=== PATIENT | female | born 1960 | race Caucasian/White ===

== ENCOUNTER → 2017-03-09 | Outpatient (CLI) | payer OTHER ==
[~2017-03-09] MED LIST: ACET-1311 PO; GRISEOFULVIN PO; QUET5TAB PO; SINUS MEDICATION; ZNTT/150 PO
--- NOTE | 2017-03-09 10:33 | DIAGNOSTIC IMAGING REPORT ---
CHEST 2 VIEWS ROUTINE HISTORY: Breast cancer. COMPARISON: PET CT 02/20/2016. FINDINGS: Linear density at the left lower lobe favors scarring or atelectasis. The lungs are otherwise clear. Subcentimeter nodules seen on the prior studies are too small to identify by this technique. The heart is normal in size. No pleural effusions. No pneumothorax. Postoperative changes consistent with bilateral breast reconstruction. IMPRESSION: No acute process. Electronically signed by: Michele Lee M.D. 03/09/2017 10:32 AM Dictated Date/Time: 03/09/2017 10:30 AM
== END | disposition home or self-care (01) ==
LOC: C.RAD 10:12
PROVIDERS: ATTEND Nurse Practitioner Family
DX: C50.919 Malignant neoplasm of unspecified site of unspecified female breast (principal)

== ENCOUNTER → 2017-08-24 | Outpatient (CLI) | payer OTHER ==
[~2017-08-24] MED LIST changes: +OPTIRAY 320 IV PRN
--- NOTE | 2017-08-24 08:43 | DIAGNOSTIC IMAGING REPORT ---
CT SCAN OF THE CHEST WITH IV CONTRAST CLINICAL HISTORY: Breast cancer. COMPARISON STUDY: Chest CT scans dated 03/10 and 06/29/2015. PET/CT dated 02/20/2016. TECHNIQUE: Following the IV administration of 93 cc of Optiray 320, CT scan of the thorax was performed from the thoracic inlet to the upper abdomen. Images are reviewed in the axial, sagittal, and coronal planes. IV contrast was administered without complication. A dose lowering technique was utilized adhering to the principles of ALARA. CT DOSE: 316.19 mGycm FINDINGS: Thyroid: Imaged portions of the thyroid gland are normal in size and attenuation. Thoracic aorta: The thoracic aorta is normal in caliber and demonstrates standard 3-vessel arch anatomy. No dissection is seen. Pulmonary vasculature: The pulmonary trunk is normal in caliber. There are no filling defects identified in the central pulmonary vessels to indicate pulmonary embolus. Note that this examination was not protocoled for evaluation of the pulmonary arteries. Heart: The heart is normal in size and configuration, and without pericardial effusion. Lungs and pleural spaces: Foci of linear atelectasis are present in the lingula. No airspace consolidation or pleural effusion is identified. The trachea and central airways are clear. A 4 mm left lower lobe pulmonary nodule is again seen on image #178. No new pulmonary nodule is identified there Mediastinum: There is no mediastinal lymphadenopathy. Lesly: Clear. Axillae: There is no axillary lymphadenopathy. Surgical clips are seen in the right axilla. Upper abdomen: Partially visualized upper abdominal viscera is within normal limits. Skeletal structures: No lytic or blastic bony lesions are seen. Soft tissues: There is evidence of bilateral mastectomy and bilateral breast implants. IMPRESSION: 1. There is no evidence of intrathoracic metastatic disease. 2. No airspace consolidation or pleural effusion is identified. 3. There is a 4 mm left lower lobe pulmonary nodule. This is unchanged from 06/29/2015 and of doubtful significance given 2 years of stability. No new pulmonary nodule is identified. 4. Additional findings as above. Electronically signed by: Jimmie Barrientos M.D. 08/24/2017 8:42 AM Dictated Date/Time: 08/24/2017 8:38 AM
== END | disposition home or self-care (01) ==
LOC: C.CTS 08:11
PROVIDERS: ATTEND Nurse Practitioner Family
DX: C50.919 Malignant neoplasm of unspecified site of unspecified female breast (principal); R91.1 Solitary pulmonary nodule

== ENCOUNTER 2023-05-18 14:22 | Inpatient (IN) ==
--- NOTE | 2023-05-18 16:06 | XRay Report ---
XR chest 1V not portable HISTORY: Chest pain, nonspecific COMPARISON: Chest CT 09/25/2022. FINDINGS: There is a new left upper lobe airspace opacity. Mild emphysema. No pneumothorax. The heart is normal in size. Surgical clips and implants again noted within the bilateral breasts. No acute fr actures identified. No evidence for pulmonary edema. IMPRESSION: A new left upper lobe airspace opacity. This likely represents a pneumonia. Follow-up chest x-ray in one to 2 months is recommended to ensure resolution. ACT 112: Negative or not required by law. Electronically signed by: Michele Lee M.D. 05/18/2023 4:05 PM
[2023-05-18 16:54] LABS: Basophils # (auto) 0.04 K/uL (0-0.2); Basophils % (auto) 0.4 %; Eosinophils % (auto) 0.9 %; Hematocrit (blood only) 41.6 % (37.0-47.0); Hemoglobin 14.4 g/dl (12.0-16.0); Immature Granulocytes # (auto) 0.06 K/uL (0.01-0.20); Immature Granulocytes % (auto) 0.5 %; Lymphocytes # (auto) 2.26 K/uL (1.2-3.4); Lymphocytes % (auto) 19.8 %; Mean Corpuscular Hgb Conc 34.6 g/dL (32.0-36.0); Mean Corpuscular Volume 89.5 fL (80.0-100.0); Mean Platelet Volume 9.3 fL (9.4-12.4); Monocytes # (auto) 0.81 K/uL (0.11-0.59); Monocytes % (auto) 7.1 %; Neutrophils # (auto) 8.12 K/uL (1.40-6.50); Neutrophils % (auto) 71.3 %; Platelet Count 374 K/uL (130-400); RDW Coefficient of Variation 12.9 % (11.5-14.5); RDW Standard Deviation 42.5 fL (36.4-46.3); Red Blood Count 4.65 M/uL (4.20-5.40); White Blood Count 11.39 K/ul (4.8-10.8)
[2023-05-18 17:16] LABS: Albumin Globulin Ratio 1.3 (0.9-2); Albumin Level 3.9 gm/dl (3.4-5.0); BUN Creatinine Ratio 19.4 (10-20); Bilirubin,Total 0.6 mg/dl (0.2-1.0); Creatinine Clr Calc Pharmacy 89.8 ml/min; Est GFR (Non-African American) 96.6 ml/min; Globulin 3.1 gm/dl (2.5-4.0); Potassium 3.8 mmol/L (3.5-5.1)
[2023-05-18 17:19] LABS: Troponin I High Sensitivity 5.6 pg/ml (0-14)
[2023-05-18 17:20] LABS: Prothrombin Time 10.6 Seconds (9.0-12.0)
--- NOTE | 2023-05-18 17:26 | Emergency Department Note ---
Impression & Plan Atypical chest pain, Left upper lobe pneumonia, Mediastinal lymphadenopathy ED Provider Note Provider: Kel Gaspar MD DATE OF SERVICE: 05/18/2023 CHIEF COMPLAINT: Left chest to shoulder pain. HISTORY OF PRESENT ILLNESS: Patient is a 62-year-old female history of breast cancer and prior breast surgery as well as distantly in 2000 for DVT presenting here today referred from the primary care office. Over the past week has been having the pain initially left breast and down the left shoulder blade to mid back moving back and forth. Maybe some fever at the office today. Denies leg swelling or recent travel. Denies abdominal symptoms. Maybe a little short of breath. Sent here to rule out PE. PAST MEDICAL HISTORY: As noted above MEDICATIONS: Reviewed home medications SOCIAL HISTORY: Smoker PHYSICAL EXAM: GENERAL: alert and oriented in no acute distress on stretcher Head: normocephalic and atraumatic EYES: No injection, discharge or icterus. NECK: Trachea midline. ENT: Mucous membranes pink and moist. LUNGS: Airway patent. No retractions with or tachypnea. HEART: Regular rate and rhythm. ABDOMEN: Soft and non-tender, without guarding or rebound. SKIN: Acyanotic, warm, dry, without rashes EXTREMITIES: Without swelling, tenderness or deformity NEUROLOGICAL: No focal deficits. No aphasia. No facial droop or slurred speech. Ambulatory. EK bpm normal sinus rhythm. No PVC or PAC. No acute ST segment elevation or depression with a QTc of 407. Patient's laboratory studies and imaging reviewed. Differential includes Cardiac ischemia, aortic dissection, pulmonary embolism, pneumothorax, pneumonia, pericarditis, myocarditis, esophageal rupture, GERD, cholecystitis, pancreatitis, musculoskeletal, as well as other pathologies. IMPRESSION/MEDICAL DECISION MAKING: Patient smoker referred with question of PE given left chest pain to shoulder. Doubt dissection. Not hypoxic here. Chest xray questions GINA consildation. Basic labs obtained. History of DVT, but no leg swelling or travel -- doubt current DVT. Sent for CTA PE for eval for PE however and/or to classify possible pneumonia. Labs with normal troponin and EKG reassuring. Doubt ACS/IN. No anemia. WBC slightly elevated but has been on steroids recently. CTA without PE but per reports shows no PE. There is evidence of mediastinal hilar lymphadenopathy concerning for metastatic disease as well as some interstitial thickening left upper lobe question pneumonia versus postradiation change versus lymphangitic tumor spread. Small pleural effusion noted. Discussed with patient findings. Will cover with antibiotics but was on prednisone last week likely explain the small leukocytosis. In discussion of the findings and the need for follow-up regarding the possible oncological suggestion here, she discussed with family and she wishes to stay for evaluation rather than go home and follow-up as an outpatient. Hospitalist contacted. DIAGNOSIS: Mediastinal lymphadenopathy, left upper lobe pneumonia, chest pain DISPOSITION: Evaluated by the hospitalist Patient was agreeable with this plan. Past Med/Surg History Social History Smoking Status: Current every day smoker Tobacco Type: Cigarettes Cigarettes Per Day: 20; Second Hand Exposure: Yes; Feels Safe at Home: Yes Allergies Allergies Allergy/AdvReac Type Severity Reaction Status Date / Time terbinafine Allergy Intermediate RASH Verified 05/18/23 18:24 adhesive Allergy Unknown HIVES AND Verified 05/18/23 18:24 RASH; WELTS FROM BANDAIDS amitriptyline Allergy Unknown Rash Verified 05/18/23 18:23 Home Meds Home Medications Medication Instructions Recorded Confirmed gabapentin 100 mg capsule 300 mg PO HS 05/18/23 05/18/23 magnesium oxide 400 mg PO QAM 05/18/23 05/18/23 multivitamin 1 tab PO DAILY 05/18/23 05/18/23 quetiapine 100 mg tablet 100 mg PO HS 05/18/23 05/18/23 riboflavin (vitamin B2) 400 mg 400 mg PO QAM 05/18/23 05/18/23 tablet Results & Data (ED) Vital Signs Vital Signs - 24 hr 05/18/23 14:35 05/18/23 16:28 05/18/23 16:38 Temperature 37.5 C Temperature Source Temporal Artery Scan Pulse Rate 106 H Pulse Rate [Radial] 98 H Respiratory Rate 20 17 Respiratory Effort / Characteristics Non-Labored Spontaneous Non-Labored Spontaneous Respiratory Depth Normal Normal Respiratory Pattern Regular Regular Blood Pressure 137/75 Blood Pressure [Right Arm] 123/76 Blood Pressure Mean 95 Blood Pressure Mean [Right Arm] 91 Blood Pressure Position [Right Arm] Pulse Oximetry 96 96 97 Oxygen Delivery Method Room Air Room Air Room Air Sepsis Recent Fever Within 48 Hours Yes Sepsis New/Unexplained Change in Mental Status No Sepsis Action Taken by Nursing No Action Required 05/18/23 16:45 05/18/23 18:00 05/18/23 19:24 Temperature Temperature Source Pulse Rate 96 H Pulse Rate [Radial] 76 93 H Respiratory Rate 17 18 Respiratory Effort / Characteristics Non-Labored Spontaneous Respiratory Depth Normal Respiratory Pattern Blood Pressure Blood Pressure [Right Arm] 123/74 133/74 Blood Pressure Mean Blood Pressure Mean [Right Arm] 90 93 Blood Pressure Position [Right Arm] Sitting Pulse Oximetry 95 93 Oxygen Delivery Method Room Air Room Air Sepsis Recent Fever Within 48 Hours Sepsis New/Unexplained Change in Mental Status Sepsis Action Taken by Nursing Laboratory Data 05/18/23 16:12 05/18/23 16:12 Lab Results 05/18/23 05/18/23 05/18/23 Range/Units 16:12 16:12 16:12 WBC 11.39 H (4.8-10.8) K/ul RBC 4.65 (4.20-5.40) M/uL Hgb 14.4 (12.0-16.0) g/dl Hct 41.6 (37.0-47.0) % MCV 89.5 (80.0-100.0) fL MCH 31.0 (25.0-34.0) pg MCHC 34.6 (32.0-36.0) g/dL RDW Std Deviation 42.5 (36.4-46.3) fL RDW Coeff of John Paul 12.9 (11.5-14.5) % Plt Count 374 (130-400) K/uL MPV 9.3 L (9.4-12.4) fL Immature Gran % (Auto) 0.5 % Neut % (Auto) 71.3 % Lymph % (Auto) 19.8 % Clayton % (Auto) 7.1 % Eos % (Auto) 0.9 % Baso % (Auto) 0.4 % Neut # (Auto) 8.12 H (1.40-6.50) K/uL Lymph # (Auto) 2.26 (1.2-3.4) K/uL Clayton # (Auto) 0.81 H (0.11-0.59) K/uL Eos # (Auto) 0.10 (0-0.50) K/uL Baso # (Auto) 0.04 (0-0.2) K/uL Immature Gran # (Auto) 0.06 (0.01-0.20) K/uL PT 10.6 (9.0-12.0) Seconds INR 1.0 (0.9-1.1) APTT 28.0 (21.0-31.0) Seconds PTT Ratio 1.0 Sodium 138 (136-145) mmol/L Potassium 3.8 (3.5-5.1) mmol/L Chloride 101 (98-107) mmol/L Carbon Dioxide 28 (21-32) mmol/L Anion Gap 9 (3-11) BUN 12 (6-23) mg/dl Creatinine 0.62 (0.6-1.2) mg/dl Est Cr Clr Drug Dosing 89.8 ml/min Est GFR ( Amer) 112.0 ml/min Est GFR (Non-Af Amer) 96.6 ml/min BUN/Creatinine Ratio 19.4 (10-20) Glucose 88 (70-99(Fasting)) mg/dl Calcium 9.0 (8.6-10.3) mg/dl Total Bilirubin 0.6 (0.2-1.0) mg/dl AST 15 (13-39) U/L ALT 17 (7-52) U/L Alkaline Phosphatase 83 (34-104) U/L Troponin I High Sens 5.6 (0-14) pg/ml Total Protein 7.0 (6.0-8.3) gm/dl Albumin 3.9 (3.4-5.0) gm/dl Globulin 3.1 (2.5-4.0) gm/dl Albumin/Globulin Ratio 1.3 (0.9-2) SARS-CoV-2, RNA, NAAT (NEGATIVE) 05/18/23 Range/Units 19:08 WBC (4.8-10.8) K/ul RBC (4.20-5.40) M/uL Hgb (12.0-16.0) g/dl Hct (37.0-47.0) % MCV (80.0-100.0) fL MCH (25.0-34.0) pg MCHC (32.0-36.0) g/dL RDW Std Deviation (36.4-46.3) fL RDW Coeff of John Paul (11.5-14.5) % Plt Count (130-400) K/uL MPV (9.4-12.4) fL Immature Gran % (Auto) % Neut % (Auto) % Lymph % (Auto) % Clayton % (Auto) % Eos % (Auto) % Baso % (Auto) % Neut # (Auto) (1.40-6.50) K/uL Lymph # (Auto) (1.2-3.4) K/uL Clayton # (Auto) (0.11-0.59) K/uL Eos # (Auto) (0-0.50) K/uL Baso # (Auto) (0-0.2) K/uL Immature Gran # (Auto) (0.01-0.20) K/uL PT (9.0-12.0) Seconds INR (0.9-1.1) APTT (21.0-31.0) Seconds PTT Ratio Sodium (136-145) mmol/L Potassium (3.5-5.1) mmol/L Chloride (98-107) mmol/L Carbon Dioxide (21-32) mmol/L Anion Gap (3-11) BUN (6-23) mg/dl Creatinine (0.6-1.2) mg/dl Est Cr Clr Drug Dosing ml/min Est GFR ( Amer) ml/min Est GFR (Non-Af Amer) ml/min BUN/Creatinine Ratio (10-20) Glucose (70-99(Fasting)) mg/dl Calcium (8.6-10.3) mg/dl Total Bilirubin (0.2-1.0) mg/dl AST (13-39) U/L ALT (7-52) U/L Alkaline Phosphatase (34-104) U/L Troponin I High Sens (0-14) pg/ml Total Protein (6.0-8.3) gm/dl Albumin (3.4-5.0) gm/dl Globulin (2.5-4.0) gm/dl Albumin/Globulin Ratio (0.9-2) SARS-CoV-2, RNA, NAAT NEGATIVE (NEGATIVE) Administered Medications Discontinued Medications Ceftriaxone Sodium (Rocephin) 2,000 mg in 70 mls @ 140 mls/hr IV NOW STA Stop: 05/18/23 19:34 Last Infusion: 05/18/23 19:47 Dose: 0 mls/hr Documented By: Admin: 05/18/23 19:16 Dose: 140 mls/hr Documented By: CC Ioversol (Ioversol 350 Mg 125ml Prefilled Syringe) 118 ml IV ONCE ONE Stop: 05/18/23 17:36 Last Admin: 05/18/23 17:36 Dose: 118 ml Documented By: MAIRA Imaging Data Radiologist's Impression: Chest X-Ray 05/18/23 14:40 XR chest 1V not portable HISTORY: Chest pain, nonspecific COMPARISON: Chest CT 09/25/2022. FINDINGS: There is a new left upper lobe airspace opacity. Mild emphysema. No pneumothorax. The heart is normal in size. Surgical clips and implants again noted within the bilateral breasts. No acute fractures identified. No evidence for pulmonary edema. IMPRESSION: A new left upper lobe airspace opacity. This likely represents a pneumonia. Follow-up chest x-ray in one to 2 months is recommended to ensure resolution. ACT 112: Negative or not required by law. Electronically signed by: Michele Lee M.D. 05/18/2023 4:05 PM Chest CTA 05/18/23 17:20 CHEST CTA for PULMONARY ARTERIES CT DOSE: 567.98 mGy.cm HISTORY: Left-sided chest pain. Shortness of breath. TECHNIQUE: Multiaxial CT images of the chest were performed following the intravenous administration of contrast to evaluate the pulmonary arteries. 3D/Maximal intensity projection images were also obtained. Sagittal and coronal reformations were also reviewed. A dose lowering technique was utilized adhering to the principles of ALARA. COMPARISON STUDY: Chest CT 09/25/2022. FINDINGS: Normal caliber thoracic aorta with no evidence for a dissection. The heart is normal in size. Trace pericardial effusion. Small left pleural effusion. Mild mass effect along the left central pulmonary arteries. However, n o filling defects within the pulmonary arteries to suggest a pulmonary embolus. Normal thyroid gland. Bilateral breast implant reconstruction is noted. Right axillary lymph node dissection. No axillary adenopathy. Limited views of the upper abdomen demonstrate a normal liver, spleen, and adrenal glands. Normal caliber esophagus. No right hilar lymphadenopathy. Multiple enlarged prevascular and left hilar lymph nodes. Dominant prevascular lymph node on image 158 measures 3.5 x 2.5 cm. These enlarged lymph nodes result in mass effect along the left main pulmonary artery. No suspicious lytic or blastic osseous lesions. Mild emphysema. Patchy areas of consolidation with interstitial thickening w ithin the left upper lobe. Left basilar linear densities favor subsegmental atelectasis from the small pleural effusion. The left upper lobe airspace opacity could be due to a pneumonia, post radiation change, or lymphangitic spread of tumor given the interstitial thickening. IMPRESSION: 1. No evidence for pulmonary embolus. 2. Left mediastinal/hilar lymphadenopathy. This concerning for metastatic disease. Pulmonary consultation recommended. 3. Patchy areas of consolidation with interstitial thickening within the left upper lobe which could be due to a pneumonia, post radiation change, or lymphangitic spread of tumor given the interstitial thickening. 4. Small left pleural effusion. ACT 112: Positive. There are findings on this exam that require communication between the performing entity and the patient following Patient Test Result Information Act ([place] Act 112) guidelines. Electronically signed by: Michele Lee M.D. 05/18/2023 6:04 PM Discharge Plan Visit Data Chief Complaint: Referred by Doctor Stated Complaint: REF BY DOC; POSSIBLE BLOOD CLOT IN LUNG ED Provider: Kel Gaspar Discharge Problem: Atypical chest pain, Left upper lobe pneumonia, Mediastinal lymphadenopathy Patient Disposition: Being Evaluated by Hospitalist Forms Stand Alone Forms: [facility] [place] Prescriptions Prescriptions: No Action quetiapine 100 mg tablet 100 mg PO HS gabapentin 100 mg capsule 300 mg PO HS riboflavin (vitamin B2) 400 mg Tablet 400 mg PO QAM multivitamin Tablet 1 tab PO DAILY magnesium oxide 400 mg magnesium Capsule 400 mg PO QAM Referrals Referrals: Carl Vargas MD [Primary Care Provider] - Left upper lobe pneumonia Qualifiers: Pneumonia type: due to unspecified organism Qualified Code(s): J18.9 - Pneumonia, unspecified organism
[2023-05-18] MEDS ORDERED: IOVERSOL 350 MG 125mL Prefilled Syringe IV ONE (17:35)
--- NOTE | 2023-05-18 18:07 | CT Scan Report ---
CHEST CTA for PULMONARY ARTERIES CT DOSE: 567.98 mGy.cm HISTORY: Left-sided chest pain. Shortness of breath. TECHNIQUE: Multiaxial CT images of the chest were performed following the intravenous administration of contrast to evaluate the pulmonary arteries. 3D/Maximal intensity projection images were also obta ined. Sagittal and coronal reformations were also reviewed. A dose lowering technique was utilized a dhering to the principles of ALARA. COMPARISON STUDY: Chest CT 09/25/2022. FINDINGS: Normal caliber thoracic aorta with no evidence for a dissection. The heart is normal in siz e. Trace pericardial effusion. Small left pleural effusion. Mild mass effect along the left central p ulmonary arteries. However, no filling defects within the pulmonary arteries to suggest a pulmonary e mbolus. Normal thyroid gland. Bilateral breast implant reconstruction is noted. Right axillary lymph node dissection. No axillary adenopathy. Limited views of the upper abdomen demonstrate a normal live r, spleen, and adrenal glands. Normal caliber esophagus. No right hilar lymphadenopathy. Multiple enl arged prevascular and left hilar lymph nodes. Dominant prevascular lymph node on image 158 measures 3 .5 x 2.5 cm. These enlarged lymph nodes result in mass effect along the left main pulmonary artery. N o suspicious lytic or blastic osseous lesions. Mild emphysema. Patchy areas of consolidation with int erstitial thickening within the left upper lobe. Left basilar linear densities favor subsegmental ate lectasis from the small pleural effusion. The left upper lobe airspace opacity could be due to a pneu monia, post radiation change, or lymphangitic spread of tumor given the interstitial thickening. IMPRESSION: 1. No evidence for pulmonary embolus. 2. Left mediastinal/hilar lymphadenopathy. This concerning for metastatic disease. Pulmonary consulta tion recommended. 3. Patchy areas of consolidation with interstitial thickening within the left upper lobe which could be due to a pneumonia, post radiation change, or lymphangitic spread of tumor given the interstitial thickening. 4. Small left pleural effusion. ACT 112: Positive. There are findings on this exam that require communication between the performing entity and the patient following Patient Test Result Information Act ([place] Act 112) guidelines. Electronically signed by: Michele Lee M.D. 05/18/2023 6:04 PM
[2023-05-18] MEDS ORDERED: cefTRIAXone SODIUM 2,000 MG/70 ML BAG IV STA (19:05)
--- NOTE | 2023-05-18 20:31 | History & Physical Report ---
Date of Service May 18, 2023 Assessment & Plan (1) Atypical chest pain: Plan: 62-year-old female with past medical significant for breast cancer status post bilateral mastectomy and radiation treatment and not interested in chemo, generalized osteoarthritis, meningioma, migraines ongoing tobacco abuse presents with shortness of breath and cough. Chest pain More on taking deep breath Dyspnea exertion CT chest 1. No evidence for pulmonary embolus. 2. Left mediastinal/hilar lymphadenopathy. This concerning for metastatic disease. Pulmonary consultation recommended. 3. Patchy areas of consolidation with interstitial thickening within the left upper lobe which could be due to a pneumonia, post radiation change, or lymphangitic spread of tumor given the interstitial thickening. 4. Small left pleural effusion. Empiric antibiotics IV Rocephin and Doxy Pulmonary consult Oncology consult Nebs as needed We will also get serial cardiac enzymes and echo Possible pneumonia Antibiotics as above History of breast cancer Lung lesions as above on CAT scan Oncology consulted Tobacco abuse Needs counseling History of migraines Home meds History of meningioma Follows with neurosurgery DVT prophylaxis Lovenox Disposition med/telemetry Full code (2) Left upper lobe pneumonia: (3) Mediastinal lymphadenopathy: (4) Breast cancer: History of Present Illness Chief Complaint: Shortness of breath Primary Care Provider: Carl Vargas MD 62-year-old female with past medical significant for breast cancer status post bilateral mastectomy and radiation treatment and not interested in chemo, generalized osteoarthritis, meningioma, migraines ongoing tobacco abuse presents with shortness of breath and cough. Recently CTA neck which showed focal groundglass opacity and nodular septal thickening in the left anterior upper lobe suspicious for lymphatic spread of tumor with associated mediastinal and left hilar lymphadenopathy. There is plan to get CT chest. She went to see PCP for ongoing exertional shortness of breath for 1 week and left-sided chest pain with deep breaths and sometimes with movement and she was sent to ER to rule out PE. Currently resting comfortably and hemodynamically stable. Daughter was in the room. She has s history of migraines and as some headache now. No earache runny nose or sore throat. Has chronic cough. Denies any fevers. No nausea vomiting. Appetite is good. No abdominal pain. Normal bowel and bladder movements. Past medical history as mentioned above Past surgical history bilateral mastectomy and breast reconstruction surgeries , biopsy of the left thigh. Family history aunt breast cancer, mother has cancer, father has cancer, paternal grandmother cancer Allergies Allergy/AdvReac Type Severity Reaction Status Date / Time terbinafine Allergy Intermediate RASH Verified 05/18/23 18:24 adhesive Allergy Unknown HIVES AND Verified 05/18/23 18:24 RASH; WELTS FROM BANDAIDS amitriptyline Allergy Unknown Rash Verified 05/18/23 18:23 Home Medications Medication Instructions Recorded Confirmed Type gabapentin 100 mg capsule 300 mg PO HS 05/18/23 05/18/23 History magnesium oxide 400 mg PO QAM 05/18/23 05/18/23 History multivitamin 1 tab PO DAILY 05/18/23 05/18/23 History quetiapine 100 mg tablet 100 mg PO HS 05/18/23 05/18/23 History riboflavin (vitamin B2) 400 mg 400 mg PO QAM 05/18/23 05/18/23 History tablet Past Med/Surg History Social History Smoking Status: Current every day smoker Tobacco Type: Cigarettes Cigarettes Per Day: 20; Second Hand Exposure: Yes; Feels Safe at Home: Yes Review of Systems Review of Systems: All systems reviewed & are unremarkable except as noted in Subjective Physical Exam Physical Exam: General- Not in distress Head- atraumatic Eyes- PERRLA ENT- oropharynx clear Neck- supple, no JVD Lungs- clear to auscultation and percussion Heart- regular rhythm; no murmur, no gallop, no rub appreciated Abdomen- normal bowel sounds, soft, nontender, no distension Extremities- no pretibial edema, no erythema. Neuro- alert, oriented x 3; PERRL, EOMI; no facial palsy; no dysarthria; non focal. Skin- warm & dry Results & Data Results & Data Vital Signs (Past 12 Hours) Vital Signs Temp Pulse Pulse Resp BP BP Pulse Ox 05/18/23 19:24 93 H 18 133/74 93 05/18/23 18:00 76 17 123/74 95 05/18/23 16:45 96 H 05/18/23 16:38 98 H 17 123/76 97 05/18/23 16:28 96 05/18/23 14:35 37.5 C 106 H 20 137/75 96 O2 Del Method 05/18/23 19:24 Room Air 05/18/23 18:00 Room Air 05/18/23 16:45 05/18/23 16:38 Room Air 05/18/23 16:28 Room Air 05/18/23 14:35 Room Air Diagnostic Findings Laboratory Results WBC 11.39 K/ul (4.8-10.8) H 05/18/23 16:12 RBC 4.65 M/uL (4.20-5.40) 05/18/23 16:12 Hgb 14.4 g/dl (12.0-16.0) 05/18/23 16:12 Hct 41.6 % (37.0-47.0) 05/18/23 16:12 MCV 89.5 fL (80.0-100.0) 05/18/23 16:12 MCH 31.0 pg (25.0-34.0) 05/18/23 16:12 MCHC 34.6 g/dL (32.0-36.0) 05/18/23 16:12 RDW Std Deviation 42.5 fL (36.4-46.3) 05/18/23 16:12 RDW Coeff of John Paul 12.9 % (11.5-14.5) 05/18/23 16:12 Plt Count 374 K/uL (130-400) 05/18/23 16:12 MPV 9.3 fL (9.4-12.4) L 05/18/23 16:12 Immature Gran % (Auto) 0.5 % 05/18/23 16:12 Neut % (Auto) 71.3 % 05/18/23 16:12 Lymph % (Auto) 19.8 % 05/18/23 16:12 [place] % (Auto) 7.1 % 05/18/23 16:12 Eos % (Auto) 0.9 % 05/18/23 16:12 Baso % (Auto) 0.4 % 05/18/23 16:12 Neut # (Auto) 8.12 K/uL (1.40-6.50) H 05/18/23 16:12 Lymph # (Auto) 2.26 K/uL (1.2-3.4) 05/18/23 16:12 [place] # (Auto) 0.81 K/uL (0.11-0.59) H 05/18/23 16:12 Eos # (Auto) 0.10 K/uL (0-0.50) 05/18/23 16:12 Baso # (Auto) 0.04 K/uL (0-0.2) 05/18/23 16:12 Immature Gran # (Auto) 0.06 K/uL (0.01-0.20) 05/18/23 16:12 PT 10.6 Seconds (9.0-12.0) 05/18/23 16:12 INR 1.0 (0.9-1.1) 05/18/23 16:12 APTT 28.0 Seconds (21.0-31.0) 05/18/23 16:12 PTT Ratio 1.0 05/18/23 16:12 Sodium 138 mmol/L (136-145) 05/18/23 16:12 Potassium 3.8 mmol/L (3.5-5.1) 05/18/23 16:12 Chloride 101 mmol/L (98-107) 05/18/23 16:12 Carbon Dioxide 28 mmol/L (21-32) 05/18/23 16:12 Anion Gap 9 (3-11) 05/18/23 16:12 BUN 12 mg/dl (6-23) 05/18/23 16:12 Creatinine 0.62 mg/dl (0.6-1.2) 05/18/23 16:12 Est Cr Clr Drug Dosing 89.8 ml/min 05/18/23 16:12 Est GFR ( Amer) 112.0 ml/min 05/18/23 16:12 Est GFR (Non-Af Amer) 96.6 ml/min 05/18/23 16:12 BUN/Creatinine Ratio 19.4 (10-20) 05/18/23 16:12 Glucose 88 mg/dl (70-99(Fasting)) 05/18/23 16:12 Calcium 9.0 mg/dl (8.6-10.3) 05/18/23 16:12 Total Bilirubin 0.6 mg/dl (0.2-1.0) 05/18/23 16:12 AST 15 U/L (13-39) 05/18/23 16:12 ALT 17 U/L (7-52) 05/18/23 16:12 Alkaline Phosphatase 83 U/L (34-104) 05/18/23 16:12 Troponin I High Sens 5.6 pg/ml (0-14) 05/18/23 16:12 Total Protein 7.0 gm/dl (6.0-8.3) 05/18/23 16:12 Albumin 3.9 gm/dl (3.4-5.0) 05/18/23 16:12 Globulin 3.1 gm/dl (2.5-4.0) 05/18/23 16:12 Albumin/Globulin Ratio 1.3 (0.9-2) 05/18/23 16:12 SARS-CoV-2, RNA, NAAT NEGATIVE (NEGATIVE) 05/18/23 19:08 Impressions Chest X-Ray 05/18/23 14:40 XR chest 1V not portable HISTORY: Chest pain, nonspecific COMPARISON: Chest CT 09/25/2022. FINDINGS: There is a new left upper lobe airspace opacity. Mild emphysema. No pneumothorax. The heart is normal in size. Surgical clips and implants again noted within the bilateral breasts. No acute fractures identified. No evidence for pulmonary edema. IMPRESSION: A new left upper lobe airspace opacity. This likely represents a pneumonia. Follow-up chest x-ray in one to 2 months is recommended to ensure resolution. ACT 112: Negative or not required by law. Electronically signed by: Michele Lee M.D. 05/18/2023 4:05 PM Chest CTA 05/18/23 17:20 CHEST CTA for PULMONARY ARTERIES CT DOSE: 567.98 mGy.cm HISTORY: Left-sided chest pain. Shortness of breath. TECHNIQUE: Multiaxial CT images of the chest were performed following the intravenous administration of contrast to evaluate the pulmonary arteries. 3D/Maximal intensity projection images were also obtained. Sagittal and coronal reformations were also reviewed. A dose lowering technique was utilized adhering to the principles of ALARA. COMPARISON STUDY: Chest CT 09/25/2022. FINDINGS: Normal caliber thoracic aorta with no evidence for a dissection. The heart is normal in size. Trace pericardial effusion. Small left pleural effusion. Mild mass effect along the left central pulmonary arteries. However, no filling defects within the pulmonary arteries to suggest a pulmonary embolus. Normal thyroid gland. Bilateral breast implant reconstruction is noted. Right axillary lymph node dissection. No axillary adenopathy. Limited views of the upper abdomen demonstrate a normal liver, spleen, and adrenal glands. Normal caliber esophagus. No right hilar lymphadenopathy. Multiple enlarged prevascular and left hilar lymph nodes. Dominant prevascular lymph node on image 158 measures 3.5 x 2.5 cm. These enlarged lymph nodes result in mass effect along the left main pulmonary artery. No suspicious lytic or blastic osseous lesions. Mild emphysema. Patchy areas of consolidation with interstitial thickening within the left upper lobe. Left basilar linear densities favor subsegmental atelectasis from the small pleural effusion. The left upper lobe airspace opacity could be due to a pneumonia, post radiation change, or lymphangitic spread of tumor given the interstitial thickening. IMPRESSION: 1. No evidence for pulmonary embolus. 2. Left mediastinal/hilar lymphadenopathy. This concerning for metastatic disease. Pulmonary consultation recommended. 3. Patchy areas of consolidation with interstitial thickening within the left upper lobe which could be due to a pneumonia, post radiation change, or lymphangitic spread of tumor given the interstitial thickening. 4. Small left pleural effusion. ACT 112: Positive. There are findings on this exam that require communication between the performing entity and the patient following Patient Test Result Information Act ([place] Act 112) guidelines. Electronically signed by: Michele Lee M.D. 05/18/2023 6:04 PM ECG Additional Comments: ECG normal sinus rhythm rate of 100 no acute distress seen Code Status & VTE Plan VTE Prophylaxis Plan VTE Prophylaxis will be ordered: Yes (2) Left upper lobe pneumonia Pneumonia type: due to unspecified organism Qualified Code(s): J18.9 - Pneumonia, unspecified organism
[2023-05-18] MEDS ORDERED: NITROGLYCERIN SL 0.4 MG/TAB TAB SL PRN (20:51)
[2023-05-18] MEDS ORDERED: ENOXAPARIN INJ 40 MG/0.4 ML SYR SQ SCH (21:00)
[2023-05-18] MEDS: DOXYCYCLINE HYCLATE 100 MG in DEXTROSE 5% 100 ML IV SCH (21:29)
[2023-05-18] MEDS: GABAPENTIN 300 MG CAP PO SCH (21:29)
[2023-05-18] MEDS: QUEtiapine FUMARATE 100 MG TABLET PO SCH (21:29)
[2023-05-18] MEDS: ACETAMINOPHEN 325 MG TAB PO PRN (21:32)
[2023-05-19 06:39] LABS: Basophils # (auto) 0.04 K/uL (0-0.2); Basophils % (auto) 0.4 %; Eosinophils # (auto) 0.17 K/uL (0-0.50); Eosinophils % (auto) 1.8 %; Hematocrit (blood only) 40.7 % (37.0-47.0); Hemoglobin 14.1 g/dl (12.0-16.0); Immature Granulocytes # (auto) 0.04 K/uL (0.01-0.20); Immature Granulocytes % (auto) 0.4 %; Lymphocytes # (auto) 2.35 K/uL (1.2-3.4); Lymphocytes % (auto) 24.9 %; Mean Corpuscular Hemoglobin 31.1 pg (25.0-34.0); Mean Corpuscular Hgb Conc 34.6 g/dL (32.0-36.0); Mean Corpuscular Volume 89.6 fL (80.0-100.0); Mean Platelet Volume 9.4 fL (9.4-12.4); Monocytes # (auto) 0.89 K/uL (0.11-0.59); Monocytes % (auto) 9.4 %; Neutrophils # (auto) 5.95 K/uL (1.40-6.50); Neutrophils % (auto) 63.1 %; Platelet Count 322 K/uL (130-400); RDW Standard Deviation 42.9 fL (36.4-46.3); Red Blood Count 4.54 M/uL (4.20-5.40); White Blood Count 9.44 K/ul (4.8-10.8)
[2023-05-19 06:51] LABS: BUN Creatinine Ratio 20.7 (10-20); Calcium 8.8 mg/dl (8.6-10.3); Est GFR (African American) 114.5 ml/min; Est GFR (Non-African American) 98.8 ml/min; Magnesium 2.2 mg/dl (1.7-2.4); Potassium 4.1 mmol/L (3.5-5.1)
[2023-05-19] MEDS ORDERED: NON-FORMULARY MEDICATION (Riboflavin (Vitamin B2) 400 mg Tablet) PO SCH (09:00)
[2023-05-19] MEDS: MAGNESIUM OXIDE 400 MG TAB PO SCH (09:35)
[2023-05-19] MEDS: DOXYCYCLINE HYCLATE 100 MG in DEXTROSE 5% 100 ML IV SCH (09:35)
[2023-05-19] MEDS: cefTRIAXone SODIUM 1,000 MG in DEXTROSE 5% AD-VAN 50 ML IV SCH (09:35)
[2023-05-19] MEDS: MULTIVITAMIN TAB PO SCH (09:35)
--- NOTE | 2023-05-19 11:28 | Electrocardiogram Report ---
Test Reason : Blood Pressure : / mmHG Vent. Rate : 100 BPM Atrial Rate : 100 BPM P-R Int : 128 ms QRS Dur : 076 ms QT Int : 316 ms P-R-T Axes : 087 089 077 degrees QTc Int : 407 ms Normal sinus rhythm Left atrial enlargement Borderline ECG No previous ECGs available Confirmed by Tab Anne ([id number]) on 05/19/2023 11:27:50 AM Referred By: Confirmed By:Tab Anne
[2023-05-19] MEDS: DOXYCYCLINE HYCLATE 100 MG CAP PO SCH ×2 (14:29→23:58)
--- NOTE | 2023-05-19 15:16 | Pulmonary Consultation ---
Date of Consultation May 19, 2023 Assessment & Plan (1) Atypical chest pain: (2) Mediastinal lymphadenopathy: I spent a significant amount of time with the patient and her family and showed them the images of her CT scan. I was able to contrast that with a CAT scan just 8 months ago September 25, 2022. She was having serial CT scans for follow- up for some centimeter nodules on the right. This time there is a dramatic change with masses impinging on the left pulmonary artery and pretty vascular. There is also masslike lesions in the lung in the left upper lung with some areas that are suggestive of lymphangitic spread of tumor. They certainly could represent infection though with the compression of the pulmonary artery this seems less likely. Among other differentials include radiation. Her last radiation was 2013 so 9 years ago. It could be a delayed response. But it occurred so suddenly and the symptoms occurred so suddenly and the mass like lesions that are compressing the pulmonary artery do not seem consistent with a radiation pneumonitis. I offered the patient a bronchoscopy with a bronchoalveolar lavage in order to get the cytology. If that is negative then she has several options including attempt again with a trans thoracic needle aspiration with endoscopic ultrasound. Some of the airways look narrowed so perhaps ultrasound could guide biopsy. Thoracoscopy is also an option. Transthoracic needle aspiration at least anteriorly is also potential. But again that could have a false negative return if there is necrotic debris rather than malignant cells recovered. The patient will decide whether or not she wants this. Also in consideration is what she will do with the results. This is not likely a surgically resectable lesion if this is malignant especially with the invasion of the great vessels. The patient does not believe in chemotherapy so that would not be an option and radiation again may be limited with regards to her total dosing over time but should be explored. She also mentioned that she knew that smoking would kill her and she is not willing to quit. 1. Neurologic: The patient recently had a head CT scan and on the head CT scan T scan was noted to have a pulmonary lesion. Ironically she was supposed to have a CT scan tomorrow as an outpatient. But she presented to the hospital because of her respiratory symptoms as above. She remains on her home Neurontin and Seroquel. 2. Cardiac: Concern for pulmonary hypertension with the obstruction of her left pulmonary artery. Currently she is hemodynamically stable and free of arrhythmias. 3. Pulmonary: I am offering the patient a bronchoscopy with bronchoalveolar lavage. She will decide whether or not she wants that and can let me know tomorrow but she will need to remain n.p.o. after midnight and be off of subcutaneous anticoagulation. I am not expecting to do a biopsy unless there is some endobronchial lesion that is obvious. There may be some compression of her left bronchus as well. Fortunately she is on room air. She is now getting antibiotics in case there is a component of bacterial infection. We could check a procalcitonin level which is reasonable. Treatment for atypicals and postobstructive process is also reasonable. Fungal infection is as well on the differential. 4. GI. N.p.o. after midnight if she wants a bronchoscopy. 5. Renal: No active issues and her electrolytes are within normal limits. 6. ID: She is on ceftriaxone and doxycycline and those are reasonable to continue. 7. Heme: Hold any anticoagulation if she wants a procedure. Right now her hematocrit white count and platelets are normal. Her INR is 1.0. 8. Endocrine. No active issues. Thank you for providing me the opportunity to participate in the care of your patient. Please let me know the status by tomorrow afternoon if the patient wants to pursue a bronchoscopy. (3) Breast cancer: History of Present Illness Reason for Consultation: Assess left upper lung mass and left upper lung infiltrate. Attending Physician: Marty Arnold MD History of Present Illness The patient has a longstanding history of battling breast cancer. She had her first episode in 2007 where she underwent a right biopsy and lumpectomy followed by radiation. The similar process occurred in 2013 on the left. She had then a recurrence on the right in 2015 where she underwent a bilateral mastectomy with subsequent breast implantation for reconstruction. She has been following with medical care with periodic CT scans. A CT scan in September 2022 was relatively clear aside from some centimeter nodules and chronic bronchial wall thickening with COPD. Now she presents with 1 week of severe pain radiating to her left implant and shoulder and back and all around her hemothorax. A CT scan of her chest here shows no pulmonary embolism but multiple areas of consolidation with masslike appearance in her mediastinum and also in the parenchyma. But there is also concern of lymphangitic spread of tumor in her left upper lung. There may be a component of postobstructive process. At home this process has been going on for about a week. She presented to her doctor who gave her a course of steroids for 5 days which did not affect her symptoms. She developed some worsening shortness of breath and for the past week has been having some orthopnea. Her physician then recommended she go to the hospital. Allergies Allergy/AdvReac Type Severity Reaction Status Date / Time terbinafine Allergy Intermediate RASH Verified 05/18/23 18:24 adhesive Allergy Unknown HIVES AND Verified 05/18/23 18:24 RASH; WELTS FROM BANDAIDS amitriptyline Allergy Unknown Rash Verified 05/18/23 18:23 Home Medications Medication Instructions Recorded Confirmed Type gabapentin 100 mg capsule 300 mg PO HS 05/18/23 05/18/23 History magnesium oxide 400 mg PO QAM 05/18/23 05/18/23 History multivitamin 1 tab PO DAILY 05/18/23 05/18/23 History quetiapine 100 mg tablet 100 mg PO HS 05/18/23 05/18/23 History riboflavin (vitamin B2) 400 mg 400 mg PO QAM 05/18/23 05/18/23 History tablet Patient History Social History Smoking Status: Current every day smoker Tobacco Type: Cigarettes Cigarettes Per Day: 20; Second Hand Exposure: Yes; Do You Dip or Chew Tobacco: No; Tobacco Cessation Education Requested by Patient: No Hx Alcohol Use: Yes Hx Substance Use: No Preferred Language: Kinyarwanda Communication Ability: Effective Fitting Room Associate Required: No Beliefs That Will Affect Care: None Current Living Situation: Spouse Other Information That Helps Us Care for You: No Feels Safe at Home: Yes Safety Concerns: Feels Safe At This Time Assistive Devices: None Immunizations: The patient had a past surgical history of bilateral mastectomies in 2016 followed subsequently by reconstructive bilateral breast implants for reconstruction. She also had a 39 years ago. Past medical history: She denies any history of COPD or asthma or pneumonia. She never had an NH or colitis. She has never had autoimmune disease. Her breast cancer history as above. She had radiation to her right in 2007 and then to the left in 2013. She has multiple times declined chemotherapy as she does not believe in it. Habits: The patient continues to smoke 1 pack a day and has done so since the age of 11. She denies significant alcohol intake or any illicit drug intake of any kind. 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 Social history: She is and has 1 adult daughter. They were present at the time of the interview. Review of Systems Review of Systems: She denies any headache or cough or phlegm production or hemoptysis or hematemesis. She has a significant chest discomfort and taking a big breath cause her to cough. No abdominal pain nausea vomiting or diarrhea. No skin rashes or arthritis. No substernal chest pain arm or jaw pain. But there is pain radiating to her back and shoulder. Physical Exam Physical Exam: She is awake alert and interactive. She has a raspy cough but is not able to produce any phlegm. Neck is supple without adenopathy lungs are relatively clear bilaterally without evidence of consolidation particularly in her left upper lung heart is regular rate and rhythm without murmurs of the gallops abdomen is soft nontender without hepatosplenomegaly. She has bilateral breast implants which are intact. Extremities without clubbing cyanosis or edema. She is coherent and able to participate in the discussion and make her own decisions. Results & Data Results & Data Vital Signs (Past 12 Hours) Vital Signs Temp Pulse Pulse Resp BP Pulse Ox O2 Del Method 05/19/23 07:28 37.1 C 88 18 109/66 94 Room Air 05/19/23 07:11 93 H 05/19/23 03:55 36.6 C 88 18 103/67 96 Room Air Laboratory Results Laboratory Results WBC 9.44 K/ul (4.8-10.8) 05/19/23 05:25 RBC 4.54 M/uL (4.20-5.40) 05/19/23 05:25 Hgb 14.1 g/dl (12.0-16.0) 05/19/23 05:25 Hct 40.7 % (37.0-47.0) 05/19/23 05:25 MCV 89.6 fL (80.0-100.0) 05/19/23 05:25 MCH 31.1 pg (25.0-34.0) 05/19/23 05:25 MCHC 34.6 g/dL (32.0-36.0) 05/19/23 05:25 RDW Std Deviation 42.9 fL (36.4-46.3) 05/19/23 05:25 RDW Coeff of John Paul 13.0 % (11.5-14.5) 05/19/23 05:25 Plt Count 322 K/uL (130-400) 05/19/23 05:25 MPV 9.4 fL (9.4-12.4) 05/19/23 05:25 Immature Gran % (Auto) 0.4 % 05/19/23 05:25 Neut % (Auto) 63.1 % 05/19/23 05:25 Lymph % (Auto) 24.9 % 05/19/23 05:25 Fajardo % (Auto) 9.4 % 05/19/23 05:25 Eos % (Auto) 1.8 % 05/19/23 05:25 Baso % (Auto) 0.4 % 05/19/23 05:25 Neut # (Auto) 5.95 K/uL (1.40-6.50) 05/19/23 05:25 Lymph # (Auto) 2.35 K/uL (1.2-3.4) 05/19/23 05:25 Fajardo # (Auto) 0.89 K/uL (0.11-0.59) H 05/19/23 05:25 Eos # (Auto) 0.17 K/uL (0-0.50) 05/19/23 05:25 Baso # (Auto) 0.04 K/uL (0-0.2) 05/19/23 05:25 Immature Gran # (Auto) 0.04 K/uL (0.01-0.20) 05/19/23 05:25 PT 10.6 Seconds (9.0-12.0) 05/18/23 16:12 INR 1.0 (0.9-1.1) 05/18/23 16:12 APTT 28.0 Seconds (21.0-31.0) 05/18/23 16:12 PTT Ratio 1.0 05/18/23 16:12 Sodium 140 mmol/L (136-145) 05/19/23 05:25 Potassium 4.1 mmol/L (3.5-5.1) 05/19/23 05:25 Chloride 105 mmol/L (98-107) 05/19/23 05:25 Carbon Dioxide 28 mmol/L (21-32) 05/19/23 05:25 Anion Gap 7 (3-11) 05/19/23 05:25 BUN 12 mg/dl (6-23) 05/19/23 05:25 Creatinine 0.58 mg/dl (0.6-1.2) L 05/19/23 05:25 Est Cr Clr Drug Dosing 95.0 ml/min 05/19/23 05:25 Est GFR ( Amer) 114.5 ml/min 05/19/23 05:25 Est GFR (Non-Af Amer) 98.8 ml/min 05/19/23 05:25 BUN/Creatinine Ratio 20.7 (10-20) H 05/19/23 05:25 Glucose 97 mg/dl (70-99(Fasting)) 05/19/23 05:25 Calcium 8.8 mg/dl (8.6-10.3) 05/19/23 05:25 Magnesium 2.2 mg/dl (1.7-2.4) 05/19/23 05:25 Total Bilirubin 0.6 mg/dl (0.2-1.0) 05/18/23 16:12 AST 15 U/L (13-39) 05/18/23 16:12 ALT 17 U/L (7-52) 05/18/23 16:12 Alkaline Phosphatase 83 U/L (34-104) 05/18/23 16:12 Troponin I High Sens 4.0 pg/ml (0-14) 05/19/23 05:25 Total Protein 7.0 gm/dl (6.0-8.3) 05/18/23 16:12 Albumin 3.9 gm/dl (3.4-5.0) 05/18/23 16:12 Globulin 3.1 gm/dl (2.5-4.0) 05/18/23 16:12 Albumin/Globulin Ratio 1.3 (0.9-2) 05/18/23 16:12 SARS-CoV-2, RNA, NAAT NEGATIVE (NEGATIVE) 05/18/23 19:08 Impressions Chest X-Ray 05/18/23 14:40 XR chest 1V not portable HISTORY: Chest pain, nonspecific COMPARISON: Chest CT 09/25/2022. FINDINGS: There is a new left upper lobe airspace opacity. Mild emphysema. No pneumothorax. The heart is normal in size. Surgical clips and implants again noted within the bilateral breasts. No acute fractures identified. No evidence for pulmonary edema. IMPRESSION: A new left upper lobe airspace opacity. This likely represents a pneumonia. Follow-up chest x-ray in one to 2 months is recommended to ensure resolution. ACT 112: Negative or not required by law. Electronically signed by: Michele Lee M.D. 05/18/2023 4:05 PM Chest CTA 05/18/23 17:20 CHEST CTA for PULMONARY ARTERIES CT DOSE: 567.98 mGy.cm HISTORY: Left-sided chest pain. Shortness of breath. TECHNIQUE: Multiaxial CT images of the chest were performed following the intravenous administration of contrast to evaluate the pulmonary arteries. 3D/Maximal intensity projection images were also obtained. Sagittal and coronal reformations were also reviewed. A dose lowering technique was utilized adhering to the principles of ALARA. COMPARISON STUDY: Chest CT 09/25/2022. FINDINGS: Normal caliber thoracic aorta with no evidence for a dissection. The heart is normal in size. Trace pericardial effusion. Small left pleural effusion. Mild mass effect along the left central pulmonary arteries. However, no filling defects within the pulmonary arteries to suggest a pulmonary embolus. Normal thyroid gland. Bilateral breast implant reconstruction is noted. Right axillary lymph node dissection. No axillary adenopathy. Limited views of the upper abdomen demonstrate a normal liver, spleen, and adrenal glands. Normal caliber esophagus. No right hilar lymphadenopathy. Multiple enlarged prevascular and left hilar lymph nodes. Dominant prevascular lymph node on image 158 measures 3.5 x 2.5 cm. These enlarged lymph nodes result in mass effect along the left main pulmonary artery. No suspicious lytic or blastic osseous lesions. Mild emphysema. Patchy areas of consolidation with interstitial thickening within the left upper lobe. Left basilar linear densities favor subsegmental atelectasis from the small pleural effusion. The left upper lobe airspace opacity could be due to a pneumonia, post radiation change, or lymphangitic spread of tumor given the interstitial thickening. IMPRESSION: 1. No evidence for pulmonary embolus. 2. Left mediastinal/hilar lymphadenopathy. This concerning for metastatic disease. Pulmonary consultation recommended. 3. Patchy areas of consolidation with interstitial thickening within the left upper lobe which could be due to a pneumonia, post radiation change, or lymphangitic spread of tumor given the interstitial thickening. 4. Small left pleural effusion. ACT 112: Positive. There are findings on this exam that require communication between the performing entity and the patient following Patient Test Result Information Act ([place] Act 112) guidelines. Electronically signed by: Michele Lee M.D. 05/18/2023 6:04 PM Medications Administered Current Inpatient Medications Acetaminophen (Acetaminophen 325 Mg Tab) 650 mg PO Q4H PRN PRN Reason: Pain or Fever Stop: 06/17/23 20:50 Last Admin: 05/18/23 21:32 Dose: 650 mg Doxycycline Hyclate (Doxycycline Hyclate 100 Mg Cap) 100 mg PO BID PAT Stop: 05/26/23 12:59 Last Admin: 05/19/23 14:29 Dose: 100 mg Enoxaparin Sodium (Enoxaparin Inj 40 Mg/0.4 Ml Syr) 40 mg SQ Q24H PAT Stop: 06/17/23 20:59 Last Admin: 05/18/23 21:28 Dose: 40 mg Gabapentin (Gabapentin 300 Mg Cap) 300 mg PO HS PAT Stop: 06/17/23 20:59 Last Admin: 05/18/23 21:29 Dose: 300 mg Ceftriaxone Sodium 1,000 mg/ (Dextrose) 50 mls @ 100 mls/hr IV Q24H PAT; Protocol Stop: 05/26/23 08:59 Last Infusion: 05/19/23 10:29 Dose: Infused Magnesium Oxide (Magnesium Oxide 400 Mg Tab) 400 mg PO QAM PAT Stop: 06/18/23 08:59 Last Admin: 05/19/23 09:35 Dose: 400 mg Multivitamins (Multivitamin Tab) 1 tab PO DAILY PAT Stop: 06/18/23 08:59 Last Admin: 05/19/23 09:35 Dose: 1 tab Nitroglycerin (Nitroglycerin Sl 0.4 Mg/Tab Tab) 0.4 mg SL Q5M PRN PRN Reason: Chest Pain Stop: 06/17/23 20:50 Quetiapine Fumarate (Quetiapine Fumarate 100 Mg Tablet) 100 mg PO HS PAT Stop: 06/17/23 20:59 Last Admin: 05/18/23 21:29 Dose: 100 mg PG Care Time/CCT Total # of Minutes Spent Total Time Spent with Patient: Total time spent is greater than 50% in coordination of care (as documented) at patient's floor/unit and/or counseling patient: Coding Level of Care Code 93827 IN/OBS CONSULT LVL 3,45M History Problem Focused Exam Problem Focused Diagnoses Atypical chest pain R07.89 Mediastinal lymphadenopathy R59.0 Breast cancer C50.919 Time Spent (min) 45
--- NOTE | 2023-05-19 16:11 | Hospitalist Progress Note ---
Date of Service May 19, 2023 Assessment & Plan (1) Atypical chest pain: (2) Left upper lobe pneumonia: (3) Mediastinal lymphadenopathy: (4) Breast cancer: Plan 62-year-old female with past medical significant for breast cancer status post bilateral mastectomy and radiation treatment and not interested in chemo, generalized osteoarthritis, meningioma, migraines ongoing tobacco abuse presents with shortness of breath and cough. Mediastinal lymphadenopathy Atypical chest pain Possible pneumonia CT chest personally reviewed 1. No evidence for pulmonary embolus. 2. Left mediastinal/hilar lymphadenopathy. This concerning for metastatic disease. Pulmonary consultation recommended. 3. Patchy areas of consolidation with interstitial thickening within the left upper lobe which could be due to a pneumonia, post radiation change, or lymp hangitic spread of tumor given the interstitial thickening. 4. Small left pleural effusion. EKG personally reviewed- Normal sinus rhythm; no ST or T wave changes. Echocardiogram results reviewed; EF greater than 70%. Trace to small loculated pericardial effusion adjacent to right ventricle. Started on ceftriaxone and doxycycline for possible superimposed pneumonia Discussed with pulmonology; see pulmonology note for further details. We will keep her n.p.o. from midnight for possible bronchoscopy. Patient is undecided if she wants to undergo bronchoscopy. Lovenox on hold Discussed with oncology;. Patient is known to the oncology service here. Awaiting recommendation. History of breast cancer Lung lesions as above on CAT scan Oncology consulted Tobacco abuse Needs counseling History of migraines Denies any headache. Continue home meds. History of meningioma Follows with neurosurgery DVT prophylaxis Lovenox on hold Disposition med/telemetry Full code Time spent evaluating patient, direct bedside care, chart review, placing orders, interpretation of diagnostic studies, discussion with consultants, patient, and family members, as well as other required patient management activities is 60 minutes. Please note the above document was generated using voice recognition software. It may contain grammatical, syntax or spelling errors. Any formal questions or concerns about the content, text or information contained within the body of this dictation should be directly addressed to the provider for clarification Admission and Anticipated Discharge Date Admission Date: May 18, 2023 Subjective Patient seen and examined at bedside. She is comfortably lying on the bed; not in distress. She reports that her shortness of breath has improved compared to admission. Review of Systems Review of Systems: All systems reviewed & are unremarkable except as noted in Subjective Physical Exam Physical Exam: Constitutional: WD/WN, vitals as above, NAD, sitting up in bed, pleasant, conversing easily Respiratory: normal respiratory effort, lungs clear to auscultation, no wheeze, rales, rhonchi. Normal insp/exp effort, no accessory muscle use Cardiovascular: RRR, no murmur, no edema Vessels: no JVD or carotid bruit Chest: normal inspection of chest Abdomen: normal bowel sounds, soft, nontender, no hepatosplenomegaly Musculoskeletal: no cyanosis or clubbing, extremities motor strength 5/5 Skin: no rashes, warm and dry normal turgor Neurologic: PERRL, EOMI, accommodation nl, no face palsy, no dysarthria CN's II- XI intact bilaterally and moves all extremities Psychiatric: A+Ox3, euthymic affect Results & Data Results & Data Vital Signs (Past 12 Hours) Vital Signs Temp Pulse Pulse Resp BP Pulse Ox O2 Del Method 05/19/23 15:10 36.8 C 88 18 112/75 93 Room Air 05/19/23 07:28 37.1 C 88 18 109/66 94 Room Air 05/19/23 07:11 93 H Laboratory Results Laboratory Results WBC 9.44 K/ul (4.8-10.8) 05/19/23 05:25 RBC 4.54 M/uL (4.20-5.40) 05/19/23 05:25 Hgb 14.1 g/dl (12.0-16.0) 05/19/23 05:25 Hct 40.7 % (37.0-47.0) 05/19/23 05:25 MCV 89.6 fL (80.0-100.0) 05/19/23 05:25 MCH 31.1 pg (25.0-34.0) 05/19/23 05:25 MCHC 34.6 g/dL (32.0-36.0) 05/19/23 05:25 RDW Std Deviation 42.9 fL (36.4-46.3) 05/19/23 05:25 RDW Coeff of John Paul 13.0 % (11.5-14.5) 05/19/23 05:25 Plt Count 322 K/uL (130-400) 05/19/23 05:25 MPV 9.4 fL (9.4-12.4) 05/19/23 05:25 Immature Gran % (Auto) 0.4 % 05/19/23 05:25 Neut % (Auto) 63.1 % 05/19/23 05:25 Lymph % (Auto) 24.9 % 05/19/23 05:25 Henderson % (Auto) 9.4 % 05/19/23 05:25 Eos % (Auto) 1.8 % 05/19/23 05:25 Baso % (Auto) 0.4 % 05/19/23 05:25 Neut # (Auto) 5.95 K/uL (1.40-6.50) 05/19/23 05:25 Lymph # (Auto) 2.35 K/uL (1.2-3.4) 05/19/23 05:25 Henderson # (Auto) 0.89 K/uL (0.11-0.59) H 05/19/23 05:25 Eos # (Auto) 0.17 K/uL (0-0.50) 05/19/23 05:25 Baso # (Auto) 0.04 K/uL (0-0.2) 05/19/23 05:25 Immature Gran # (Auto) 0.04 K/uL (0.01-0.20) 05/19/23 05:25 PT 10.6 Seconds (9.0-12.0) 05/18/23 16:12 INR 1.0 (0.9-1.1) 05/18/23 16:12 APTT 28.0 Seconds (21.0-31.0) 05/18/23 16:12 PTT Ratio 1.0 05/18/23 16:12 Sodium 140 mmol/L (136-145) 05/19/23 05:25 Potassium 4.1 mmol/L (3.5-5.1) 05/19/23 05:25 Chloride 105 mmol/L (98-107) 05/19/23 05:25 Carbon Dioxide 28 mmol/L (21-32) 05/19/23 05:25 Anion Gap 7 (3-11) 05/19/23 05:25 BUN 12 mg/dl (6-23) 05/19/23 05:25 Creatinine 0.58 mg/dl (0.6-1.2) L 05/19/23 05:25 Est Cr Clr Drug Dosing 95.0 ml/min 05/19/23 05:25 Est GFR ( Amer) 114.5 ml/min 05/19/23 05:25 Est GFR (Non-Af Amer) 98.8 ml/min 05/19/23 05:25 BUN/Creatinine Ratio 20.7 (10-20) H 05/19/23 05:25 Glucose 97 mg/dl (70-99(Fasting)) 05/19/23 05:25 Calcium 8.8 mg/dl (8.6-10.3) 05/19/23 05:25 Magnesium 2.2 mg/dl (1.7-2.4) 05/19/23 05:25 Total Bilirubin 0.6 mg/dl (0.2-1.0) 05/18/23 16:12 AST 15 U/L (13-39) 05/18/23 16:12 ALT 17 U/L (7-52) 05/18/23 16:12 Alkaline Phosphatase 83 U/L (34-104) 05/18/23 16:12 Troponin I High Sens 4.0 pg/ml (0-14) 05/19/23 05:25 Total Protein 7.0 gm/dl (6.0-8.3) 05/18/23 16:12 Albumin 3.9 gm/dl (3.4-5.0) 05/18/23 16:12 Globulin 3.1 gm/dl (2.5-4.0) 05/18/23 16:12 Albumin/Globulin Ratio 1.3 (0.9-2) 05/18/23 16:12 SARS-CoV-2, RNA, NAAT NEGATIVE (NEGATIVE) 05/18/23 19:08 Impressions Chest X-Ray 05/18/23 14:40 XR chest 1V not portable HISTORY: Chest pain, nonspecific COMPARISON: Chest CT 09/25/2022. FINDINGS: There is a new left upper lobe airspace opacity. Mild emphysema. No pneumothorax. The heart is normal in size. Surgical clips and implants again noted within the bilateral breasts. No acute fractures identified. No evidence for pulmonary edema. IMPRESSION: A new left upper lobe airspace opacity. This likely represents a pneumonia. Follow-up chest x-ray in one to 2 months is recommended to ensure resolution. ACT 112: Negative or not required by law. Electronically signed by: Michele Lee M.D. 05/18/2023 4:05 PM Chest CTA 05/18/23 17:20 CHEST CTA for PULMONARY ARTERIES CT DOSE: 567.98 mGy.cm HISTORY: Left-sided chest pain. Shortness of breath. TECHNIQUE: Multiaxial CT images of the chest were performed following the intravenous administration of contrast to evaluate the pulmonary arteries. 3D /Maximal intensity projection images were also obtained. Sagittal and coronal reformations were also reviewed. A dose lowering technique was utilized adhering to the principles of ALARA. COMPARISON STUDY: Chest CT 09/25/2022. FINDINGS: Normal caliber thoracic aorta with no evidence for a dissection. The heart is normal in size. Trace pericardial effusion. Small left pleural effusion. Mild mass effect along the left central pulmonary arteries. However, no filling defects within the pulmonary arteries to suggest a pulmonary embolus. Normal thyroid gland. Bilateral breast implant reconstruction is noted. Right axillary lymph node dissection. No axillary adenopathy. Limited views of the upper abdomen demonstrate a normal liver, spleen, and adrenal glands. Normal caliber esophagus. No right hilar lymphadenopathy. Multiple enlarged prevascular and left hilar lymph nodes. Dominant prevascular lymph node on image 158 measures 3.5 x 2.5 cm. These enlarged lymph nodes result in mass effect along the left main pulmonary artery. No suspicious lytic or blastic osseous lesions. Mild emphysema. Patchy areas of consolidation with interstitial thickening within the left upper lobe. Left basilar linear densities favor subsegmental atelectasis from the small pleural effusion. The left upper lobe airspace opacity could be due to a pneumonia, post radiation change, or lymphangitic spread of tumor given the interstitial thickening. IMPRESSION: 1. No evidence for pulmonary embolus. 2. Left mediastinal/hilar lymphadenopathy. This concerning for metastatic disease. Pulmonary consultation recommended. 3. Patchy areas of consolidation with interstitial thickening within the left upper lobe which could be due to a pneumonia, post radiation change, or lymphangitic spread of tumor given the interstitial thickening. 4. Small left pleural effusion. ACT 112: Positive. There are findings on this exam that require communication between the performing entity and the patient following Patient Test Result Information Act ([place] Act 112) guidelines. Electronically signed by: Michele Lee M.D. 05/18/2023 6:04 PM (2) Left upper lobe pneumonia Pneumonia type: due to unspecified organism Qualified Code(s): J18.9 - Pneumonia, unspecified organism
--- NOTE | 2023-05-19 17:14 | Oncology Consultation ---
Date of Consultation May 19, 2023 Assessment & Plan (1) Mediastinal lymphadenopathy: (2) Breast cancer, stage 1: Plan Patient with remote history of Triple negative breast cancer now found to have mediastinal lymphadenopathy concerning for metastatic disease. Imaging findings highly suspicious for malignancy. Would be atypical for triple negative breast cancer to recur so long after initial diagnosis. Given smoking history, concerned that she may have lung cancer. She however has a BRCA1 mutation and could certainly have recurrent breast cancer in the setting. Following our discussion, she indicated that she would go ahead with bronchoscopy/EBUS as recommended by pulmonology. I will arrange for her to have outpatient PET/CT and she will follow-up with me in clinic in about 2 weeks Thank you for this consult. Oncology will continue following patient while in the hospital. Please feel free to call if you have any further questions History of Present Illness Reason for Consultation: hx of breast cancer. lung lesions Attending Physician: Marty Arnold MD History of Present Illness Ms. 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 Was subsequently diagnosed with right breast DCIS in 2007 for which she is s/p lumpectomy, adjuvant radiation treatment. She was subsequently found to have BRCA1 gene for which she underwent prophylactic bilateral mastectomy and bilateral salpingo-oophorectomy. She presented to the ER with shortness of breath CTA chest revealed Left mediastinal/hilar lymphadenopathy and patchy areas of consolidation with interstitial thickening within the left upper lobe which could be due to a pneumonia, post radiation change, or lymphangitic spread of tumor given the interstitial thickening as well as small left pleural effusion. Allergies Allergy/AdvReac Type Severity Reaction Status Date / Time terbinafine Allergy Intermediate RASH Verified 05/18/23 18:24 adhesive Allergy Unknown HIVES AND Verified 05/18/23 18:24 RASH; WELTS FROM BANDAIDS amitriptyline Allergy Unknown Rash Verified 05/18/23 18:23 Home Medications Medication Instructions Recorded Confirmed Type gabapentin 100 mg capsule 300 mg PO HS 05/18/23 05/18/23 History magnesium oxide 400 mg PO QAM 05/18/23 05/18/23 History multivitamin 1 tab PO DAILY 05/18/23 05/18/23 History quetiapine 100 mg tablet 100 mg PO HS 05/18/23 05/18/23 History riboflavin (vitamin B2) 400 mg 400 mg PO QAM 05/18/23 05/18/23 History tablet Patient History Social History Smoking Status: Current every day smoker Tobacco Type: Cigarettes Cigarettes Per Day: 20; Second Hand Exposure: Yes; Do You Dip or Chew Tobacco: No; Tobacco Cessation Education Requested by Patient: No Hx Alcohol Use: Yes Hx Substance Use: No Preferred Language: Vincentian Communication Ability: Effective Single End Sewer Required: No Beliefs That Will Affect Care: None Current Living Situation: Spouse Other Information That Helps Us Care for You: No Feels Safe at Home: Yes Safety Concerns: Feels Safe At This Time Assistive Devices: None Results & Data Vital Signs (Past 12 Hours) Vital Signs Temp Pulse Pulse Resp BP Pulse Ox O2 Del Method 05/19/23 16:09 96 H 05/19/23 15:10 36.8 C 88 18 112/75 93 Room Air 05/19/23 07:28 37.1 C 88 18 109/66 94 Room Air 05/19/23 07:11 93 H
[2023-05-19] MEDS ORDERED: CETIRIZINE HCL 10 MG TABLET PO ONE (23:53)
[2023-05-19] MEDS: QUEtiapine FUMARATE 100 MG TABLET PO SCH (23:58)
[2023-05-19] MEDS: GABAPENTIN 300 MG CAP PO SCH (23:58)
[2023-05-20] MEDS: ACETAMINOPHEN 325 MG TAB PO PRN (00:03)
[2023-05-20] MEDS: cefTRIAXone SODIUM 1,000 MG in DEXTROSE 5% AD-VAN 50 ML IV SCH (08:55)
[2023-05-20] MEDS: DOXYCYCLINE HYCLATE 100 MG CAP PO SCH (08:59)
[2023-05-20] MEDS: MAGNESIUM OXIDE 400 MG TAB PO SCH (08:59)
[2023-05-20] MEDS: MULTIVITAMIN TAB PO SCH (08:59)
[2023-05-20] MEDS ORDERED: HYDROCODONE/ACETAMOPHEN 5/325MG TAB PO STA (09:05)
[2023-05-20] MEDS ORDERED: MIDAZOLAM HCL 5 MG/ML 1 ML VIAL ONE ×2 (12:32→13:17)
[2023-05-20] MEDS ORDERED: fentaNYL citrate PF 100 MCG/2 ML VIAL ONE (12:32)
[2023-05-20] MEDS ORDERED: ALBUT/IPRATROP 3MG/0.5MG NEB 3 ML VIAL NEB STA (13:39)
--- NOTE | 2023-05-20 14:17 | Procedure Note ---
Procedure Note Date of Service May 20, 2023 Note This is a bronchoscopy report. Procedure: Bronchoscopy with bronchoalveolar lavage to the left upper lung with moderate sedation. Consent: The patient was able to provide consent. After the risks and benefits were discussed with the patient including the risks of respiratory distress, bleeding and infection and outlining alternatives including transbronchial needle aspiration, thoracoscopy and trans thoracic needle aspiration, the arturo lo agreed to proceed with the bronchoscopy. ASA:II Mallampati: 2. Timeout was performed. The patient's name, birthdate and target site were identified. Anesthesia: Topical anesthesia to the oral pharynx; a total of 5 mg of IV Versed and 100 mcg of IV fentanyl; 6 mL of 2% Xylocaine at the cords and 3 mL of 2% Xylocaine in the upper trachea. Description of procedure: After sedation was achieved the scope was passed through her mouth. There was significant amount of cobblestoning in her oropharynx and extending down to her larynx. There was a significant amount of swelling and narrowing in the hypopharynx. Her vocal cords were asymmetrical. The left was within without any ulcerations. However the right had a significant amount of volume and an abnormal fullness that was not ulcerated or necrotic. The trachea was normal but had significant eventration of the membranous portion of the trach via on vigorous coughing. The zuri was well demarcated. The right lung was explored and had significant amount of mucosal pitting and some friable areas consistent with smoking exposure. The left lung was extremely diseased with swelling and friable mucosa involving the left upper division primarily. There was bloody exudate coming from the left upper division that needed to be evacuated. The scope was wedged in the left upper lung and a total of 180 mL of saline were infused at 60 mL intervals with recovery of approximately 40 mL of bloody fluid. Careful exploration of all of the subsegments was limited due to her coughing and her being uncomfortable with the scope in place. A brush was about to be performed in the left upper lung but with the amount of friability and blood already exuding from the airway and her coughing I did not want to induce any significant hemoptysis so the brush was aborted. Exploration of the left lower lung subsegments did not reveal any obvious masses. Though the left upper division mucosa was extremely friable there were no distinct masses or areas of large ulceration or extrinsic narrowing. The scope was then removed. Other than coughing, the patient tolerated the procedure well and awoke up nearly immediately after completion of the procedure. Estimated blood loss: Minimal. Specimens: The bronchoalveolar lavage was divided into and sent for microbiology including bacterial smear and culture, AFB smear and culture, fungal smear and culture, and Legionella and the the other half sent for cytology. Plan: The patient could be discharged to home once successfully recovered and we will follow-up these results as an outpatient when they become available. Coding CPT Codes Pulmonary/Thoracic - Pulmonary and Thoracic: 91874 Dx bronchoscopy/BAL ([id number]) [facility] [place] Procedure Codes (Charges) Pulmonary/Thoracic Procedure 1: Pulmonary and Thoracic: 69034 Dx bronchoscopy/BAL Sedation/Anesthesia Procedure 1: Total Sedation Time (minutes): 20
--- NOTE | 2023-05-20 14:25 | Pulmonology Progress Note ---
Date of Service May 20, 2023 Assessment & Plan (1) Atypical chest pain: Plan: The patient consented to the bronchoscopy today. She remained in the hospital and was kept n.p.o. and did not receive any anticoagulation for DVT prophylaxis. The bronchoscopy was quite abnormal for multiple findings. There was a lot of cobblestoning and edema and narrowing of her pharynx and supraglottic region. There was a lot of airway narrowing right above her larynx. The vocal cord some cells were also abnormal. The left vocal cord was thin and almost appeared atrophic. The right has a fullness to it and a lesion that is abnormal but was not ulcerated or necrotic. Left lung was extremely friable with bloody discharge coming from her left upper division. There was no specific masses or ulcerations but the whole area was extremely inflamed and friable. A bronchoa lveolar lavage was performed in the left upper lung with very bloody return. Specimens were sent for microbiology but also cytology. Attempt at a brush was aborted because the patient was coughing quite a bit and the area was already friable and I did not want to induce any further bleeding that would have been challenging to control. The patient woke up nearly immediately after the procedure despite receiving 5 mg of IV Versed and 100 mcg of IV fentanyl. She tolerated the procedure well. The patient can be discharged to home after she is fully recovered, demonstrated that she can ambulate and eat without difficulty. She will follow-up with her outpatient PCP and oncologist for results. Referral to pulmonary may not be unreasonable. If the specimens are negative then other options for sampling include trans thoracic needle aspiration and especially anteriorly to get at that mass, thoracoscopy which is much more invasive. Repeat bronchoscopy with endoscopic ultrasound could also be a possibility but she would need to be much more sedated and possibly undergo intubation for that procedure to allow for maximal sedation. The differential can include a new primary of lung cancer with lymphangitic spread of tumor versus recurrence of her breast cancer with the same. Certainly bacterial infection can cause this degree of inflammation but I would have expected her to be sicker with signs of sepsis which she does not demonstrate. (2) Left upper lobe pneumonia: Pneumonia type: due to unspecified organism Qualified Code(s): J18.9 - Pneumonia, unspecified organism (3) Mediastinal lymphadenopathy: (4) Breast cancer: Admission and Anticipated Discharge Date Admission Date: May 18, 2023 Subjective The patient is doing well today. She is still having some cough. She denies any hemoptysis or hematemesis or coughing up any phlegm. There is still some chest discomfort. No nausea or vomiting or abdominal pain. No lower extremity edema. No headache or change in vision. Physical Exam Physical Exam: The patient is awake alert interactive. She is neurologically nonfocal. She has a raspy voice. Lungs are distant but clear bilaterally heart is regular rate and rhythm without murmurs of the gallops abdomen is soft nontender without hepatosplenomegaly extremities are without clubbing cyanosis or edema. Results & Data Results & Data Vital Signs (Past 12 Hours) Vital Signs Temp Pulse Pulse Resp BP BP Pulse Ox 05/20/23 14:09 36.7 C 85 18 102/68 94 05/20/23 13:20 100 H 18 134/116 H 97 05/20/23 13:45 102 H 18 100/62 97 05/20/23 13:35 102 H 18 114/67 97 05/20/23 13:30 102 H 18 97/75 L 97 05/20/23 13:25 101 H 18 159/103 H 95 05/20/23 13:15 100 H 18 105/56 L 97 05/20/23 13:12 86 18 103/67 97 05/20/23 13:10 86 18 101/69 97 05/20/23 12:27 81 18 105/71 96 05/20/23 11:04 36.7 C 85 20 102/68 94 05/20/23 06:00 82 05/20/23 07:38 36.8 C 83 20 114/72 91 05/20/23 03:06 36.6 C 83 16 105/63 91 O2 Del Method O2 Flow Rate 05/20/23 14:09 Room Air 05/20/23 13:20 Oxymask 6 05/20/23 13:45 Room Air 05/20/23 13:35 Room Air 05/20/23 13:30 Room Air 05/20/23 13:25 Room Air 05/20/23 13:15 Oxymask 6 05/20/23 13:12 Oxymask 6 05/20/23 13:10 Oxymask 6 05/20/23 12:27 Room Air 05/20/23 11:04 Room Air 05/20/23 06:00 05/20/23 07:38 Room Air 05/20/23 03:06 Room Air Laboratory Results Laboratory Results WBC 9.44 K/ul (4.8-10.8) 05/19/23 05:25 RBC 4.54 M/uL (4.20-5.40) 05/19/23 05:25 Hgb 14.1 g/dl (12.0-16.0) 05/19/23 05:25 Hct 40.7 % (37.0-47.0) 05/19/23 05:25 MCV 89.6 fL (80.0-100.0) 05/19/23 05:25 MCH 31.1 pg (25.0-34.0) 05/19/23 05:25 MCHC 34.6 g/dL (32.0-36.0) 05/19/23 05:25 RDW Std Deviation 42.9 fL (36.4-46.3) 05/19/23 05:25 RDW Coeff of John Paul 13.0 % (11.5-14.5) 05/19/23 05:25 Plt Count 322 K/uL (130-400) 05/19/23 05:25 MPV 9.4 fL (9.4-12.4) 05/19/23 05:25 Immature Gran % (Auto) 0.4 % 05/19/23 05:25 Neut % (Auto) 63.1 % 05/19/23 05:25 Lymph % (Auto) 24.9 % 05/19/23 05:25 [place] % (Auto) 9.4 % 05/19/23 05:25 Eos % (Auto) 1.8 % 05/19/23 05:25 Baso % (Auto) 0.4 % 05/19/23 05:25 Neut # (Auto) 5.95 K/uL (1.40-6.50) 05/19/23 05:25 Lymph # (Auto) 2.35 K/uL (1.2-3.4) 05/19/23 05:25 [place] # (Auto) 0.89 K/uL (0.11-0.59) H 05/19/23 05:25 Eos # (Auto) 0.17 K/uL (0-0.50) 05/19/23 05:25 Baso # (Auto) 0.04 K/uL (0-0.2) 05/19/23 05:25 Immature Gran # (Auto) 0.04 K/uL (0.01-0.20) 05/19/23 05:25 PT 10.6 Seconds (9.0-12.0) 05/18/23 16:12 INR 1.0 (0.9-1.1) 05/18/23 16:12 APTT 28.0 Seconds (21.0-31.0) 05/18/23 16:12 PTT Ratio 1.0 05/18/23 16:12 Sodium 140 mmol/L (136-145) 05/19/23 05:25 Potassium 4.1 mmol/L (3.5-5.1) 05/19/23 05:25 Chloride 105 mmol/L (98-107) 05/19/23 05:25 Carbon Dioxide 28 mmol/L (21-32) 05/19/23 05:25 Anion Gap 7 (3-11) 05/19/23 05:25 BUN 12 mg/dl (6-23) 05/19/23 05:25 Creatinine 0.58 mg/dl (0.6-1.2) L 05/19/23 05:25 Est Cr Clr Drug Dosing 95.0 ml/min 05/19/23 05:25 Est GFR ( Amer) 114.5 ml/min 05/19/23 05:25 Est GFR (Non-Af Amer) 98.8 ml/min 05/19/23 05:25 BUN/Creatinine Ratio 20.7 (10-20) H 05/19/23 05:25 Glucose 97 mg/dl (70-99(Fasting)) 05/19/23 05:25 Calcium 8.8 mg/dl (8.6-10.3) 05/19/23 05:25 Magnesium 2.2 mg/dl (1.7-2.4) 05/19/23 05:25 Total Bilirubin 0.6 mg/dl (0.2-1.0) 05/18/23 16:12 AST 15 U/L (13-39) 05/18/23 16:12 ALT 17 U/L (7-52) 05/18/23 16:12 Alkaline Phosphatase 83 U/L (34-104) 05/18/23 16:12 Troponin I High Sens 4.0 pg/ml (0-14) 05/19/23 05:25 Total Protein 7.0 gm/dl (6.0-8.3) 05/18/23 16:12 Albumin 3.9 gm/dl (3.4-5.0) 05/18/23 16:12 Globulin 3.1 gm/dl (2.5-4.0) 05/18/23 16:12 Albumin/Globulin Ratio 1.3 (0.9-2) 05/18/23 16:12 SARS-CoV-2, RNA, NAAT NEGATIVE (NEGATIVE) 05/18/23 19:08 Impressions Chest X-Ray 05/18/23 14:40 XR chest 1V not portable HISTORY: Chest pain, nonspecific COMPARISON: Chest CT 09/25/2022. FINDINGS: There is a new left upper lobe airspace opacity. Mild emphysema. No pneumothorax. The heart is normal in size. Surgical clips and implants again noted within the bilateral breasts. No acute fractures identified. No evidence for pulmonary edema. IMPRESSION: A new left upper lobe airspace opacity. This likely represents a pneumonia. Follow-up chest x-ray in one to 2 months is recommended to ensure resolution. ACT 112: Negative or not required by law. Electronically signed by: Michele Lee M.D. 05/18/2023 4:05 PM Chest CTA 05/18/23 17:20 CHEST CTA for PULMONARY ARTERIES CT DOSE: 567.98 mGy.cm HISTORY: Left-sided chest pain. Shortness of breath. TECHNIQUE: Multiaxial CT images of the chest were performed following the intravenous administration of contrast to evaluate the pulmonary arteries. 3 D/Maximal intensity projection images were also obtained. Sagittal and coronal reformations were also reviewed. A dose lowering technique was utilized adhering to the principles of ALARA. COMPARISON STUDY: Chest CT 09/25/2022. FINDINGS: Normal caliber thoracic aorta with no evidence for a dissection. The heart is normal in size. Trace pericardial effusion. Small left pleural effusion. Mild mass effect along the left central pulmonary arteries. However, no filling defects within the pulmonary arteries to suggest a pulmonary embolus. Normal thyroid gland. Bilateral breast implant reconstruction is noted. Right axillary lymph node dissection. No axillary adenopathy. Limited views of the upper abdomen demonstrate a normal liver, spleen, and adrenal glands. Normal caliber esophagus. No right hilar lymphadenopathy. Multiple enlarged prevascular and left hilar lymph nodes. Dominant prevascular lymph node on image 158 measures 3.5 x 2.5 cm. These enlarged lymph nodes result in mass effect along the left main pulmonary artery. No suspicious lytic or blastic osseous lesions. Mild emphysema. Patchy areas of consolidation with interstitial thickening within the left upper lobe. Left basilar linear densities favor subsegmental atelectasis from the small pleural effusion. The left upper lobe airspace opacity could be due to a pneumonia, post radiation change, or lymphangitic spread of tumor given the interstitial thickening. IMPRESSION: 1. No evidence for pulmonary embolus. 2. Left mediastinal/hilar lymphadenopathy. This concerning for metastatic disease. Pulmonary consultation recommended. 3. Patchy areas of consolidation with interstitial thickening within the left upper lobe which could be due to a pneumonia, post radiation change, or lymphangitic spread of tumor given the interstitial thickening. 4. Small left pleural effusion. ACT 112: Positive. There are findings on this exam that require communication between the performing entity and the patient following Patient Test Result Information Act ([place] Act 112) guidelines. Electronically signed by: Michele Lee M.D. 05/18/2023 6:04 PM Medications Administered Current Inpatient Medications Acetaminophen (Acetaminophen 325 Mg Tab) 650 mg PO Q4H PRN PRN Reason: Pain or Fever Stop: 06/17/23 20:50 Last Admin: 05/20/23 00:03 Dose: 650 mg Doxycycline Hyclate (Doxycycline Hyclate 100 Mg Cap) 100 mg PO BID PAT Stop: 05/26/23 12:59 Last Admin: 05/20/23 08:59 Dose: 100 mg Gabapentin (Gabapentin 300 Mg Cap) 300 mg PO HS PAT Stop: 06/17/23 20:59 Last Admin: 05/19/23 23:58 Dose: 300 mg Ceftriaxone Sodium 1,000 mg/ (Dextrose) 50 mls @ 100 mls/hr IV Q24H PAT; Protocol Stop: 05/26/23 08:59 Last Infusion: 05/20/23 09:25 Dose: Infused Magnesium Oxide (Magnesium Oxide 400 Mg Tab) 400 mg PO QAM PAT Stop: 06/18/23 08:59 Last Admin: 05/20/23 08:59 Dose: 400 mg Multivitamins (Multivitamin Tab) 1 tab PO DAILY PAT Stop: 06/18/23 08:59 Last Admin: 05/20/23 08:59 Dose: 1 tab Nitroglycerin (Nitroglycerin Sl 0.4 Mg/Tab Tab) 0.4 mg SL Q5M PRN PRN Reason: Chest Pain Stop: 06/17/23 20:50 Quetiapine Fumarate (Quetiapine Fumarate 100 Mg Tablet) 100 mg PO HS PAT Stop: 06/17/23 20:59 Last Admin: 05/19/23 23:58 Dose: 100 mg PG Care Time/CCT Total # of Minutes Spent Total Time Spent with Patient: Total time spent is greater than 50% in coordination of care (as documented) at patient's floor/unit and/or counseling patient: Coding Level of Care Code 96586 SUB INP/OBS CARE 11/19MIN History Problem Focused Exam Problem Focused Diagnoses Atypical chest pain R07.89 Left upper lobe pneumonia J18.9 Pneumonia type: due to unspecified organism Mediastinal lymphadenopathy R59.0 Breast cancer C50.919 Time Spent (min) 25
--- NOTE | 2023-05-20 15:09 | Discharge Summary ---
Date of Service May 20, 2023 Admission HPI Per Admitting Provider 62-year-old female with past medical significant for breast cancer status post bilateral mastectomy and radiation treatment and not interested in chemo, generalized osteoarthritis, meningioma, migraines ongoing tobacco abuse presents with shortness of breath and cough. Recently CTA neck which showed focal groundglass opacity and nodular septal thickening in the left anterior upper lobe suspicious for lymphatic spread of tumor with associated mediastinal and left hilar lymphadenopathy. There is plan to get CT chest. She went to see PCP for ongoing exertional shortness of breath for 1 week and left-sided chest pain with deep breaths and sometimes with movement and she was sent to ER to rule out PE. Currently resting comfortably and hemodynamically stable. Daughter was in the room. She has s history of migraines and as some headache now. No earache runny nose or sore throat. Has chronic cough. Denies any fevers. No nausea vomiting. Appetite is good. No abdominal pain. Normal bowel and bladder movements. Past medical history as mentioned above Past surgical history bilateral mastectomy and breast reconstruction surgeries , biopsy of the left thigh. Family history aunt breast cancer, mother has cancer, father has cancer, paternal grandmother cancer Admission Exam Per Admitting Provider General- Not in distress Head- atraumatic Eyes- PERRLA ENT- oropharynx clear Neck- supple, no JVD Lungs- clear to auscultation and percussion Heart- regular rhythm; no murmur, no gallop, no rub appreciated Abdomen- normal bowel sounds, soft, nontender, no distension Extremities- no pretibial edema, no erythema. Neuro- alert, oriented x 3; PERRL, EOMI; no facial palsy; no dysarthria; non focal. Skin- warm & dry Principal Diagnosis Mediastinal lymphadenopathy Atypical chest pain Possible pneumonia Discharge Exam Constitutional: WD/WN, vitals as above, NAD, sitting up in bed, pleasant, conversing easily Respiratory: normal respiratory effort, lungs clear to auscultation, no wheeze, rales, rhonchi. Normal insp/exp effort, no accessory muscle use Cardiovascular: RRR, no murmur, no edema Vessels: no JVD or carotid bruit Chest: normal inspection of chest Abdomen: normal bowel sounds, soft, nontender, no hepatosplenomegaly Musculoskeletal: no cyanosis or clubbing, extremities motor strength 5/5 Skin: no rashes, warm and dry normal turgor Neurologic: PERRL, EOMI, accommodation nl, no face palsy, no dysarthria CN's II- XI intact bilaterally and moves all extremities Psychiatric: A+Ox3, euthymic affect Discharge Data Allergies Allergy/AdvReac Type Severity Reaction Status Date / Time terbinafine Allergy Intermediate RASH Verified 05/18/23 18:24 adhesive Allergy Unknown HIVES AND Verified 05/18/23 18:24 RASH; WELTS FROM BANDAIDS amitriptyline Allergy Unknown Rash Verified 05/18/23 18:23 Consultations 05/18/23 19:20 ED Decision to Admit Stat 05/19/23 08:00 Consult Oncology Routine Consult Pulmonology Routine Procedures Performed Operation Date: 05/20/23 13:00 Actual Procedures p Bronchoscopy Radiology - Tomas Bradford MD Ordered Studies 05/18/23 17:20 CT angio chest PE protocol Stat Hospital Course (1) Atypical chest pain: (2) Left upper lobe pneumonia: (3) Mediastinal lymphadenopathy: (4) Breast cancer: Plan 62-year-old female with past medical significant for breast cancer status post bilateral mastectomy and radiation treatment , generalized osteoarthritis, meningioma, migraines ongoing tobacco abuse presents with shortness of breath and cough. Patient underwent CT chest with contrast; no evidence of PE. Found to have left mediastinal/left hilar lymphadenopathy which was concerning for metastatic disease. Also, patchy areas of consolidation with interstitial thickening was seen within left upper lobe. Patient was admitted to telemetry floor for further monitoring. Pulmonology and oncology was consulted. Patient underwent bronchoscopy on May 202022. " The left lung was found to be extremely diseased with swelling and friable mucosa involving the left upper division primarily. There was bloody exudate coming from the left upper division that needed to be evacuated. No distinct masses or areas of large ulceration or extrinsic narrowing was seen". BAL was sent to microbiology and cytology for bacterial smear and culture, AFB smear and culture, fungal smear and culture and Legionella. Oncology evaluated the patient. Patient to follow-up with oncology for possible PET scan. Patient was discharged on 5 more days of antibiotics, Diflucan and analgesics. Please note the above document was generated using voice recognition software. It may contain grammatical, syntax or spelling errors. Any formal questions or concerns about the content, text or information contained within the body of this dictation should be directly addressed to the provider for clarification Total Time Total Time Spent Total Time Spent (In Minutes): 35 Total Time Includes: Examination of the Patient, Discharge Planning, Medication Reconciliation, Communication With Other Providers and Other Discharge Plan Discharge Items Patient Disposition: Home - Self-Care Reason For Visit: SOB, LUNG LESIONS Discharge Diagnosis: Mediastinal lymphadenopathy Atypical chest pain Possible pneumonia Activity: Resume your previous activity Non-emergency contact: Primary Care Provider Call non-emergency contact if: you have any medication questions and your symptoms worsen Follow-up/Referrals: Carl Vargas MD [Primary Care Provider] - (Date & Time 05/25/2023 3:00 PM Provider Carl Vargas MD Department Family Medicine [facility] ) Reina Osborne MD [Physician] - (The Oncology office will call you with an appointment.) Diet: Regular Addtl Attending Provider Instructions: You were admitted to the hospital due to chest pain. CAT scan of the chest showed large lymph node and areas of consolidation and thickening in upper side of the left lung. You underwent bronchoscopy with bronchoalveolar lavage by Dr. Mary Philip. Cytology has been sent to pathology lab. Also, tests for infection is also sent to the lab. Please follow-up with her PCP for the results. Please follow-up with Dr. Osborne from Oncology as scheduled. You are prescribed cefdinir and doxycycline to be taken twice daily for 5 days to complete antibiotic course for pneumonia. You were also prescribed Diflucan. You are also prescribed [place]. Please do not take Diflucan and [place] together as they interact with each other. You had echocardiogram done during the hospitalization. Your heart function is good(ejection fraction of greater than 70%). You are found to have small loculated pericardial effusion adjacent to right ventricle. Pending Studies at Discharge: Yes (BAL cytology, Gram stain and culture, AFB smear and culture, fungal cx) Stand-Alone Forms: [employer], Smoking Cessation Medications and DC Order Prescriptions: New doxycycline hyclate 100 mg Capsule 100 mg PO BID 5 Days Qty: 10 0RF cefdinir 300 mg capsule 300 mg PO BID 5 Days Qty: 10 0RF fluconazole [Diflucan] 150 mg tablet 150 mg PO Q3D Qty: 2 0RF hydrocodone-acetaminophen 5-325 mg tablet 1 tab PO BID PRN (Reason: pain) Qty: 15 0RF Continued quetiapine 100 mg tablet 100 mg PO HS gabapentin 100 mg capsule 300 mg PO HS riboflavin (vitamin B2) 400 mg Tablet 400 mg PO QAM multivitamin Tablet 1 tab PO DAILY magnesium oxide 400 mg magnesium Capsule 400 mg PO QAM Discharge Orders: Discharge Order (Routine); Ordered 05/20/23 Ordered By: Marty Sharma/Other Patient Handouts: Endoscopy Chest Lung Dx Admission Data Admit Date/Time: 05/18/23 20:14 Attending Provider: Marty Arnold Admit Provider: Kenan Alexander Primary Care Provider: Carl Vargas Other Providers: Kenan Alexander ; Reina Osborne Deborah H
[2023-05-22] MEDS ORDERED: NITROGLYCERIN SL 0.4 MG/TAB TAB ONE (23:57)
== END 2023-05-20 14:45 | disposition home or self-care (01) | DRG 194 ==
LOC: ED 14:22 → EDINP 20:14 → 2W 20:51

== ENCOUNTER 2023-06-10 15:57 | Inpatient (IN) ==
--- NOTE | 2023-06-10 16:13 | ED Triage Note ---
Date of Service June 10, 2023 History of Present Illness This patient was briefly evaluated while in triage. An abbreviated physical exam was performed. This patient is a 62-year-old Female who presents to the ED for evaluation of "cant breathe, eat, or function". Progressive worsening dyspnea. At PCP on Thursday. L sided rib pain. Recently admitted here to the hospital. Just had a PET scan today. Here with daughter. Physical Exam GENERAL: 62 year old female. In no acute distress. SKIN: No lesions or rashes. HEART: Regular rate and rhythm. LUNGS: Wheezing noted bilaterally. NEURO: Alert and oriented. No deficits. MUSCULOSKELETAL: No deformities to inspection of the extremities. PSYCH: Patient is pleasant and answers all questions appropriately. Initial orders for labs and / or imaging were placed and patient was placed in the waiting area until a bed is available. Please see further documentation for the full ED course.
--- NOTE | 2023-06-10 17:17 | Emergency Department Note ---
Impression & Plan Shortness of breath ED Provider Note INFORMANT: Patient and daughter ED PROVIDER(S): Ahsan Travis MD CHIEF COMPLAINT: Shortness of breath PLAN: Disposition: Admitted Condition: Good Outpatient prescription management: none Referral: None MEDICAL DECISION MAKING: Patient presents because of shortness of breath. She was recently admitted for pneumonia. Work-up for PE at that time was negative. Patient had PET scan today. Results are pending however left lung is abnormal. Patient has been on multiple courses of antibiotics with no improvement. Nursing noted with minimal exertion her O2 saturations dropped to 89%. Patient notes a moderate amount of left-sided chest pain that has been present since her last admission. Blood work was obtained. Chest x-ray performed. Patient had a nonischemic ECG. Patient was treated with Dilaudid, Zofran, and a DuoNeb. Supplemental oxygen was provided. Patient CBC is unremarkable. Patient will need further manageme nt in the hospital to elucidate the pulmonary issues. Consultation was made with the [facility]ist service. Discussed case with Sandy DUONG. Patient will be admitted under Dr. Rea. In light of the patient's negative labs but abnormal chest imaging I did note to them she has had multiple courses of antibiotics and that I held off administering additional antibiotics and would defer to their discretion. Specifically patient's procalcitonin, white blood cell count, and lactate are negative. Discussed with mobile home park manager After review of the information above and other included data, I feel the patient requires admission. Triage Nursing notes reviewed and agree them. Vital Signs: reviewed and remarkable for hypoxia and tachycardia Prior /Outside records reviewed: Prior hospitalization record reviewed. Pathology from bronchial washings did not reveal any evidence of malignancy. Differential diagnosis: Reactive airway disease, pneumonia, pneumothorax, COPD, CHF, infections, cardiac ischemia, pulmonary embolism, musculoskeletal, gastrointestinal, as well as other pathologies. Diagnostics, as interpreted by me: ECG: Twelve-lead ECG reveals a sinus tachycardia at [address] elevation or depression. No PVCs. Cardiac Monitoring: Cardiac monitoring ordered by me: The patient was placed on continuous cardiac monitoring and observed. It revealed a sinus tachycardia rhythm at 109 beats per minute without ectopy or evidence of dysrhythmia. Medical decision rules: none Imaging studies: Chest x-ray reveals infiltrates noted in the left lung. HPI: The patient is a 62year old female who presents to the Emergency Room with complaints of shortness of breath. This started a few weeks ago and is worsening. The patient also notes the following associated symptoms, left-sided rib and chest pain with breathing. The patient has been prescribed antibiotics unsuccessfully for relieving factors. Current pain is rated as 7/10. Patient also notes cough. Pt denies LOC, headache, fevers, chills, diaphoresis, visual changes, neck pain, chest pain, nausea, vomiting, abdominal pain, back pain, melena, hematochezia, urinary symptoms, numbness, weakness, lymphadenopathy, rash, or other complaints. PAST MEDICAL HISTORY: See Below, breast cancer PAST SURGICAL HISTORY: See Below, SOCIAL HISTORY: See Below, smoker HOME MEDICATIONS: See Below ALLERGIES: See Below VITALS: See Below PHYSICAL EXAMINATION: GENERAL: Awake, alert, mildly dyspneic-appearing, in no distress HENT: Normocephalic, atraumatic. Oropharynx unremarkable. EYES: Normal conjunctiva. Sclera non-icteric. NECK: Inspection normal. Non-tender. Supple. No nuchal rigidity. FROM. No masses. RESPIRATORY: Crackles and scattered left-sided wheezes. Increase respiratory effort. CARDIAC: Normal rate. Normal rhythm. No murmurs. No rubs. Extremities warm and well perfused. Pulses equal. No JVD. GI: Soft, non-distended. No tenderness to palpation. No rebound or guarding. No masses. RECTAL: Deferred. MUSCULOSKELETAL: Atraumatic. Chest examination reveals no tenderness. The back is symmetrical on inspection without obvious abnormality. There is no CVA tenderness to palpation. No joint edema. LOWER EXTREMITIES: Calves are equal size bilaterally and non-tender. No edema. No discoloration. NEURO: Normal sensorium. No sensory or motor deficits noted. SKIN: No rash or jaundice noted. Past Med/Surg History Social History Smoking Status: Current every day smoker Tobacco Type: Cigarettes Cigarettes Per Day: 20; Second Hand Exposure: Yes; Do You Dip or Chew Tobacco: No; Hx Alcohol Use: Yes Hx Substance Use: No Preferred Language: Kazakh Communication Ability: Effective Forensic Social Worker Required: No Beliefs That Will Affect Care: None Current Living Situation: Spouse Feels Safe at Home: Yes Assistive Devices: None Allergies Allergies Allergy/AdvReac Type Severity Reaction Status Date / Time terbinafine Allergy Intermediate RASH Verified 05/18/23 18:24 adhesive Allergy Unknown HIVES AND Verified 05/18/23 18:24 RASH; WELTS FROM BANDAIDS amitriptyline Allergy Unknown Rash Verified 05/18/23 18:23 Home Meds Home Medications Medication Instructions Recorded Confirmed gabapentin 100 mg capsule 300 mg PO HS 05/18/23 06/10/23 magnesium oxide 400 mg PO QAM 05/18/23 06/10/23 multivitamin 1 tab PO DAILY 05/18/23 06/10/23 quetiapine 100 mg tablet 100 mg PO HS 05/18/23 06/10/23 riboflavin (vitamin B2) 400 mg 400 mg PO QAM 05/18/23 06/10/23 tablet albuterol sulfate 90 mcg/actuation See Rx Instructions .Route .COMPLEX 06/10/23 06/10/23 aerosol inhaler oxycodone 5 mg tablet 5 mg PO Q6H PRN Pain 06/10/23 06/10/23 Results & Data (ED) Vital Signs Vital Signs - 24 hr 06/10/23 16:07 06/10/23 17:54 06/10/23 17:54 Temperature 36.9 C Temperature Source Temporal Artery Scan Pulse Rate 109 H Pulse Rate [Apical] 101 H Pulse Rhythm Regular Pulse Strength Normal Respiratory Rate 20 25 H Respiratory Effort / Characteristics Non-Labored Spontaneous Non-Labored Respiratory Depth Normal Normal Respiratory Pattern Regular Blood Pressure 128/72 Blood Pressure [Right Arm] 130/80 Blood Pressure Mean 90 Blood Pressure Mean [Right Arm] 96 Blood Pressure Position Sitting Pulse Oximetry 91 100 Oxygen Delivery Method Room Air Nebulizer Nebulizer Oxygen Flow Rate Sepsis Recent Fever Within 48 Hours No Sepsis New/Unexplained Change in Mental Status No Sepsis Action Taken by Nursing No Action Required Pulse Oximetry Post Tiitration 97 06/10/23 18:10 06/10/23 19:23 Temperature Temperature Source Pulse Rate 101 H Pulse Rate [Apical] 100 H Pulse Rhythm Pulse Strength Respiratory Rate 22 Respiratory Effort / Characteristics Labored Respiratory Depth Respiratory Pattern Blood Pressure Blood Pressure [Right Arm] 130/80 Blood Pressure Mean Blood Pressure Mean [Right Arm] 96 Blood Pressure Position Pulse Oximetry 94 Oxygen Delivery Method Nasal Cannula Oxygen Flow Rate 2 Sepsis Recent Fever Within 48 Hours Sepsis New/Unexplained Change in Mental Status Sepsis Action Taken by Nursing Pulse Oximetry Post Tiitration Laboratory Data 06/10/23 17:05 06/10/23 17:05 Lab Results 06/10/23 06/10/23 06/10/23 Range/Units 17:05 17:05 17:05 WBC 8.83 (4.8-10.8) K/ul RBC 4.44 (4.20-5.40) M/uL Hgb 13.3 (12.0-16.0) g/dl Hct 38.8 (37.0-47.0) % MCV 87.4 (80.0-100.0) fL MCH 30.0 (25.0-34.0) pg MCHC 34.3 (32.0-36.0) g/dL RDW Std Deviation 40.6 (36.4-46.3) fL RDW Coeff of John Paul 12.9 (11.5-14.5) % Plt Count 400 (130-400) K/uL MPV 9.1 L (9.4-12.4) fL Immature Gran % (Auto) 0.6 % Neut % (Auto) 74.0 % Lymph % (Auto) 14.6 % [place] % (Auto) 8.5 % Eos % (Auto) 1.6 % Baso % (Auto) 0.7 % Neut # (Auto) 6.54 H (1.40-6.50) K/uL Lymph # (Auto) 1.29 (1.2-3.4) K/uL [place] # (Auto) 0.75 H (0.11-0.59) K/uL Eos # (Auto) 0.14 (0-0.50) K/uL Baso # (Auto) 0.06 (0-0.2) K/uL Immature Gran # (Auto) 0.05 (0.01-0.20) K/uL PT Cancelled INR Cancelled APTT Cancelled PTT Ratio Cancelled Sodium 133 L (136-145) mmol/L Potassium TNP Chloride 97 L (98-107) mmol/L Carbon Dioxide 26 (21-32) mmol/L Anion Gap 10 (3-11) BUN 13 (6-23) mg/dl Creatinine 0.53 L (0.6-1.2) mg/dl Est Cr Clr Drug Dosing Not Reportable Est GFR ( Amer) 117.9 ml/min Est GFR (Non-Af Amer) 101.8 ml/min BUN/Creatinine Ratio 24.5 H (10-20) Glucose 161 H (70-99(Fasting)) mg/dl Lactate (0.4-2.0) mmol/L Calcium 8.9 (8.6-10.3) mg/dl Magnesium 2.1 (1.7-2.4) mg/dl Total Bilirubin 0.5 (0.2-1.0) mg/dl AST TNP ALT 20 (7-52) U/L Alkaline Phosphatase 84 (34-104) U/L Troponin I High Sens 9.1 (0-14) pg/ml Total Protein 7.3 (6.0-8.3) gm/dl Albumin 3.5 (3.4-5.0) gm/dl Globulin 3.8 (2.5-4.0) gm/dl Albumin/Globulin Ratio 0.9 (0.9-2) Procalcitonin (0-0.5) ng/ml TSH (0.300-4.500) uIu/ml 06/10/23 06/10/23 06/10/23 Range/Units 17:05 18:00 18:00 WBC (4.8-10.8) K/ul RBC (4.20-5.40) M/uL Hgb (12.0-16.0) g/dl Hct (37.0-47.0) % MCV (80.0-100.0) fL MCH (25.0-34.0) pg MCHC (32.0-36.0) g/dL RDW Std Deviation (36.4-46.3) fL RDW Coeff of John Paul (11.5-14.5) % Plt Count (130-400) K/uL MPV (9.4-12.4) fL Immature Gran % (Auto) % Neut % (Auto) % Lymph % (Auto) % [place] % (Auto) % Eos % (Auto) % Baso % (Auto) % Neut # (Auto) (1.40-6.50) K/uL Lymph # (Auto) (1.2-3.4) K/uL [place] # (Auto) (0.11-0.59) K/uL Eos # (Auto) (0-0.50) K/uL Baso # (Auto) (0-0.2) K/uL Immature Gran # (Auto) (0.01-0.20) K/uL PT INR APTT PTT Ratio Sodium (136-145) mmol/L Potassium Chloride (98-107) mmol/L Carbon Dioxide (21-32) mmol/L Anion Gap (3-11) BUN (6-23) mg/dl Creatinine (0.6-1.2) mg/dl Est Cr Clr Drug Dosing Est GFR ( Amer) ml/min Est GFR (Non-Af Amer) ml/min BUN/Creatinine Ratio (10-20) Glucose (70-99(Fasting)) mg/dl Lactate 0.8 (0.4-2.0) mmol/L Calcium (8.6-10.3) mg/dl Magnesium (1.7-2.4) mg/dl Total Bilirubin (0.2-1.0) mg/dl AST ALT (7-52) U/L Alkaline Phosphatase (34-104) U/L Troponin I High Sens (0-14) pg/ml Total Protein (6.0-8.3) gm/dl Albumin (3.4-5.0) gm/dl Globulin (2.5-4.0) gm/dl Albumin/Globulin Ratio (0.9-2) Procalcitonin 0.10 (0-0.5) ng/ml TSH 1.536 (0.300-4.500) uIu/ml 06/10/23 06/10/23 Range/Units 18:06 18:06 WBC (4.8-10.8) K/ul RBC (4.20-5.40) M/uL Hgb (12.0-16.0) g/dl Hct (37.0-47.0) % MCV (80.0-100.0) fL MCH (25.0-34.0) pg MCHC (32.0-36.0) g/dL RDW Std Deviation (36.4-46.3) fL RDW Coeff of John Paul (11.5-14.5) % Plt Count (130-400) K/uL MPV (9.4-12.4) fL Immature Gran % (Auto) % Neut % (Auto) % Lymph % (Auto) % [place] % (Auto) % Eos % (Auto) % Baso % (Auto) % Neut # (Auto) (1.40-6.50) K/uL Lymph # (Auto) (1.2-3.4) K/uL [place] # (Auto) (0.11-0.59) K/uL Eos # (Auto) (0-0.50) K/uL Baso # (Auto) (0-0.2) K/uL Immature Gran # (Auto) (0.01-0.20) K/uL PT 11.7 INR 1.1 APTT 31.3 H PTT Ratio 1.1 Sodium (136-145) mmol/L Potassium 3.5 Chloride (98-107) mmol/L Carbon Dioxide (21-32) mmol/L Anion Gap (3-11) BUN (6-23) mg/dl Creatinine (0.6-1.2) mg/dl Est Cr Clr Drug Dosing Est GFR ( Amer) ml/min Est GFR (Non-Af Amer) ml/min BUN/Creatinine Ratio (10-20) Glucose (70-99(Fasting)) mg/dl Lactate (0.4-2.0) mmol/L Calcium (8.6-10.3) mg/dl Magnesium (1.7-2.4) mg/dl Total Bilirubin (0.2-1.0) mg/dl AST 19 ALT (7-52) U/L Alkaline Phosphatase (34-104) U/L Troponin I High Sens (0-14) pg/ml Total Protein (6.0-8.3) gm/dl Albumin (3.4-5.0) gm/dl Globulin (2.5-4.0) gm/dl Albumin/Globulin Ratio (0.9-2) Procalcitonin (0-0.5) ng/ml TSH (0.300-4.500) uIu/ml Administered Medications Hydromorphone HCl (Hydromorphone Inj 0.5 Mg/0.5 Ml Syr) 0.5 mg IV Q15M PRN PRN Reason: Pain Stop: 06/24/23 17:32 Last Admin: 06/10/23 17:46 Dose: 0.5 mg Documented By: MES Discontinued Medications Albuterol (Albut/Ipratrop 3mg/0.5mg Neb 3 Ml Vial) 3 ml NEB NOW STA; Protocol Stop: 06/10/23 17:35 Last Admin: 06/10/23 17:46 Dose: 3 ml Documented By: MORIS Ondansetron HCl (Ondansetron Inj 2 Mg/Ml 2 Ml Vial) 4 mg IV NOW STA Stop: 06/10/23 17:34 Last Admin: 06/10/23 17:46 Dose: 4 mg Documented By: MORIS Imaging Data Radiologist's Impression: Chest X-Ray 06/10/23 16:13 XR chest 1V portable CLINICAL HISTORY: Dyspnea TECHNIQUE: Single frontal radiograph of the chest was obtained. Comparison: Comparison is made to chest radiograph 05/18/2023 FINDINGS: No lines and tubes are seen. The cardiomediastinal silhouette is normal. Left lung airspace opacities increased from prior exam. Small left pleural effusion. IMPRESSION: 1. Interval increase in left airspace opacities compatible with aspiration/pneumonia. 2. Small left pleural effusion. ACT 112: Negative or not required by law. Electronically signed by: Ronald Miles M.D. 06/10/2023 6:00 PM Discharge Plan Visit Data Chief Complaint: Shortness of Breath/Dyspnea Stated Complaint: TROUBLE BREATH,UNABLE TO EAT ED Provider: Ahsan Travis Discharge Problem: Shortness of breath Forms Stand Alone Forms: My [facility] Prescriptions Prescriptions: No Action quetiapine 100 mg tablet 100 mg PO HS gabapentin 100 mg capsule 300 mg PO HS riboflavin (vitamin B2) 400 mg Tablet 400 mg PO QAM multivitamin Tablet 1 tab PO DAILY magnesium oxide 400 mg magnesium Capsule 400 mg PO QAM albuterol sulfate 90 mcg/actuation HFA aerosol inhaler See Rx Instructions .ROUTE .COMPLEX Rx Instructions: as directed oxycodone 5 mg tablet 5 mg PO Q6H PRN (Reason: Pain) Referrals Referrals: Carl Vargas MD [Primary Care Provider] -
[2023-06-10 17:25] LABS: Basophils # (auto) 0.06 K/uL (0-0.2); Basophils % (auto) 0.7 %; Eosinophils # (auto) 0.14 K/uL (0-0.50); Eosinophils % (auto) 1.6 %; Hematocrit (blood only) 38.8 % (37.0-47.0); Hemoglobin 13.3 g/dl (12.0-16.0); Immature Granulocytes # (auto) 0.05 K/uL (0.01-0.20); Immature Granulocytes % (auto) 0.6 %; Lymphocytes # (auto) 1.29 K/uL (1.2-3.4); Lymphocytes % (auto) 14.6 %; Mean Corpuscular Hgb Conc 34.3 g/dL (32.0-36.0); Mean Corpuscular Volume 87.4 fL (80.0-100.0); Mean Platelet Volume 9.1 fL (9.4-12.4); Monocytes # (auto) 0.75 K/uL (0.11-0.59); Monocytes % (auto) 8.5 %; Neutrophils # (auto) 6.54 K/uL (1.40-6.50); Platelet Count 400 K/uL (130-400); RDW Coefficient of Variation 12.9 % (11.5-14.5); RDW Standard Deviation 40.6 fL (36.4-46.3); Red Blood Count 4.44 M/uL (4.20-5.40); White Blood Count 8.83 K/ul (4.8-10.8)
[2023-06-10] MEDS ORDERED: ONDANSETRON INJ 2 MG/ML 2 ML VIAL IV STA (17:33)
[2023-06-10] MEDS ORDERED: ALBUT/IPRATROP 3MG/0.5MG NEB 3 ML VIAL NEB STA (17:34)
[2023-06-10] MEDS: HYDROmorphone INJ 0.5 MG/0.5 ML SYR IV PRN ×3 (17:46→21:06)
[2023-06-10 17:51] LABS: Alanine Aminotransferase 20 U/L (7-52); Albumin Globulin Ratio 0.9 (0.9-2); Albumin Level 3.5 gm/dl (3.4-5.0); Alkaline Phosphatase 84 U/L (34-104); Anion Gap 10 (3-11); BUN Creatinine Ratio 24.5 (10-20); Bilirubin,Total 0.5 mg/dl (0.2-1.0); Blood Urea Nitrogen 13 mg/dl (6-23); Calcium 8.9 mg/dl (8.6-10.3); Carbon Dioxide 26 mmol/L (21-32); Chloride 97 mmol/L (98-107); Est GFR (African American) 117.9 ml/min; Est GFR (Non-African American) 101.8 ml/min; Globulin 3.8 gm/dl (2.5-4.0); Glucose 161 mg/dl (70-99(Fasting)); Magnesium 2.1 mg/dl (1.7-2.4); Sodium 133 mmol/L (136-145); Total Protein 7.3 gm/dl (6.0-8.3); Troponin I High Sensitivity 9.1 pg/ml (0-14)
--- NOTE | 2023-06-10 18:02 | XRay Report ---
XR chest 1V portable CLINICAL HISTORY: Dyspnea TECHNIQUE: Single frontal radiograph of the chest was obtained. Comparison: Comparison is made to chest radiograph 05/18/2023 FINDINGS: No lines and tubes are seen. The cardiomediastinal silhouette is normal. Left lung airspace opacities increased from prior exam. Small left pleural effusion. IMPRESSION: 1. Interval increase in left airspace opacities compatible with aspiration/pneumonia. 2. Small left pleural effusion. ACT 112: Negative or not required by law. Electronically signed by: Ronald Miles M.D. 06/10/2023 6:00 PM
[2023-06-10 18:36] LABS: Potassium 3.5 mmol/L (3.5-5.1)
--- NOTE | 2023-06-10 18:37 | History & Physical Report ---
Date of Service June 10, 2023 Assessment & Plan (1) Acute respiratory failure with hypoxia: (2) Atypical chest pain: (3) Shortness of breath: (4) Mass of left lung: Plan: Patient is 62-year-old female with PMH breast cancer S/P bilateral mastectomy and radiation treatment and not interested in chemo, OA, h/o meningioma, migraines, tobacco use presented to ER with c/o worsening SOB and left sided chest pain. Admission 04/[address] chest without evidence for PE, had left mediastinal- left hilar lymphadenopathy which was concerning for metastatic disease. Bronchoscopy abnormal but cytology without evidence malignancy In ER Hypoxic 89% on RA CXR: Interval increase in left airspace opacities compatible with aspiration/pneumonia. Small left pleural effusion Suspect less likely pneumonia. Completed 2 courses of antibiotics. No leukocytosis, negative lactate, procalcitonin: 0.1. Negative HS troponin. Will hold on further antibiotics at this time More likely underlying malignancy Supplemental oxygen Will hold on additional imaging at this time PET scan results pending Scheduled Tylenol, Toradol, morphine IR, Dilaudid IV prn pain Pulmonology consult Suspect further diagnostics needed for definitive diagnosis Will need continued oncology follow up. appointment with Dr Osborne scheduled on 06/12/23 CBC, BMP in am (5) History of migraine: Plan: Continue home medications (6) Breast cancer: Plan: History breast CA s/p mastectomy, radiation (7) Tobacco use: Plan: Has cut back from 1ppd to 1/4ppd recently secondary to SOB as well as attempt to quit Encouraged continued efforts in smoking cessation Denies nicotine patch DVT Prophylaxis SCDs for now in case of procedure Full Code as per discussion with pt, however reports would not want prolonged if poor prognosis Follows with Dr Vargas for routine care Pt was seen and care coordinated with Dr Rea. See addendum I spent a total of 76 minutes reviewing notes, outpatient records, labs, medication, coordinating, documenting and providing care for this patient excluding time spent in the performance of separately billed services. History of Present Illness Chief Complaint: SOB Primary Care Provider: Carl Vargas MD Patient is 62-year-old female with PMH breast cancer S/P bilateral mastectomy and radiation treatment and not interested in chemo, OA, h/o meningioma, migraines, tobacco use presented to ER with c/o worsening SOB and left sided chest pain. History obtained from patient, family, inpatient and outpatient chart review. [facility] Hospital admission 05/18/2023-05/20/2023 for SOB and cough and at that time CT chest without evidence for PE, had left mediastinal-left hilar lymphadenopathy which was concerning for metastatic disease. Had bronchoscopy on 05/20/2023 with noted very friable tissue. Cytology with scattered atypical epithelial cells. Pulmonology was consulted during admission and had mentioned if the specimens were negative may need further investigation with trans thoracic needle aspiration, thoracoscopy or repeat bronchoscopy with endoscopic ultrasound. Patient was treated for possible pneumonia and discharged on 5 additional days of antibiotics (cefdinir, doxycycline) and Diflucan. Patient Followed up with PCP 05/25/2023 with continued shortness of breath, left chest pain. Patient was started on Levaquin 500 mg x 10 days, prednisone 40 mg x 5 days. PCP visit 06/08/2023 with reported sweats, continued cough and shortness of breath, left-sided chest pain, continued intermittent hemoptysis. Was given prescription for oxycodone and referral to pain management was placed. Patient states taking oxycodone with minimal relief of pain to left side of chest. Reports temps 99.8F. Is to have outpatient oncology follow-up later this week. Had PET scan today with results still pending. Denies N/V/D, LEYVA, dizziness, syncope, neck pain, CP, SOB, palpitations, otalgia, rhinorrhea, abdominal pain, paresthesias, extremity weakness, extremity edema, rashes, urinary symptoms. Allergies Allergy/AdvReac Type Severity Reaction Status Date / Time terbinafine Allergy Intermediate RASH Verified 05/18/23 18:24 adhesive Allergy Unknown HIVES AND Verified 05/18/23 18:24 RASH; WELTS FROM BANDAIDS amitriptyline Allergy Unknown Rash Verified 05/18/23 18:23 Home Medications Medication Instructions Recorded Confirmed Type gabapentin 100 mg capsule 300 mg PO HS 05/18/23 06/10/23 History magnesium oxide 400 mg PO QAM 05/18/23 06/10/23 History multivitamin 1 tab PO DAILY 05/18/23 06/10/23 History quetiapine 100 mg tablet 100 mg PO HS 05/18/23 06/10/23 History riboflavin (vitamin B2) 400 mg 400 mg PO QAM 05/18/23 06/10/23 History tablet albuterol sulfate 90 mcg/actuation See Rx Instructions .Route .COMPLEX 06/10/23 06/10/23 History aerosol inhaler oxycodone 5 mg tablet 5 mg PO Q6H PRN Pain 06/10/23 06/10/23 History Past Med/Surg History Medical History Breast cancer (~09/13/14) History of meningioma History of migraine Tobacco use Surgical History History of bilateral mastectomy Family History Other Cancer Social History Smoking Status: Current every day smoker Tobacco Type: Cigarettes Cigarettes Per Day: 20; Second Hand Exposure: Yes; Do You Dip or Chew Tobacco: No; Hx Alcohol Use: Yes Hx Substance Use: No Preferred Language: German Communication Ability: Effective Graphics Production Specialist Required: No Beliefs That Will Affect Care: None Current Living Situation: Spouse Feels Safe at Home: Yes Assistive Devices: None Review of Systems Review of Systems: All systems reviewed & are unremarkable except as noted in HPI & below Physical Exam Physical Exam: General: no acute distress on 2L via NC, WDWN Head: normocephalic, atraumatic Eyes: conjunctiva non-injected, anicteric ENT: normal inspection external ears, nose, mucous membranes moist Neck: supple, trachea midline Lungs: clear, no respiratory distress on current 2L via NC with sats 94%, no wheezing/rhonchi/rales noted CV: RRR, no murmur, no pretibial edema Abd: normal BS, soft, non-tender Ext: no cyanosis, no calf tenderness Neuro: A&O x 3, no focal deficits noted, normal affect Skin: warm, dry Results & Data Results & Data Vital Signs (Past 12 Hours) Vital Signs Temp Pulse Pulse Resp BP BP Pulse Ox 06/10/23 18:10 101 H 06/10/23 17:54 101 H 25 H 130/80 100 06/10/23 17:54 06/10/23 16:07 36.9 C 109 H 20 128/72 91 O2 Del Method 06/10/23 18:10 06/10/23 17:54 Nebulizer 06/10/23 17:54 Nebulizer 06/10/23 16:07 Room Air Laboratory Results Short CBC 06/10/23 Range/Units 17:05 WBC 8.83 (4.8-10.8) K/ul Hgb 13.3 (12.0-16.0) g/dl Hct 38.8 (37.0-47.0) % Plt Count 400 (130-400) K/uL BMP 06/10/23 06/10/23 17:05 18:06 Sodium 133 L Potassium TNP 3.5 Chloride 97 L Carbon Dioxide 26 BUN 13 Creatinine 0.53 L Glucose 161 H Calcium 8.9 Liver Function 06/10/23 06/10/23 Range/Units 17:05 18:06 Total Bilirubin 0.5 (0.2-1.0) mg/dl AST TNP 19 ALT 20 (7-52) U/L Alkaline Phosphatase 84 (34-104) U/L Albumin 3.5 (3.4-5.0) gm/dl Diagnostic Findings Chest X-Ray 06/10/23 16:13 XR chest 1V portable CLINICAL HISTORY: Dyspnea TECHNIQUE: Single frontal radiograph of the chest was obtained. Comparison: Comparison is made to chest radiograph 05/18/2023 FINDINGS: No lines and tubes are seen. The cardiomediastinal silhouette is normal. Left lung airspace opacities increased from prior exam. Small left pleural effusion. IMPRESSION: 1. Interval increase in left airspace opacities compatible with aspi ration/pneumonia. 2. Small left pleural effusion. ACT 112: Negative or not required by law. Electronically signed by: Ronald Miles M.D. 06/10/2023 6:00 PM Supervising Physician Co-Signing Physician Notes I have seen and examined the patient and have discussed the case with the provider above. I agree with the assessment and plan as stated. 62 yo F with h/o breast cancer and recent hospitalization and clinical workup with concern for metastatic disease to the left chest. She underwent a bron choscopy during a recent admission which was abnormal without any tissue pathology evidence of malignancy. She then underwent a PET scan today (not yet read) and reported to the ER with worsening SOB, hypoxia and chest pain. Pain was improved with dilaudid and she reports pain was not controlled with oxycodone 5mg tabs. Daughter is at bedside and assists with the history. On exam she is WNWD and is sitting up and eating some soup. She is in NAD with oxygen in place via NC. Lungs were clear throughout and there is no increased respiratory effort. Labs/imaging/recent bronch results reviewed. CXR reveals new left pleural effusion with mass seen in prior imaging. Agree with admission and continuing oxygen support, pulmonary consult for consideration of thoracentesis. Awaiting PET results and follow up with oncology as outpatient for treatment options. For her pain, will switch oxycodone to morphine 15mg IR PO q4h as needed for pain. DO Álvaro
[2023-06-10 18:57] LABS: INR 1.1 (0.9-1.1); Partial Thromboplastin Ratio 1.1; Partial Thromboplastin Time 31.3 Seconds (21.0-31.0); Prothrombin Time 11.7 Seconds (9.0-12.0)
[2023-06-10] MEDS ORDERED: POTASSIUM CHLORIDE CRTAB 20 MEQ TABCR PO STA (19:24)
[2023-06-10] MEDS ORDERED: MAGNESIUM HYDROXIDE SUSP 30 ML UDC PO PRN (21:29)
[2023-06-10] MEDS ORDERED: HYDROmorphone INJ 0.5 MG/0.5 ML SYR IV PRN (21:29)
[2023-06-10] MEDS ORDERED: POLYETHYLENE (MIRALAX) 17 GM PACK PO PRN (21:29)
[2023-06-10] MEDS ORDERED: ONDANSETRON INJ 2 MG/ML 2 ML VIAL IV PRN (21:29)
[2023-06-10] MEDS: ACETAMINOPHEN 500 MG TAB PO SCH (21:47)
[2023-06-10] MEDS: GABAPENTIN 300 MG CAP PO SCH (21:48)
[2023-06-10] MEDS: QUEtiapine FUMARATE 100 MG TABLET PO SCH (21:48)
[2023-06-10] MEDS: DOCUSATE SODIUM 100 MG CAP PO SCH (22:23)
[2023-06-10] MEDS: MoRPHine SULFATE IR 15 MG TAB (IMMEDIATE RELEASE) PO PRN (22:37)
[2023-06-11] MEDS: MoRPHine SULFATE IR 15 MG TAB (IMMEDIATE RELEASE) PO PRN (03:38)
[2023-06-11] MEDS: ACETAMINOPHEN 500 MG TAB PO SCH ×3 (06:04→22:40)
[2023-06-11 08:56] LABS: Hematocrit (blood only) 36.1 % (37.0-47.0); Hemoglobin 12.1 g/dl (12.0-16.0); Mean Corpuscular Hemoglobin 29.7 pg (25.0-34.0); Mean Corpuscular Hgb Conc 33.5 g/dL (32.0-36.0); Mean Corpuscular Volume 88.5 fL (80.0-100.0); Mean Platelet Volume 9.2 fL (9.4-12.4); Platelet Count 333 K/uL (130-400); RDW Coefficient of Variation 13.1 % (11.5-14.5); RDW Standard Deviation 42.5 fL (36.4-46.3); Red Blood Count 4.08 M/uL (4.20-5.40); White Blood Count 7.54 K/ul (4.8-10.8)
[2023-06-11] MEDS ORDERED: NON-FORMULARY MEDICATION (Riboflavin (Vitamin B2) 400 mg Tablet) PO SCH (09:00)
[2023-06-11 09:24] LABS: BUN Creatinine Ratio 25.9 (10-20); Calcium 8.5 mg/dl (8.6-10.3); Creatinine Clr Calc Pharmacy 101.4 ml/min; Est GFR (African American) 117.2 ml/min; Est GFR (Non-African American) 101.1 ml/min; Potassium 4.6 mmol/L (3.5-5.1)
[2023-06-11] MEDS ORDERED: oxyCODONE/ACETAMINOPHEN 5mg/325mg TAB PO PRN (09:42)
[2023-06-11] MEDS: HYDROmorphone INJ 0.5 MG/0.5 ML SYR IV PRN ×3 (10:24→18:58)
[2023-06-11] MEDS: MAGNESIUM OXIDE 400 MG TAB PO SCH (10:27)
[2023-06-11] MEDS: MULTIVITAMIN TAB PO SCH (10:27)
[2023-06-11] MEDS: DOCUSATE SODIUM 100 MG CAP PO SCH ×2 (11:23→21:05)
--- NOTE | 2023-06-11 11:35 | Pulmonary Consultation ---
Date of Consultation June 11, 2023 Assessment & Plan (1) Mediastinal lymphadenopathy: (2) Pleural effusion: (3) Shortness of breath: (4) Mass of left lung: (5) Tobacco abuse: Plan IMPRESSION: 62-year-old female with significant past medical history of breast cancer with recurrence and significant 30 pack plus year smoking history who presents with worsening pain, shortness of breath, and hypoxia he was found to have a large left-sided pleural effusion. RECOMMENDATIONS: 1. Mediastinal lymphadenopathy - Concerning with recent PET scan which shows FDG uptake in the mediastinum as well as the mass in the LEFT upper lobe. Given the moderate effusion noted on imaging, discussed utility of thoracentesis with goal for characterization of fluid and running pathology off of this fluid which may provide tissue diagnosis given concerns for metastatic process. Patient consents to thoracentesis procedure. Certainly, we did discuss that she may warrant EBUS depending on pleural fluid results. 2. Pleural Effusion - Concerning for malignant pleural effusion. Patient with r isk factors for recurrence of breast cancer as well as risk factors related to her smoking history. She has been treated with 2 separate courses of antibiotics and continues to have persistent fevers, decreased appetite, and weight loss. Will obtain thoracentesis diagnostic and therapeutically. Patient consents to procedure. 3. Shortness of breath - Likely secondary to #2. We will see how she improves after thoracentesis. Patient will also has a degree of bronchospasm on exam. We discussed initiating maintenance inhaler which she declines at this time. We will reassess this after thoracentesis. 4. Mass of LEFT lung - Again, concerning for malignant process. To undergo thoracentesis with characterization of fluid. Patient was scheduled to have an appointment with Dr. Osborne tomorrow. We will make her aware that the patient is currently inpatient. Depending on thoracentesis results, patient may warrant brain MRI for staging purposes while inpatient. 5. Tobacco Abuse - Encouraged smoking cessation. Thank you for allowing us to participate in the care of this patient. We will continue to follow along during her inpatient stay. Supervising Physician Co-Signing Physician Notes Patient seen and examined. EMR reviewed. Images independently reviewed. Discussed with KATHLEEN. Agree with assessment plan as noted. Recommend proceeding with ultrasound-guided catheter thoracentesis. If cytology is inadequate or insufficient, could consider outpatient endobronchial ultrasound with transbronchial needle aspiration. Depending on the results of the effusion cytology and characteristics and how rapidly reaccumulates, consideration for Pleurx catheter might be appropriate. If the patient's post procedure chest x-ray is unremarkable, she can be dismissed from the hospital from a pulmonary perspective. She does have an appointment with oncology as an inpatient tomorrow. Spencer Shrestha MD [facility] Pulmonary/Critical Care/Sleep Medicine History of Present Illness Reason for Consultation: SOB, pleural effusion, w/u ?pulm malign Requesting Physician: Sammi Miguel PA-C Attending Physician: Marty Arnold MD History of Present Illness Patient is a 62-year-old female with a significant past medical history of breast cancer. Initial episode was in 2007 with subsequent episodes in 2013 and . She has undergone radical mastectomy with reconstructive implantation placement. She follows routinely with oncology. She has had routine CAT scans. Unfortunately, over the last month or so, the patient developed pain to the LEFT-sided rib area. This prompted visit to the emergency department at the end of last month. During evaluation, she was noticed to have significant mediastinal lymphadenopathy concerning for metastatic disease process. She underwent bronchoscopy with brushing which provided no significant pathologic results. She had followed up with oncology in the interim and had undergone PET scan yesterday. She presented back to the emergency department with worsening shortness of breath pain. Patient now has large LEFT-sided pleural effusion. Patient has been through 2 rounds of antibiotics. Despite this, she has had ongoing symptoms and persistent fevers. Upon evaluation at bedside, the patient is awake, alert, and oriented. She reports pain with deep inspiration and cough. She has been short of breath and occasionally wheezing. She has a significant history of smoking as well with greater than 30 pack years. She was diagnosed with "emphysema" most recently on imaging. She has never undergone pulmonary function testing in the past. She continues to smoke half a pack a day. She complains of LEFT-sided rib and chest pain. She denies complaints of palpitations, hemoptysis, nausea, or vomiting. She has had intermittent fevers and unintentional weight loss. Allergies Allergy/AdvReac Type Severity Reaction Status Date / Time terbinafine Allergy Intermediate RASH Verified 05/18/23 18:24 adhesive Allergy Unknown HIVES AND Verified 05/18/23 18:24 RASH; WELTS FROM BANDAIDS amitriptyline Allergy Unknown Rash Verified 05/18/23 18:23 Home Medications Medication Instructions Recorded Confirmed Type gabapentin 100 mg capsule 300 mg PO HS 05/18/23 06/10/23 History magnesium oxide 400 mg PO QAM 05/18/23 06/10/23 History multivitamin 1 tab PO DAILY 05/18/23 06/10/23 History quetiapine 100 mg tablet 100 mg PO HS 05/18/23 06/10/23 History riboflavin (vitamin B2) 400 mg 400 mg PO QAM 05/18/23 06/10/23 History tablet albuterol sulfate 90 mcg/actuation See Rx Instructions .Route .COMPLEX 06/10/23 06/10/23 History aerosol inhaler oxycodone 5 mg tablet 5 mg PO Q6H PRN Pain 06/10/23 06/10/23 History Patient History Medical History Breast cancer (~09/13/14) History of meningioma History of migraine Tobacco use Surgical History History of bilateral mastectomy Family History Other Cancer Social History Smoking Status: Current every day smoker Tobacco Type: Cigarettes Cigarettes Per Day: 20; Second Hand Exposure: Yes; Do You Dip or Chew Tobacco: No; Tobacco Cessation Education Requested by Patient: No Hx Alcohol Use: Yes Hx Substance Use: No Preferred Language: Telugu Communication Ability: Effective Franchise Sales Representative Required: No Beliefs That Will Affect Care: None Current Living Situation: Spouse Other Information That Helps Us Care for You: No Feels Safe at Home: Yes Safety Concerns: Feels Safe At This Time Assistive Devices: None Review of Systems Review of Systems: A complete 10 point review of systems was reviewed with the patient with pertinent positives and negatives as per history of present illness. All else were negative. Physical Exam Physical Exam: VITAL SIGNS - Vital signs and nursing notes were reviewed. GENERAL - 62-year-old female appearing her stated age who is in no acute distress. Communicates well with provider and answers questions appropriately. SKIN - Without rashes or lesions. NOSE - Midline and without cyanosis. MOUTH/OROPHARYNX - Without perioral cyanosis. NECK - Neck with FROM. LUNGS -previous postoperative changes noted to the LEFT-sided chest wall. Decreased breath sounds at the LEFT-sided lung field. Inspiratory wheezes appreciated throughout the RIGHT-sided lung field. CARDIAC - RRR with S1/S2. No murmur, rubs, or gallops appreciated. ABDOMEN - Abdominal inspection demonstrates a flat abdomen. BS normoactive all four quadrants. No tenderness, palpable masses, or ascites noted. EXTREMITIES - No peripheral cyanosis. no pretibial edema present. +3/5 radial palpated throughout. PSYCH - A&Ox3 and cooperates fully with examiner. Pt is very pleasant and interacts well with examiner. Results & Data Results & Data Vital Signs (Past 12 Hours) Vital Signs Temp Pulse Pulse Pulse Resp BP BP 06/11/23 08:07 36.8 C 95 H 20 109/66 06/11/23 03:35 125 H 06/11/23 06:00 100 H 06/11/23 03:46 06/11/23 03:46 36.5 C 118 H 24 144/71 H 06/11/23 03:00 108 H 18 06/11/23 02:00 96 H 12 96/67 L 06/11/23 01:00 94 H 12 90/65 L 06/11/23 00:01 94 H 14 104/58 L Pulse Ox O2 Del Method O2 Flow Rate 06/11/23 08:07 94 Nasal Cannula 2 06/11/23 03:35 06/11/23 06:00 06/11/23 03:46 Nasal Cannula 2 06/11/23 03:46 93 Nasal Cannula 2 06/11/23 03:00 93 2 06/11/23 02:00 94 06/11/23 01:00 93 06/11/23 00:01 93 Nasal Cannula 2 PG Care Time/CCT Total # of Minutes Spent Total Time Spent with Patient: Total time spent is greater than 50% in coordination of care (as documented) at patient's floor/unit and/or counseling patient: Coding Level of Care Code 24227 IN/OBS CONSULT LVL 4,60M Diagnoses Mediastinal lymphadenopathy R59.0 Pleural effusion J90 Shortness of breath R06.02 Mass of left lung R91.8 Tobacco abuse Z72.0
[2023-06-11] MEDS: KETOROLAC TROMETHAMINE 15 MG/ML VIAL IV PRN ×2 (12:35→21:06)
[2023-06-11 13:02] LABS: Appearance Urine Clear (Clear); Bilirubin Urine Negative (Negative); Blood Urine Negative (Negative); Color Urine Yellow; Glucose Urine UA Negative (Negative); Ketones Urine Negative (Negative); Leukocyte Esterase Urine Negative (Negative); Nitrite Urine Negative (Negative); Protein Urine Negative (Negative); Specific Gravity Urine 1.009 (1.000-1.030); Urobilinogen Urine Negative (Negative)
--- NOTE | 2023-06-11 14:58 | Procedure Note ---
Procedure Note Date of Service June 11, 2023 Note Procedure: Diagnostic and Therapeutic Thoracentesis Attending: Dr. Shrestha APC: Moises Mota PA-C Indication: Pleural Effusion, SOB Anesthesia: 10 mL of Lidocaine 1% without epinephrine. Written consent was obtained and on the chart per attending providers. Prior to procedure, radiology films and pertinent labs were reviewed by myself and demonstrated a large LEFT sided pleural effusion. A time-out was completed verifying correct patient, procedure, site, positioning, and implant(s) or special equipment if applicable. Utilizing bedside ultrasound, chest wall was evaluated for location for optimal catheter insertion. The skin was marked using gentle pressure. The LEFT sided chest wall was prepped with chlorhexidine and draped in the typical sterile fashion. 10 mL of 1% Lidocaine without epinephrine was used to anesthetize the skin down to the pleural space. Return of pleural fluid confirmed entry into the pleural space. Lidocaine was injected into the pleural space for increased anesthetization. Scapel was used to make a small incision of the superficial tissue, parallel to the direction of the rib anatomy. The thoracentesis catheter was advanced over the rib into the pleural space. Entry into the pleural space was heralded by pleural fluid return into the syringe while under gentle aspiration. The catheter was advanced into the pleural space without resistance. Using the one-way valve system, a total of 400 mL of reddish colored sanguinous fluid was removed. Procedure was terminated due to pain and coughing. The catheter was quickly removed while patient exhaled completely. The catheter was observed to be intact. A sterile dressing was applied. Post procedure chest x-ray was ordered. Pleural fluid was sent for cytology, pathology, gram staining. Blood Loss: Minimal Complications: None Post procedure Chest X-ray was ordered and reviewed by myself which demonstrated decrease in size of pleural effusion. No pneumothorax. Coding CPT Codes Pulmonary/Thoracic - Pulmonary and Thoracic: 17033 Thoracentesis w imaging ([id number]) [facility] [place] [facility] [place]odes (Charges) Pulmonary/Thoracic Procedure 1: Pulmonary and Thoracic: 85999 Thoracentesis w imaging
--- NOTE | 2023-06-11 15:21 | Hospitalist Progress Note ---
Date of Service June 11, 2023 Assessment & Plan (1) Acute respiratory failure with hypoxia: (2) Atypical chest pain: (3) Shortness of breath: (4) Mass of left lung: Plan: Patient is 62-year-old female with PMH breast cancer S/P bilateral mastectomy and radiation treatment and not interested in chemo, OA, h/o meningioma, migraines, tobacco use presented to ER with c/o worsening SOB and left sided chest pain. Admission 04/[address] chest without evidence for PE, had left mediastinal- left hilar lymphadenopathy which was concerning for metastatic disease. Bronchoscopy abnormal but cytology without evidence malignancy Acute hypoxic respiratory failure Left-sided pleural effusion, likely malignant 62-year-old female with history of breast cancer status post bilateral mastectomy and radiation admitted recently for mediastinal lymphadenopathy and interstitial thickening within left upper lobe on CT presented with shortness of breath. Chest x-ray on admission personally reviewed; increase in left-sided pleural effusion EKG on admission personally reviewed; sinus tachycardia; no ST or T wave changes. Hypoxic on admission and using accessory muscle with increased work of breathing No leukocytosis Underwent PET scan on 06/10 Patient to undergo thoracentesis by pulmonology today. Follow-up on results Provide supplemental oxygen to maintain saturation above 92% Pain control with Dilaudid and Percocet Will need oncology and pulmonology follow-up for discharge. (5) History of migraine: Plan: Continue home medications (6) Breast cancer: Plan: History breast CA s/p mastectomy, radiation (7) Tobacco use: Plan: Has cut back from 1ppd to 1/4ppd recently secondary to SOB as well as attempt to quit Encouraged continued efforts in smoking cessation Denies nicotine patch DVT Prophylaxis SCDs for now Full Code as per discussion with pt, however reports would not want prolonged if poor prognosis Follows with Dr Vargas for routine care Time spent evaluating patient, direct bedside care, chart review, placing orders, interpretation of diagnostic studies, discussion with consultants, patient, and family members, as well as other required patient management activities is 60 minutes. Please note the above document was generated using voice recognition software. It may contain grammatical, syntax or spelling errors. Any formal questions or concerns about the content, text or information contained within the body of this dictation should be directly addressed to the provider for clarification Admission and Anticipated Discharge Date Admission Date: June 10, 2023 Subjective Patient seen and examined at bedside. She reports pain on her left lung field and over her scapula. Reports shortness of breath on minimal exertion. Review of Systems Review of Systems: All systems reviewed & are unremarkable except as noted in Subjective Physical Exam Physical Exam: Constitutional: WD/WN, vitals as above, NAD, sitting up in bed, pleasant, conversing easily Respiratory: Decreased breath sounds on left lung field. Cardiovascular: RRR, no murmur, no edema Vessels: no JVD or carotid bruit Chest: normal inspection of chest Abdomen: normal bowel sounds, soft, nontender, no hepatosplenomegaly Musculoskeletal: no cyanosis or clubbing, extremities motor strength 5/5 Skin: no rashes, warm and dry normal turgor Neurologic: PERRL, EOMI, accommodation nl, no face palsy, no dysarthria CN's II- XI intact bilaterally and moves all extremities Psychiatric: A+Ox3, euthymic affect Results & Data Results & Data Vital Signs (Past 12 Hours) Vital Signs Temp Pulse Pulse Pulse Resp BP Pulse Ox 06/11/23 14:00 93 H 06/11/23 15:01 36.6 C 92 H 16 114/74 92 06/11/23 12:12 36.7 C 96 H 20 123/77 92 06/11/23 08:07 36.8 C 95 H 20 109/66 94 06/11/23 03:35 125 H 06/11/23 06:00 100 H 06/11/23 03:46 06/11/23 03:46 36.5 C 118 H 24 144/71 H 93 O2 Del Method O2 Flow Rate 06/11/23 14:00 06/11/23 15:01 Nasal Cannula 2 06/11/23 12:12 Nasal Cannula 06/11/23 08:07 Nasal Cannula 2 06/11/23 03:35 06/11/23 06:00 06/11/23 03:46 Nasal Cannula 2 06/11/23 03:46 Nasal Cannula 2 Laboratory Results Laboratory Results WBC 7.54 K/ul (4.8-10.8) 06/11/23 07:57 RBC 4.08 M/uL (4.20-5.40) L 06/11/23 07:57 Hgb 12.1 g/dl (12.0-16.0) 06/11/23 07:57 Hct 36.1 % (37.0-47.0) L 06/11/23 07:57 MCV 88.5 fL (80.0-100.0) 06/11/23 07:57 MCH 29.7 pg (25.0-34.0) 06/11/23 07:57 MCHC 33.5 g/dL (32.0-36.0) 06/11/23 07:57 RDW Std Deviation 42.5 fL (36.4-46.3) 06/11/23 07:57 RDW Coeff of John Paul 13.1 % (11.5-14.5) 06/11/23 07:57 Plt Count 333 K/uL (130-400) 06/11/23 07:57 MPV 9.2 fL (9.4-12.4) L 06/11/23 07:57 Immature Gran % (Auto) 0.6 % 06/10/23 17:05 Neut % (Auto) 74.0 % 06/10/23 17:05 Lymph % (Auto) 14.6 % 06/10/23 17:05 [place] % (Auto) 8.5 % 06/10/23 17:05 Eos % (Auto) 1.6 % 06/10/23 17:05 Baso % (Auto) 0.7 % 06/10/23 17:05 Neut # (Auto) 6.54 K/uL (1.40-6.50) H 06/10/23 17:05 Lymph # (Auto) 1.29 K/uL (1.2-3.4) 06/10/23 17:05 [place] # (Auto) 0.75 K/uL (0.11-0.59) H 06/10/23 17:05 Eos # (Auto) 0.14 K/uL (0-0.50) 06/10/23 17:05 Baso # (Auto) 0.06 K/uL (0-0.2) 06/10/23 17:05 Immature Gran # (Auto) 0.05 K/uL (0.01-0.20) 06/10/23 17:05 PT 11.7 Seconds (9.0-12.0) 06/10/23 18:06 INR 1.1 (0.9-1.1) 06/10/23 18:06 APTT 31.3 Seconds (21.0-31.0) H 06/10/23 18:06 PTT Ratio 1.1 06/10/23 18:06 Sodium 137 mmol/L (136-145) 06/11/23 07:57 Potassium 4.6 mmol/L (3.5-5.1) D 06/11/23 07:57 Chloride 101 mmol/L (98-107) 06/11/23 07:57 Carbon Dioxide 32 mmol/L (21-32) 06/11/23 07:57 Anion Gap 4 (3-11) 06/11/23 07:57 BUN 14 mg/dl (6-23) 06/11/23 07:57 Creatinine 0.54 mg/dl (0.6-1.2) L 06/11/23 07:57 Est Cr Clr Drug Dosing 101.4 ml/min 06/11/23 07:57 Est GFR ( Amer) 117.2 ml/min 06/11/23 07:57 Est GFR (Non-Af Amer) 101.1 ml/min 06/11/23 07:57 BUN/Creatinine Ratio 25.9 (10-20) H 06/11/23 07:57 Glucose 127 mg/dl (70-99(Fasting)) H 06/11/23 07:57 Lactate 0.8 mmol/L (0.4-2.0) 06/10/23 18:00 Calcium 8.5 mg/dl (8.6-10.3) L 06/11/23 07:57 Magnesium 2.1 mg/dl (1.7-2.4) 06/10/23 17:05 Total Bilirubin 0.5 mg/dl (0.2-1.0) 06/10/23 17:05 AST 19 U/L (13-39) 06/10/23 18:06 ALT 20 U/L (7-52) 06/10/23 17:05 Alkaline Phosphatase 84 U/L (34-104) 06/10/23 17:05 Troponin I High Sens 9.1 pg/ml (0-14) 06/10/23 17:05 Total Protein 7.3 gm/dl (6.0-8.3) 06/10/23 17:05 Albumin 3.5 gm/dl (3.4-5.0) 06/10/23 17:05 Globulin 3.8 gm/dl (2.5-4.0) 06/10/23 17:05 Albumin/Globulin Ratio 0.9 (0.9-2) 06/10/23 17:05 Procalcitonin 0.10 ng/ml (0-0.5) 06/10/23 18:00 TSH 1.536 uIu/ml (0.300-4.500) 06/10/23 17:05 Urine Color Yellow 06/11/23 12:39 Urine Appearance Clear (Clear) 06/11/23 12:39 Urine pH 6.0 (4.5-7.5) 06/11/23 12:39 Ur Specific [place] 1.009 (1.000-1.030) 06/11/23 12:39 Urine Protein Negative (Negative) 06/11/23 12:39 Urine Glucose (UA) Negative (Negative) 06/11/23 12:39 Urine Ketones Negative (Negative) 06/11/23 12:39 Urine Blood Negative (Negative) 06/11/23 12:39 Urine Nitrite Negative (Negative) 06/11/23 12:39 Urine Bilirubin Negative (Negative) 06/11/23 12:39 Urine Urobilinogen Negative (Negative) 06/11/23 12:39 Ur Leukocyte Esterase Negative (Negative) 06/11/23 12:39 Fluid Comment 06/11/23 14:30 SARS-CoV-2, RNA, NAAT NEGATIVE (NEGATIVE) 06/10/23 22:00 Impressions Chest X-Ray 06/10/23 16:13 XR chest 1V portable CLINICAL HISTORY: Dyspnea TECHNIQUE: Single frontal radiograph of the chest was obtained. Comparison: Comparison is made to chest radiograph 05/18/2023 FINDINGS: No lines and tubes are seen. The cardiomediastinal silhouette is normal. Left lung airspace opacities increased from prior exam. Small left pleural effusion. IMPRESSION: 1. Interval increase in left airspace opacities compatible with aspiration/pneumonia. 2. Small left pleural effusion. ACT 112: Negative or not required by law. Electronically signed by: Ronald Miles M.D. 06/10/2023 6:00 PM
--- NOTE | 2023-06-11 15:24 | XRay Report ---
XR chest 1V portable HISTORY: 62 years-old Female S/P Thoracentesis COMPARISON: 06/10/2023, PET/CT 06/10/2023 TECHNIQUE: AP view of the chest FINDINGS: Cardiomediastinal and hilar silhouettes are unchanged. Bilateral breast implants/breast reconstructio n. Decreased size of the left pleural effusion status post thoracentesis. Persistent multifocal left lung airspace opacities. Right lung is generally clear. No pneumothorax. Intact. IMPRESSION: 1. Decreased size of the left pleural effusion status post thoracentesis. No postprocedural pneumotho rax. 2. Left hilar lymphadenopathy with left lung airspace disease/lesions again noted, better characteriz ed on yesterday's PET CT. ACT 112: Negative or not required by law. The above report was generated using voice recognition software. It may contain grammatical, syntax o r spelling errors. Electronically signed by: Alek Landry M.D. 06/11/2023 3:23 PM
--- NOTE | 2023-06-11 15:39 | Electrocardiogram Report ---
Test Reason : Blood Pressure : / mmHG Vent. Rate : 105 BPM Atrial Rate : 105 BPM P-R Int : 122 ms QRS Dur : 074 ms QT Int : 328 ms P-R-T Axes : 073 087 061 degrees QTc Int : 433 ms Sinus tachycardia Otherwise normal ECG When compared with ECG of 18-MAY-2023 16:06, No significant change was found Confirmed by Calvin Ahn ([id number]) on 06/11/2023 3:38:56 PM Referred By: REFERRED SELF Confirmed By:Calvin Ahn
[2023-06-11] MEDS ORDERED: BENZONATATE 100 MG CAPSULE ONE (16:29)
[2023-06-11] MEDS: BENZONATATE 100 MG CAPSULE PO SCH (16:30)
[2023-06-11 17:27] LABS: Appearance Pleural Fluid Bloody; Color Pleural Fluid Red; Eosinophils, Fluid 1 %; Lymphocytes, Fluid 23 %; Mono,Macrophage,Mesothelial 47 %; Neutrophils, Fluid 29 %; RBC Pleural Fluid Auto 54000 /uL; Source Pleural Fluid Left Lung; WBC Pleural Fluid Auto 3890 /uL
[2023-06-11] MEDS: oxyCODONE HCL IR 5 MG TAB (IMMEDIATE RELEASE) PO PRN ×2 (17:31→22:40)
[2023-06-11] MEDS: QUEtiapine FUMARATE 100 MG TABLET PO SCH (21:06)
[2023-06-11] MEDS: GABAPENTIN 300 MG CAP PO SCH (21:06)
[2023-06-12] MEDS: KETOROLAC TROMETHAMINE 15 MG/ML VIAL IV PRN ×2 (03:18→10:18)
[2023-06-12] MEDS: oxyCODONE HCL IR 5 MG TAB (IMMEDIATE RELEASE) PO PRN (06:20)
[2023-06-12] MEDS: ACETAMINOPHEN 500 MG TAB PO SCH (06:20)
[2023-06-12 06:58] LABS: Basophils # (auto) 0.03 K/uL (0-0.2); Basophils % (auto) 0.5 %; Eosinophils # (auto) 0.45 K/uL (0-0.50); Eosinophils % (auto) 8.1 %; Hematocrit (blood only) 35.3 % (37.0-47.0); Hemoglobin 11.6 g/dl (12.0-16.0); Immature Granulocytes # (auto) 0.05 K/uL (0.01-0.20); Immature Granulocytes % (auto) 0.9 %; Lymphocytes # (auto) 1.25 K/uL (1.2-3.4); Lymphocytes % (auto) 22.4 %; Mean Corpuscular Hemoglobin 29.5 pg (25.0-34.0); Mean Corpuscular Hgb Conc 32.9 g/dL (32.0-36.0); Mean Corpuscular Volume 89.8 fL (80.0-100.0); Mean Platelet Volume 9.1 fL (9.4-12.4); Monocytes # (auto) 0.57 K/uL (0.11-0.59); Monocytes % (auto) 10.2 %; Neutrophils # (auto) 3.22 K/uL (1.40-6.50); Neutrophils % (auto) 57.9 %; Platelet Count 307 K/uL (130-400); RDW Standard Deviation 43.3 fL (36.4-46.3); Red Blood Count 3.93 M/uL (4.20-5.40); White Blood Count 5.57 K/ul (4.8-10.8)
--- NOTE | 2023-06-12 07:35 | Oncology Consultation ---
Date of Consultation June 12, 2023 Assessment & Plan (1) Mediastinal lymphadenopathy: (2) Left upper lobe pneumonia: (3) Breast cancer: Plan Await results from diagnostic thoracentesis. If unrevealing, will need bronchoscopy/EBUS with biopsy. Plan to see her outpatient to discuss results. May need brain MRI depending on biopsy results. Thank you for this consult. Oncology will sign off at this time to follow-up with her on discharge from hospital. Please feel free to call if you have any further questions History of Present Illness Reason for Consultation: Left upper lung mass Attending Physician: Marty Arnold MD History of Present Illness Ms. 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 Was subsequently diagnosed with right breast DCIS in 2007 for which she is s/p lumpectomy, adjuvant radiation treatment. She was subsequently found to have BRCA1 gene for which she underwent prophylactic bilateral mastectomy and bilateral salpingo-oophorectomy. Around April, she presented to the ER with shortness of breath CTA chest revealed Left mediastinal/hilar lymphadenopathy and patchy areas of consolidation with interstitial thickening within the left upper lobe which could be due to a pneumonia, post radiation change, or lymphangitic spread of tumor given the interstitial thickening as well as small left pleural effusion.At that time, she underwent bronchoscopy with brushing which was unrevealing. Then presented to the ER again on 06/10/2023 with worsening shortness of breath. Chest x-ray on 06/10/2023 revealed left pleural effusion. PET/CT obtained outpatient on 06/10/2023 revealed necrotic FDG avid mediastinal and left hilar lymphadenopathy, multifocal FDG avid airspace opacities seen within the left lung with progressive consolidation within the lingula with remaining left upper lobe airspace opacities now demonstrate a rounded configuration with interval development of central cavitation Improvement in interstitial thickening and groundglass airspace opacity within the left lung apex possibly representing an atypical pneumonia such as a fungal infection, Sub centimeter FDG avid supraclavicular lymph nodes which are nonspecific but could be reactive and Mild FDG uptake associated with the small left pleural effusion. A malignant pleural effusion would be the diagnosis of exclusion. She underwent diagnostic and therapeutic thoracentesis yesterday. Complains of cough, shortness of breath and left-sided chest pain. States that the symptoms have slightly improved since thoracentesis Allergies Allergy/AdvReac Type Severity Reaction Status Date / Time terbinafine Allergy Intermediate RASH Verified 05/18/23 18:24 adhesive Allergy Unknown HIVES AND Verified 05/18/23 18:24 RASH; WELTS FROM BANDAIDS amitriptyline Allergy Unknown Rash Verified 05/18/23 18:23 Home Medications Medication Instructions Recorded Confirmed Type gabapentin 100 mg capsule 300 mg PO HS 05/18/23 06/10/23 History magnesium oxide 400 mg PO QAM 05/18/23 06/10/23 History multivitamin 1 tab PO DAILY 05/18/23 06/10/23 History quetiapine 100 mg tablet 100 mg PO HS 05/18/23 06/10/23 History riboflavin (vitamin B2) 400 mg 400 mg PO QAM 05/18/23 06/10/23 History tablet albuterol sulfate 90 mcg/actuation See Rx Instructions .Route .COMPLEX 06/10/23 06/10/23 History aerosol inhaler oxycodone 5 mg tablet 5 mg PO Q6H PRN Pain #20 tabs 06/12/23 Rx Patient History Medical History Breast cancer (~09/13/14) History of meningioma History of migraine Tobacco use Surgical History History of bilateral mastectomy Family History Other Cancer Social History Smoking Status: Current every day smoker Tobacco Type: Cigarettes Cigarettes Per Day: 20; Second Hand Exposure: Yes; Do You Dip or Chew Tobacco: No; Tobacco Cessation Education Requested by Patient: No Hx Alcohol Use: Yes Hx Substance Use: No Preferred Language: Turkmen Communication Ability: Effective [employer] Hydraulic Required: No Beliefs That Will Affect Care: None Current Living Situation: Spouse Other Information That Helps Us Care for You: No Feels Safe at Home: Yes Safety Concerns: Feels Safe At This Time Assistive Devices: None Results & Data Vital Signs (Past 12 Hours) Vital Signs Temp Pulse Pulse Resp BP BP BP 06/11/23 22:01 99 H 06/12/23 03:25 36.5 C 92 H 18 131/79 06/12/23 03:00 92 H 18 131/79 06/11/23 22:00 06/11/23 23:16 36.5 C 98 H 18 102/69 06/11/23 20:02 36.7 C 91 H 18 108/72 06/11/23 19:39 Pulse Ox O2 Del Method O2 Del Method O2 Flow Rate O2 Flow Rate 06/11/23 22:01 06/12/23 03:25 92 Nasal Cannula 2 06/12/23 03:00 92 Room Air 2 06/11/23 22:00 Nasal Cannula 2 06/11/23 23:16 90 Room Air 06/11/23 20:02 94 Nasal Cannula 2 06/11/23 19:39 Nasal Cannula 2 (2) Left upper lobe pneumonia Pneumonia type: due to unspecified organism Qualified Code(s): J18.9 - Pneumonia, unspecified organism
--- NOTE | 2023-06-12 08:00 | Pulmonology Progress Note ---
Date of Service June 12, 2023 Assessment & Plan (1) Mediastinal lymphadenopathy: (2) Pleural effusion: (3) Shortness of breath: (4) Mass of left lung: (5) Tobacco abuse: Plan IMPRESSION: 62-year-old female with significant past medical history of breast cancer with recurrence and significant 30 pack plus year smoking history who presents with worsening pain, shortness of breath, and hypoxia he was found to have a large left-sided pleural effusion. Outpatient PET scan showed significant PET avidity in mediastinal nodes and the left-sided pulmonary area of consolidation concerning for malignancy RECOMMENDATIONS: 1. Pleural effusion: Exudative. Await cytology. Patient to meet with oncology today. Long-term management will depend on rate of reaccumulation and etiology of the pleural effusion. Management strategies might include serial thoracentesis, pleurodesis, or indwelling pleural catheter placement. 2. Abnormal PET scan: If the pleural fluid cytology were nondiagnostic or there was inadequate material to adequately characterize the pulmonary process, could consider outpatient endobronchial ultrasound with transbronchial needle aspiration. 3. Presumed COPD: We will place the patient on a trial of Anoro to see if it offers her a clinical benefit. May consider outpatient PFTs depending on clinical scenario. 4. Hypoxemia: Recommend assessing the patient off supplemental oxygen to see whether she qualifies for oxygen going home. She also should get a formal two- step to assess for exertional hypoxemia and need for supplemental oxygen at home . From a pulmonary standpoint, the patient can be dismissed from the hospital. She is awaiting meeting with medical oncology later today. Pulmonary will sign off. Feel free to contact us with questions or concerns Admission and Anticipated Discharge Date Admission Date: June 10, 2023 Subjective Patient seen and examined. EMR reviewed. The patient is sitting up in bed. She is on supplemental oxygen. She states that the pain she was experiencing previously resolved with thoracentesis. Her breathing is easier. She is coughing and occasionally expectorating some phlegm. She denies fevers chills or night sweats. No pain at the thoracentesis site. She is anxious to meet with oncology and then be dismissed from the hospital Review of Systems Review of Systems: All systems reviewed & are unremarkable except as noted in Subjective Physical Exam Constitutional: WD/WN, vitals as above Neck: trachea midline, no thyromegaly Respiratory: + cough; no respiratory distress, no labored breathing and not tachypneic Auscultation: + rhonchi; no wheezes Cardiovascular: RRR, no murmur, no edema Gastrointestinal (Abdomen): normal bowel sounds, soft, nontender, no h epatosplenomegaly Musculoskeletal: Extremities: extremities normal to inspection Skin: no rashes, warm and dry Neurologic: Nonfocal exam Lymphatic: no cervical lymphadenopathy Results & Data Results & Data Vital Signs (Past 12 Hours) Vital Signs Temp Pulse Pulse Resp BP BP BP 06/12/23 07:47 36.5 C 87 18 122/77 06/11/23 22:01 99 H 06/12/23 03:25 36.5 C 92 H 18 131/79 06/12/23 03:00 92 H 18 131/79 06/11/23 22:00 06/11/23 23:16 36.5 C 98 H 18 102/69 06/11/23 20:02 36.7 C 91 H 18 108/72 Pulse Ox O2 Del Method O2 Del Method O2 Flow Rate O2 Flow Rate 06/12/23 07:47 94 Nasal Cannula 2 06/11/23 22:01 06/12/23 03:25 92 Nasal Cannula 2 06/12/23 03:00 92 Room Air 2 06/11/23 22:00 Nasal Cannula 2 06/11/23 23:16 90 Room Air 06/11/23 20:02 94 Nasal Cannula 2 Laboratory Results 06/12/23 06:03 Pleural fluid studies: Differential: 29% neutrophils, 23% lymphocytes, 1% eosinophils, 47% mesothelial cells pH 7.48 Total protein 4.0 LDH 264 Glucose 115 Gram stain with many white blood cells no organisms, culture pending Cytology pending Diagnostic Findings Post thoracentesis chest x-ray was reviewed. There is some persistent opacification within the left hemithorax but significant improvement in the pleural effusion. No pneumothorax. PG Care Time/CCT Total # of Minutes Spent Total Time Spent with Patient: Total time spent is greater than 50% in coordination of care (as documented) at patient's floor/unit and/or counseling patient: Coding Level of Care Code 23912 SUB INP/OBS CARE 2/35MIN Diagnoses Mediastinal lymphadenopathy R59.0 Pleural effusion J90 Shortness of breath R06.02 Mass of left lung R91.8 Tobacco abuse Z72.0
[2023-06-12 08:04] LABS: BUN Creatinine Ratio 32.7 (10-20); Calcium 8.4 mg/dl (8.6-10.3); Est GFR (African American) 118.7 ml/min; Est GFR (Non-African American) 102.4 ml/min; Potassium 4.4 mmol/L (3.5-5.1)
[2023-06-12] MEDS ORDERED: UMECLIDINIUM/VILANTEROL 62.5/25MCG 7 PUFFS/INHALER INH SCH (09:00)
[2023-06-12] MEDS: MAGNESIUM OXIDE 400 MG TAB PO SCH (09:45)
[2023-06-12] MEDS: MULTIVITAMIN TAB PO SCH (09:45)
[2023-06-12] MEDS: DOCUSATE SODIUM 100 MG CAP PO SCH (10:44)
[2023-06-12] MEDS: BENZONATATE 100 MG CAPSULE PO SCH (10:44)
[2023-06-12] MEDS ORDERED: HYDROmorphone HCL 2 MG TAB PO STA (12:21)
--- NOTE | 2023-06-12 13:33 | Discharge Summary ---
Date of Service June 12, 2023 Admission HPI Per Admitting Provider Patient is 62-year-old female with PMH breast cancer S/P bilateral mastectomy and radiation treatment and not interested in chemo, OA, h/o meningioma, migraines, tobacco use presented to ER with c/o worsening SOB and left sided chest pain. History obtained from patient, family, inpatient and outpatient chart review. [facility] Hospital admission 05/18/2023-05/20/2023 for SOB and cough and at that time CT chest without evidence for PE, had left mediastinal-left hilar lymphadenopathy which was concerning for metastatic disease. Had bronchoscopy on 05/20/2023 with noted very friable tissue. Cytology with scattered atypical epithelial cells. Pulmonology was consulted during admission and had mentioned if the specimens were negative may need further investigation with trans thoracic needle aspiration, thoracoscopy or repeat bronchoscopy with endoscopic ultrasound. Patient was treated for possible pneumonia and discharged on 5 additional days of antibiotics (cefdinir, doxycycline) and Diflucan. Patient Followed up with PCP 05/25/2023 with continued shortness of breath, left chest pain. Patient was started on Levaquin 500 mg x 10 days, prednisone 40 mg x 5 days. PCP visit 06/08/2023 with reported sweats, continued cough and shortness of breath, left-sided chest pain, continued intermittent hemoptysis. Was given prescription for oxycodone and referral to pain management was placed. Patient states taking oxycodone with minimal relief of pain to left side of chest. Reports temps 99.8F. Is to have outpatient oncology follow-up later this week. Had PET scan today with results still pending. Denies N/V/D, LEYVA, dizziness, syncope, neck pain, CP, SOB, palpitations, otalgia, rhinorrhea, abdominal pain, paresthesias, extremity weakness, extremity edema, rashes, urinary symptoms. Admission Exam Per Admitting Provider General: no acute distress on 2L via NC, WDWN Head: normocephalic, atraumatic Eyes: conjunctiva non-injected, anicteric ENT: normal inspection external ears, nose, mucous membranes moist Neck: supple, trachea midline Lungs: clear, no respiratory distress on current 2L via NC with sats 94%, no wheezing/rhonchi/rales noted CV: RRR, no murmur, no pretibial edema Abd: normal BS, soft, non-tender Ext: no cyanosis, no calf tenderness Neuro: A&O x 3, no focal deficits noted, normal affect Skin: warm, dry Principal Diagnosis Acute hypoxic respiratory failure Left-sided pleural effusion, likely malignant Discharge Exam Constitutional: WD/WN, vitals as above, NAD, sitting up in bed, pleasant, conversing easily Respiratory: Improvement in aeration of left lung field. Decreased breath sound at left lower lung field. Cardiovascular: RRR, no murmur, no edema Vessels: no JVD or carotid bruit Chest: normal inspection of chest Abdomen: normal bowel sounds, soft, nontender, no hepatosplenomegaly Musculoskeletal: no cyanosis or clubbing, extremities motor strength 5/5 Skin: no rashes, warm and dry normal turgor Neurologic: PERRL, EOMI, accommodation nl, no face palsy, no dysarthria CN's II- XI intact bilaterally and moves all extremities Psychiatric: A+Ox3, euthymic affect Discharge Data Allergies Allergy/AdvReac Type Severity Reaction Status Date / Time terbinafine Allergy Intermediate RASH Verified 05/18/23 18:24 adhesive Allergy Unknown HIVES AND Verified 05/18/23 18:24 RASH; WELTS FROM BANDAIDS amitriptyline Allergy Unknown Rash Verified 05/18/23 18:23 Consultations 06/10/23 19:09 ED Decision to Admit Stat 06/11/23 07:19 Consult Pulmonology Routine 06/12/23 08:00 Consult Oncology Routine Ordered Studies 06/11/23 11:50 sono, invasive monitoring [US point of care ultrasound] Urgent Hospital Course (1) Acute respiratory failure with hypoxia: (2) Atypical chest pain: (3) Shortness of breath: (4) Mass of left lung: Patient is 62-year-old female with PMH breast cancer S/P bilateral mastectomy and radiation treatment and not interested in chemo, OA, h/o meningioma, migraines, tobacco use presented to ER with c/o worsening SOB and left sided chest pain. Admission 04/[address] chest without evidence for PE, had left mediastinal- left hilar lymphadenopathy which was concerning for metastatic disease. Bronchoscopy abnormal but cytology without evidence malignancy Acute hypoxic respiratory failure Left-sided pleural effusion, likely malignant 62-year-old female with history of breast cancer status post bilateral mastectomy and radiation admitted recently for mediastinal lymphadenopathy and interstitial thickening within left upper lobe on CT presented with shortness of breath. Chest x-ray on admission personally reviewed; increase in left-sided pleural effusion EKG on admission personally reviewed; sinus tachycardia; no ST or T wave changes. Hypoxic on admission and using accessory muscle with increased work of breathing No leukocytosis Underwent PET scan on 06/10; revealed necrotic FDG avid mediastinal and left hilar lymphadenopathy, multifocal FDG avid airspace opacities seen within the left lung with progressive consolidation within the lingula with remaining left upper lobe airspace opacities now demonstrate a rounded configuration with interval development of central cavitation Improvement in interstitial thickening and groundglass airspace opacity within the left lung apex possibly representing an atypical pneumonia such as a fungal infection, Subcentimeter FDG avid supraclavicular lymph nodes which are nonspecific but could be reactive and Mild FDG uptake associated with the small left pleural effusion. Patient to undergo thoracentesis by pulmonology on June 11, 2023. 400 cc of reddish colored sanguinous fluid was removed Postprocedure x-ray showed improvement in pleural effusion. Patient reported improvement in her breathing. Two-step oxygen evaluation was done at discharge; patient needed 2 L of oxygen on ambulation. Patient reported that she had better pain control with Dilaudid compared to oxycodone. Oral Dilaudid prescribed at discharge. Patient to follow-up with oncology regarding cytology results. Please note the above document was generated using voice recognition software. It may contain grammatical, syntax or spelling errors. Any formal questions or concerns about the content, text or information contained within the body of this dictation should be directly addressed to the provider for clarification Total Time Total Time Spent Total Time Spent (In Minutes): 35 Discharge Plan Discharge Items Patient Disposition: Home - Self-Care Reason For Visit: SOB Discharge Diagnosis: Acute hypoxic respiratory failure Left-sided pleural effusion, likely malignant Activity: Resume your previous activity Non-emergency contact: Primary Care Provider Call non-emergency contact if: you have any medication questions and your symptoms worsen Follow-up/Referrals: Carl Vargas MD [Primary Care Provider] - (Date & Time 06/17/2023 10:20 AM Provider Carl Vargas MD Department Family Medicine [facility] ) Diet: Regular Addtl Attending Provider Instructions: You were admitted to the hospital due to shortness of breath. The chest x-ray showed left-sided pleural effusion (fluid collection outside of the lung) You underwent thoracentesis by pulmonology on June 11, 2023. The cytology from the test is still pending. Please follow-up with your primary care doctor as scheduled. You are prescribed oxycodone for pain control. Pending Studies at Discharge: No Stand-Alone Forms: [facility], Smoking Cessation Medications and DC Order Prescriptions: New hydromorphone [Dilaudid] 2 mg tablet 2 mg PO Q6H PRN (Reason: pain) Qty: 20 0RF Continued quetiapine 100 mg tablet 100 mg PO HS gabapentin 100 mg capsule 300 mg PO HS riboflavin (vitamin B2) 400 mg Tablet 400 mg PO QAM multivitamin Tablet 1 tab PO DAILY magnesium oxide 400 mg magnesium Capsule 400 mg PO QAM albuterol sulfate 90 mcg/actuation HFA aerosol inhaler See Rx Instructions .ROUTE .COMPLEX Rx Instructions: as directed Discontinued oxycodone 5 mg tablet 5 mg PO Q6H PRN (Reason: Pain) Discharge Orders: Discharge Order (Routine); Ordered 06/12/23 Ordered By: Marty Arnold Admission Data Admit Date/Time: 06/10/23 18:50 Attending Provider: Marty Arnold Admit Provider: Zoila Rea Primary Care Provider: Carl Vargas Other Providers: Zoila Rea ; Spencer Shrestha ; Reina Osborne Other Interventions: Discharge Summary Assessment (RN) Last Done: 06/12/23 11:47
== END 2023-06-12 13:24 | disposition home or self-care (01) | DRG 180 ==
LOC: ED 15:57 → SUATTDRO 18:50 → EDINP 18:50 → 2W 21:29

== ENCOUNTER 2023-06-19 12:29 | Inpatient (IN) ==
[2023-06-19] MEDS ORDERED: ALBUT/IPRATROP 3MG/0.5MG NEB 3 ML VIAL NEB STA (12:59)
--- NOTE | 2023-06-19 12:59 | Emergency Department Note ---
Impression & Plan Acute dyspnea, Pleural effusion on left ED Provider Note HISTORY OF PRESENT ILLNESS: Patient is a 62-year-old female presenting with shortness of breath. Patient reports she has been having progressively worsening shortness of breath over the last 6 weeks. She has been admitted multiple times for this. Reports that she just had a lung biopsy performed yesterday. States that her breathing has gotten significantly worse in the last 4 to 5 days. Denies any chest pain. Reports a cough productive of a yellow sputum. Denies any recent fevers. Denies any recent sick contact exposures. She does not wear any supplemental oxygen at baseline. Patient reports a history of DVT a number of years ago. She is not on any anticoagulation currently. She reports over the last few days she is unable to walk more than a few steps before becoming winded. She reports being on steroids and antibiotics recently. ROS: as above PHYSICAL EXAM: Constitutional: Patient appears in no acute distress. HENT: Head: Normocephalic and atraumatic. Eyes: EOMI, PERRL Mouth/Throat: Mucous membranes moist. Neck: Trachea midline. Neck supple. Cardiovascular: Tachycardic with regular rhythm. No murmurs, rubs or gallops. Intact distal pulses. Pulmonary/Chest: Breath sounds clear and equal bilaterally. Expiratory wheezes bilaterally. Abdominal: Abdomen soft, no tenderness, rebound or guarding. Musculoskeletal: No edema, tenderness or deformity noted. Skin: Warm and dry. No rash, erythema, pallor or cyanosis Psychiatric: Appropriate mood and affect for situation. Neurological: Alert and keenly responsive. CN II-XII grossly intact, moving all extremities equally and fully. MDM: - Vitals signs showed tachycardia - History obtained via patient. Patient presents with shortness of breath. Patient reports progressively worsening shortness of breath of the last 6 weeks. She states that she had a lung biopsy performed yesterday. Reports her shortness of breath has been progressively worse over the last 4 to 5 days. Reports she is unable to walk more than a few steps before becoming winded. She does not wear any supplemental oxygen at baseline. Denies any anticoagulation use. - Chronic conditions affecting care: breast cancer - Differential diagnoses include, but are not limited to: Congestive heart failure; acute coronary syndrome; COPD/asthma exacerbation; pulmonary edema; pulmonary embolism; pneumonia; pneumothorax; viral syndrome - Order placed for continuous cardiac monitoring. At this time, monitor showed rate of 100 bpm with normal sinus rhythm, per my interpretation. - External medical records reviewed. Procedure note from yesterday reviewed. - EKG reviewed by myself showed normal sinus rhythm. Rate 100 bpm. Qtc 399. No acute ischemic changes. - Laboratory workup interpreted by myself showed leukocytosis (WBC 11.2); thrombocytosis (plt 548); stable electrolytes; normal troponin; elevated dimer (2360); normal BNP - VBG normal - CXR noted to have multiple consolidations in the left lung, per my inte rpretation. Radiologist reports reports opacities compatible with aspiration pneumonia or metastatic disease. - Patient given duoneb treatment in ER. - CT PE obtained increasing size in the moderate left pleural effusion. - Givne 4 mg IV morphine, as she is in the ER and due for her scheduled oxyco done. - Discussed results with the patient. She does not feel comfortable being discharged home as she is so short of breath - Discussion was had with bilingual social worker about patient's case and need for admission - Hospitalist consulted for admission - [facility] ASSESSMENT AND PLAN: Diagnosis: Dyspnea; pleural effusion Plan: discharge Past Med/Surg History Medical History Breast cancer (~09/13/14) History of meningioma History of migraine Tobacco use Surgical History History of bilateral mastectomy Family History Other Cancer Social History Smoking Status: Current every day smoker Tobacco Type: Cigarettes Cigarettes Per Day: 20; Second Hand Exposure: Yes; Do You Dip or Chew Tobacco: No; Hx Alcohol Use: Yes Alcohol type: beer, wine and hard liquor Hx Substance Use: No Preferred Language: Amharic Communication Ability: Effective Brush Finisher Required: No Beliefs That Will Affect Care: None Current Living Situation: Spouse Feels Safe at Home: Yes Assistive Devices: None Allergies Allergies Allergy/AdvReac Type Severity Reaction Status Date / Time terbinafine Allergy Intermediate RASH Verified 06/19/23 16:01 adhesive Allergy Unknown HIVES AND Verified 06/19/23 16:01 RASH; WELTS FROM BANDAIDS amitriptyline Allergy Unknown Rash Verified 06/19/23 16:01 Home Meds Home Medications Medication Instructions Recorded Confirmed gabapentin 100 mg capsule 300 mg PO HS 05/18/23 06/19/23 magnesium oxide 400 mg PO QAM 05/18/23 06/19/23 multivitamin 1 tab PO DAILY 05/18/23 06/19/23 quetiapine 100 mg tablet 100 mg PO HS 05/18/23 06/19/23 riboflavin (vitamin B2) 400 mg 400 mg PO QAM 05/18/23 06/19/23 tablet albuterol sulfate 90 mcg/actuation 1 - 2 puff inhalation Q6H PRN 06/10/23 06/19/23 aerosol inhaler WHEEZING/SHORTNESS OF BREATH oxycodone 5 mg tablet 5 mg PO Q3H PRN Pain 06/19/23 06/19/23 Results & Data (ED) Vital Signs Vital Signs - 24 hr 06/19/23 12:33 06/19/23 13:52 06/19/23 13:52 Temperature 36.5 C Temperature Source Skin Pulse Rate 114 H Pulse Rate [Apical] Pulse Rate from SpO2 Sensor Respiratory Rate 22 Blood Pressure 126/76 Blood Pressure [Left Arm] Blood Pressure Mean 92 Blood Pressure Mean [Left Arm] Pulse Oximetry 91 94 95 Oxygen Delivery Method Room Air Nasal Cannula Oxygen Flow Rate 2 Sepsis Recent Fever Within 48 Hours No Sepsis New/Unexplained Change in Mental Status No Sepsis Action Taken by Nursing No Action Required 06/19/23 15:34 06/19/23 15:43 06/19/23 15:41 Temperature Temperature Source Pulse Rate 99 H Pulse Rate [Apical] 98 H Pulse Rate from SpO2 Sensor Respiratory Rate 18 Blood Pressure Blood Pressure [Left Arm] 108/81 Blood Pressure Mean Blood Pressure Mean [Left Arm] 90 Pulse Oximetry 93 92 Oxygen Delivery Method Nasal Cannula Nasal Cannula Oxygen Flow Rate 2 2 Sepsis Recent Fever Within 48 Hours Sepsis New/Unexplained Change in Mental Status Sepsis Action Taken by Nursing 06/19/23 16:00 06/19/23 16:00 06/19/23 16:30 Temperature Temperature Source Pulse Rate 94 H Pulse Rate [Apical] Pulse Rate from SpO2 Sensor 95 H Respiratory Rate 19 Blood Pressure 105/78 107/91 Blood Pressure [Left Arm] Blood Pressure Mean 97 97 Blood Pressure Mean [Left Arm] Pulse Oximetry 93 Oxygen Delivery Method Nasal Cannula Oxygen Flow Rate 2 Sepsis Recent Fever Within 48 Hours Sepsis New/Unexplained Change in Mental Status Sepsis Action Taken by Nursing 06/19/23 16:30 Temperature Temperature Source Pulse Rate 98 H Pulse Rate [Apical] Pulse Rate from SpO2 Sensor 98 H Respiratory Rate 20 Blood Pressure Blood Pressure [Left Arm] Blood Pressure Mean Blood Pressure Mean [Left Arm] Pulse Oximetry 93 Oxygen Delivery Method Nasal Cannula Oxygen Flow Rate 2 Sepsis Recent Fever Within 48 Hours Sepsis New/Unexplained Change in Mental Status Sepsis Action Taken by Nursing Laboratory Data 06/19/23 13:10 06/19/23 13:10 Lab Results 06/19/23 06/19/23 06/19/23 Range/Units 13:10 13:10 13:10 WBC 11.20 H (4.8-10.8) K/ul RBC 4.21 (4.20-5.40) M/uL Hgb 12.4 (12.0-16.0) g/dl Hct 37.7 (37.0-47.0) % MCV 89.5 (80.0-100.0) fL MCH 29.5 (25.0-34.0) pg MCHC 32.9 (32.0-36.0) g/dL RDW Std Deviation 43.5 (36.4-46.3) fL RDW Coeff of John Paul 13.4 (11.5-14.5) % Plt Count 548 H (130-400) K/uL MPV 9.1 L (9.4-12.4) fL Immature Gran % (Auto) 0.7 % Neut % (Auto) 74.2 % Lymph % (Auto) 15.4 % Polk % (Auto) 7.3 % Eos % (Auto) 2.0 % Baso % (Auto) 0.4 % Neut # (Auto) 8.31 H (1.40-6.50) K/uL Lymph # (Auto) 1.72 (1.20-3.40) K/uL Polk # (Auto) 0.82 H (0.11-0.59) K/uL Eos # (Auto) 0.22 (0.00-0.50) K/uL Baso # (Auto) 0.05 (0.00-0.20) K/uL Immature Gran # (Auto) 0.08 (0.01-0.20) K/uL D-Dimer (0-500) ug/L FEU VBG pH (7.36-7.41) VBG pCO2 (38-50) mmHg VBG pO2 mmHg VBG HCO3 mmol/L VBG O2 Saturation % VBG Base Excess mEq/L Sodium 139 (136-145) mmol/L Potassium 3.8 (3.5-5.1) mmol/L Chloride 102 (98-107) mmol/L Carbon Dioxide 30 (21-32) mmol/L Anion Gap 7 (3-11) BUN 12 (6-23) mg/dl Creatinine 0.47 L (0.6-1.2) mg/dl Est Cr Clr Drug Dosing 115.4 ml/min Est GFR ( Amer) 122.7 ml/min Est GFR (Non-Af Amer) 105.9 ml/min BUN/Creatinine Ratio 25.5 H (10-20) Glucose 137 H (70-99(Fasting)) mg/dl Calcium 8.6 (8.6-10.3) mg/dl Magnesium 2.0 (1.7-2.4) mg/dl Total Bilirubin 0.4 (0.2-1.0) mg/dl AST 17 (13-39) U/L ALT 22 (7-52) U/L Alkaline Phosphatase 77 (34-104) U/L Troponin I High Sens 4.7 (0-14) pg/ml B-Natriuretic Peptide 18 (0-100) pg/ml Total Protein 6.6 (6.0-8.3) gm/dl Albumin 3.3 L (3.4-5.0) gm/dl Globulin 3.3 (2.5-4.0) gm/dl Albumin/Globulin Ratio 1.0 (0.9-2) 06/19/23 06/19/23 Range/Units 13:10 13:10 WBC (4.8-10.8) K/ul RBC (4.20-5.40) M/uL Hgb (12.0-16.0) g/dl Hct (37.0-47.0) % MCV (80.0-100.0) fL MCH (25.0-34.0) pg MCHC (32.0-36.0) g/dL RDW Std Deviation (36.4-46.3) fL RDW Coeff of John Paul (11.5-14.5) % Plt Count (130-400) K/uL MPV (9.4-12.4) fL Immature Gran % (Auto) % Neut % (Auto) % Lymph % (Auto) % Polk % (Auto) % Eos % (Auto) % Baso % (Auto) % Neut # (Auto) (1.40-6.50) K/uL Lymph # (Auto) (1.20-3.40) K/uL Polk # (Auto) (0.11-0.59) K/uL Eos # (Auto) (0.00-0.50) K/uL Baso # (Auto) (0.00-0.20) K/uL Immature Gran # (Auto) (0.01-0.20) K/uL D-Dimer 2360 H* (0-500) ug/L FEU VBG pH 7.40 (7.36-7.41) VBG pCO2 49 (38-50) mmHg VBG pO2 50 mmHg VBG HCO3 30 mmol/L VBG O2 Saturation 84.5 % VBG Base Excess 4.5 mEq/L Sodium (136-145) mmol/L Potassium (3.5-5.1) mmol/L Chloride (98-107) mmol/L Carbon Dioxide (21-32) mmol/L Anion Gap (3-11) BUN (6-23) mg/dl Creatinine (0.6-1.2) mg/dl Est Cr Clr Drug Dosing ml/min Est GFR ( Amer) ml/min Est GFR (Non-Af Amer) ml/min BUN/Creatinine Ratio (10-20) Glucose (70-99(Fasting)) mg/dl Calcium (8.6-10.3) mg/dl Magnesium (1.7-2.4) mg/dl Total Bilirubin (0.2-1.0) mg/dl AST (13-39) U/L ALT (7-52) U/L Alkaline Phosphatase (34-104) U/L Troponin I High Sens (0-14) pg/ml B-Natriuretic Peptide (0-100) pg/ml Total Protein (6.0-8.3) gm/dl Albumin (3.4-5.0) gm/dl Globulin (2.5-4.0) gm/dl Albumin/Globulin Ratio (0.9-2) Administered Medications Discontinued Medications Albuterol (Albut/Ipratrop 3mg/0.5mg Neb 3 Ml Vial) 3 ml NEB NOW STA; Protocol Stop: 06/19/23 13:00 Last Admin: 06/19/23 13:36 Dose: 3 ml Documented By: RENEE Ioversol (Ioversol 350 Mg 125ml Prefilled Syringe) 118 ml IV ONCE ONE Stop: 06/19/23 14:59 Last Admin: 06/19/23 14:59 Dose: 118 ml Documented By: ODALIS Morphine Sulfate (Morphine Sulfate 4 Mg/Ml 1 Ml Carp\Vial) 4 mg IV NOW STA Stop: 06/19/23 15:39 Last Admin: 06/19/23 15:41 Dose: 4 mg Documented By: KEISHA Imaging Data Radiologist's Impression: Chest X-Ray 06/19/23 12:40 XR chest 1V portable CLINICAL HISTORY: Dyspnea TECHNIQUE: Single frontal radiograph of the chest was obtained. Comparison: Comparison is made to chest radiograph 06/11/2023 and PET/CT 06/10/2023 FINDINGS: No lines and tubes are seen. The cardiomediastinal silhouette is normal. Multiple airspace opacities are seen most prominent in the left mid and lower lung. No evidence of pleural effusion or pneumothorax. IMPRESSION: Airspace opacities predominantly in the left lung are compatible with aspiration, pneumonia, and/or metastatic disease/reactive change is seen in p rior PET/CT.. ACT 112: Negative or not required by law. Electronically signed by: Ronald Miles M.D. 06/19/2023 1:00 PM Chest CTA 06/19/23 13:49 CT ANGIOGRAPHY OF THE CHEST, PULMONARY EMBOLUS PROTOCOL CLINICAL HISTORY: Cough. Congestion. Breast cancer. Evaluate for pulmonary embolus. COMPARISON STUDY: Chest CT May 18, 2023. PET/CT August 10, 2023. Chest radiograph performed earlier today. TECHNIQUE: Following IV administration of 118 mL of Optiray, helical axial images of the chest were obtained utilizing the pulmonary embolus protocol. Maximal intensity projections and sagittal and coronal reformats were viewed on an independent 3D workstation. IV contrast was administered without complication. Automated exposure control was utilized for the study. A dose lowering technique was utilized adhering to the principles of ALARA. CT DOSE: 570.56 mGy.cm FINDINGS: No pulmonary emboli are identified. There is no thoracic aortic dissection. Size of the heart is normal. There is a small pericardial effusion. Bilateral breast implants are noted. No pneumothorax is present. A moderate-s ized left pleural effusion has increased in size since prior chest CT and PET/CT. Subpleural left lower lobe opacity favors atelectasis. Bulky mediastinal and left hilar adenopathy has progressed since CT of May 18, 2023. This is similar to recent PET/CT. A prevascular node measures approximately 5 x 3.6 cm. This measured 3.5 x 2.[address] of May 18, 2023. Conglomerate left hilar node on image 141 of 247 measures 4.6 x 3.5 cm. Mass-like density within the left upper lobe on image 167 measures 4.9 x 4.6 cm. This has increased since PET/CT of June 10, 2023. A 4.3 x 3.3 cm cavitary left apical thick-walled abnormality is similar in size to PET/CT. An additional 2.5 x 1.6 cm left upper lobe cavitary irregular density is also unchanged. No significant abnormality within the right lung is noted. No suspicious lesions within the bony thorax are present. Visualized portions of the upper abdomen are unremarkable. IMPRESSION: 1. No pulmonary emboli identified. 2. Increase in size of a moderate left pleural effusion since PET/CT of June 10, 2023. 3. Significant progression of mediastinal and left hilar lymphadenopathy since CT of May 18, 2023. This represents metastatic disease and may reflect metastatic breast cancer. A second primary with underlying primary lung malignancy could have a similar imaging appearance. 4. Increase in size of a 4.9 x 4.6 cm mass-like density within the left upper lobe. This remains nonspecific and may be neoplastic or infectious in etiology. Additional cavitary left upper lobe densities are similar to prior PET/CT and may also be infectious or neoplastic. ACT 112: Negative or not required by law. Electronically signed by: Michael Mo M.D. 06/19/2023 3:29 PM Discharge Plan Visit Data Chief Complaint: Shortness of Breath/Dyspnea Stated Complaint: SOB, REF BY DOC ED Provider: [place] Morfin Discharge Problem: Acute dyspnea, Pleural effusion on left Forms Stand Alone Forms: [facility] Prescriptions Prescriptions: No Action oxycodone 5 mg tablet 5 mg PO Q3H PRN (Reason: Pain) quetiapine 100 mg tablet 100 mg PO HS gabapentin 100 mg capsule 300 mg PO HS riboflavin (vitamin B2) 400 mg Tablet 400 mg PO QAM multivitamin Tablet 1 tab PO DAILY magnesium oxide 400 mg magnesium Capsule 400 mg PO QAM albuterol sulfate 90 mcg/actuation HFA aerosol inhaler 1 - 2 puff inhalation Q6H PRN (Reason: WHEEZING/SHORTNESS OF BREATH) Referrals Referrals: Carl Vargas MD [Primary Care Provider] -
--- NOTE | 2023-06-19 13:02 | XRay Report ---
XR chest 1V portable CLINICAL HISTORY: Dyspnea TECHNIQUE: Single frontal radiograph of the chest was obtained. Comparison: Comparison is made to chest radiograph 06/11/2023 and PET/CT 06/10/2023 FINDINGS: No lines and tubes are seen. The cardiomediastinal silhouette is normal. Multiple airspace opacities are seen most prominent in the left mid and lower lung. No evidence of pleural effusion or pneumothor ax. IMPRESSION: Airspace opacities predominantly in the left lung are compatible with aspiration, pneumonia, and/or m etastatic disease/reactive change is seen in prior PET/CT.. ACT 112: Negative or not required by law. Electronically signed by: Ronald Miles M.D. 06/19/2023 1:00 PM
[2023-06-19 13:30] LABS: Base Excess VBG 4.5 mEq/L; HCO3 VBG 30 mmol/L; Oxygen Saturation VBG 84.5 %; PCO2 VBG 49 mmHg (38-50); PO2 VBG 50 mmHg
[2023-06-19 13:35] LABS: Basophils # (auto) 0.05 K/uL (0.00-0.20); Basophils % (auto) 0.4 %; Eosinophils # (auto) 0.22 K/uL (0.00-0.50); Hematocrit (blood only) 37.7 % (37.0-47.0); Hemoglobin 12.4 g/dl (12.0-16.0); Immature Granulocytes # (auto) 0.08 K/uL (0.01-0.20); Immature Granulocytes % (auto) 0.7 %; Lymphocytes # (auto) 1.72 K/uL (1.20-3.40); Lymphocytes % (auto) 15.4 %; Mean Corpuscular Hemoglobin 29.5 pg (25.0-34.0); Mean Corpuscular Hgb Conc 32.9 g/dL (32.0-36.0); Mean Corpuscular Volume 89.5 fL (80.0-100.0); Mean Platelet Volume 9.1 fL (9.4-12.4); Monocytes # (auto) 0.82 K/uL (0.11-0.59); Monocytes % (auto) 7.3 %; Neutrophils # (auto) 8.31 K/uL (1.40-6.50); Neutrophils % (auto) 74.2 %; Platelet Count 548 K/uL (130-400); RDW Coefficient of Variation 13.4 % (11.5-14.5); RDW Standard Deviation 43.5 fL (36.4-46.3); Red Blood Count 4.21 M/uL (4.20-5.40)
[2023-06-19 13:49] LABS: D Dimer 2360 ug/L FEU (0-500)
[2023-06-19 13:55] LABS: Albumin Level 3.3 gm/dl (3.4-5.0); BUN Creatinine Ratio 25.5 (10-20); Bilirubin,Total 0.4 mg/dl (0.2-1.0); Calcium 8.6 mg/dl (8.6-10.3); Creatinine Clr Calc Pharmacy 115.4 ml/min; Est GFR (African American) 122.7 ml/min; Est GFR (Non-African American) 105.9 ml/min; Globulin 3.3 gm/dl (2.5-4.0); Potassium 3.8 mmol/L (3.5-5.1); Total Protein 6.6 gm/dl (6.0-8.3)
[2023-06-19 13:58] LABS: Troponin I High Sensitivity 4.7 pg/ml (0-14)
[2023-06-19] MEDS ORDERED: IOVERSOL 350 MG 125mL Prefilled Syringe IV ONE (14:58)
--- NOTE | 2023-06-19 15:30 | CT Scan Report ---
CT ANGIOGRAPHY OF THE CHEST, PULMONARY EMBOLUS PROTOCOL CLINICAL HISTORY: Cough. Congestion. Breast cancer. Evaluate for pulmonary embolus. COMPARISON STUDY: Chest CT May 18, 2023. PET/CT August 10, 2023. Chest radiograph performed eva youssef. TECHNIQUE: Following IV administration of 118 mL of Optiray, helical axial images of the chest were obtained utilizing the pulmonary embolus protocol. Maximal intensity projections and sagittal and co celia reformats were viewed on an independent 3D workstation. IV contrast was administered without c omplication. Automated exposure control was utilized for the study. A dose lowering technique was u tilized adhering to the principles of ALARA. CT DOSE: 570.56 mGy.cm FINDINGS: No pulmonary emboli are identified. There is no thoracic aortic dissection. Size of the he art is normal. There is a small pericardial effusion. Bilateral breast implants are noted. No pneumot horax is present. A moderate-sized left pleural effusion has increased in size since prior chest CT a nd PET/CT. Subpleural left lower lobe opacity favors atelectasis. Bulky mediastinal and left hilar ad enopathy has progressed since CT of May 18, 2023. This is similar to recent PET/CT. A prevascular no de measures approximately 5 x 3.6 cm. This measured 3.5 x 2.[address] of May 18, 2023. Conglomerate left hilar node on image 141 of 247 measures 4.6 x 3.5 cm. Mass-like density within the left upper l obe on image 167 measures 4.9 x 4.6 cm. This has increased since PET/CT of June 10, 2023. A 4.3 x 3 .3 cm cavitary left apical thick-walled abnormality is similar in size to PET/CT. An additional 2.5 x 1.6 cm left upper lobe cavitary irregular density is also unchanged. No significant abnormality with in the right lung is noted. No suspicious lesions within the bony thorax are present. Visualized port ions of the upper abdomen are unremarkable. IMPRESSION: 1. No pulmonary emboli identified. 2. Increase in size of a moderate left pleural effusion since PET/CT of June 10, 2023. 3. Significant progression of mediastinal and left hilar lymphadenopathy since CT of May 18, 2023. T his represents metastatic disease and may reflect metastatic breast cancer. A second primary with und erlying primary lung malignancy could have a similar imaging appearance. 4. Increase in size of a 4.9 x 4.6 cm mass-like density within the left upper lobe. This remains nons pecific and may be neoplastic or infectious in etiology. Additional cavitary left upper lobe densitie s are similar to prior PET/CT and may also be infectious or neoplastic. ACT 112: Negative or not required by law. Electronically signed by: Michael Mo M.D. 06/19/2023 3:29 PM
[2023-06-19] MEDS ORDERED: MoRPHine SULFATE 4 MG/ML 1 ML CARP\\VIAL IV STA (15:38)
--- NOTE | 2023-06-19 16:53 | Electrocardiogram Report ---
Test Reason : Blood Pressure : / mmHG Vent. Rate : 100 BPM Atrial Rate : 100 BPM P-R Int : 128 ms QRS Dur : 072 ms QT Int : 310 ms P-R-T Axes : 081 089 065 degrees QTc Int : 399 ms Normal sinus rhythm Possible Left atrial enlargement Borderline ECG When compared with ECG of 10-JUN-2023 16:54, No significant change was found Confirmed by Zachary Escobar ([id number]) on 06/19/2023 4:53:05 PM Referred By: Spencer Shrestha Confirmed By:Zacahry Escobar
--- NOTE | 2023-06-19 17:02 | History & Physical Report ---
Date of Service June 19, 2023 Assessment & Plan (1) Breast cancer: (2) Mediastinal lymphadenopathy: (3) Pleural effusion: (4) Acute respiratory failure with hypoxia: (5) Mass of left lung: (6) History of meningioma: Plan: This is a 62-year-old female with PMH breast cancer S/P bilateral mastectomy and radiation treatment and not interested in chemo, OA, h/o meningioma, migraines, tobacco use presented to ER with c/o worsening SOB and left sided chest pain today. Pleural Effusion, left, recurrent Mass in the left lung Mediastinal lymphadenopathy Shortness of Breath Hx of breast cancer, BRCA 1 + diagnosed in 2007 Hx meningioma - Admit to [facility] - Originally diagnosed in 2007, recurrence in 2013, treated with bilateral mastectomy with breast implants s/p, radiation therapy, Pt has never had chemotherapy as she has refused this modality of treatment in the past. - Recurrent pleural effusion is concerning for malignancy - Patient had gotten a PET/CT on 06/10/2023 which revealed necrotic FDG avid mediastinal and left hilar lymphadenopathy, multifocal FDG avid airspace opacity seen within the left lung with progressive consolidation within the lingula with remaining GINA airspace opacities L demonstrate rounded configuration with interval development of central cavitation. Improvement in interstitial thickening and groundglass airspace opacity within the left lung apex possibly representing an atypical pneumonia such as a fungal infection, Subcentimeter FDG avid supraclavicular lymph nodes which are nonspecific but could be reactive and Mild FDG uptake associated with the small left pleural effusion. - Recent thoracentesis by pulmonology on 06/11/2023 with 400 cc of reddish serosanguineous color fluid removal, with improvement in pleural effusion. She was placed on 2 L of oxygen with ambulation upon discharge home. - On 06/18/2023 patient underwent endobronchial ultrasound with biopsy of [address] Shrestha. ---Results are pending - CTA chest completed today showing moderate size left pleural effusion compared to the PET/CT on June 10, no pulmonary emboli, significant progression of mediastinal and left hilar lymphadenopathy, this represents metastatic disease and may reflect metastatic breast cancer, increase in size of 4.9 x 4.6 cm masslike density within the left upper lobe. -Consult pulmonology for possible repeat thoracentesis with increased size of pleural effusion: Would benefit from diagnostic and therapeutic tap, obtain cytology, fluid culture, and cell count - Discussed with Dr. Hair, will plan on thoracentesis or pleurex placement tomorrow - Pt severe pain during last thoracentesis and anxiety - give pre-procedural ativan - will request day team or pulm to order this for pt comfort -WBC 11.2, slightly increased compared to previously, platelet 548, Hgb 12.4/HCT 37.7, neutrophil count is high at 8.31 -D-dimer 2360 -Albumin is noted to be 3.3, no fluid accumulation peripherally. -Respiratory viral panel is negative Tobacco use -Cessation encouraged DVT ppx: No chemical ppx in the setting of procedure tomorrow --- Hx of DVT in 2003 prior to cancer diagnosis, she is refusing chemical VTE prophylaxis even after my discussion with her regarding increased risk with malignancy. mechanical with scds, teds GI/FEN: Regular diet IV: 2 peripheral CODE: FULL code Dispo: From home, remain in the hospital x 1-2 days, thoracentesis vs pleurex placement tomorrow History of Present Illness Primary Care Provider: Carl Vargas MD This is a 62-year-old female with PMH breast cancer S/P bilateral mastectomy and radiation treatment and not interested in chemo, OA, h/o meningioma, migraines, tobacco use presented to ER with c/o worsening SOB and left sided chest pain today. History obtained from patient, family, inpatient and outpatient chart review. Recent Hospitalizations Include: [facility] Hospital admission 05/18/2023-05/20/2023 for SOB and cough and at that time CT chest without evidence for PE, had left mediastinal-left hilar lymphadenopathy which was concerning for metastatic disease. Had bronchoscopy on 05/20/2023 with noted very friable tissue. Cytology with scattered atypical epithelial cells. Pulmonology was consulted during admission and had mentioned if the specimens were negative may need further investigation with trans thoracic needle aspiration, thoracoscopy or repeat bronchoscopy with endoscopic ultrasound. Patient was treated for possible pneumonia and discharged on 5 additional days of antibiotics (cefdinir, doxycycline) and Diflucan. Patient Followed up with PCP 05/25/2023 with continued shortness of breath, left chest pain. Patient was started on Levaquin 500 mg x 10 days, prednisone 40 mg x 5 days. PCP visit 06/08/2023 with reported sweats, continued cough and shortness of breath, left-sided chest pain, continued intermittent hemoptysis. Was given prescription for oxycodone and referral to pain management was placed. Patient states taking oxycodone with minimal relief of pain to left side of chest. She was then again admitted to [facility] from 06/10/23-06/12/23 for the same complaints of chest pain and shortness of breath. Patient had gotten a PET/CT on 06/10/2023 which revealed necrotic FDG avid mediastinal and left hilar lymphadenopathy, multifocal FDG avid airspace opacity seen within the left lung with progressive consolidation within the lingula with remaining GINA airspace opacities L demonstrate rounded configuration with interval development of central cavitation. Improvement in interstitial thickening and groundglass airspace opacity within the left lung apex possibly representing an atypical pneumonia such as a fungal infection, Subcentimeter FDG avid supraclavicular lymph nodes which are nonspecific but could be reactive and Mild FDG uptake associated with the small left pleural effusion. Patient underwent thoracentesis by pulmonology on 06/11/2023 with 400 cc of reddish serosanguineous color fluid removal, with improvement in pleural effusion. She was placed on 2 L of oxygen with ambulation upon discharge home. Pt reports she was unable to tolerate more fluid removal due to pain. Yesterday on 06/18/2023 patient underwent endobronchial ultrasound with biopsy of [address] Shrestha. Results are pending. Pt is obviously frustrated during my visit, she reports feeling terrible, out of breath with any movement today. She has been wearing 2 L via NC however its not making her feel improved. Pt has a cough which is nonproductive but sounds wet. She denies any lightheadedness, dizziness, fever, chills, night sweats, lymph node swelling, changes in eating, weight loss, abd complaints, n/v/d/c. Pt [facility]. Allergies Allergy/AdvReac Type Severity Reaction Status Date / Time terbinafine Allergy Intermediate RASH Verified 06/19/23 16:01 adhesive Allergy Unknown HIVES AND Verified 06/19/23 16:01 RASH; WELTS FROM BANDAIDS amitriptyline Allergy Unknown Rash Verified 06/19/23 16:01 Home Medications Medication Instructions Recorded Confirmed Type gabapentin 100 mg capsule 300 mg PO HS 05/18/23 06/19/23 History magnesium oxide 400 mg PO QAM 05/18/23 06/19/23 History multivitamin 1 tab PO DAILY 05/18/23 06/19/23 History quetiapine 100 mg tablet 100 mg PO HS 05/18/23 06/19/23 History riboflavin (vitamin B2) 400 mg 400 mg PO QAM 05/18/23 06/19/23 History tablet albuterol sulfate 90 mcg/actuation 1 - 2 puff inhalation Q6H PRN 06/10/23 06/19/23 History aerosol inhaler WHEEZING/SHORTNESS OF BREATH oxycodone 5 mg tablet 5 mg PO Q3H PRN Pain 06/19/23 06/19/23 History Past Med/Surg History Medical History Atypical chest pain Breast cancer (~09/13/14) History of meningioma History of migraine Tobacco use Surgical History History of bilateral mastectomy Family History Other Cancer Social History Smoking Status: Current every day smoker Tobacco Type: Cigarettes Cigarettes Per Day: 20; Second Hand Exposure: Yes; Do You Dip or Chew Tobacco: No; Tobacco Cessation Education Requested by Patient: No Hx Alcohol Use: Yes Alcohol type: beer, wine and hard liquor Hx Substance Use: No Preferred Language: Welsh Communication Ability: Effective Hospice Music Therapist Required: No Beliefs That Will Affect Care: None Current Living Situation: Spouse Feels Safe at Home: Yes Safety Concerns: Feels Safe At This Time Assistive Devices: Glasses and Oxygen - Continuous Review of Systems Review of Systems: Constitutional: No fever, sweats or chills, + Irritated Eyes: No diplopia, no worsening or blurred vision ENT: normal hearing, no trouble swallowing Respiratory: As per HPI. Cardiovascular: No chest pain, tightness or palpitations Abdomen: No pain, nausea, vomiting, diarrhea or constipation Musculoskeletal: No joint pain, calf pain, swelling Neurologic: No weakness, numbness/tingling, or balance problems Psychiatric: No anxiety or depression Skin: No rash or itch Physical Exam Physical Exam: General: awake, alert, no apparent distress, white female, BMI off 26.8 Head: Normocephalic, atraumatic ENT: PERRL, EOMI, no pharyngeal exudate, mucous membranes moist Chest: + Coarse breath sounds throughout with rales, absent breath sounds in the left base, on 2 L via NC. Cardiac: Tachycardic with HR of 97, +GENE, no JVD, normal peripheral pulses, good capillary refill Abdominal: NABS x 4 quadrants, soft, nondistended, nontender to palpation, no rebound or guarding Extremities: Normal inspection, no peripheral edema or erythema, calfs nontender to palpation Psych: irritated mood and affect Neuro: AAO x 3, strength intact bilaterally and rated 5/5, no motor deficits, speech is clear, no peripheral sensory deficits Results & Data Results & Data Vital Signs (Past 12 Hours) Vital Signs Temp Pulse Pulse Resp BP BP Pulse Ox 06/19/23 16:30 98 H 20 93 06/19/23 16:30 107/91 06/19/23 16:00 94 H 19 93 06/19/23 16:00 105/78 06/19/23 15:41 92 06/19/23 15:43 99 H 06/19/23 15:34 98 H 18 108/81 93 06/19/23 13:52 95 06/19/23 13:52 94 06/19/23 12:33 36.5 C 114 H 22 126/76 91 O2 Del Method O2 Flow Rate 06/19/23 16:30 Nasal Cannula 2 06/19/23 16:30 06/19/23 16:00 Nasal Cannula 2 06/19/23 16:00 06/19/23 15:41 Nasal Cannula 2 06/19/23 15:43 06/19/23 15:34 Nasal Cannula 2 06/19/23 13:52 Nasal Cannula 2 06/19/23 13:52 Room Air 06/19/23 12:33 Laboratory Results 06/19/23 06/19/23 06/19/23 13:10 13:10 13:10 WBC RBC Hgb Hct MCV MCH MCHC RDW Std Deviation RDW Coeff of John Paul Plt Count MPV Immature Gran % (Auto) Neut % (Auto) Lymph % (Auto) [place] % (Auto) Eos % (Auto) Baso % (Auto) Neut # (Auto) Lymph # (Auto) [place] # (Auto) Eos # (Auto) Baso # (Auto) Immature Gran # (Auto) D-Dimer 2360 H* VBG pH 7.40 VBG pCO2 49 VBG pO2 50 VBG HCO3 30 VBG O2 Saturation 84.5 VBG Base Excess 4.5 Sodium Potassium Chloride Carbon Dioxide Anion Gap BUN Creatinine Est Cr Clr Drug Dosing Est GFR ( Amer) Est GFR (Non-Af Amer) BUN/Creatinine Ratio Glucose Calcium Magnesium Total Bilirubin AST ALT Alkaline Phosphatase Troponin I High Sens B-Natriuretic Peptide 18 Total Protein Albumin Globulin Albumin/Globulin Ratio Adenovirus (PCR) B. pertussis DNA (PCR) B.parapertussis DNA PCR C. pneumoniae DNA (PCR) Coronavirus OC43 (PCR) Coronavirus HKU1 (PCR) Coronavirus 229E (PCR) SARS-CoV-2 (PCR) Coronavirus NL63 (PCR) Human Metapneumovir PCR Influenza Type A (PCR) Influenza Type B (PCR) M. pneumoniae (PCR) Parainfluenza 1 (PCR) Parainfluenza 2 (PCR) Parainfluenza 3 (PCR) Parainfluenza 4 (PCR) RSV (PCR) Entero/Rhino (PCR) 06/19/23 06/19/23 06/19/23 13:10 13:10 13:00 WBC 11.20 H RBC 4.21 Hgb 12.4 Hct 37.7 MCV 89.5 MCH 29.5 MCHC 32.9 RDW Std Deviation 43.5 RDW Coeff of John Paul 13.4 Plt Count 548 H MPV 9.1 L Immature Gran % (Auto) 0.7 Neut % (Auto) 74.2 Lymph % (Auto) 15.4 [place] % (Auto) 7.3 Eos % (Auto) 2.0 Baso % (Auto) 0.4 Neut # (Auto) 8.31 H Lymph # (Auto) 1.72 [place] # (Auto) 0.82 H Eos # (Auto) 0.22 Baso # (Auto) 0.05 Immature Gran # (Auto) 0.08 D-Dimer VBG pH VBG pCO2 VBG pO2 VBG HCO3 VBG O2 Saturation VBG Base Excess Sodium 139 Potassium 3.8 Chloride 102 Carbon Dioxide 30 Anion Gap 7 BUN 12 Creatinine 0.47 L Est Cr Clr Drug Dosing 115.4 Est GFR ( Amer) 122.7 Est GFR (Non-Af Amer) 105.9 BUN/Creatinine Ratio 25.5 H Glucose 137 H Calcium 8.6 Magnesium 2.0 Total Bilirubin 0.4 AST 17 ALT 22 Alkaline Phosphatase 77 Troponin I High Sens 4.7 B-Natriuretic Peptide Total Protein 6.6 Albumin 3.3 L Globulin 3.3 Albumin/Globulin Ratio 1.0 Adenovirus (PCR) Not Detected B. pertussis DNA (PCR) Not Detected B.parapertussis DNA PCR Not Detected C. pneumoniae DNA (PCR) Not Detected Coronavirus OC43 (PCR) Not Detected Coronavirus HKU1 (PCR) Not Detected Coronavirus 229E (PCR) Not Detected SARS-CoV-2 (PCR) Not Detected Coronavirus NL63 (PCR) Not Detected Human Metapneumovir PCR Not Detected Influenza Type A (PCR) Not Detected Influenza Type B (PCR) Not Detected M. pneumoniae (PCR) Not Detected Parainfluenza 1 (PCR) Not Detected Parainfluenza 2 (PCR) Not Detected Parainfluenza 3 (PCR) Not Detected Parainfluenza 4 (PCR) Not Detected RSV (PCR) Not Detected Entero/Rhino (PCR) DETECTED A* Diagnostic Findings Chest X-Ray 06/19/23 12:40 XR chest 1V portable CLINICAL HISTORY: Dyspnea TECHNIQUE: Single frontal radiograph of the chest was obtained. Comparison: Comparison is made to chest radiograph 06/11/2023 and PET/CT 06/10/2023 FINDINGS: No lines and tubes are seen. The cardiomediastinal silhouette is normal. Multiple airspace opacities are seen most prominent in the left mid and lower lung. No evidence of pleural effusion or pneumothorax. IMPRESSION: Airspace opacities predominantly in the left lung are compatible with aspiration, pneumonia, and/or metastatic disease/reactive change is seen in prior PET/CT.. ACT 112: Negative or not required by law. Electronically signed by: Ronald Miles M.D. 06/19/2023 1:00 PM Chest CTA 06/19/23 13:49 CT ANGIOGRAPHY OF THE CHEST, PULMONARY EMBOLUS PROTOCOL CLINICAL HISTORY: Cough. Congestion. Breast cancer. Evaluate for pulmonary embolus. COMPARISON STUDY: Chest CT May 18, 2023. PET/CT August 10, 2023. Chest radiograph performed earlier today. TECHNIQUE: Following IV administration of 118 mL of Optiray, helical axial images of the chest were obtained utilizing the pulmonary embolus protocol. Maximal intensity projections and sagittal and coronal reformats were viewed on an independent 3D workstation. IV contrast was administered without complication. Automated exposure control was utilized for the study. A dose lowering technique was utilized adhering to the principles of ALARA. CT DOSE: 570.56 mGy.cm FINDINGS: No pulmonary emboli are identified. There is no thoracic aortic dissection. Size of the heart is normal. There is a small pericardial effusion. Bilateral breast implants are noted. No pneumothorax is present. A moderate- sized left pleural effusion has increased in size since prior chest CT and PET/CT. Subpleural left lower lobe opacity favors atelectasis. Bulky mediastinal and left hilar adenopathy has progressed since CT of May 18, 2023. This is similar to recent PET/CT. A prevascular node measures approximately 5 x 3.6 cm. This measured 3.5 x 2.[address] of May 18, 2023. Conglomerate left hilar node on image 141 of 247 measures 4.6 x 3.5 cm. Mass-like density within the left upper lobe on image 167 measures 4.9 x 4.6 cm. This has increased since PET/CT of June 10, 2023. A 4.3 x 3.3 cm cavitary left apical thick-walled abnormality is similar in size to PET/CT. An additional 2.5 x 1.6 cm left upper lobe cavitary irregular density is also unchanged. No significant abnormality within the right lung is noted. No suspicious lesions within the bony thorax are p resent. Visualized portions of the upper abdomen are unremarkable. IMPRESSION: 1. No pulmonary emboli identified. 2. Increase in size of a moderate left pleural effusion since PET/CT of June 10, 2023. 3. Significant progression of mediastinal and left hilar lymphadenopathy since CT of May 18, 2023. This represents metastatic disease and may reflect metastatic breast cancer. A second primary with underlying primary lung malignancy could have a similar imaging appearance. 4. Increase in size of a 4.9 x 4.6 cm mass-like density within the left upper lobe. This remains nonspecific and may be neoplastic or infectious in etiology. Additional cavitary left upper lobe densities are similar to prior PET/CT and may also be infectious or neoplastic. ACT 112: Negative or not required by law. Electronically signed by: Michael Mo M.D. 06/19/2023 3:29 PM ECG Additional Comments: 19-JUN-2023 12:55:33 [facility]-EDSTAT ROUTINE RETRIEVAL Normal sinus rhythm Possible Left atrial enlargement Borderline ECG When compared with ECG of 10-JUN-2023 16:54, No significant change was found Confirmed by Zachary Escobar ([id number]) on 06/19/2023 4:53:05 PM 25mm/s10mm/[id number] 243CID: 20Referred by: Spencer Shrestha Confirmed By: Zachary Lomeli. rate 100 BPM DC interval 128 ms QRS duration 72 ms QT/QTc 310/399 ms Code Status & VTE Plan Code Status Ful Code - discussed with pt and family at bedside Supervising Physician Co-Signing Physician Notes Pt seen and examined by myself, Janis Ovalle MD on the day of service. Care was coordinated with Nishi Beth PA-C. Please refer to her note for additional information. Pt is a 62yF with PMHx significant for Hx of breast cancer and recurrent pleural effusions, admitted with the same. In some mild distress on exam. Oxygen supplementation being provided. Pulmonology consult- appreciate recs, thoracentesis vs. PleurX catheter for drainage. Pt adamant that she will think about DVT prophylaxis. Otherwise as above.
[2023-06-19 17:30] LABS: Adenovirus PCR Not Detected (NotDetected); Bordetella parapertussis PCR Not Detected (NotDetected); Bordetella pertussis PCR Not Detected (NotDetected); Chlamydia pneumoniae PCR Not Detected (NotDetected); Coronavirus 229E PCR Not Detected (NotDetected); Coronavirus CoV-2 (COVID19)PCR Not Detected (NotDetected); Coronavirus HKU1 PCR Not Detected (NotDetected); Coronavirus NL63 PCR Not Detected (NotDetected); Coronavirus OC43PCR Not Detected (NotDetected); Human Metapneumovirus PCR Not Detected (NotDetected); Influenza A PCR Not Detected (NotDetected); Influenza B PCR Not Detected (NotDetected); Mycoplasma pneumoniae PCR Not Detected (NotDetected); Parainfluenza Virus 1 PCR Not Detected (NotDetected); Parainfluenza Virus 2 PCR Not Detected (NotDetected); Parainfluenza Virus 3 PCR Not Detected (NotDetected); Parainfluenza Virus 4 PCR Not Detected (NotDetected); Respiratory Syncytial VirusPCR Not Detected (NotDetected)
[2023-06-19 17:36] LABS: Rhinovirus/Enterovirus PCR DETECTED (NotDetected)
[2023-06-19] MEDS ORDERED: HYDROmorphone INJ 0.5 MG/0.5 ML SYR IV STA (17:55)
--- NOTE | 2023-06-19 18:33 | Pulmonary Consultation ---
Date of Consultation June 19, 2023 Assessment & Plan (1) Pleural effusion: (2) Tobacco abuse: (3) Mass of left lung: (4) Acute respiratory failure with hypoxia: Plan CTA chest 06/19/2023 personally reviewed: Multiple left upper lobe mass appreciated Moderate left-sided pleural effusion with compression atelectasis of the left lower lobe Significant hilar and mediastinal lymphadenopathy -- Acute hypoxic respiratory failure Likely secondary to pleural effusion -- Left-sided pleural effusion Initial thoracentesis done 06/11/2023, 400 mils of fluid was removed It was negative for malignancy -- Mediastinal lymphadenopathy S/p EBUS 06/18/2023 -- History of breast CA S/p bilateral mastectomy and radiation -- History of smoking Plan: Hold anticoagulation for possible thoracentesis versus Pleurx catheter to be placed tomorrow Risk and benefit of the procedure explained to the patient in depth Case was discussed with primary team Please note the above document was generated using voice recognition software. It may contain grammatical, syntax or spelling errors.Any formal questions or concerns about the content, text or information contained within the body of this dictation should be directly addressed to the provider for clarification. History of Present Illness History of Present Illness 62-year-old female presented to the hospital with complaints of worsening shortness of breath and left-sided chest pain Past medical history: Breast cancer s/p bilateral mastectomy and radiation, history of meningioma, mediastinal lymphadenopathy Patient underwent EBUS by Dr. Shrestha on 06/18/2023 She had thoracentesis done in the past which were negative for malignancy Pulmonary consulted for left-sided pleural effusion and shortness of breath At the time of examination patient was complaining of worsening shortness of breath She was saturating 94-95% on 2 L nasal cannula. Not in any respiratory distress She was tachycardic. Denied any headache, no nausea, no vomiting She does have cough and has difficulty bringing it up occasionally. Denies any hemoptysis No fever or chills No night sweats, no unintentional weight loss. Social history: [id number] smoking history, currently smoking 6 cigarettes a d ay Allergies Allergy/AdvReac Type Severity Reaction Status Date / Time terbinafine Allergy Intermediate RASH Verified 06/19/23 16:01 adhesive Allergy Unknown HIVES AND Verified 06/19/23 16:01 RASH; WELTS FROM BANDAIDS amitriptyline Allergy Unknown Rash Verified 06/19/23 16:01 Home Medications Medication Instructions Recorded Confirmed Type gabapentin 100 mg capsule 300 mg PO HS 05/18/23 06/19/23 History magnesium oxide 400 mg PO QAM 05/18/23 06/19/23 History multivitamin 1 tab PO DAILY 05/18/23 06/19/23 History quetiapine 100 mg tablet 100 mg PO HS 05/18/23 06/19/23 History riboflavin (vitamin B2) 400 mg 400 mg PO QAM 05/18/23 06/19/23 History tablet albuterol sulfate 90 mcg/actuation 1 - 2 puff inhalation Q6H PRN 06/10/23 06/19/23 History aerosol inhaler WHEEZING/SHORTNESS OF BREATH oxycodone 5 mg tablet 5 mg PO Q3H PRN Pain 06/19/23 06/19/23 History Patient History Medical History Atypical chest pain Breast cancer (~09/13/14) History of meningioma History of migraine Tobacco use Surgical History History of bilateral mastectomy Family History Other Cancer Social History Smoking Status: Current every day smoker Tobacco Type: Cigarettes Cigarettes Per Day: 20; Second Hand Exposure: Yes; Do You Dip or Chew Tobacco: No; Tobacco Cessation Education Requested by Patient: No Hx Alcohol Use: Yes Alcohol type: beer, wine and hard liquor Hx Substance Use: No Preferred Language: Armenian Communication Ability: Effective Director Visual Required: No Beliefs That Will Affect Care: None Current Living Situation: Spouse Feels Safe at Home: Yes Safety Concerns: Feels Safe At This Time Assistive Devices: Glasses and Oxygen - Continuous Review of Systems Review of Systems: All systems reviewed & are unremarkable except as noted in HPI & below Physical Exam Physical Exam: Constitutional: No acute distress HEENT: EOMI, PERRLA Respiratory system: Decreased air entry bilaterally, more decreased on the left, no wheeze, no rhonchi, positive crackles bilateral lower lobes CVS: S1-S2 positive, no murmurs or gallops Abdomen: Soft, nontender, nondistended, positive bowel sounds x4 Extremities: +2 pulses bilaterally radialis/ dorsalis pedis, no cyanosis, no edema Neuro: Awake alert oriented x3 Psych: Normal mood and affect G/U: No [place] Skin: no rashes, warm and dry Lymphatic: no cervical or axillary lymphadenopathy Results & Data Results & Data Vital Signs (Past 12 Hours) Vital Signs Temp Pulse Pulse Resp BP BP Pulse Ox 06/19/23 17:30 97 H 19 94 06/19/23 17:30 126/81 06/19/23 17:00 96 H 17 93 06/19/23 17:00 105/70 06/19/23 16:30 98 H 20 93 06/19/23 16:30 107/91 06/19/23 16:00 94 H 19 93 06/19/23 16:00 105/78 06/19/23 15:41 92 06/19/23 15:43 99 H 06/19/23 15:34 98 H 18 108/81 93 06/19/23 13:52 95 06/19/23 13:52 94 06/19/23 12:33 36.5 C 114 H 22 126/76 91 O2 Del Method O2 Flow Rate 06/19/23 17:30 06/19/23 17:30 06/19/23 17:00 06/19/23 17:00 06/19/23 16:30 Nasal Cannula 2 06/19/23 16:30 06/19/23 16:00 Nasal Cannula 2 06/19/23 16:00 06/19/23 15:41 Nasal Cannula 2 06/19/23 15:43 06/19/23 15:34 Nasal Cannula 2 06/19/23 13:52 Nasal Cannula 2 06/19/23 13:52 Room Air 06/19/23 12:33 Laboratory Results 06/19/23 13:10 06/19/23 13:10 PG Care Time/CCT Total # of Minutes Spent Total Time Spent with Patient: Total time spent is greater than 50% in coordination of care (as documented) at patient's floor/unit and/or counseling patient: Coding Level of Care Code 92653 INT INP/OBS CARE 3/75MIN Diagnoses Pleural effusion J90 Tobacco abuse Z72.0 Mass of left lung R91.8 Acute respiratory failure with hypoxia J96.01
[2023-06-19] MEDS ORDERED: ALBUTEROL HFA 8 GM INHALER INH PRN (21:05)
[2023-06-19] MEDS ORDERED: ONDANSETRON INJ 2 MG/ML 2 ML VIAL IV PRN (21:05)
[2023-06-19] MEDS: GABAPENTIN 300 MG CAP PO SCH (21:53)
[2023-06-19] MEDS: QUEtiapine FUMARATE 100 MG TABLET PO SCH (21:53)
[2023-06-19] MEDS: oxyCODONE HCL IR 5 MG TAB (IMMEDIATE RELEASE) PO PRN (21:53)
[2023-06-19] MEDS: ACETAMINOPHEN 325 MG TAB PO PRN (21:54)
[2023-06-20] MEDS: oxyCODONE HCL IR 5 MG TAB (IMMEDIATE RELEASE) PO PRN ×3 (03:45→21:26)
[2023-06-20 06:28] LABS: Hematocrit (blood only) 36.2 % (37.0-47.0); Hemoglobin 11.7 g/dl (12.0-16.0); Mean Corpuscular Hgb Conc 32.3 g/dL (32.0-36.0); Mean Corpuscular Volume 89.8 fL (80.0-100.0); Mean Platelet Volume 8.9 fL (9.4-12.4); Platelet Count 490 K/uL (130-400); RDW Coefficient of Variation 13.3 % (11.5-14.5); RDW Standard Deviation 43.8 fL (36.4-46.3); Red Blood Count 4.03 M/uL (4.20-5.40); White Blood Count 9.79 K/ul (4.8-10.8)
[2023-06-20 06:47] LABS: BUN Creatinine Ratio 23.5 (10-20); Calcium 8.4 mg/dl (8.6-10.3); Creatinine Clr Calc Pharmacy 106.3 ml/min; Est GFR (African American) 119.4 ml/min; Est GFR (Non-African American) 103.1 ml/min; Potassium 4.1 mmol/L (3.5-5.1)
[2023-06-20] MEDS: HYDROmorphone INJ 0.5 MG/0.5 ML SYR IV PRN ×4 (08:43→23:46)
[2023-06-20] MEDS: POLYETHYLENE (MIRALAX) 17 GM PACK PO SCH (08:44)
[2023-06-20] MEDS: MAGNESIUM OXIDE 400 MG TAB PO SCH (08:44)
[2023-06-20] MEDS: bisacodyL 5 MG TABEC PO SCH (08:44)
[2023-06-20] MEDS: MULTIVITAMIN TAB PO SCH (08:44)
[2023-06-20] MEDS ORDERED: NON-FORMULARY MEDICATION (Riboflavin (Vitamin B2) 400 mg Tablet) PO SCH (09:00)
[2023-06-20 09:10] LABS: Appearance Urine Clear (Clear); Bacteria Urine Automated Negative (Negative); Bilirubin Urine Negative (Negative); Blood Urine Negative (Negative); Color Urine Dark Yellow; Epithelial Cell Urine Auto >30 /lpf (0-5); Glucose Urine UA Negative (Negative); Ketones Urine Trace (Negative); Leukocyte Esterase Urine Negative (Negative); Nitrite Urine Negative (Negative); Protein Urine Trace (Negative); Specific Gravity Urine 1.042 (1.000-1.030); Urobilinogen Urine Negative (Negative); pH Urine 5.5 (4.5-7.5)
[2023-06-20] MEDS ORDERED: LIDOCAINE 1% LOCAL 20 ML VIAL ONE (12:01)
[2023-06-20] MEDS ORDERED: MoRPHine SULFATE 2 MG/ML CARP IV STA (13:02)
--- NOTE | 2023-06-20 14:14 | Procedure Note ---
Procedure Note Date of Service June 20, 2023 Note PREOPERATIVE DIAGNOSIS: Recurrent left pleural effusion. POSTOPERATIVE DIAGNOSIS: Recurrent left pleural effusion. PROCEDURE PERFORMED: Left PleurX catheter placement. ANESTHESIA: Local 1% Lidocaine without Epinephrine COMPLICATIONS: None. INDICATION FOR PROCEDURE: Recurrent left-sided pleural effusion in a patient who has history of breast CA DESCRIPTION OF PROCEDURE: The patient was placed in a semirecumbent position. I evaluated the left pleura with the ultrasound and located an adequate spot above the diaphragm. The left chest and upper abdomen were prepped and draped in the usual sterile fashion. Lidocaine 1% was used to infiltrate two areas; one in the left upper quadrant where the tube would exit and the other along the anterior axillary line one intercostal space below. A small counterincision was made in the left upper quadrant area. Through the anterior axillary line area, the pleural space was accessed by Seldinger technique. The counterincision was made around the guidewire and then the PleurX catheter was tunneled from the right upper quadrant small incision to the one overlying the ribs. A sheath introducer was then passed over the wire and then the PleurX catheter was placed through the sheath introducer. There was good return of fluid. 550 ml of dark serous fluid was withdrawn slowly in the vacu- container as the small counterincision was closed with Monocryl stitch. The catheter was capped off, and sterile dressings were applied. The patient tolerated the procedure well without any complications. Chest Xray to follow. Complications: None Blood Loss: < 2cc Coding CPT Codes Pulmonary/Thoracic - Pulmonary and Thoracic: 90724 Insert pleural cathereter w/cuff ([id number]) Pulmonary/Thoracic - Pulmonary and Thoracic: 82243 Pleural drainage w/imaging ([id number]) [facility] [place] Procedure Codes (Charges) Pulmonary/Thoracic Procedure 1: Pulmonary and Thoracic: 63777 Insert pleural cathereter w/cuff Procedure 2: Pulmonary and Thoracic: 60664 Pleural drainage w/imaging
--- NOTE | 2023-06-20 14:16 | Pulmonology Progress Note ---
Date of Service June 20, 2023 Assessment & Plan (1) Pleural effusion: (2) Tobacco abuse: (3) Mass of left lung: (4) Acute respiratory failure with hypoxia: Plan CTA chest 06/19/2023 personally reviewed: Multiple left upper lobe mass appreciated Moderate left-sided pleural effusion with compression atelectasis of the left lower lobe Significant hilar and mediastinal lymphadenopathy -- Acute hypoxic respiratory failure Likely secondary to pleural effusion along with compression atelectasis of the left lower lobe -- Left-sided pleural effusion Initial thoracentesis done 06/11/2023, 400 mils of fluid was removed It was negative for malignancy -- Mediastinal lymphadenopathy S/p EBUS 06/18/2023 Follow-up cytology -- History of breast CA S/p bilateral mastectomy and radiation -- History of smoking > [id number] smoking history Currently smoking 4-6 cigarettes a day Plan: Patient was given an option of thoracentesis versus Pleurx catheter. Patient prefers Pleurx catheter Risk and benefit of the procedure explained to the patient in depth. She understands and agrees to go with the procedure Consent signed, witnessed and put in the chart. Please note the above document was generated using voice recognition software. It may contain grammatical, syntax or spelling errors.Any formal questions or concerns about the content, text or information contained within the body of this dictation should be directly addressed to the provider for clarification. Admission and Anticipated Discharge Date Admission Date: June 19, 2023 Subjective Patient seen and examined at bedside. No acute distress, notable since overnight Still complaining of shortness of breath. She has been coughing not bringing up any phlegm right now Fair appetite. No headache, no blurry vision Denies any chest pain right now Review of Systems Review of Systems: All systems reviewed & are unremarkable except as noted in Subjective Physical Exam Physical Exam: Constitutional: No acute distress HEENT: EOMI, PERRLA Respiratory system: Decreased air entry bilaterally, more decreased on the left, no wheeze, no rhonchi, positive crackles bilateral lower lobes CVS: S1-S2 positive, no murmurs or gallops Abdomen: Soft, nontender, nondistended, positive bowel sounds x4 Extremities: +2 pulses bilaterally radialis/ dorsalis pedis, no cyanosis, no edema Neuro: Awake alert oriented x3 Psych: Normal mood and affect G/U: No Zamora Skin: no rashes, warm and dry Lymphatic: no cervical or axillary lymphadenopathy Results & Data Results & Data Vital Signs (Past 12 Hours) Vital Signs Temp Pulse Pulse Resp BP Pulse Ox O2 Del Method 06/20/23 12:25 36.9 C 91 H 20 124/69 94 Nasal Cannula 06/20/23 08:59 91 H 06/20/23 08:44 Nasal Cannula 06/20/23 08:00 36.8 C 94 H 19 125/82 94 Nasal Cannula 06/20/23 02:59 36.8 C 88 18 104/70 92 Nasal Cannula O2 Flow Rate 06/20/23 12:25 2 06/20/23 08:59 06/20/23 08:44 2 06/20/23 08:00 2 06/20/23 02:59 2 Laboratory Results 06/20/23 05:56 06/20/23 05:56 PG Care Time/CCT Total # of Minutes Spent Total Time Spent with Patient: Total time spent is greater than 50% in coordination of care (as documented) at patient's floor/unit and/or counseling patient: Coding Level of Care Code 95808 SUB INP/OBS CARE 3/50MIN Diagnoses Pleural effusion J90 Tobacco abuse Z72.0 Mass of left lung R91.8 Acute respiratory failure with hypoxia J96.01
--- NOTE | 2023-06-20 14:50 | XRay Report ---
XR chest 1V portable CLINICAL HISTORY: S/P PleurX catheter COMPARISON STUDY: Chest radiograph and chest CT June 19, 2023. FINDINGS: Interval placement of a left basilar pleural catheter. Left pleural effusion has decreased in size. There is a small to moderate residual pleural effusion. Left pleural gas is noted. Left juan hilar and apical mass-like opacities are again noted. Mediastinal and left hilar lymphadenopathy is b aisha depicted on prior chest CT. There are are bilateral axillary surgical clips. No right pneumotho rax. IMPRESSION: 1. Interval placement of a left pleural catheter. Decrease in size of the left pleural effusion. Sma ll to moderate residual pleural effusion with pleural gas. 2. Redemonstration of left perihilar and apical mass-like opacities. Mediastinal and left hilar lymph adenopathy better depicted on prior chest CT. ACT 112: Negative or not required by law. Electronically signed by: Michael Mo M.D. 06/20/2023 2:49 PM
[2023-06-20 15:02] LABS: Albumin Level 3.3 gm/dl (3.4-5.0); Bilirubin,Total 0.3 mg/dl (0.2-1.0); Total Protein 6.5 gm/dl (6.0-8.3)
[2023-06-20 15:16] LABS: Appearance Pleural Fluid Cloudy; Color Pleural Fluid Straw; Eosinophils, Fluid 2 %; Lymphocytes, Fluid 69 %; Mono,Macrophage,Mesothelial 9 %; Neutrophils, Fluid 20 %; RBC Pleural Fluid Auto 5000 /uL; Source Pleural Fluid Left Lung; WBC Pleural Fluid Auto 2381 /uL
--- NOTE | 2023-06-20 16:29 | Hospitalist Progress Note ---
Date of Service June 20, 2023 Assessment & Plan (1) Breast cancer: (2) Mediastinal lymphadenopathy: (3) Pleural effusion: (4) Acute respiratory failure with hypoxia: (5) Mass of left lung: (6) History of meningioma: Plan: per admitting service notes with addendum: This is a 62-year-old female with PMH breast cancer S/P bilateral mastectomy and radiation treatment and not interested in chemo, OA, h/o meningioma, migraines, tobacco use presented to ER with c/o worsening SOB and left sided chest pain today. Pleural Effusion, left, recurrent Mass in the left lung Mediastinal lymphadenopathy Shortness of Breath Hx of breast cancer, BRCA 1 + diagnosed in 2007 Hx meningioma - Admit to PCU - Originally diagnosed in 2007, recurrence in 2013, treated with bilateral mastectomy with breast implants s/p, radiation therapy, Pt has never had chemotherapy as she has refused this modality of treatment in the past. - Recurrent pleural effusion is concerning for malignancy - Patient had gotten a PET/CT on 06/10/2023 which revealed necrotic FDG avid mediastinal and left hilar lymphadenopathy, multifocal FDG avid airspace opacity seen within the left lung with progressive consolidation within the lingula with remaining GINA airspace opacities L demonstrate rounded configuration with interval development of central cavitation. Improvement in interstitial thickening and groundglass airspace opacity within the left lung apex possibly representing an atypical pneumonia such as a fungal infection, Subcentimeter FDG avid supraclavicular lymph nodes which are nonspecific but could be reactive and Mild FDG uptake associated with the small left pleural effusion. - Recent thoracentesis by pulmonology on 06/11/2023 with 400 cc of reddish serosanguineous color fluid removal, with improvement in pleural effusion. She was placed on 2 L of oxygen with ambulation upon discharge home. - On 06/18/2023 patient underwent endobronchial ultrasound with biopsy of [address] Shrestha. ---Results are pending - CTA chest completed today showing moderate size left pleural effusion compared to the PET/CT on June 10, no pulmonary emboli, significant progression of mediastinal and left hilar lymphadenopathy, this represents metastatic disease and may reflect metastatic breast cancer, increase in size of 4.9 x 4.6 cm masslike density within the left upper lobe. -Consult pulmonology for possible repeat thoracentesis with increased size of pleural effusion: Would benefit from diagnostic and therapeutic tap, obtain cytology, fluid culture, and cell count - Discussed with Dr. Hair, will plan on thoracentesis or pleurex placement tomorrow - Pt severe pain during last thoracentesis and anxiety - give pre-procedural ativan - will request day team or pulm to order this for pt comfort -WBC 11.2, slightly increased compared to previously, platelet 548, Hgb 12.4/HCT 37.7, neutrophil count is high at 8.31 -D-dimer 2360 -Albumin is noted to be 3.3, no fluid accumulation peripherally. -Respiratory viral panel is negative 06/20 Status post Pleurx cath placement, drained 500 cc of fluid Continue pain control Follow-up pathology Tobacco use -Cessation encouraged DVT ppx: No Lovenox or heparin in light of Pleurx catheter placement today --- Hx of DVT in 2003 prior to cancer diagnosis, she is refusing chemical VTE prophylaxis even after my discussion with her regarding increased risk with malignancy. mechanical with scds, teds GI/FEN: Regular diet IV: 2 peripheral CODE: FULL code Dispo: Possible discharge to home tomorrow with home health service Admission and Anticipated Discharge Date Admission Date: June 19, 2023 Subjective Follow-up pleural effusion, etc. Seen resting in bed, comfortable, not in distress Status post left Pleurx cath placement Having pain on the insertion site but adequately controlled by pain medications Denies shortness of breath, cough, fevers or chills Denies other symptoms Review of Systems Review of Systems: all noted and negative except for above Physical Exam Physical Exam: General- oriented x 3, not in distress, speaks in sentences with no effort or accessory muscle use Eyes- anicteric Neck- no JVD Lungs- clear breath sounds bilaterally, no rales/wheezes Pleurx cath on the left side: No bleeding, no discharge Heart- normal rate, regular rhythm; no murmurs Abdomen- normal bowel sounds, nondistended, soft, nontender Extremities- no pretibial edema, no calf tenderness Neuro- alert, oriented x 3; no gross focal neurologic deficits Skin- warm & dry Results & Data Results & Data Vital Signs (Past 12 Hours) Vital Signs Temp Pulse Pulse Resp BP Pulse Ox O2 Del Method 06/20/23 15:46 36.8 C 97 H 20 148/79 H 91 Nasal Cannula 06/20/23 15:12 95 H 06/20/23 15:12 Nasal Cannula 06/20/23 12:25 36.9 C 91 H 20 124/69 94 Nasal Cannula 06/20/23 08:59 91 H 06/20/23 08:44 Nasal Cannula 06/20/23 08:00 36.8 C 94 H 19 125/82 94 Nasal Cannula O2 Flow Rate 06/20/23 15:46 2 06/20/23 15:12 06/20/23 15:12 06/20/23 12:25 2 06/20/23 08:59 06/20/23 08:44 2 06/20/23 08:00 2 all noted and reviewed including below
[2023-06-20] MEDS: QUEtiapine FUMARATE 100 MG TABLET PO SCH (20:20)
[2023-06-20] MEDS: GABAPENTIN 300 MG CAP PO SCH (20:20)
[2023-06-20] MEDS: ACETAMINOPHEN 325 MG TAB PO PRN (21:25)
[2023-06-21] MEDS: HYDROmorphone INJ 0.5 MG/0.5 ML SYR IV PRN ×4 (03:58→17:22)
[2023-06-21] MEDS: ACETAMINOPHEN 325 MG TAB PO PRN (05:05)
[2023-06-21] MEDS: oxyCODONE HCL IR 5 MG TAB (IMMEDIATE RELEASE) PO PRN ×2 (05:05→13:08)
--- NOTE | 2023-06-21 08:18 | Pulmonology Progress Note ---
Date of Service June 21, 2023 Assessment & Plan (1) Pleural effusion: (2) Tobacco abuse: (3) Mass of left lung: (4) Acute respiratory failure with hypoxia: Plan CTA chest 06/19/2023 personally reviewed: Multiple left upper lobe mass appreciated Moderate left-sided pleural effusion with compression atelectasis of the left lower lobe Significant hilar and mediastinal lymphadenopathy -- Acute hypoxic respiratory failure Likely secondary to pleural effusion along with compression atelectasis of the left lower lobe -- Left-sided pleural effusion Initial thoracentesis done 06/11/2023, 400 mils of fluid was removed It was negative for malignancy S/p Pleurx catheter 06/20/2023, 550 mL fluid removed and sent for cytology again -- Mediastinal lymphadenopathy S/p EBUS 06/18/2023 Follow-up cytology -- History of breast CA S/p bilateral mastectomy and radiation -- History of smoking > [id number] smoking history Currently smoking 4-6 cigarettes a day Plan: Patient was again drained 350 mL today. Would recommend the fluid to be drained every other day and once the fluid is less than 200 mL can do it twice a week. Needs to follow-up with pulmonary Dr. Shrestha within a week to get sutures removed. Case was discussed with Dr. Zambrano No further recommendation from pulmonary perspective. We will sign off Please call directly with any questions Please note the above document was generated using voice recognition software. It may contain grammatical, syntax or spelling errors.Any formal questions or concerns about the content, text or information contained within the body of this dictation should be directly addressed to the provider for clarification. Admission and Anticipated Discharge Date Admission Date: June 19, 2023 Subjective Patient seen and examined at bedside. No acute distress, no adverse events overnight Denies any chest pain Shortness of breath is better after we took the fluid out yesterday. Complains of mild tenderness at the site of the tube but it is way better than yesterday No nausea or vomiting Fair appetite Asking if she could go home after pleural drainage Review of Systems Review of Systems: All systems reviewed & are unremarkable except as noted in Subjective Physical Exam Physical Exam: Constitutional: No acute distress HEENT: EOMI, PERRLA Respiratory system: Decreased air entry bilaterally, more decreased on the left, no wheeze, no rhonchi, positive crackles bilateral lower lobes CVS: S1-S2 positive, no murmurs or gallops Abdomen: Soft, nontender, nondistended, positive bowel sounds x4 Extremities: +2 pulses bilaterally radialis/ dorsalis pedis, no cyanosis, no edema Neuro: Awake alert oriented x3 Psych: Normal mood and affect G/U: No Zamora Skin: no rashes, warm and dry Lymphatic: no cervical or axillary lymphadenopathy Results & Data Results & Data Vital Signs (Past 12 Hours) Vital Signs Temp Pulse Pulse Resp BP Pulse Ox O2 Del Method 06/21/23 02:52 36.5 C 95 H 18 112/74 96 Nasal Cannula 06/20/23 22:00 96 H 06/20/23 23:37 36.8 C 90 18 97/64 L 92 Nasal Cannula 06/20/23 23:26 Room Air, Nasal Cannula 06/20/23 23:12 91 H O2 Flow Rate 06/21/23 02:52 2 06/20/23 22:00 06/20/23 23:37 2 06/20/23 23:26 2 06/20/23 23:12 Laboratory Results 06/20/23 05:56 06/20/23 05:56 PG Care Time/CCT Total # of Minutes Spent Total Time Spent with Patient: Total time spent is greater than 50% in coordination of care (as documented) at patient's floor/unit and/or counseling patient: Coding Level of Care Code 97421 SUB INP/OBS CARE 2/35MIN Diagnoses Pleural effusion J90 Tobacco abuse Z72.0 Mass of left lung R91.8 Acute respiratory failure with hypoxia J96.01
[2023-06-21] MEDS: bisacodyL 5 MG TABEC PO SCH (08:31)
[2023-06-21] MEDS: POLYETHYLENE (MIRALAX) 17 GM PACK PO SCH (08:31)
[2023-06-21] MEDS: MAGNESIUM OXIDE 400 MG TAB PO SCH (08:32)
[2023-06-21] MEDS: MULTIVITAMIN TAB PO SCH (08:32)
[2023-06-21] MEDS ORDERED: BENZONATATE 100 MG CAPSULE PO ONE (10:34)
[2023-06-21] MEDS ORDERED: BENZONATATE 100 MG CAPSULE PO PRN (10:34)
--- NOTE | 2023-06-21 10:35 | Hospitalist Progress Note ---
Date of Service June 21, 2023 Assessment & Plan (1) Pleural effusion: (2) Mass of left lung: (3) Mediastinal lymphadenopathy: (4) Acute respiratory failure with hypoxia: (5) Breast cancer: (6) History of meningioma: Plan: per admitting service notes with addendum: This is a 62-year-old female with PMH breast cancer S/P bilateral mastectomy and radiation treatment and not interested in chemo, OA, h/o meningioma, migraines, tobacco use presented to ER with c/o worsening SOB and left sided chest pain today. Pleural Effusion, left, recurrent Mass in the left lung Mediastinal lymphadenopathy Hx of breast cancer, BRCA 1 + diagnosed in 2007 Hx meningioma - Originally diagnosed in 2007, recurrence in 2013, treated with bilateral mastectomy with breast implants s/p, radiation therapy, Pt has never had chemotherapy as she has refused this modality of treatment in the past. - Recurrent pleural effusion is concerning for malignancy - Patient had gotten a PET/CT on 06/10/2023 which revealed necrotic FDG avid mediastinal and left hilar lymphadenopathy, multifocal FDG avid airspace opacity seen within the left lung with progressive consolidation within the lingula with remaining GINA airspace opacities L demonstrate rounded configuration with interval development of central cavitation. Improvement in interstitial thickening and groundglass airspace opacity within the left lung apex possibly representing an atypical pneumonia such as a fungal infection, Subcentimeter FDG avid supraclavicular lymph nodes which are nonspecific but could be reactive and Mild FDG uptake associated with the small left pleural effusion. - Recent thoracentesis by pulmonology on 06/11/2023 with 400 cc of reddish serosanguineous color fluid removal, with improvement in pleural effusion. She was placed on 2 L of oxygen with ambulation upon discharge home. - On 06/18/2023 patient underwent endobronchial ultrasound with biopsy of [address] Shrestha. ---Results are pending - CTA chest completed today showing moderate size left pleural effusion compared to the PET/CT on June 10, no pulmonary emboli, significant progression of mediastinal and left hilar lymphadenopathy, this represents metastatic disease and may reflect metastatic breast cancer, increase in size of 4.9 x 4.6 cm masslike density within the left upper lobe. -Albumin is noted to be 3.3, no fluid accumulation peripherally. 06/20 Status post Pleurx cath placement, drained 500 cc of fluid 06/21 stable again drained [address] Hair: Would recommend the fluid to be drained every other day and once the fluid is less than 200 mL can do it twice a week. will need 2 L Oxygen at all times Needs to follow-up with pulmonary Dr. Shrestha within a week to get sutures removed. patient has oxycodone at home for PRN use Rhinovirus Infection - supportive care Tobacco use -Cessation encouraged DVT ppx: No chemical ppx in the setting of procedure tomorrow --- Hx of DVT in 2003 prior to cancer diagnosis, she is refusing chemical VTE prophylaxis even after my discussion with her regarding increased risk with malignancy. mechanical with scds, teds GI/FEN: Regular diet IV: 2 peripheral CODE: FULL code Dispo: d/c to home with home health services ff up with PCP in 1 week ff up with Pulm as scheduled Admission and Anticipated Discharge Date Admission Date: June 19, 2023 Subjective ff up for L pleural effusion, etc seen resting in bed, sitting up comfortable states she feels fine overall pain over the pleural cath site well controlled no dyspnea, palpitations, dizziness no fever/chills no other symptoms Review of Systems Review of Systems: all noted and negative except for above Physical Exam Physical Exam: General- oriented x 3, not in distress, speaks in sentences with no effort or accessory muscle use Eyes- anicteric Neck- no JVD Lungs- clear breath sounds bilaterally, no rales/wheezes Heart- normal rate, regular rhythm; no murmurs Abdomen- normal bowel sounds, nondistended, soft, nontender Extremities- no pretibial edema, no calf tenderness Neuro- alert, oriented x 3; no gross focal neurologic deficits Skin- warm & dry Results & Data Results & Data Vital Signs (Past 12 Hours) Vital Signs Temp Pulse Resp BP Pulse Ox O2 Del Method O2 Flow Rate 06/21/23 07:22 37.1 C 90 18 90 Nasal Cannula 2 06/21/23 02:52 36.5 C 95 H 18 112/74 96 Nasal Cannula 2 06/20/23 23:37 36.8 C 90 18 97/64 L 92 Nasal Cannula 2 06/20/23 23:26 Room Air, Nasal Cannula 2 06/20/23 23:12 91 H all noted and reviewed including below
--- NOTE | 2023-06-21 10:46 | XRay Report ---
XR chest 1V portable HISTORY: Follow-up left-sided pneumothorax. COMPARISON: Chest 06/20/2023. FINDINGS: The left basilar chest tube remains unchanged in position. The left hydropneumothorax is no t significantly changed. Left perihilar masslike opacity persists. The heart is stable in size. Surgi selvin clips within the bilateral axillae again noted. Left apical density persists. IMPRESSION: 1. No change in the left hydropneumothorax. A left basilar pleural catheter is unchanged in position. 2. Left perihilar and apical masslike opacity again noted. ACT 112: Negative or not required by law. Electronically signed by: Michele Lee M.D. 06/21/2023 10:44 AM
--- NOTE | 2023-06-21 12:12 | Procedure Note ---
Procedure Note Date of Service June 21, 2023 Note Procedure: Pleural drainage Diesel Dinkey Operator: Dr. Yvonne Hair Indication: Left-sided pleural effusion Consent: Verbal consent obtained Procedure: Patient already had a left-sided Pleurx catheter placed on 06/20/2023 Under aseptic precautions the dressing of the Pleurx catheter was removed. Pleurx catheter was connected to the Pleurx drainage kit. 350 mL of dark serosanguineous fluid was removed. Treatment was stopped because patient was complaining of chest tightness. After drainage Pleurx catheter was dressed and a Tegaderm was placed. Fluid will be sent for cytology. She tolerated the procedure well. Complications: None Blood loss: None Coding CPT Codes Pulmonary/Thoracic - Pulmonary and Thoracic: 10341 Pleural drainage w/o imaging ([id number]) [facility] [place] Procedure Codes (Charges) Pulmonary/Thoracic Procedure 1: Pulmonary and Thoracic: 45457 Pleural drainage w/o imaging
--- NOTE | 2023-06-21 16:42 | Discharge Summary ---
Discharge Summary Date of Service June 21, 2023 Notes For Next Care Provider Medication Changes From Visit None Admission HPI Per Admitting Provider This is a 62-year-old female with PMH breast cancer S/P bilateral mastectomy and radiation treatment and not interested in chemo, OA, h/o meningioma, migraines, tobacco use presented to ER with c/o worsening SOB and left sided chest pain today. History obtained from patient, family, inpatient and outpatient chart review. Recent Hospitalizations Include: [facility] Hospital admission 05/18/2023-05/20/2023 for SOB and cough and at that time CT chest without evidence for PE, had left mediastinal-left hilar lymphadenopathy which was concerning for metastatic disease. Had bronchoscopy on 05/20/2023 with noted very friable tissue. Cytology with scattered atypical epithelial cells. Pulmonology was consulted during admission and had mentioned if the specimens were negative may need further investigation with trans thoracic needle aspiration, thoracoscopy or repeat bronchoscopy with endoscopic ultrasound. Patient was treated for possible pneumonia and discharged on 5 additional days of antibiotics (cefdinir, doxycycline) and Diflucan. Patient Followed up with PCP 05/25/2023 with continued shortness of breath, left chest pain. Patient was started on Levaquin 500 mg x 10 days, prednisone 40 mg x 5 days. PCP visit 06/08/2023 with reported sweats, continued cough and shortness of breath, left-sided chest pain, continued intermittent hemoptysis. Was given prescription for oxycodone and referral to pain management was placed. Patient states taking oxycodone with minimal relief of pain to left side of chest. She was then again admitted to [facility] from 06/10/23-06/12/23 for the same complaints of chest pain and shortness of breath. Patient had gotten a PET/CT on 06/10/2023 which revealed necrotic FDG avid mediastinal and left hilar lymphadenopathy, multifocal FDG avid airspace opacity seen within the left lung with progressive consolidation within the lingula with remaining GINA airspace opacities L demonstrate rounded configuration with interval development of central cavitation. Improvement in interstitial thickening and groundglass airspace opacity within the left lung apex possibly representing an atypical pneumonia such as a fungal infection, Subcentimeter FDG avid supraclavicular lymph nodes which are nonspecific but could be reactive and Mild FDG uptake associated with the small left pleural effusion. Patient underwent thoracentesis by pulmonology on 06/11/2023 with 400 cc of reddish serosanguineous color fluid removal, with improvement in pleural effusion. She was placed on 2 L of oxygen with ambulation upon discharge home. Pt reports she was unable to tolerate more fluid removal due to pain. Yesterday on 06/18/2023 patient underwent endobronchial ultrasound with biopsy of [address] Shrestha. Results are pending. Pt is obviously frustrated during my visit, she reports feeling terrible, out of breath with any movement today. She has been wearing 2 L via NC however its not making her feel improved. Pt has a cough which is nonproductive but sounds wet. She denies any lightheadedness, dizziness, fever, chills, night sweats, lymph node swelling, changes in eating, weight loss, abd complaints, n/v/d/c. Pt has followed with [facility]. Admission Exam Per Admitting Provider General: awake, alert, no apparent distress, white female, BMI off 26.8 Head: Normocephalic, atraumatic ENT: PERRL, EOMI, no pharyngeal exudate, mucous membranes moist Chest: + Coarse breath sounds throughout with rales, absent breath sounds in the left base, on 2 L via NC. Cardiac: Tachycardic with HR of 97, +GENE, no JVD, normal peripheral pulses, good capillary refill Abdominal: NABS x 4 quadrants, soft, nondistended, nontender to palpation, no rebound or guarding Extremities: Normal inspection, no peripheral edema or erythema, calfs nontender to palpation Psych: irritated mood and affect Neuro: AAO x 3, strength intact bilaterally and rated 5/5, no motor deficits, speech is clear, no peripheral sensory deficits Principal Dx & Hospital Course #1 = Principal Diagnosis (1) Pleural effusion: (2) Mass of left lung: (3) Mediastinal lymphadenopathy: (4) Acute respiratory failure with hypoxia: (5) Breast cancer: (6) History of meningioma: per admitting service notes with addendum: This is a 62-year-old female with PMH breast cancer S/P bilateral mastectomy and radiation treatment and not interested in chemo, OA, h/o meningioma, migraines, tobacco use presented to ER with c/o worsening SOB and left sided chest pain today. Pleural Effusion, left, recurrent Mass in the left lung Mediastinal lymphadenopathy Hx of breast cancer, BRCA 1 + diagnosed in 2007 Hx meningioma - Originally diagnosed in 2007, recurrence in 2013, treated with bilateral mastectomy with breast implants s/p, radiation therapy, Pt has never had chemotherapy as she has refused this modality of treatment in the past. - Recurrent pleural effusion is concerning for malignancy - Patient had gotten a PET/CT on 06/10/2023 which revealed necrotic FDG avid mediastinal and left hilar lymphadenopathy, multifocal FDG avid airspace opacity seen within the left lung with progressive consolidation within the lingula with remaining GINA airspace opacities L demonstrate rounded configuration with i nterval development of central cavitation. Improvement in interstitial thickening and groundglass airspace opacity within the left lung apex possibly representing an atypical pneumonia such as a fungal infection, Subcentimeter FDG avid supraclavicular lymph nodes which are nonspecific but could be reactive and Mild FDG uptake associated with the small left pleural effusion. - Recent thoracentesis by pulmonology on 06/11/2023 with 400 cc of reddish serosanguineous color fluid removal, with improvement in pleural effusion. She was placed on 2 L of oxygen with ambulation upon discharge home. - On 06/18/2023 patient underwent endobronchial ultrasound with biopsy of [address] Shrestha. ---Results are pending - CTA chest :moderate size left pleural effusion compared to the PET/CT on June 10, no pulmonary emboli, significant progression of mediastinal and left hilar lymphadenopathy, this represents metastatic disease and may reflect metastatic breast cancer, increase in size of 4.9 x 4.6 cm masslike density within the left upper lobe. -Albumin is noted to be 3.3, no fluid accumulation peripherally. 06/20 Status post Pleurx cath placement, drained 500 cc of fluid 06/21 stable again drained [address] Hair: Would recommend the fluid to be drained every other day and once the fluid is less than 200 mL can do it twice a week. will need 2 L Oxygen at all times Needs to follow-up with pulmonary Dr. Shrestha within a week to get sutures removed. patient has oxycodone at home for PRN use Rhinovirus Infection - supportive care Tobacco use -Cessation encouraged DVT ppx: No chemical ppx in the setting of procedure tomorrow --- Hx of DVT in 2003 prior to cancer diagnosis, she is refusing chemical VTE prophylaxis even after my discussion with her regarding increased risk with malignancy. mechanical with scds, teds GI/FEN: Regular diet IV: 2 peripheral CODE: FULL code Dispo: d/c to home with home health services ff up with PCP in 1 week ff up with Pulm as scheduled Discharge Exam General- oriented x 3, not in distress, speaks in sentences with no effort or accessory muscle use Eyes- anicteric Neck- no JVD Lungs- clear breath sounds bilaterally, no rales/wheezes Heart- normal rate, regular rhythm; no murmurs Abdomen- normal bowel sounds, nondistended, soft, nontender Extremities- no pretibial edema, no calf tenderness Neuro- alert, oriented x 3; no gross focal neurologic deficits Skin- warm & dry Updated Medication List Medication Instructions Recorded Confirmed Type gabapentin 100 mg capsule 300 mg PO HS 05/18/23 06/19/23 History magnesium oxide 400 mg PO QAM 05/18/23 06/19/23 History multivitamin 1 tab PO DAILY 05/18/23 06/19/23 History quetiapine 100 mg tablet 100 mg PO HS 05/18/23 06/19/23 History riboflavin (vitamin B2) 400 mg 400 mg PO QAM 05/18/23 06/19/23 History tablet albuterol sulfate 90 mcg/actuation 1 - 2 puff inhalation Q6H PRN 06/10/23 06/19/23 History aerosol inhaler WHEEZING/SHORTNESS OF BREATH oxycodone 5 mg tablet 5 mg PO Q3H PRN Pain 06/19/23 06/19/23 History Hospital Stay Data Consultations 06/19/23 17:11 ED Decision to Admit Stat 06/19/23 21:05 Consult Pulmonology Routine Diagnostic Imagining Performed Laboratory Results WBC 9.79 K/ul (4.8-10.8) 06/20/23 05:56 RBC 4.03 M/uL (4.20-5.40) L 06/20/23 05:56 Hgb 11.7 g/dl (12.0-16.0) L 06/20/23 05:56 Hct 36.2 % (37.0-47.0) L 06/20/23 05:56 MCV 89.8 fL (80.0-100.0) 06/20/23 05:56 MCH 29.0 pg (25.0-34.0) 06/20/23 05:56 MCHC 32.3 g/dL (32.0-36.0) 06/20/23 05:56 RDW Std Deviation 43.8 fL (36.4-46.3) 06/20/23 05:56 RDW Coeff of John Paul 13.3 % (11.5-14.5) 06/20/23 05:56 Plt Count 490 K/uL (130-400) H 06/20/23 05:56 MPV 8.9 fL (9.4-12.4) L 06/20/23 05:56 Immature Gran % (Auto) 0.7 % 06/19/23 13:10 Neut % (Auto) 74.2 % 06/19/23 13:10 Lymph % (Auto) 15.4 % 06/19/23 13:10 [place] % (Auto) 7.3 % 06/19/23 13:10 Eos % (Auto) 2.0 % 06/19/23 13:10 Baso % (Auto) 0.4 % 06/19/23 13:10 Neut # (Auto) 8.31 K/uL (1.40-6.50) H 06/19/23 13:10 Lymph # (Auto) 1.72 K/uL (1.20-3.40) 06/19/23 13:10 [place] # (Auto) 0.82 K/uL (0.11-0.59) H 06/19/23 13:10 Eos # (Auto) 0.22 K/uL (0.00-0.50) 06/19/23 13:10 Baso # (Auto) 0.05 K/uL (0.00-0.20) 06/19/23 13:10 Immature Gran # (Auto) 0.08 K/uL (0.01-0.20) 06/19/23 13:10 D-Dimer 2360 ug/L FEU (0-500) H* 06/19/23 13:10 VBG pH 7.40 (7.36-7.41) 06/19/23 13:10 VBG pCO2 49 mmHg (38-50) 06/19/23 13:10 VBG pO2 50 mmHg 06/19/23 13:10 VBG HCO3 30 mmol/L 06/19/23 13:10 VBG O2 Saturation 84.5 % 06/19/23 13:10 VBG Base Excess 4.5 mEq/L 06/19/23 13:10 Sodium 140 mmol/L (136-145) 06/20/23 05:56 Potassium 4.1 mmol/L (3.5-5.1) 06/20/23 05:56 Chloride 105 mmol/L (98-107) 06/20/23 05:56 Carbon Dioxide 32 mmol/L (21-32) 06/20/23 05:56 Anion Gap 3 (3-11) 06/20/23 05:56 BUN 12 mg/dl (6-23) 06/20/23 05:56 Creatinine 0.51 mg/dl (0.6-1.2) L 06/20/23 05:56 Est Cr Clr Drug Dosing 106.3 ml/min 06/20/23 05:56 Est GFR ( Amer) 119.4 ml/min 06/20/23 05:56 Est GFR (Non-Af Amer) 103.1 ml/min 06/20/23 05:56 BUN/Creatinine Ratio 23.5 (10-20) H 06/20/23 05:56 Glucose 112 mg/dl (70-99(Fasting)) H 06/20/23 05:56 Calcium 8.4 mg/dl (8.6-10.3) L 06/20/23 05:56 Magnesium 2.0 mg/dl (1.7-2.4) 06/19/23 13:10 Total Bilirubin 0.3 mg/dl (0.2-1.0) 06/20/23 14:28 AST 17 U/L (13-39) 06/19/23 13:10 ALT 22 U/L (7-52) 06/19/23 13:10 Alkaline Phosphatase 77 U/L (34-104) 06/19/23 13:10 Lactate Dehydrogenase 238 U/L (86-244) 06/20/23 14:28 Troponin I High Sens 4.7 pg/ml (0-14) 06/19/23 13:10 B-Natriuretic Peptide 18 pg/ml (0-100) 06/19/23 13:10 Total Protein 6.5 gm/dl (6.0-8.3) 06/20/23 14:28 Albumin 3.3 gm/dl (3.4-5.0) L 06/20/23 14:28 Globulin 3.3 gm/dl (2.5-4.0) 06/19/23 13:10 Albumin/Globulin Ratio 1.0 (0.9-2) 06/19/23 13:10 Urine Color Dark Yellow 06/20/23 08:00 Urine Appearance Clear (Clear) 06/20/23 08:00 Urine pH 5.5 (4.5-7.5) 06/20/23 08:00 Ur Specific [place] 1.042 (1.000-1.030) H 06/20/23 08:00 Urine Protein Trace (Negative) H 06/20/23 08:00 Urine Glucose (UA) Negative (Negative) 06/20/23 08:00 Urine Ketones Trace (Negative) H 06/20/23 08:00 Urine Blood Negative (Negative) 06/20/23 08:00 Urine Nitrite Negative (Negative) 06/20/23 08:00 Urine Bilirubin Negative (Negative) 06/20/23 08:00 Urine Urobilinogen Negative (Negative) 06/20/23 08:00 Ur Leukocyte Esterase Negative (Negative) 06/20/23 08:00 Urine WBC (Auto) 1-5 /hpf (0-5) 06/20/23 08:00 Urine RBC (Auto) 5-10 /hpf (0-4) H 06/20/23 08:00 U Hyaline Cast (Auto) 1-5 /lpf (0-5) 06/20/23 08:00 U Epithel Cells (Auto) >30 /lpf (0-5) H 06/20/23 08:00 Urine Bacteria (Auto) Negative (Negative) 06/20/23 08:00 Fluid Neutrophils % 20 % 06/20/23 Unknown Fluid Lymphocytes % 69 % 06/20/23 Unknown Fluid Eosinophils % 2 % 06/20/23 Unknown Fluid Meso/Macro/[place] % 9 % 06/20/23 Unknown Fluid Comment 06/20/23 Unknown Pleural Fluid Source Left Lung 06/20/23 Unknown Pleural Color Straw 06/20/23 Unknown Pleural Appearance Cloudy 06/20/23 Unknown Pleural pH 7.54 (7.3-7.4) H 06/20/23 Unknown Pleural WBC (Auto) 2381 /uL 06/20/23 Unknown Pleural RBC (Auto) 5000 /uL 06/20/23 Unknown Pleural Total Protein 4.0 gm/dl 06/20/23 Unknown Pleural LDH 225 U/L 06/20/23 Unknown Pleural Glucose 109 mg/dl 06/20/23 Unknown Pleural Amylase 20 U/L 06/20/23 Unknown Adenovirus (PCR) Not Detected (NotDetected) 06/19/23 13:00 B. pertussis DNA (PCR) Not Detected (NotDetected) 06/19/23 13:00 B.parapertussis DNA PCR Not Detected (NotDetected) 06/19/23 13:00 C. pneumoniae DNA (PCR) Not Detected (NotDetected) 06/19/23 13:00 Coronavirus OC43 (PCR) Not Detected (NotDetected) 06/19/23 13:00 Coronavirus HKU1 (PCR) Not Detected (NotDetected) 06/19/23 13:00 Coronavirus 229E (PCR) Not Detected (NotDetected) 06/19/23 13:00 SARS-CoV-2 (PCR) Not Detected (NotDetected) 06/19/23 13:00 Coronavirus NL63 (PCR) Not Detected (NotDetected) 06/19/23 13:00 Human Metapneumovir PCR Not Detected (NotDetected) 06/19/23 13:00 Influenza Type A (PCR) Not Detected (NotDetected) 06/19/23 13:00 Influenza Type B (PCR) Not Detected (NotDetected) 06/19/23 13:00 M. pneumoniae (PCR) Not Detected (NotDetected) 06/19/23 13:00 Parainfluenza 1 (PCR) Not Detected (NotDetected) 06/19/23 13:00 Parainfluenza 2 (PCR) Not Detected (NotDetected) 06/19/23 13:00 Parainfluenza 3 (PCR) Not Detected (NotDetected) 06/19/23 13:00 Parainfluenza 4 (PCR) Not Detected (NotDetected) 06/19/23 13:00 RSV (PCR) Not Detected (NotDetected) 06/19/23 13:00 Entero/Rhino (PCR) DETECTED (NotDetected) A* 06/19/23 13:00 Impressions Chest CTA 06/19/23 13:49 CT ANGIOGRAPHY OF THE CHEST, PULMONARY EMBOLUS PROTOCOL CLINICAL HISTORY: Cough. Congestion. Breast cancer. Evaluate for pulmonary emb olus. COMPARISON STUDY: Chest CT May 18, 2023. PET/CT August 10, 2023. Chest radiograph performed earlier today. TECHNIQUE: Following IV administration of 118 mL of Optiray, helical axial lorenzo ges of the chest were obtained utilizing the pulmonary embolus protocol. Maximal intensity projections and sagittal and coronal reformats were viewed on an independent 3D workstation. IV contrast was administered without complication. Automated exposure control was utilized for the study. A dose lowering technique was utilized adhering to the principles of ALARA. CT DOSE: 570.56 mGy.cm FINDINGS: No pulmonary emboli are identified. There is no thoracic aortic dissection. Size of the heart is normal. There is a small pericardial effusion. Bilateral breast implants are noted. No pneumothorax is present. A moderate- sized left pleural effusion has increased in size since prior chest CT and PET/CT. Subpleural left lower lobe opacity favors atelectasis. Bulky mediastinal and left hilar adenopathy has progressed since CT of May 18, 2023. This is similar to recent PET/CT. A prevascular node measures approximately 5 x 3.6 cm. This measured 3.5 x 2.[address] of May 18, 2023. Conglomerate left hilar node on image 141 of 247 measures 4.6 x 3.5 cm. Mass-like density within the left upper lobe on image 167 measures 4.9 x 4.6 cm. This has increased since PET/CT of June 10, 2023. A 4.3 x 3.3 cm cavitary left apical thick-walled abnormality is similar in size to PET/CT. An additional 2.5 x 1.6 cm left upper lobe cavitary irregular density is also unchanged. No significant abnormality within the right lung is noted. No suspicious lesions within the bony thorax are present. Visualized portions of the upper abdomen are unremarkable. IMPRESSION: 1. No pulmonary emboli identified. 2. Increase in size of a moderate left pleural effusion since PET/CT of June 10, 2023. 3. Significant progression of mediastinal and left hilar lymphadenopathy since CT of May 18, 2023. This represents metastatic disease and may reflect metastatic breast cancer. A second primary with underlying primary lung malignancy could have a similar imaging appearance. 4. Increase in size of a 4.9 x 4.6 cm mass-like density within the left upper lobe. This remains nonspecific and may be neoplastic or infectious in etiology. Additional cavitary left upper lobe densities are similar to prior PET/CT and may also be infectious or neoplastic. ACT 112: Negative or not required by law. Electronically signed by: Michael Mo M.D. 06/19/2023 3:29 PM Chest X-Ray 06/21/23 08:16 XR chest 1V portable HISTORY: Follow-up left-sided pneumothorax. COMPARISON: Chest 06/20/2023. FINDINGS: The left basilar chest tube remains unchanged in position. The left hydropneumothorax is not significantly changed. Left perihilar masslike opacity persists. The heart is stable in size. Surgical clips within the bilateral axillae again noted. Left apical density persists. IMPRESSION: 1. No change in the left hydropneumothorax. A left basilar pleural catheter is unchanged in position. 2. Left perihilar and apical masslike opacity again noted. ACT 112: Negative or not required by law. Electronically signed by: Michele Lee M.D. 06/21/2023 10:44 AM Pending Results Patient Have Any Pending Studies at Discharge: Yes Discharge Instructions Given to Patient (Per Discharging Provider) Drain fluid every other day and once the fluid is less than 200 mL, can do it twice a week. Use 2 L of oxygen supplement at all times. Follow-up with Dr. Shrestha within a week to get sutures removed. PLEASE CALL YOUR PRIMARY CARE PHYSICIAN OR RETURN TO THE ER IF WITH WORSENING OF SYMPTOMS, INCLUDING Increasing pain, bleeding or drainage from Pleurx site, fevers or chills, cough, shortness of breath, etc. FOLLOW UP WITH PRIMARY CARE PHYSICIAN IN 1 WEEK. FOLLOW-UP WITH DR. SPRINGER WITHIN A WEEK. Total Time Total Time Spent Total Time Spent (In Minutes): >30 minutes
== END 2023-06-21 17:38 | disposition home health service (06) | DRG 186 ==
LOC: ED 12:29 → 2W 18:37 → SUATTDRO 18:37 → 2W 20:36

== ENCOUNTER 2024-11-08 07:56 | Inpatient (IN) ==
--- NOTE | 2024-11-08 08:19 | Emergency Department Note ---
ED Provider Note CHIEF COMPLAINT: Shortness of breath HISTORY OF PRESENT ILLNESS: This 63-year-old female patient with past medical history of metastatic lung CA presents to the emergency department via private vehicle for evaluation of difficulty breathing for the last 2 weeks. She also reports lightheaded and dizziness. She states she has been having right foot and ankle swelling, lethargy. The patient states she is to begin chemotherapy soon for brain CA, and she is currently supposed to be taking steroids, however she has chosen to discontinue them due to side effects. She states she believes the steroids were causing a pain in the posterior head, however upon stopping the pain has continued. The patient's reports the shortness of breath, and leg swelling has occurred over the last week and a half since she DC'd her steroids. She reports worsening shortness of breath, lightheadedness, dizziness, and pain in the left side from coughing. She is currently afebrile, with tachycardia. She reports no chest pain, abdominal pain, nausea, vomiting, dysuria, or diarrhea. REVIEW OF SYSTEMS: A review of systems was performed with positives and pertinent negatives listed in the history of present illness. All other systems were reviewed and are negative. ALLERGIES: See below MEDICATIONS: See below PMH: See below PHYSICAL EXAM: VITALS: Vitals are noted on the nurse's note and reviewed by myself. Vital signs stable. GENERAL: 63-year-old female, in no acute distress, nondiaphoretic. SKIN: The skin was without rashes, erythema, edema, or bruising. HEAD: Normocephalic atraumatic. EYES: Pupils equal round and reactive to light and accommodation. Conjunctivae without injection, sclerae without icterus. Extraocular movements intact. MOUTH: Mucous membranes moist. No tonsillar hypertrophy. Pharynx without erythema or exudate. Uvula midline. Airway patent. Tongue does not deviate. NECK: Supple without nuchal rigidity. No lymphadenopathy. Cervical spine is nontender. No JVD. HEART: Regular rate and rhythm without murmurs gallops or rubs. LUNGS: Coarse lung sounds right upper lobe, diminished left upper lobe, no crackles noted in bases. ABDOMEN: Positive bowel sounds x 4. Soft, nontender, without masses or organomegaly. Allen sign negative. No guarding or rebound tenderness. MUSCULOSKELETAL: RLE edema pitting 2+. Full ROM right ankle, DP pulse intact. No cellulitis present. NEURO: Patient was alert and oriented to person place and time. No focal neurological deficits. MEDICAL DECISION MAKING: The patient is a 63-year-old female who arrives to the emergency department for evaluation of the above-stated complaint. Upon evaluation the patient does have persistent tachycardia, with borderline hypotension. Due to history of metastatic lung CA, with brain CA, a sepsis workup was indicated with advanced imaging. The patient's port was accessed by nursing staff. Blood cultures, lactate, CBC, CMP, troponin, BNP, and urinalysis were obtained. Lab work shows []. Upper respiratory [employer] panel was obtained which shows []. CT angio of the chest to rule out PE, and other cardiopul monary findings shows []. Right lower extremity ultrasound imaging was obtained to rule out DVT which shows []. The patient was gently fluid resuscitated at 250 mL/h as to avoid fluid volume overload. []. DIFFERENTIAL DIAGNOSIS: Reactive airway disease, pneumonia, pneumothorax, COPD, CHF, infections, cardiac ischemia, pulmonary embolism, DVT, cellulitis, mass, musculoskeletal, gastrointestinal, as well as other pathologies. The patient's case was discussed with Dr. Doyle, who agreed with my evaluation and treatment plan. The chart was completed utilizing [employer] Speech voice recognition software. Grammatical errors, random word insertions, pronoun errors, and incomplete sentences are an occasional consequence of this system due to software limitations, ambient noise, and hardware issues. Any formal questions or concerns about the content, text, or information contained within the body of this dictation should be directly addressed to the physician for clarification. Past Med/Surg History Problem List (Updated 10/09/24 @ 00:06 by Background Daemon) Lung cancer metastatic to brain (Chronic 06/20/24) Small cell lung cancer (Chronic) Acute on chronic respiratory failure with hypoxemia SOB (shortness of breath) (Acute) Mass of left lung (Acute) Tachycardia (Acute) Collapse of left lung (Acute) Leukocytosis (Acute) Tobacco abuse Pleural effusion Tobacco use (Acute) Mass of left lung Acute respiratory failure with hypoxia History of meningioma History of migraine Breast cancer (Acute ~09/13/14) Shortness of breath (Acute) Left upper lobe pneumonia (Acute) Mediastinal lymphadenopathy (Acute) Neoplasm of right breast, primary tumor staging category 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) Medical History Atypical chest pain Surgical History S/P BSO (status post bilateral salpingo-oophorectomy) H/O tubal ligation History of bilateral mastectomy Family History Mother Cancer Father Cancer Skin cancer Social History Smoking Status: Current every day smoker Tobacco Type: Cigarettes Cigarettes Per Day: 20; Second Hand Exposure: Yes; Do You Dip or Chew Tobacco: No; Hx Alcohol Use: Yes Alcohol type: beer, wine and hard liquor Alcohol Intake Frequency: Monthly or Less Hx Substance Use: No Preferred Language: Danish Communication Ability: Effective Visual Impairment: Limited Hearing Ability: Normal Atmospheric Physicist Required: No Beliefs That Will Affect Care: None Current Living Situation: Spouse current occupational status: disabled 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 Feels Safe at Home: Yes Assistive Devices: Glasses and Oxygen - Continuous Allergies Allergies Allergy/AdvReac Type Severity Reaction Status Date / Time terbinafine Allergy Intermediate RASH Verified 10/10/24 11:55 adhesive Allergy Unknown HIVES AND Verified 10/10/24 11:55 RASH; WELTS FROM BANDAIDS amitriptyline Allergy Unknown Rash Verified 10/10/24 11:55 Home Meds Home Medications Medication Instructions Recorded Confirmed gabapentin 100 mg capsule 300 mg PO HS 07/27/23 11/08/24 quetiapine 100 mg tablet 100 mg PO HS 07/27/23 11/08/24 magnesium oxide 400 mg PO QAM 08/12/23 11/08/24 levetiracetam 500 mg tablet 500 mg PO AMHS 07/14/24 11/08/24 (Keppra) ramelteon 8 mg tablet (Rozerem) 8 mg PO HS 07/14/24 11/08/24 acetaminophen 500 mg tablet 1,000 mg PO Q8 PRN PAIN,MODERATE 09/24/24 11/08/24 multivitamin 1 tab PO DAILY 09/24/24 11/08/24 riboflavin (vitamin B2) 400 mg 400 mg PO QAM 09/24/24 11/08/24 tablet vitamin E 268 mg (400 unit) capsule 268 mg PO QAM 09/24/24 11/08/24 hydromorphone 4 mg tablet 4 mg PO Q6H PRN Pain 11/08/24 11/08/24 Results & Data (ED) Vital Signs Vital Signs - 24 hr 11/08/24 08:08 Temperature 37.5 C Temperature Source Temporal Artery Scan Pulse Rate 125 H Respiratory Rate 20 Respiratory Effort / Characteristics Non-Labored Spontaneous Respiratory Depth Normal Respiratory Pattern Regular Blood Pressure 108/62 Blood Pressure Mean 77 Pulse Oximetry 91 Oxygen Delivery Method Room Air Sepsis Recent Fever Within 48 Hours No Sepsis New/Unexplained Change in Mental Status N/A Sepsis Action Taken by Nursing No Action Required Discharge Plan Visit Data Chief Complaint: Shortness of Breath/Dyspnea Stated Complaint: SOB, BODY PAIN, RT FOOT/ANKLE EDEMA ED Provider: Jimmie Doyel ED Midlevel Provider: Hillary Gill Forms Stand Alone Forms: [facility] Prescriptions Prescriptions: No Action magnesium oxide 400 mg magnesium tablet 400 mg PO QAM ramelteon [Rozerem] 8 mg tablet 8 mg PO HS levetiracetam [Keppra] 500 mg tablet 500 mg PO AMHS quetiapine 100 mg tablet 100 mg PO HS gabapentin 100 mg capsule 300 mg PO HS hydromorphone 4 mg tablet 4 mg PO Q6H PRN (Reason: Pain) multivitamin Tablet 1 tab PO DAILY vitamin E [Vitamin E-400] 268 mg (400 unit) Capsule 268 mg PO QAM riboflavin (vitamin B2) 400 mg Tablet 400 mg PO QAM acetaminophen 500 mg Tablet 1,000 mg PO Q8 PRN (Reason: PAIN,MODERATE) Referrals Referrals: Kaden Smith MD [Primary Care Provider] -
[2024-11-08] MEDS: SODIUM CHLORIDE 0.9% 1,000 ML IV SCH (08:45)
[2024-11-08 09:07] LABS: Basophils # (auto) 0.02 K/uL (0.00-0.20); Basophils % (auto) 0.2 %; Eosinophils # (auto) 0.01 K/uL (0.00-0.50); Eosinophils % (auto) 0.1 %; Hematocrit (blood only) 35.9 % (37.0-47.0); Immature Granulocytes # (auto) 0.06 K/uL (0.01-0.20); Immature Granulocytes % (auto) 0.6 %; Lymphocytes # (auto) 0.34 K/uL (1.20-3.40); Lymphocytes % (auto) 3.1 %; Mean Corpuscular Hemoglobin 29.9 pg (25.0-34.0); Mean Corpuscular Hgb Conc 33.4 g/dL (32.0-36.0); Mean Corpuscular Volume 89.5 fL (80.0-100.0); Mean Platelet Volume 9.7 fL (9.4-12.4); Monocytes # (auto) 0.78 K/uL (0.11-0.59); Monocytes % (auto) 7.2 %; Neutrophils # (auto) 9.64 K/uL (1.40-6.50); Neutrophils % (auto) 88.8 %; Platelet Count 136 K/uL (130-400); RDW Coefficient of Variation 15.4 % (11.5-14.5); RDW Standard Deviation 50.5 fL (36.4-46.3); Red Blood Count 4.01 M/uL (4.20-5.40); White Blood Count 10.85 K/ul (4.8-10.8)
[2024-11-08 09:30] LABS: Albumin Globulin Ratio 1.3 (0.9-2); Albumin Level 3.5 gm/dl (3.4-5.0); BUN Creatinine Ratio 24.5 (10-20); Bilirubin,Total 0.7 mg/dl (0.2-1.0); Calcium 8.7 mg/dl (8.6-10.3); Creatinine Clr Calc Pharmacy 98.1 ml/min; Globulin 2.7 gm/dl (2.5-4.0); Potassium 3.5 mmol/L (3.5-5.1); Total Protein 6.2 gm/dl (6.0-8.3)
[2024-11-08 09:36] LABS: Troponin I High Sensitivity 32.6 pg/ml (0-14)
[2024-11-08] MEDS: OPTIRAY 320 125ml IV ONE (09:46)
[2024-11-08 09:50] LABS: Adenovirus PCR Not Detected (NotDetected); Bordetella parapertussis PCR Not Detected (NotDetected); Bordetella pertussis PCR Not Detected (NotDetected); Chlamydia pneumoniae PCR Not Detected (NotDetected); Coronavirus 229E PCR Not Detected (NotDetected); Coronavirus CoV-2 (COVID19)PCR Not Detected (NotDetected); Coronavirus HKU1 PCR Not Detected (NotDetected); Coronavirus NL63 PCR Not Detected (NotDetected); Coronavirus OC43PCR Not Detected (NotDetected); Human Metapneumovirus PCR Not Detected (NotDetected); Influenza A PCR Not Detected (NotDetected); Influenza B PCR Not Detected (NotDetected); Mycoplasma pneumoniae PCR Not Detected (NotDetected); Parainfluenza Virus 1 PCR Not Detected (NotDetected); Parainfluenza Virus 2 PCR Not Detected (NotDetected); Parainfluenza Virus 3 PCR Not Detected (NotDetected); Parainfluenza Virus 4 PCR Not Detected (NotDetected); Respiratory Syncytial VirusPCR Not Detected (NotDetected); Rhinovirus/Enterovirus PCR Not Detected (NotDetected)
[2024-11-08] MEDS ORDERED: Heparin IV Adult Wt-Based Standard w/ INITIAL Bolus Protocol IV STA (10:13)
--- NOTE | 2024-11-08 10:19 | CT Scan Report ---
CT ANGIOGRAPHY OF THE CHEST, PULMONARY EMBOLUS PROTOCOL CLINICAL HISTORY: Dyspnea. Breast cancer. COMPARISON STUDY: Chest CT April 11, 2024. PET/CT October 12, 2024. TECHNIQUE: Following IV administration of 112 mL of Optiray, helical axial images of the chest were o btained utilizing the pulmonary embolus protocol. Maximal intensity projections and sagittal and cor onal reformats were viewed on an independent 3D workstation. IV contrast was administered without co mplication. Automated exposure control was utilized for the study. A dose lowering technique was ut ilized adhering to the principles of ALARA. CT DOSE: 593.78 mGy.cm FINDINGS: Right internal jugular central line is in place. Extensive bilateral pulmonary emboli are present, including near occlusive emboli within the right interlobar pulmonary artery. There is strai ghtening of the interventricular septum with dilatation of the right heart chambers. Subpleural right lower lobe opacity measures 8.7 cm in extent. There is a small right pleural effusion. This opacity is new since recent PET/CT. Opacity within the left upper lung is similar to PET/CT. This has mildly increased since chest CT of April 11, 2024. Left: Anterior pleural thickening as well as soft tissue t hickening within the AP window similar to CT of April 11, 2024. No discrete enlarged thoracic lymph no asia are present. Prominent retrocrural lymph nodes remain unchanged. There are no suspicious lesions within the bony thorax. There is no pneumothorax. Visualized portions of the upper abdomen are unrema rkable. There are postoperative findings consistent with bilateral mastectomy with reconstruction. IMPRESSION: 1. Extensive bilateral pulmonary emboli, as described above. CT evidence for right heart strain and a right lower lobe pulmonary infarct with small pleural effusion. Findings discussed with Hillary Gill at time of dictation. 2. Left upper lung airspace opacities, mildly increased since CT of April 11, 2024. These are likely t reatment related. 3. Persistent left apical and anterior pleural thickening with soft tissue thickening within the AP w indow, similar to CT of April 11, 2024. This favors tumor/post therapy change. However, continued imag ing follow-up to ensure stability is recommended to exclude the possibility of residual tumor. ACT 112: Negative or not required by law. Electronically signed by: Michael Mo M.D. 11/08/2024 10:18 AM
[2024-11-08 10:24] LABS: Appearance Urine Clear (Clear); Bacteria Urine Automated None Seen (None Seen); Bilirubin Urine 1+ (Negative); Blood Urine Trace (Negative); Cast Urine Automated 0-2 /lpf (0-2); Color Urine Dark Yellow; Epithelial Cell Urine Auto 0-2 /hpf (0-2); Glucose Urine UA Negative (Negative); Ketones Urine Trace (Negative); Leukocyte Esterase Urine Negative (Negative); Nitrite Urine Negative (Negative); Protein Urine 1+ (Negative); Specific Gravity Urine 1.032 (1.000-1.030); Urobilinogen Urine Negative (Negative); WBC Urine Automated 0-5 /hpf (0-5); pH Urine 5.5 (4.5-7.5)
[2024-11-08] MEDS ORDERED: HEPARIN SOD (PORCINE) 1000 UNIT/ML IV ONE (10:28)
--- NOTE | 2024-11-08 10:29 | History & Physical Report ---
Date of Service November 08, 2024 Assessment & Plan (1) Bilateral pulmonary embolism: (2) Small cell lung cancer: (3) Lung cancer metastatic to brain: (4) SOB (shortness of breath): Plan Acute bilateral PE Pulmonary Infarct Small pleural effusion - Admit to PCU - CTA reviewed showing extensive bilateral PE, Right lowe lobe pulmonary infarct and small pleural effusion - Echo ordered, noted evidence of R heart stain on CTA - Cont heparin gtt for now, discuss formal anticoagulation with oncology/heme, no on prior - DVT RLE pending, + edema x 2-3d - Takes dilaudid 4 mg PO at home twice daily, ordered Q6H prn, pt has significant pain at the time of my eval. Dilaudid 1 mg IV did not relieve any pain. Will allow routine PO dialudid now and give Toradol IV 30 mg once for PE related pain. - Initiation of fentanyl patch 25 mcg daily for severe pain - Palliative care consultation - Has O2 at home but does not typically need it - last 2 days had been wearing 3.5 L during the day. - Chronic tobacco use - pt denies wanting nicotine patch. Right LE DVT - Imaging reveals deep venous thrombus extending from the mid femoral vein to the popliteal and possibly the calf veins, in particular the posterior tibial vein contains a thrombus. No superficial venous thrombosis is identified. 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 -She has previously had radiation to both breast and then bilateral mastectomy, and in 2022 completed combined radiation and chemotherapy with etoposide and carboplatin for small cell carcinoma of the lung. In May 2024 had a right frontal craniotomy for removal of tumor, supratentorial by Dr. Luque. She has completed stereotactic radiation to the 1 brain lesion in July and then in September completed whole brain radiation therapy. She was started on dexamethasone in the beginning of September for development of significant headaches with associated blurred vision. She was also placed on Namenda by neurology for issues with short-term memory loss. - Stopped taking decadron after completion of whole brain radiation - Dilaudid was started by oncology for headaches specifically on 11/01 - Outpatient EPIC reviewed- shows was supposed to start Cycle 1 day 1 on 11/01/24 but was held due to thrombocytopenia, PLT= 91. Pt was supposed to have repeat labs this week for initiation of treatment. Planned chemo: durvalumab, carboplatin, etoposide. DVT ppx: heparin gtt Lines: PIV x 1, Mediport FEN/GI: Regular diet CODE: Full - discussed with pt and . Dispo: From home, likely to remain in the hospital x 2 days A total of 80 minutes were spent with greater than 50% of that time face to face with the patient, personally reviewing all current laboratories, imaging studies, past medication reconciliation, outpatient chart review, and discussion with specialists to collaborate care for the patient with attending. Please see attending documentation for corrections and/or additions. History of Present Illness Chief Complaint: Shortness of breath Primary Care Provider: Kaden Smith MD This is a 63-year-old female with PMHx of right breast DCIS in 2007, recurrence of infiltrating ductal carcinoma of the left breast in 2014, small cell carcinoma of the left lung 2022, brain mets due to small cell lung cancer found May 2024, and in August 2024 found progression of brain metastasis. She has previously had radiation to both breast and then bilateral mastectomy, and in 2022 completed combined radiation and chemotherapy with etoposide and carboplatin for small cell carcinoma of the lung. In May 2024 had a right frontal craniotomy for removal of tumor, supratentorial by Dr. Luque. She has completed stereotactic radiation to the 1 brain lesion in July and then in September completed whole brain radiation therapy. She was started on dexamethasone in the beginning of September for development of significant headaches with associated blurred vision. She was also placed on Namenda by neurology for issues with short-term memory loss. Today the patient presents with increasing shortness of breath over the last week, right lower extremity edema, and was found to be tachycardic and still hypoxic in the ER this morning. She is requiring 2 L O2 where typically does not need any supplemental oxygen at baseline. She does have oxygen at home and was wearing 3.5 L the past two days. She has a wet sounding cough but it is painful for her to cough anything up. Pt has pain throughout her body currently, stating it is terrible. At home she has dilaudid PO 4 mg Q6H prn but only uses it twice daily, last dose was around 0400 this morning. She has smoked tobacco lifelong. Denies wanting a nicotine patch and says she wants to smoke her cigarettes. She is not on any blood thinning agents. Her , Miky, is at bedside and supports the history. Patient had a CT a of the chest which is showing extensive bilateral pulmonary emboli, evidence of right-sided heart strain, and right lower lobe pulmonary infarct with small pleural effusion. Left upper airspace opacities mildly increased since CT in March 2024, persistent left apical and anterior pleural thickening with soft tissue thickening favors tumor/posttherapy change. Patient was started on a heparin drip in the ER. Troponin noted to be 32.6, BNP 160. Electrolytes are stable, WBC 10.85, afebrile. Allergies Allergy/AdvReac Type Severity Reaction Status Date / Time terbinafine Allergy Intermediate RASH Verified 10/10/24 11:55 adhesive Allergy Unknown HIVES AND Verified 10/10/24 11:55 RASH; WELTS FROM BANDAIDS amitriptyline Allergy Unknown Rash Verified 10/10/24 11:55 Home Medications Medication Instructions Recorded Confirmed Type gabapentin 100 mg capsule 300 mg PO HS 07/27/23 11/08/24 History quetiapine 100 mg tablet 100 mg PO HS 07/27/23 11/08/24 History magnesium oxide 400 mg PO QAM 08/12/23 11/08/24 History levetiracetam 500 mg tablet 500 mg PO AMHS 07/14/24 11/08/24 History (Keppra) ramelteon 8 mg tablet (Rozerem) 8 mg PO HS 07/14/24 11/08/24 History acetaminophen 500 mg tablet 1,000 mg PO Q8 PRN PAIN,MODERATE 09/24/24 11/08/24 History multivitamin 1 tab PO DAILY 09/24/24 11/08/24 History riboflavin (vitamin B2) 400 mg 400 mg PO QAM 09/24/24 11/08/24 History tablet vitamin E 268 mg (400 unit) capsule 268 mg PO QAM 09/24/24 11/08/24 History hydromorphone 4 mg tablet 4 mg PO Q6H PRN Pain 11/08/24 11/08/24 History Past Med/Surg History Problem List (Updated 11/08/24 @ 10:40 by Nishi Beth PA-C) Bilateral pulmonary embolism Lung cancer metastatic to brain (Chronic 06/20/24) Small cell lung cancer (Chronic) Acute on chronic respiratory failure with hypoxemia SOB (shortness of breath) (Acute) Mass of left lung (Acute) Tachycardia (Acute) Collapse of left lung (Acute) Leukocytosis (Acute) Tobacco abuse Pleural effusion Tobacco use (Acute) Mass of left lung Acute respiratory failure with hypoxia History of meningioma History of migraine Breast cancer (Acute ~09/13/14) Shortness of breath (Acute) Left upper lobe pneumonia (Acute) Mediastinal lymphadenopathy (Acute) Neoplasm of right breast, primary tumor staging category 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) Medical History Atypical chest pain Surgical History S/P BSO (status post bilateral salpingo-oophorectomy) H/O tubal ligation History of bilateral mastectomy Family History Mother Cancer Father Cancer Skin cancer Social History Smoking Status: Current every day smoker Tobacco Type: Cigarettes Cigarettes Per Day: 20; Second Hand Exposure: No; Do You Dip or Chew Tobacco: No; Tobacco Cessation Education Requested by Patient: No Hx Alcohol Use: No Hx Substance Use: No Preferred Language: Kyrgyz Communication Ability: Effective Visual Impairment: Limited Hearing Ability: Normal Cath Lab Nurse Required: No Beliefs That Will Affect Care: None Current Living Situation: Spouse Current Living Situation Comment: lives with current occupational status: disabled 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 Other Information That Helps Us Care for You: No Feels Safe at Home: Yes Safety Concerns: Feels Safe At This Time Assistive Devices: Oxygen - Continuous Assistive Devices Comment: Has oxygen at home if needed Review of Systems Review of Systems: Constitutional: No fever, sweats or chills Eyes: No diplopia, no worsening or blurred vision ENT: normal hearing, no trouble swallowing Respiratory: + wet cough, pain has inhibited expectoration of sputum, +dyspnea at rest and on exertion Cardiovascular: No chest pain, tightness or palpitations Abdomen: No pain, nausea, vomiting, diarrhea or constipation Musculoskeletal: No joint pain, calf pain, swelling Neurologic: No weakness, numbness/tingling, or balance problems Psychiatric: No anxiety or depression Skin: No rash or itch Physical Exam Physical Exam: General: awake, alert, chronically ill appearing, white female, alopecia, + moderate distress leaning forward sitting up in bed breathing heavy Head: Normocephalic, atraumatic ENT: PERRL, EOMI, no pharyngeal exudate, mucous membranes moist Chest: Mediport accessed R chest wall, + wet cough, diminished breath sounds throughout, on 2.5 L NC, no adventitious breath sounds Cardiac: + tachycardia with HR 110-120s, no murmur, no JVD, normal peripheral pulses, good capillary refill Abdominal: NABS x 4 quadrants, soft, nondistended, nontender to palpation, no rebound or guarding Extremities: Normal inspection, + RLE +2 pitting edema, no erythema, calfs nontender to palpation Psych: Normal mood and affect Neuro: AAO x 3, strength intact bilaterally and rated 5/5, no motor deficits, speech is clear, no peripheral sensory deficits Results & Data Results & Data Vital Signs (Past 12 Hours) Vital Signs Temp Pulse Resp BP Pulse Ox O2 Del Method O2 Flow Rate 11/08/24 10:15 126 H 16 101/78 100 11/08/24 10:00 105 H 16 115/83 100 11/08/24 09:00 106 H 12 97/76 L 99 11/08/24 08:57 111 H 18 101/77 99 11/08/24 08:53 117 H 11/08/24 08:49 108 H 14 98 Nasal Cannula 2 11/08/24 08:49 90 Nasal Cannula 0 11/08/24 08:08 37.5 C 125 H 20 108/62 91 Room Air Laboratory Results 11/08/24 11/08/24 11/08/24 09:56 08:45 08:43 WBC 10.85 H RBC 4.01 L Hgb 12.0 Hct 35.9 L MCV 89.5 MCH 29.9 MCHC 33.4 RDW Std Deviation 50.5 H RDW Coeff of [place] 15.4 H Plt Count 136 MPV 9.7 Immature Gran % (Auto) 0.6 Neut % (Auto) 88.8 Lymph % (Auto) 3.1 [place] % (Auto) 7.2 Eos % (Auto) 0.1 Baso % (Auto) 0.2 Neut # (Auto) 9.64 H Lymph # (Auto) 0.34 L [place] # (Auto) 0.78 H Eos # (Auto) 0.01 Baso # (Auto) 0.02 Immature Gran # (Auto) 0.06 Sodium 139 Potassium 3.5 Chloride 100 Carbon Dioxide 31 Anion Gap 8 BUN 13 Creatinine 0.53 L Est Cr Clr Drug Dosing 98.1 eGFR 103.85 BUN/Creatinine Ratio 24.5 H Glucose 127 H Lactate 0.5 Calcium 8.7 Total Bilirubin 0.7 AST 36 ALT 28 Alkaline Phosphatase 73 Troponin I High Sens 32.6 H B-Natriuretic Peptide 160 H Total Protein 6.2 Albumin 3.5 Globulin 2.7 Albumin/Globulin Ratio 1.3 Urine Color Dark Yellow Urine Appearance Clear Urine pH 5.5 Ur Specific [place] 1.032 H Urine Protein 1+ H Urine Glucose (UA) Negative Urine Ketones Trace H Urine Blood Trace H Urine Nitrite Negative Urine Bilirubin 1+ H Urine Urobilinogen Negative Ur Leukocyte Esterase Negative Urine WBC (Auto) 0-5 Urine RBC (Auto) 3-5 H U Hyaline Cast (Auto) 0-2 U Epithel Cells (Auto) 0-2 Urine Bacteria (Auto) None Seen Adenovirus (PCR) Not Detected B. pertussis DNA (PCR) Not Detected B.parapertussis DNA PCR Not Detected C. pneumoniae DNA (PCR) Not Detected Coronavirus OC43 (PCR) Not Detected Coronavirus HKU1 (PCR) Not Detected Coronavirus 229E (PCR) Not Detected SARS-CoV-2 (PCR) Not Detected Coronavirus NL63 (PCR) Not Detected Human Metapneumovir PCR Not Detected Influenza Type A (PCR) Not Detected Influenza Type B (PCR) Not Detected M. pneumoniae (PCR) Not Detected Parainfluenza 1 (PCR) Not Detected Parainfluenza 2 (PCR) Not Detected Parainfluenza 3 (PCR) Not Detected Parainfluenza 4 (PCR) Not Detected RSV (PCR) Not Detected Entero/Rhino (PCR) Not Detected Diagnostic Findings Chest CTA 11/08/24 08:20 CT ANGIOGRAPHY OF THE CHEST, PULMONARY EMBOLUS PROTOCOL CLINICAL HISTORY: Dyspnea. Breast cancer. COMPARISON STUDY: Chest CT April 11, 2024. PET/CT October 12, 2024. TECHNIQUE: Following IV administration of 112 mL of Optiray, helical axial images of the chest were obtained utilizing the pulmonary embolus protocol. Maximal intensity projections and sagittal and coronal reformats were viewed on an independent 3D workstation. IV contrast was administered without complication. Automated exposure control was utilized for the study. A dose lowering technique was utilized adhering to the principles of ALARA. CT DOSE: 593.78 mGy.cm FINDINGS: Right internal jugular central line is in place. Extensive bilateral pulmonary emboli are present, including near occlusive emboli within the right interlobar pulmonary artery. There is straightening of the interventricular septum with dilatation of the right heart chambers. Subpleural right lower lobe opacity measures 8.7 cm in extent. There is a small right pleural effusion. This opacity is new since recent PET/CT. Opacity within the left upper lung is similar to PET/CT. This has mildly increased since chest CT of April 11, 2024. Left: Anterior pleural thickening as well as soft tissue thickening within the AP window similar to CT of April 11, 2024. No discrete enlarged thoracic lymph nodes are present. Prominent retrocrural lymph nodes remain unchanged. There are no suspicious lesions within the bony thorax. There is no pneumothorax. Visua lized portions of the upper abdomen are unremarkable. There are postoperative findings consistent with bilateral mastectomy with reconstruction. IMPRESSION: 1. Extensive bilateral pulmonary emboli, as described above. CT evidence for right heart strain and a right lower lobe pulmonary infarct with small pleural effusion. Findings discussed with Hillary Gill at time of dictation. 2. Left upper lung airspace opacities, mildly increased since CT of April 11, 2024. These are likely treatment related. 3. Persistent left apical and anterior pleural thickening with soft tissue thickening within the AP window, similar to CT of April 11, 2024. This favors tumor/post therapy change. However, continued imaging follow-up to ensure stability is recommended to exclude the possibility of residual tumor. ACT 112: Negative or not required by law. Electronically signed by: Michael Mo M.D. 11/08/2024 10:18 AM Code Status & VTE Plan Code Status Full code Supervising Physician Co-Signing Physician Notes Attending Addendum: Case reviewed with the advanced practitioner. I have personally performed a history and physical examination on the patient. I have reviewed the advanced practitioner's documentation on the date of service referenced in note, and I agree with, and take responsibility for the plan of care. please refer to her notes for full details patient seen and examined, records reviewed by myself as well on exam, patient seen resting in bed, comfortable reports right sided back pain, and headache- chronic but worsened no chest pain, shortness of breath no other symptoms VS noted and reviewed oriented x3, not in distress, speaks in sentences with no effort nor accessory muscle use mild tachycardic rate, regular rhythm, no murmurs clear breath sounds bilaterally non distended, soft, nontender no bipedal edema, erythema, warmth no neuro deficits all labs, imaging noted and reviewed ASSESSMENT AND PLAN> ACUTE BILATERAL PULMONARY EMBOLISM, with HYPOXIA IN THE SETTING OF LUNG CANCER, WITH BRAIN METS BP on the lower side- but patient and states this is her baseline check echo Heparin drip monitor closely as patient has brain mets GENERALIZED PAIN IN THE SETTING OF METASTATIC CANCER on Dilaudid PO at home having significant pain start Fentanyl patch Palliative Care consult other diagnoses and plan of care as per advanced practitioner's notes Pee Zambrano MD
[2024-11-08] MEDS: HEPARIN SOD (PORCINE) 1000 UNIT/ML IV ONE (10:37)
[2024-11-08] MEDS: HEPARIN SODIUM/DEXTROSE 25,000 UNITS/500 ML BAG IV SCH (10:37)
[2024-11-08 10:54] LABS: INR 1.1 (0.9-1.1); Partial Thromboplastin Ratio 1.2; Partial Thromboplastin Time 32 Seconds (21-31)
[2024-11-08] MEDS: HYDROmorphone INJ 0.5 MG/0.5 ML SYR IV STA (11:02)
[2024-11-08] MEDS ORDERED: HYDROmorphone HCL 4 MG TAB PO PRN (11:13)
[2024-11-08] MEDS ORDERED: HYDROmorphone HCL 2 MG TAB PO PRN (11:30)
[2024-11-08] MEDS: HYDROmorphone HCL 2 MG TAB PO STA (11:34)
[2024-11-08] MEDS: KETOROLAC 30 MG/ML VIAL IV ONE (11:34)
--- NOTE | 2024-11-08 12:20 | Ultrasound Report ---
US venous doppler LE RT CLINICAL HISTORY: edema TECHNIQUE: Right lower extremity real-time compression venous ultrasound with Color Doppler imaging. Utilizing real-time ultrasonic imaging multiple real time high-resolution ultrasonic images with comp ression and noncompression maneuvers of the deep venous system in addition to color doppler imaging w ere performed from the common femoral vein through the proximal calf veins. COMPARISON: None available at the time of this dictation. FINDINGS/IMPRESSION: There is a deep venous thrombus extending from the mid femoral vein to the popliteal and possibly the calf veins, in particular the posterior tibial vein contains a thrombus. No superficial venous throm bosis is identified. ACT 112: Negative or not required by law. Electronically signed by: Ronald Miles M.D. 11/08/2024 12:19 PM
[2024-11-08] MEDS: HYDROmorphone INJ 1 MG/ML SYRINGE IV PRN ×2 (13:51→21:02)
[2024-11-08] MEDS ORDERED: ACETAMINOPHEN 325 MG TAB PO PRN (14:21)
[2024-11-08] MEDS: fentaNYL 25 MCG/HR TDSY TD SCH (15:47)
[2024-11-08] MEDS: RAMELTEON: ORDER AWAITING ACTION SCH (15:56)
[2024-11-08] MEDS: CHECK fentaNYL PATCH PLACEMENT SCH (16:28)
[2024-11-08 17:07] LABS: ANTI-Xa, UFH(UnfractionatedHep 0.42 IU/ml (0.3-0.7)
[2024-11-08] MEDS: levETIRAcetam 500 MG TAB PO SCH (20:59)
[2024-11-08] MEDS: GABAPENTIN 300 MG CAP PO SCH (20:59)
[2024-11-08] MEDS: QUEtiapine FUMARATE 100 MG TABLET PO SCH (20:59)
--- NOTE | 2024-11-08 23:02 | Electrocardiogram Report ---
Test Reason : Blood Pressure : */* mmHG Vent. Rate : 109 BPM Atrial Rate : 109 BPM P-R Int : 120 ms QRS Dur : 78 ms QT Int : 326 ms P-R-T Axes : 94 87 76 degrees QTcB Int : 439 ms Sinus tachycardia Biatrial enlargement Abnormal ECG When compared with ECG of 26-Jul-2023 17:07, Nonspecific T wave abnormality no longer evident in Inferior leads Confirmed by Chepe Kelsey ([id number]) on 11/08/2024 11:02:21 PM Referred By: Confirmed By: Chepe Kelsey
--- NOTE | 2024-11-09 06:00 | Communication Note ---
Date of Service: November 09, 2024 Patient complaining of new headache symptoms as per RN. AP Headache, ongoing IV heparin Rx for bilateral PE CT head Hold IV heparin until CT resulted
[2024-11-09 06:22] LABS: BUN Creatinine Ratio 27.3 (10-20); Calcium 8.5 mg/dl (8.6-10.3); Creatinine Clr Calc Pharmacy 108.3 ml/min; Potassium 3.6 mmol/L (3.5-5.1)
[2024-11-09] MEDS: POTASSIUM CHLORIDE CRTAB 20 MEQ TABCR PO STA (06:24)
[2024-11-09] MEDS: ACETAMINOPHEN 1,000 MG/100 ML VIAL IV STA (06:24)
[2024-11-09 06:26] LABS: ANTI-Xa, UFH(UnfractionatedHep 0.23 IU/ml (0.3-0.7)
[2024-11-09] MEDS: KETOROLAC TROMETHAMINE 15 MG/ML VIAL IV ONE (06:36)
[2024-11-09 06:40] LABS: Hematocrit (blood only) 33.3 % (37.0-47.0); Hemoglobin 11.1 g/dl (12.0-16.0); Mean Corpuscular Hemoglobin 30.5 pg (25.0-34.0); Mean Corpuscular Hgb Conc 33.3 g/dL (32.0-36.0); Mean Corpuscular Volume 91.5 fL (80.0-100.0); Mean Platelet Volume 10.4 fL (9.4-12.4); Platelet Count 87 K/uL (130-400); Platelet Estimate Decreased (Normal); RDW Coefficient of Variation 15.7 % (11.5-14.5); RDW Standard Deviation 52.7 fL (36.4-46.3); Red Blood Count 3.64 M/uL (4.20-5.40); White Blood Count 8.08 K/ul (4.8-10.8)
[2024-11-09 06:44] LABS: Magnesium 2.4 mg/dl (1.7-2.4)
--- NOTE | 2024-11-09 07:25 | CT Scan Report ---
EXAM: CT head/brain wo con CLINICAL HISTORY: Headache, IV heparin. TECHNIQUE: Axial non-contrast CT scan of the brain was performed from the skull base to the high parietal region with multiplanar reconstructions. One of the following dose reduction techniques were utilized for this exam: Automated exposure control, adjustment of the mA and/or kV according to patient size, use of iterative reconstruction. CTDI: 74.31 mGy, DLP: 781.90 mGycm COMPARISON: Prior CT dated 09/27/2024 and MRI dated 09/24/2024. FINDINGS: Brain Parenchyma: Hypodense attenuation in white matter of right frontal lobe likely edema vs gliosis. Normal attenuation of rest of cerebral hemispheres, cerebellum, and brainstem. No evidence of acute hemorrhage, or mass effect. Ventricular System: Age related prominent ventricles. Subarachnoid Spaces: Prominent sulci and cisterns. No evidence of subarachnoid hemorrhage or extra-axial fluid collections. Cerebellum and Brainstem: Normal size and signal. No masses, lesions, or areas of abnormal signal. Orbits: Normal appearance of the globes, optic nerves, and extraocular muscles. No evidence of orbital masses or abnormal signal. Sinuses: Clear paranasal sinuses. No evidence of sinusitis or mucosal thickening. Mastoid Air Cells: Clear mastoid air cells. No evidence of mastoiditis. Skull: Status post right frontal craniotomy. Osteoma/ calcified meningioma along inner table of right parietal bone. Interval resolution of extracalvarial soft tissue swelling in right temporal region. IMPRESSION: 1. Status post right frontal craniotomy and hypodense attenuation in white matter of right frontal lobe likely edema vs gliosis, stable. 2. Osteoma/ calcified meningioma along inner table of right parietal bone, stable. 3. Interval resolution of extracalvarial soft tissue swelling in right temporal region. Electronically signed by Tomy Meehan 11-09-2024 07:25 AM
[2024-11-09] MEDS ORDERED: NON-FORMULARY MEDICATION (Riboflavin (Vitamin B2) 400 mg Tablet) PO SCH (09:00)
[2024-11-09] MEDS: MAGNESIUM OXIDE 400 MG TAB PO SCH (09:03)
[2024-11-09] MEDS: MULTIVITAMIN TAB PO SCH (09:03)
[2024-11-09] MEDS ORDERED: HYDROmorphone INJ 1 MG/ML SYRINGE IV PRN ×3 (09:55→15:10)
[2024-11-09] MEDS ORDERED: HYDROmorphone HCL 2 MG TAB PO PRN (09:57)
[2024-11-09] MEDS ORDERED: STAT IV Infusion **Titration per Protocol STA (10:00)
[2024-11-09] MEDS ORDERED: ARGATROBAN CONSULT ACTIVE PRN (10:37)
[2024-11-09] MEDS: ARGATROBAN CONSULT ACTIVE ONE (11:14)
[2024-11-09 11:49] LABS: Partial Thromboplastin Ratio 1.2; Partial Thromboplastin Time 31 Seconds (21-31)
--- NOTE | 2024-11-09 12:11 | Pharmacy Report ---
Pharmacy Anticoagulant Consult - Date of Service November 09, 2024 - Pharmacy Dosing Scope Pharmacy is consulted to initiate/evaluate argatroban dosing therapy, order appropriate labs and adjust drug dose/frequency. - Subjective The patient is a 63 year old F admitted on 11/08/24 10:49 for PULMONARY EMBOLI/DVT Patient is currently on day #1 of argatroban - Assessment & Plan Argatroban ordered 11/09 - therapeutic indication: * Patient with bilateral PE, right LE DVT. 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 * Had started heparin infusion on admission, however platelets now trending downward - heparin infusion held, provider wanting argatroban instead * Hematology consulted Labs: Argatroban infusion started at standard rate 2 mcg/kg/min (goal PTT ratio 2-3 since active clot). Plan to check aPTT/aPTT ratio after 4 hours to ensure dosing appropriate We will continue to monitor this patient and make adjustments as needed. Thank you.
[2024-11-09] MEDS: HYDROmorphone HCL 2 MG TAB PO SCH ×2 (13:35→21:02)
--- NOTE | 2024-11-09 14:31 | Palliative Care Consultation ---
Date of Consultation November 09, 2024 Assessment & Plan (1) Cancer related pain: Dilaudid 4mg tab lasting 3-3.5hr. Will begin scheduled Dilaudid 6mg PO q8h/Hold for somnolence or RR less than 14; please document RR with each dose administration. Continue Dilaudid 4mg PO q4h prn BTP/Hold for somnolence or RR less than 14; please document RR with each dose administration. Use Dilaudid 1mg IV q4h prn very severe BTP unrelieved by oral meds/Hold for somnolence or RR less than 14; please document RR with each dose administration. (2) Therapeutic opioid-induced constipation (OIC): Senna S 2 tabs BID Miralax 1 UD daily adequate hydration encouraged (3) Weakness generalized: (4) Advanced care planning/counseling discussion: 45min face to face with pt at bedside She tells me she lives alone at home with 9 cats ages 15 to 4yo, all are rescues. They are "my whole world" and she values the time she has with her pets. She is angry about not getting chemo started and feels this admission is delaying that for her. She does not like being tethered to the IV and feels it is inconvenient to have to ask to be unplugged to ambulate into bathroom. She wants to improve pain mgt and feels there is not enough focus and attention towards improving her QOL. She is open to recommendations for pain and sx mgt and agrees to OP follow up. For now she wants to stay a full code as she perceives she has treatable issues and can recover/improve. She does not perceive any new information to the contrary. I expressed my worries about her recurrent disease and increasing frailty, being unable to initiate chemo d/t low cell counts and she feels these are still fixable issues "if people would start fousing on the impotant issues first." (5) Palliative care by specialist: Introduced Palliative Medicine and explained our role in patient's care. Patient and/or family were receptive to palliative services for goals of care discussions. Reviewed we are different from hospice, a home health nurse visiting service. (6) Bilateral pulmonary embolism: (7) Lung cancer metastatic to brain: (8) Small cell lung cancer: (9) Acute on chronic respiratory failure with hypoxemia: (10) Tobacco abuse: Plan In d/w oncology, I believe her disease is likely to progress in the dura, which may be difficult to detect unless we do CSF analysis - this would would challenging given her recent low Platelet count. For now, would emphasize focus on factors that we can correct like thrombotic complications, ruling out underlying heparin induced thrombocytopenia (appears to be less likely as she low paltelets havbeen ongoing prior to admission), pain management, goals of care discussions. Thank you for allowing us to participate in the ongoing care of this patient. Please page with any additional concerns. Yamila Gupta DNP Director, Palliative Medicine History of Present Illness Reason for Consultation: goals, pain mgt, met lung ca Attending Physician: Luc Serrano MD History of Present Illness 63yo female with increasing shortness of breath over the last week, right lower extremity edema, +tachycardia, +hypoxia requiring 2 Lpm O2 +bronchitic cough/no sputum per report c/o generalized "whole body" pain, oncology (Dr Steff Yap) rx Dilaudid 4mg tabs which she has been using about 3x per day with moderate relief lasting 3-3.5 hrs. +active smoker "severe headache" overnight which she says has been going on for 3 weeks, only relief with with prn Dilaudid 4mg PO at home. 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 Her case was reviewed with her primary oncologist who noted the following: PET-CT scan on 10/12/2024, +she has recurrent small cell lung cancer involving the right scalp region; stable left pleural thickening/ no disease below the neck. Brain MRI on 11/04/2024 showed marked decrease in the dural and right frontotemporal scalp metastasis after the radiation treatment and no evidence of brain metastasis disease. headache likely related to the dural involvement and it may progress in other areas in the dura, may result into carcinomatosis meningitis. The intention was to start her on systemic chemotherapy for recurrent small-cell lung cancer but her Platelet count was on lower side and so there was no real room to start systemic chemotherapy. Her platelet count is still on lower side and so she is not a candidate for systemic chemotherapy and chemotherapy may not even penetrate to the dural disease and so it may not be effective in controlling the disease. Currently admitted with DVT and pulmonary embolism which is complicating her pulmonary symptoms and hemodynamically unstable. Allergies Allergy/AdvReac Type Severity Reaction Status Date / Time terbinafine Allergy Intermediate RASH Verified 10/10/24 11:55 adhesive Allergy Unknown HIVES AND Verified 10/10/24 11:55 RASH; WELTS FROM BANDAIDS amitriptyline Allergy Unknown Rash Verified 10/10/24 11:55 Home Medications Medication Instructions Recorded Confirmed Type gabapentin 100 mg capsule 300 mg PO HS 07/27/23 11/08/24 History quetiapine 100 mg tablet 100 mg PO HS 07/27/23 11/08/24 History magnesium oxide 400 mg PO QAM 08/12/23 11/08/24 History levetiracetam 500 mg tablet 500 mg PO AMHS 07/14/24 11/08/24 History (Keppra) ramelteon 8 mg tablet (Rozerem) 8 mg PO HS 07/14/24 11/08/24 History acetaminophen 500 mg tablet 1,000 mg PO Q8 PRN PAIN,MODERATE 09/24/24 11/08/24 History multivitamin 1 tab PO DAILY 09/24/24 11/08/24 History riboflavin (vitamin B2) 400 mg 400 mg PO QAM 09/24/24 11/08/24 History tablet vitamin E 268 mg (400 unit) capsule 268 mg PO QAM 09/24/24 11/08/24 History hydromorphone 4 mg tablet 4 mg PO Q6H PRN Pain 11/08/24 11/08/24 History Patient History Medical History Atypical chest pain Surgical History S/P BSO (status post bilateral salpingo-oophorectomy) H/O tubal ligation History of bilateral mastectomy Family History Mother Cancer Father Cancer Skin cancer Social History Smoking Status: Current every day smoker Tobacco Type: Cigarettes Cigarettes Per Day: 20; Second Hand Exposure: No; Do You Dip or Chew Tobacco: No; Tobacco Cessation Education Requested by Patient: No Hx Alcohol Use: No Hx Substance Use: No Preferred Language: Chinese Communication Ability: Effective Visual Impairment: Limited Hearing Ability: Normal Micropaleontologist Required: No Beliefs That Will Affect Care: None Current Living Situation: Spouse Current Living Situation Comment: lives with current occupational status: disabled current occupation: [employer]- currently on medical leave Other Information That Helps Us Care for You: No Feels Safe at Home: Yes Safety Concerns: Feels Safe At This Time Assistive Devices: None Assistive Devices Comment: Has oxygen at home if needed Review of Systems Review of Systems: All systems reviewed & are unremarkable except as noted in Subjective Physical Exam Constitutional: + acute distress, + ill appearing, + thi n, + frail appearing, cooperative and + underweight Bitemp wasting, chemo alopecia Eyes: PERRL, conjunctivae normal, anicteric sclerae ENMT: Nose: + nasal discharge (clear rhinitis) Mouth: + dry oral mucous membranes and + poor dentition Neck: trachea midline, no thyromegaly Respiratory: normal respiratory effort, + cough (bronchitic), able to speak in complete sentences and symmetric chest movement; no nasal flaring and no stridor Auscultation: + diminished lung sounds and + crackles (soft) Cardiovascular: Rate/Rhythm: + tachycardic (loud S2) Extremities: no calf tenderness and no pedal edema Gastrointestinal (Abdomen): Inspection/Auscultation: + hypoactive bowel sounds Percussion/Palpation: abdomen soft; no guarding and abdomen not rigid Musculoskeletal: Gait: + antalgic gait gen weakness Skin: + turgor decreased, + dry skin and + tot al alopecia (chemo related) Psychiatric: Orientation: alert and oriented x 3 Eye Contact: + fair eye contact Speech: + pressured speech Affect: + depressed affect, + anxious affect, + labile affect and + irritable affect Mood: + anxious mood and + irritable mood Thought Process: + circumstantial thought process, + tangential thought process and + perseveration Thought Content: + preoccupation Suicidal Thoughts: denies suicidal thoughts, denies suicidal plan and denies suicidal intent Homicidal Thoughts: denies homicidal thoughts, denies homicidal plan and denies homicidal intent Results & Data Vital Signs (Past 12 Hours) Vital Signs Temp Pulse Resp BP Pulse Ox O2 Del Method O2 Flow Rate 11/09/24 12:30 36.7 C 54 L 20 100/66 95 Nasal Cannula 3 11/09/24 08:12 36.8 C 111 H 22 93/57 L 90 Nasal Cannula 3 11/09/24 08:00 Nasal Cannula 3 11/09/24 05:25 36.8 C 113 H 18 112/73 92 Nasal Cannula 2 PG Care Time/CCT Total # of Minutes Spent Total Time Spent with Patient: Total time spent is greater than 50% in coordination of care (as documented) at patient's floor/unit and/or counseling patient: I spent 115 minutes overall addressing this case: 20 min in medical data review/discussion with referring provider(s) and/or preparation for the visit incl OSH data review 15 min in direct interaction with the patient/exam 45 min in Advance Care Planning/Goals of Care discussions as detailed above in note (must be >16min) 10 min in subsequent review and synthesis of assessment and plan 25 min communicating with other providers regarding the patient's case: OSH oncology, primary team Advanced Care Planning 57422 Advanced Care Planning 30 Min 96301 Advanced Care Planning Additional 30 [place] [address] IN/OBS CONSULT LVL 5,80M (25 - SIGNIFICANT, SEPARATELY IDENTIFIABLE ) Patient Type New Medical Decision Making High Complexity Diagnoses Cancer related pain G89.3 Therapeutic opioid-induced constipation (OIC) K59.03; T40.2X5A Weakness generalized R53.1 Advanced care planning/counseling discussion Z71.89 Palliative care by specialist Z51.5 Bilateral pulmonary embolism I26.99 Lung cancer metastatic to brain C34.90; C79.31 Small cell lung cancer C34.90 Acute on chronic respiratory failure with hypoxemia J96.21 Tobacco abuse Z72.0 Additional Codes Advanced Care Planning - 15783 Advanced Care Planning 30 Min: 62967 Advanced Care Planning 30 Min ([id number]) Advanced Care Planning - 95091 Advanced Care Planning Additional 30 Min: 24919 Advanced Care Planning Additional 30 Min ([id number]) Time Spent (min) 115
--- NOTE | 2024-11-09 16:50 | Hospitalist Progress Note ---
Date of Service November 09, 2024 Assessment & Plan (1) Bilateral pulmonary embolism: Plan: - CTA reviewed showing extensive bilateral PE, Right lowe lobe pulmonary infarct and small pleural effusion - Echo ordered, noted evidence of R heart stain on CTA -platlets dropping making concern for HIT a possibility vs. acute illness thrombocytopenia vs. production issue -HIT score 5-8 -given massive acute PE with tenuous clinical status in setting of refractory ma lignancy, prognosis is likely poor, discussed with patient Plan: -stop heparin, start argatroban, check HIT panel -will monitor, if no improvement in BP or vitals will further discuss GOC -appreciate hematology/oncology recommendations -DNRDNI order placed per patient preference (2) Small cell lung cancer: Plan: -She has previously had radiation to both breast and then bilateral mastectomy, and in 2022 completed combined radiation and chemotherapy with etoposide and carboplatin for small cell carcinoma of the lung. In May 2024 had a right frontal craniotomy for removal of tumor, supratentorial by Dr. Luque. She has completed stereotactic radiation to the 1 brain lesion in July and then in September completed whole brain radiation therapy. She was started on dexamethasone in the beginning of September for development of significant headaches with associated blurred vision. [facility] issues with short-term memory loss. - Stopped taking decadron after completion of whole brain radiation - Dilaudid was started by oncology for headaches specifically on 11/01 - Outpatient EPIC reviewed- shows was supposed to start Cycle 1 day 1 on 11/01/24 but was held due to thrombocytopenia, PLT= 91. Pt was supposed to have repeat labs this week for initiation of treatment. Planned chemo: durvalumab, carboplatin, etoposide. (3) Lung cancer metastatic to brain: Plan: -see above (4) Acute on chronic respiratory failure with hypoxemia: Plan: -see above (5) Cancer related pain: Plan: -nociceptive pain with neuropathic component in chest and joints -pain is currently only partially controlled Plan: -increase dilaudid to 6mg, scheduled per palliative care, appreciate recs -will consider long acting agent and neuropathic agent pending clinical course (6) Pleural effusion: Plan: -monitor (7) DVT (deep venous thrombosis): Plan: -likely source of PE, in setting of malignancy Plan Feeding/fluids: regular Analgesia: dilaudid, gabapentin Sedation: none Thromboprophylaxis: argatroban Head up position: none Ulcer prophylaxis: none Glycemic control: none Spontaneous breathing trial: on NC Bowel care: daily miralax Indwelling catheter removal: none Deescalation of antibiotics: none I spent a total of 75 minutes coordinating, documenting, and providing care for this patient excluding time spent in the performance of separately billed services. I spent 30 minutes of time with advanced care planning with patient discussing goals and values. Admission and Anticipated Discharge Date Admission Date: November 08, 2024 Subjective Patient seen and examined at bedside. Patient is not doing well today, she has a lot of pain and does not feel well overall. Pain is throughout the whole body but in particular when she coughs. She is concerned about her current clinical situation and is concerned that she may not be getting better. Discussed goals of care at length with patient. Discussed the patient's poor clinical condition and overall poor prognosis given referral refractory small cell lung cancer and severe PE with hypotension and tachycardia but does not seem to be improving. Discussed that treatment options are going to be limited if she does not do well in the acute phase. Discussed goals and values with patient. Patient does not want to suffer at end-of-life. She does not want heroic measures taken such as intubation or chest compressions. Discussed to routes forward. 1 route forward is to continue current level of care and see if she improves with more time. The hope being that her breathing will improve her, her hypotension and tachycardia will improve, and she will become a treatment candidate again. I discussed that I find this this to be unlikely. The other route forward would be to focus more on her comfort rather than treating underlying medical conditions. This approach would focus on her quality of life and comfort. Introduced the concept of hospice. Shared decision making was made to see how the next day or 2 goes with her clinical condition if she does not improve we will consider a comfort focused approach. Discussed this findings with oncology consulting team Review of Systems Review of Systems: Constitutional: No fever, sweats or chills Eyes: No diplopia, no worsening or blurred vision ENT: normal hearing, no trouble swallowing Respiratory: + wet cough, pain has inhibited expectoration of sputum, +dyspnea at rest and on exertion Cardiovascular: No chest pain, tightness or palpitations Abdomen: No pain, nausea, vomiting, diarrhea or constipation Musculoskeletal: diffuse pain Neurologic: No weakness, numbness/tingling, or balance problems Psychiatric: No anxiety or depression Skin: No rash or itch Physical Exam Physical Exam: Gen: A&O 3, appears uncomfortable HEENT: NCAT, EOMI, not icteric. External ears normal. No rhinorrhea. Moist mucous membranes. Neck: Supple, full range of motion, no observable masses, No meningeal sign. Lungs: rhonchi noted in bilateral lower lobes CV: tachycardic, regular rythym Abdomen: Soft, nondistended, No rebound tenderness. MSK: tendereness to palpation on chest Skin: No rashes, petechiae, lesions. Normal color per patient. Neuro: Normal Gait, Grossly intact. Psych: Appropriate for situation. Results & Data Results & Data Vital Signs (Past 12 Hours) Vital Signs Temp Pulse Resp BP Pulse Ox O2 Del Method O2 Flow Rate 11/09/24 16:38 36.6 C 107 H 20 93/61 L 95 Nasal Cannula 3 11/09/24 12:30 36.7 C 54 L 20 100/66 95 Nasal Cannula 3 11/09/24 08:12 36.8 C 111 H 22 93/57 L 90 Nasal Cannula 3 11/09/24 08:00 Nasal Cannula 3 11/09/24 05:25 36.8 C 113 H 18 112/73 92 Nasal Cannula 2 Laboratory Results Laboratory Results WBC 8.08 K/ul (4.8-10.8) 11/09/24 05:19 RBC 3.64 M/uL (4.20-5.40) L 11/09/24 05:19 Hgb 11.1 g/dl (12.0-16.0) L 11/09/24 05:19 Hct 33.3 % (37.0-47.0) L 11/09/24 05:19 MCV 91.5 fL (80.0-100.0) 11/09/24 05:19 MCH 30.5 pg (25.0-34.0) 11/09/24 05:19 MCHC 33.3 g/dL (32.0-36.0) 11/09/24 05:19 RDW Std Deviation 52.7 fL (36.4-46.3) H 11/09/24 05:19 RDW Coeff of John Paul 15.7 % (11.5-14.5) H 11/09/24 05:19 Plt Count 87 K/uL (130-400) L 11/09/24 05:19 MPV 10.4 fL (9.4-12.4) 11/09/24 05:19 Immature Gran % (Auto) 0.6 % 11/08/24 08:43 Neut % (Auto) 88.8 % 11/08/24 08:43 Lymph % (Auto) 3.1 % 11/08/24 08:43 [place] % (Auto) 7.2 % 11/08/24 08:43 Eos % (Auto) 0.1 % 11/08/24 08:43 Baso % (Auto) 0.2 % 11/08/24 08:43 Neut # (Auto) 9.64 K/uL (1.40-6.50) H 11/08/24 08:43 Lymph # (Auto) 0.34 K/uL (1.20-3.40) L 11/08/24 08:43 [place] # (Auto) 0.78 K/uL (0.11-0.59) H 11/08/24 08:43 Eos # (Auto) 0.01 K/uL (0.00-0.50) 11/08/24 08:43 Baso # (Auto) 0.02 K/uL (0.00-0.20) 11/08/24 08:43 Immature Gran # (Auto) 0.06 K/uL (0.01-0.20) 11/08/24 08:43 Platelet Estimate Decreased (Normal) L 11/09/24 05:19 PT 12.0 Seconds (9.0-12.0) 11/08/24 08:43 INR 1.1 (0.9-1.1) 11/08/24 08:43 APTT 31 Seconds (21-31) 11/09/24 11:05 PTT Ratio 1.2 11/09/24 11:05 Heparin Anti-Xa, Unfract 0.23 IU/ml (0.3-0.7) L 11/09/24 05:19 Sodium 141 mmol/L (136-145) 11/09/24 05:19 Potassium 3.6 mmol/L (3.5-5.1) 11/09/24 05:19 Chloride 103 mmol/L (98-107) 11/09/24 05:19 Carbon Dioxide 31 mmol/L (21-32) 11/09/24 05:19 Anion Gap 7 (3-11) 11/09/24 05:19 BUN 12 mg/dl (6-23) 11/09/24 05:19 Creatinine 0.44 mg/dl (0.6-1.2) L 11/09/24 05:19 Est Cr Clr Drug Dosing 108.3 ml/min 11/09/24 05:19 eGFR 108.62 11/09/24 05:19 BUN/Creatinine Ratio 27.3 (10-20) H 11/09/24 05:19 Glucose 108 mg/dl (70-99(Fasting)) H 11/09/24 05:19 Lactate 0.5 mmol/L (0.4-2.0) 11/08/24 08:43 Calcium 8.5 mg/dl (8.6-10.3) L 11/09/24 05:19 Magnesium 2.4 mg/dl (1.7-2.4) 11/09/24 05:19 Total Bilirubin 0.7 mg/dl (0.2-1.0) 11/08/24 08:43 AST 36 U/L (13-39) 11/08/24 08:43 ALT 28 U/L (7-52) 11/08/24 08:43 Alkaline Phosphatase 73 U/L (34-104) 11/08/24 08:43 Troponin I High Sens 26.2 pg/ml (0-14) H 11/08/24 10:40 B-Natriuretic Peptide 160 pg/ml (0-100) H 11/08/24 08:43 Total Protein 6.2 gm/dl (6.0-8.3) 11/08/24 08:43 Albumin 3.5 gm/dl (3.4-5.0) 11/08/24 08:43 Globulin 2.7 gm/dl (2.5-4.0) 11/08/24 08:43 Albumin/Globulin Ratio 1.3 (0.9-2) 11/08/24 08:43 Urine Color Dark Yellow 11/08/24 09:56 Urine Appearance Clear (Clear) 11/08/24 09:56 Urine pH 5.5 (4.5-7.5) 11/08/24 09:56 Ur Specific [place] 1.032 (1.000-1.030) H 11/08/24 09:56 Urine Protein 1+ (Negative) H 11/08/24 09:56 Urine Glucose (UA) Negative (Negative) 11/08/24 09:56 Urine Ketones Trace (Negative) H 11/08/24 09:56 Urine Blood Trace (Negative) H 11/08/24 09:56 Urine Nitrite Negative (Negative) 11/08/24 09:56 Urine Bilirubin 1+ (Negative) H 11/08/24 09:56 Urine Urobilinogen Negative (Negative) 11/08/24 09:56 Ur Leukocyte Esterase Negative (Negative) 11/08/24 09:56 Urine WBC (Auto) 0-5 /hpf (0-5) 11/08/24 09:56 Urine RBC (Auto) 3-5 /hpf (0-2) H 11/08/24 09:56 U Hyaline Cast (Auto) 0-2 /lpf (0-2) 11/08/24 09:56 U Epithel Cells (Auto) 0-2 /hpf (0-2) 11/08/24 09:56 Urine Bacteria (Auto) None Seen (None Seen) 11/08/24 09:56 Adenovirus (PCR) Not Detected (NotDetected) 11/08/24 08:45 B. pertussis DNA (PCR) Not Detected (NotDetected) 11/08/24 08:45 B.parapertussis DNA PCR Not Detected (NotDetected) 11/08/24 08:45 C. pneumoniae DNA (PCR) Not Detected (NotDetected) 11/08/24 08:45 Coronavirus OC43 (PCR) Not Detected (NotDetected) 11/08/24 08:45 Coronavirus HKU1 (PCR) Not Detected (NotDetected) 11/08/24 08:45 Coronavirus 229E (PCR) Not Detected (NotDetected) 11/08/24 08:45 SARS-CoV-2 (PCR) Not Detected (NotDetected) 11/08/24 08:45 Coronavirus NL63 (PCR) Not Detected (NotDetected) 11/08/24 08:45 Human Metapneumovir PCR Not Detected (NotDetected) 11/08/24 08:45 Influenza Type A (PCR) Not Detected (NotDetected) 11/08/24 08:45 Influenza Type B (PCR) Not Detected (NotDetected) 11/08/24 08:45 M. pneumoniae (PCR) Not Detected (NotDetected) 11/08/24 08:45 Parainfluenza 1 (PCR) Not Detected (NotDetected) 11/08/24 08:45 Parainfluenza 2 (PCR) Not Detected (NotDetected) 11/08/24 08:45 Parainfluenza 3 (PCR) Not Detected (NotDetected) 11/08/24 08:45 Parainfluenza 4 (PCR) Not Detected (NotDetected) 11/08/24 08:45 RSV (PCR) Not Detected (NotDetected) 11/08/24 08:45 Entero/Rhino (PCR) Not Detected (NotDetected) 11/08/24 08:45 Impressions Chest CTA 11/08/24 08:20 CT ANGIOGRAPHY OF THE CHEST, PULMONARY EMBOLUS PROTOCOL CLINICAL HISTORY: Dyspnea. Breast cancer. COMPARISON STUDY: Chest CT April 11, 2024. PET/CT October 12, 2024. TECHNIQUE: Following IV administration of 112 mL of Optiray, helical axial images of the chest were obtained utilizing the pulmonary embolus protocol. Maximal intensity projections and sagittal and coronal reformats were viewed on an independent 3D workstation. IV contrast was administered without complication. Automated exposure control was utilized for the study. A dose lowering technique was utilized adhering to the principles of ALARA. CT DOSE: 593.78 mGy.cm FINDINGS: Right internal jugular central line is in place. Extensive bilateral pulmonary emboli are present, including near occlusive emboli within the right interlobar pulmonary artery. There is straightening of the interventricular septum with dilatation of the right heart chambers. Subpleural right lower lobe opacity measures 8.7 cm in extent. There is a small right pleural effusion. This opacity is new since recent PET/CT. Opacity within the left upper lung is similar to PET/CT. This has mildly increased since chest CT of April 11, 2024. Left: Anterior pleural thickening as well as soft tissue thickening within the AP window similar to CT of April 11, 2024. No discrete enlarged thoracic lymph nodes are present. Prominent retrocrural lymph nodes remain unchanged. There are no suspicious lesions within the bony thorax. There is no pneumothorax. Visu alized portions of the upper abdomen are unremarkable. There are postoperative findings consistent with bilateral mastectomy with reconstruction. IMPRESSION: 1. Extensive bilateral pulmonary emboli, as described above. CT evidence for right heart strain and a right lower lobe pulmonary infarct with small pleural effusion. Findings discussed with Hillary Gill at time of dictation. 2. Left upper lung airspace opacities, mildly increased since CT of April 11, 2024. These are likely treatment related. 3. Persistent left apical and anterior pleural thickening with soft tissue thickening within the AP window, similar to CT of April 11, 2024. This favors tumor/post therapy change. However, continued imaging follow-up to ensure stability is recommended to exclude the possibility of residual tumor. ACT 112: Negative or not required by law. Electronically signed by: Michael Mo M.D. 11/08/2024 10:18 AM Venous Doppler Study 11/08/24 08:34 US venous doppler LE RT CLINICAL HISTORY: edema TECHNIQUE: Right lower extremity real-time compression venous ultrasound with Color Doppler imaging. Utilizing real-time ultrasonic imaging multiple real time high-resolution ultrasonic images with compression and noncompression maneuvers of the deep venous system in addition to color doppler imaging were performed from the common femoral vein through the proximal calf veins. COMPARISON: None available at the time of this dictation. FINDINGS/IMPRESSION: There is a deep venous thrombus extending from the mid femoral vein to the popliteal and possibly the calf veins, in particular the posterior tibial vein contains a thrombus. No superficial venous thrombosis is identified. ACT 112: Negative or not required by law. Electronically signed by: Ronald Miles M.D. 11/08/2024 12:[address] 11/09/24 06:00 EXAM: CT head/brain wo con CLINICAL HISTORY: Headache, IV heparin. TECHNIQUE: Axial non-contrast CT scan of the brain was performed from the skull base to the high parietal region with multiplanar reconstructions. One of the following dose reduction techniques were utilized for this exam: Automated exposure control, adjustment of the mA and/or kV according to patient size, use of iterative reconstruction. CTDI: 74.31 mGy, DLP: 781.90 mGycm COMPARISON: Prior CT dated 09/27/2024 and MRI dated 09/24/2024. FINDINGS: Brain Parenchyma: Hypodense attenuation in white matter of right frontal lobe likely edema vs gliosis. Normal attenuation of rest of cerebral hemispheres, cerebellum, and brainstem. No evidence of acute hemorrhage, or mass effect. Ventricular System: Age related prominent ventricles. Subarachnoid Spaces: Prominent sulci and cisterns. No evidence of subarachnoid hemorrhage or extra-axial fluid collections. Cerebellum and Brainstem: Normal size and signal. No masses, lesions, or areas of abnormal signal. Orbits: Normal appearance of the globes, optic nerves, and extraocular muscles. No evidence of orbital masses or abnormal signal. Sinuses: Clear paranasal sinuses. No evidence of sinusitis or mucosal thickening. Mastoid Air Cells: Clear mastoid air cells. No evidence of mastoiditis. Skull: Status post right frontal craniotomy. Osteoma/ calcified meningioma along inner table of right parietal bone. Interval resolution of extracalvarial soft tissue swelling in right temporal region. IMPRESSION: 1. Status post right frontal craniotomy and hypodense attenuation in white matter of right frontal lobe likely edema vs gliosis, stable. 2. Osteoma/ calcified meningioma along inner table of right parietal bone, stable. 3. Interval resolution of extracalvarial soft tissue swelling in right temporal region. Electronically signed by Tomy Meehan 11-09-2024 07:25 AM Medications Administered Fentanyl (Fentanyl 25 Mcg/Hr Tdsy) 1 patch TD Q3D PAT Stop: 11/22/24 14:29 Last Admin: 11/08/24 15:47 Dose: 1 patch Documented By: ADRIANE Gabapentin (Gabapentin 300 Mg Cap) 300 mg PO HS PAT Stop: 12/08/24 20:59 Last Admin: 11/08/24 20:59 Dose: 300 mg Documented By: HEATH Argatroban 250 mg/ Sodium (Chloride) 252.5 mls @ 7.501 mls/hr IV .Q24H PAT; Protocol Stop: 12/09/24 10:29 Last Admin: 11/09/24 11:15 Dose: 2 mcg/kg/min, 7.5 mls/hr Documented By: CLAUDIA Co-signed By: JUAN JOSE Levetiracetam (Levetiracetam 500 Mg Tab) 500 mg PO AMHS PAT Stop: 12/08/24 20:59 Last Admin: 11/09/24 09:03 Dose: 500 mg Documented By: Admin: 11/08/24 20:59 Dose: 500 mg Documented By: HEATH Magnesium Oxide (Magnesium Oxide 400 Mg Tab) 400 mg PO QAM [facility] Stop: 12/09/24 08:59 Last Admin: 11/09/24 09:03 Dose: 400 mg Documented By: CLAUDIA Teague (Fentanyl Patch Remove & Waste) 1 each N/A Q3D PAT Stop: 12/08/24 14:28 Last Admin: 11/08/24 15:43 Dose: Not Given Documented By: ADRIANE Barkercellaneous (Check Fentanyl Patch Placement) 1 each N/A QS [facility] Stop: 12/08/24 15:59 Last Admin: 11/09/24 16:04 Dose: 1 each Documented By: Admin: 11/09/24 09:03 Dose: 1 each Documented By: Admin: 11/09/24 00:32 Dose: 1 each Documented By: Admin: 11/08/24 16:28 Dose: 1 each Documented By: ADRIANE Teague (Ramelteon: Order Awaiting Action) 1 each N/A QS [facility] Stop: 12/08/24 15:59 Last Admin: 11/09/24 16:04 Dose: Not Given Documented By: Admin: 11/09/24 09:04 Dose: Not Given Documented By: Admin: 11/09/24 00:32 Dose: Not Given Documented By: Admin: 11/08/24 15:56 Dose: Not Given Documented By: ADRIANE Multivitamins (Multivitamin Tab) [facility] Stop: 12/09/24 08:59 Last Admin: 11/09/24 09:03 Dose: 1 tab Documented By: CLAUDIA Quetiapine Fumarate (Quetiapine Fumarate 100 Mg Tablet) 100 mg PO HS [facility] Stop: 12/08/24 20:59 Last Admin: 11/08/24 20:59 Dose: 100 mg Documented By: HEATH (2) Small cell lung cancer Laterality: unspecified laterality Lung location: unspecified part of lung Qualified Code(s): C34.90 - Malignant neoplasm of unspecified part of unspecified bronchus or lung (7) DVT (deep venous thrombosis) DVT location: lower extremity Affected thrombotic vein of extremity: femoral Chronicity: acute Laterality: right Qualified Code(s): I82.411 - Acute embolism and thrombosis of right femoral vein
[2024-11-09 16:55] LABS: Partial Thromboplastin Ratio 2.8; Partial Thromboplastin Time 75 Seconds (21-31)
[2024-11-09] MEDS: PHARMACY ARGATROBAN RATE CHANGE ONE ×2 (17:30→21:04)
[2024-11-09] MEDS: HYDROmorphone HCL 4 MG TAB PO PRN (18:37)
[2024-11-09 20:45] LABS: Partial Thromboplastin Ratio 2.8; Partial Thromboplastin Time 75 Seconds (21-31)
[2024-11-09] MEDS: DOCUSATE SODIUM/SENNA 50/8.6MG TAB PO SCH (21:04)
[2024-11-10 01:35] LABS: Partial Thromboplastin Ratio 2.9; Partial Thromboplastin Time 77 Seconds (21-31)
[2024-11-10] MEDS: PHARMACY ARGATROBAN RATE CHANGE ONE ×3 (02:50→23:12)
[2024-11-10 06:31] LABS: Hematocrit (blood only) 31.6 % (37.0-47.0); Hemoglobin 10.3 g/dl (12.0-16.0); Mean Corpuscular Hemoglobin 30.2 pg (25.0-34.0); Mean Corpuscular Hgb Conc 32.6 g/dL (32.0-36.0); Mean Corpuscular Volume 92.7 fL (80.0-100.0); Platelet Count 112 K/uL (130-400); RDW Coefficient of Variation 15.5 % (11.5-14.5); RDW Standard Deviation 53.1 fL (36.4-46.3); Red Blood Count 3.41 M/uL (4.20-5.40); White Blood Count 7.48 K/ul (4.8-10.8)
[2024-11-10 06:45] LABS: BUN Creatinine Ratio 29.5 (10-20); Calcium 8.4 mg/dl (8.6-10.3); Creatinine Clr Calc Pharmacy 108.3 ml/min; Magnesium 2.1 mg/dl (1.7-2.4); Potassium 4.1 mmol/L (3.5-5.1)
[2024-11-10] MEDS: SODIUM CHLORIDE 0.45 % 1,000 ML IV ONE (06:50)
--- NOTE | 2024-11-10 07:43 | Electrocardiogram Report ---
Test Reason : Blood Pressure : */* mmHG Vent. Rate : 101 BPM Atrial Rate : 101 BPM P-R Int : 124 ms QRS Dur : 86 ms QT Int : 332 ms P-R-T Axes : 94 84 79 degrees QTcB Int : 430 ms Sinus tachycardia Possible Left atrial enlargement Borderline ECG When compared with ECG of 08-Nov-2024 08:37, No significant change was found Confirmed by Chepe Kelsey ([id number]) on 11/10/2024 7:43:08 AM Referred By: REFERRED SELF Confirmed By: Chepe Kelsey
[2024-11-10 09:22] LABS: Partial Thromboplastin Ratio 2.9; Partial Thromboplastin Time 78 Seconds (21-31)
--- NOTE | 2024-11-10 09:34 | Pharmacy Report ---
Pharmacy Anticoagulant Consult - Date of Service November 10, 2024 - Pharmacy Dosing Scope Pharmacy is consulted to initiate/evaluate argatroban dosing therapy, order appropriate labs and adjust drug dose/frequency. - Subjective The patient is a 63 year old F admitted on 11/08/24 10:49 for PULMONARY EMBOLI/DVT Patient is currently on day # 2 of therapeutic argatroban - Assessment & Plan 11/09: * Argatroban ordered 11/09 - therapeutic indication: * Patient with bilateral PE, right LE DVT. 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 * Had started heparin infusion on admission, however platelets now trending downward - heparin infusion held, provider wanting argatroban instead * Hematology consulted 11/10: * Continues on argatroban infusion - PTT ratio's have been within goal range. La st check this AM was therapeutic at 2.9 - continue current rate/no changes * Interval extended this AM to Q12 hour checks for PTT ratio since previous levels have been within goal. * Next check 11/10 @1999 Labs: Argatroban infusion started at standard rate 2 mcg/kg/min (goal PTT ratio 2-3 since active clot). Continue same rate today. We will continue to monitor this patient and make adjustments as needed. Thank you.
[2024-11-10] MEDS: POLYETHYLENE (MIRALAX) 17 GM PACK PO SCH (09:35)
[2024-11-10] MEDS ORDERED: VANCOMYCIN CONSULT ACTIVE PRN (11:38)
[2024-11-10] MEDS: 4.5GM X1 IV STA (12:05)
[2024-11-10] MEDS: VANCOMYCIN HCL 1,250 MG in SODIUM CHLORIDE 0.9% 250 ML IV ONE (12:05)
--- NOTE | 2024-11-10 14:24 | Pharmacy Report ---
Pharmacy PK ABX Note - Date of Service November 10, 2024 - Assessment and Plan Assessment 63 year old F receiving vancomycin/zosyn empirically. PMHx significant for small cell lung cancer with metastases to the brain. Patient with bilateral PE and DVT. Day #1 of antimicrobial therapy. Leukocytosis resolved since admission, patient on 3 L nasal canula, UA not suggestive of infection, patient afebrile. Discussed with provider and potential concerns for pulmonary source. Provider okay with pharmacy to order MRSA nasal swab to help guide therapy. Plan Vancomycin * Loading dose: 1250 mg IV x 1 * Maintenance dose: 1250 mg IV every 12 hours * Regimen is predicted to achieve target AUC/ANGELO of 400-600 mg/L.hr * Will plan to order level if continued >48 hours Pharmacy will continue to follow and will adjust dose/frequency as necessary. Thank you. Pharmacy has transitioned to AUC monitoring for vancomycin. AUC/ANGELO is the preferred PK/PD target and is associated with decreased risk of nephrotoxicity compared to traditional trough targets.
--- NOTE | 2024-11-10 15:34 | Hospitalist Progress Note ---
Date of Service November 10, 2024 Assessment & Plan (1) Bilateral pulmonary embolism: Plan: - CTA reviewed showing extensive bilateral PE, Right lowe lobe pulmonary infarct and small pleural effusion - Echo ordered, noted evidence of R heart stain on CTA -platlets dropping making concern for HIT a possibility vs. acute illness thrombocytopenia vs. production issue -HIT score 5-8 -given massive acute PE with tenuous clinical status in setting of refractory ma lignancy, prognosis is likely poor, discussed with patient and daughter, patient appears to be worsening overall -discussed case with IR who are very cautious regarding possible thrombectomy given patients complex cancer hx Plan: -continue argatroban, check HIT panel -will continue discussion regarding goals of care with patient and daughter tomorrow -appreciate hematology/oncology recommendations -DNRDNI order placed per patient preference -appreciate pulmonary recs (2) Sepsis: Plan: -fits SIRS criteria with a source, tachycardic, tachypnic -concern for CAP Plan: -vanc zosyn for now with MRSA swab -f/u blood cultures and respiratory culture -IS, percussion ordered (3) Small cell lung cancer: Plan: -She has previously had radiation to both breast and then bilateral mastectomy, and in 2022 completed combined radiation and chemotherapy with etoposide and carboplatin for small cell carcinoma of the lung. In May 2024 had a right frontal craniotomy for removal of tumor, supratentorial by Dr. Luque. She has completed stereotactic radiation to the 1 brain lesion in July and then in September completed whole brain radiation therapy. She was started on dexamethasone in the beginning of September for development of significant headaches with associated blurred vision. She was also placed on Namenda by neurology for issues with short-term memory loss. - Stopped taking decadron after completion of whole brain radiation - Outpatient EPIC reviewed- shows was supposed to start Cycle 1 day 1 on 11/01/24 but was held due to thrombocytopenia, PLT= 91. Pt was supposed to have repeat labs this week for initiation of treatment. Planned chemo: durvalumab, carboplatin, etoposide. (4) Lung cancer metastatic to brain: Plan: -see above (5) Acute on chronic respiratory failure with hypoxemia: Plan: -see above (6) Cancer related pain: Plan: -nociceptive pain with neuropathic component in chest and joints -pain is currently only partially controlled Plan: -palliative care consult, appreciate recs (7) Pleural effusion: Plan: -monitor (8) DVT (deep venous thrombosis): Plan: -likely source of PE, in setting of malignancy Plan Feeding/fluids: regular Analgesia: dilaudid, gabapentin Sedation: none Thromboprophylaxis: argatroban Head up position: none Ulcer prophylaxis: none Glycemic control: none Spontaneous breathing trial: on NC Bowel care: daily miralax Indwelling catheter removal: none Deescalation of antibiotics: none I spent a total of 65 minutes coordinating, documenting, and providing care for this patient excluding time spent in the performance of separately billed services. Admission and Anticipated Discharge Date Admission Date: November 08, 2024 Subjective Patient seen and examined at bedside. Patient is not doing as well today as she was yesterday. She feels more short of breath and seems confused this morning. Discussed case with pulmonology who recommended discussing case with interv [facility] radiology at [facility]. Discussion with interventional radiology determined that thrombectomy would be a risky procedure at this time. Talked extensively with daughter, who patient wanted me to discuss case with, and is the one that she wants involved in her medical decision making. Discussed tenuous clinical status of patient and patient's wishes as discussed yesterday. She is appreciative of the update. Review of Systems Review of Systems: CONSTITUTIONAL: Patient denies fevers, chills, sweats and weight changes. EYES: Patient denies any visual symptoms. EARS, NOSE, AND THROAT: No difficulties with hearing. No symptoms of rhinitis or sore throat. CARDIOVASCULAR: Patient denies chest pains, palpitations, orthopnea and paroxysmal nocturnal dyspnea. RESPIRATORY: SOB GI: No nausea, vomiting, diarrhea, constipation, abdominal pain, hematochezia or melena. : No urinary hesitancy or dribbling. No nocturia or urinary frequency. No abnormal urethral discharge. MUSCULOSKELETAL: No myalgias or arthralgias. pain noted NEUROLOGIC: No chronic headaches, no seizures. Patient denies numbness, tingling or weakness. PSYCHIATRIC: Patient denies problems with mood disturbance. No problems with anxiety. ENDOCRINE: No excessive urination or excessive thirst. DERMATOLOGIC: Patient denies any rashes or skin changes. Physical Exam Physical Exam: Gen: A&O 2-3, appears uncomfortable HEENT: NCAT, EOMI, not icteric. External ears normal. No rhinorrhea. Moist mucous membranes. Neck: Supple, full range of motion, no observable masses, No meningeal sign. Lungs: rhonchi noted in bilateral lower lobes CV: tachycardic, regular rythym Abdomen: Soft, nondistended, No rebound tenderness. MSK: tendereness to palpation on chest Skin: No rashes, petechiae, lesions. Normal color per patient. Neuro: Normal Gait, Grossly intact. Psych: Appropriate for situation. Results & Data Results & Data Vital Signs (Past 12 Hours) Vital Signs Temp Pulse Resp BP Pulse Ox O2 Del Method O2 Flow Rate 11/10/24 11:29 37.2 C 116 H 20 109/71 90 Nasal Cannula 3 11/10/24 08:00 Nasal Cannula 3 11/10/24 06:39 37.3 C 133 H 18 110/65 95 Nasal Cannula 3 Laboratory Results Laboratory Results WBC 7.48 K/ul (4.8-10.8) 11/10/24 06:00 RBC 3.41 M/uL (4.20-5.40) L 11/10/24 06:00 Hgb 10.3 g/dl (12.0-16.0) L 11/10/24 06:00 Hct 31.6 % (37.0-47.0) L 11/10/24 06:00 MCV 92.7 fL (80.0-100.0) 11/10/24 06:00 MCH 30.2 pg (25.0-34.0) 11/10/24 06:00 MCHC 32.6 g/dL (32.0-36.0) 11/10/24 06:00 RDW Std Deviation 53.1 fL (36.4-46.3) H 11/10/24 06:00 RDW Coeff of John Paul 15.5 % (11.5-14.5) H 11/10/24 06:00 Plt Count 112 K/uL (130-400) L 11/10/24 06:00 MPV 10.0 fL (9.4-12.4) 11/10/24 06:00 Immature Gran % (Auto) 0.6 % 11/08/24 08:43 Neut % (Auto) 88.8 % 11/08/24 08:43 Lymph % (Auto) 3.1 % 11/08/24 08:43 Mcdonough % (Auto) 7.2 % 11/08/24 08:43 Eos % (Auto) 0.1 % 11/08/24 08:43 Baso % (Auto) 0.2 % 11/08/24 08:43 Neut # (Auto) 9.64 K/uL (1.40-6.50) H 11/08/24 08:43 Lymph # (Auto) 0.34 K/uL (1.20-3.40) L 11/08/24 08:43 Mcdonough # (Auto) 0.78 K/uL (0.11-0.59) H 11/08/24 08:43 Eos # (Auto) 0.01 K/uL (0.00-0.50) 11/08/24 08:43 Baso # (Auto) 0.02 K/uL (0.00-0.20) 11/08/24 08:43 Immature Gran # (Auto) 0.06 K/uL (0.01-0.20) 11/08/24 08:43 Platelet Estimate Decreased (Normal) L 11/09/24 05:19 PT 12.0 Seconds (9.0-12.0) 11/08/24 08:43 INR 1.1 (0.9-1.1) 11/08/24 08:43 APTT 78 Seconds (21-31) H 11/10/24 07:59 PTT Ratio 2.9 11/10/24 07:59 Heparin Anti-Xa, Unfract 0.23 IU/ml (0.3-0.7) L 11/09/24 05:19 Sodium 141 mmol/L (136-145) 11/10/24 06:00 Potassium 4.1 mmol/L (3.5-5.1) 11/10/24 06:00 Chloride 105 mmol/L (98-107) 11/10/24 06:00 Carbon Dioxide 31 mmol/L (21-32) 11/10/24 06:00 Anion Gap 5 (3-11) 11/10/24 06:00 BUN 13 mg/dl (6-23) 11/10/24 06:00 Creatinine 0.44 mg/dl (0.6-1.2) L 11/10/24 06:00 Est Cr Clr Drug Dosing 108.3 ml/min 11/10/24 06:00 eGFR 108.62 11/10/24 06:00 BUN/Creatinine Ratio 29.5 (10-20) H 11/10/24 06:00 Glucose 122 mg/dl (70-99(Fasting)) H 11/10/24 06:00 Lactate 0.5 mmol/L (0.4-2.0) 11/08/24 08:43 Calcium 8.4 mg/dl (8.6-10.3) L 11/10/24 06:00 Magnesium 2.1 mg/dl (1.7-2.4) 11/10/24 06:00 Total Bilirubin 0.7 mg/dl (0.2-1.0) 11/08/24 08:43 AST 36 U/L (13-39) 11/08/24 08:43 ALT 28 U/L (7-52) 11/08/24 08:43 Alkaline Phosphatase 73 U/L (34-104) 11/08/24 08:43 Troponin I High Sens 23.3 pg/ml (0-14) H D 11/10/24 14:24 B-Natriuretic Peptide 246 pg/ml (0-100) H 11/10/24 12:01 Total Protein 6.2 gm/dl (6.0-8.3) 11/08/24 08:43 Albumin 3.5 gm/dl (3.4-5.0) 11/08/24 08:43 Globulin 2.7 gm/dl (2.5-4.0) 11/08/24 08:43 Albumin/Globulin Ratio 1.3 (0.9-2) 11/08/24 08:43 Urine Color Dark Yellow 11/08/24 09:56 Urine Appearance Clear (Clear) 11/08/24 09:56 Urine pH 5.5 (4.5-7.5) 11/08/24 09:56 Ur Specific [place] 1.032 (1.000-1.030) H 11/08/24 09:56 Urine Protein 1+ (Negative) H 11/08/24 09:56 Urine Glucose (UA) Negative (Negative) 11/08/24 09:56 Urine Ketones Trace (Negative) H 11/08/24 09:56 Urine Blood Trace (Negative) H 11/08/24 09:56 Urine Nitrite Negative (Negative) 11/08/24 09:56 Urine Bilirubin 1+ (Negative) H 11/08/24 09:56 Urine Urobilinogen Negative (Negative) 11/08/24 09:56 Ur Leukocyte Esterase Negative (Negative) 11/08/24 09:56 Urine WBC (Auto) 0-5 /hpf (0-5) 11/08/24 09:56 Urine RBC (Auto) 3-5 /hpf (0-2) H 11/08/24 09:56 U Hyaline Cast (Auto) 0-2 /lpf (0-2) 11/08/24 09:56 U Epithel Cells (Auto) 0-2 /hpf (0-2) 11/08/24 09:56 Urine Bacteria (Auto) None Seen (None Seen) 11/08/24 09:56 Adenovirus (PCR) Not Detected (NotDetected) 11/08/24 08:45 B. pertussis DNA (PCR) Not Detected (NotDetected) 11/08/24 08:45 B.parapertussis DNA PCR Not Detected (NotDetected) 11/08/24 08:45 C. pneumoniae DNA (PCR) Not Detected (NotDetected) 11/08/24 08:45 Coronavirus OC43 (PCR) Not Detected (NotDetected) 11/08/24 08:45 Coronavirus HKU1 (PCR) Not Detected (NotDetected) 11/08/24 08:45 Coronavirus 229E (PCR) Not Detected (NotDetected) 11/08/24 08:45 SARS-CoV-2 (PCR) Not Detected (NotDetected) 11/08/24 08:45 Coronavirus NL63 (PCR) Not Detected (NotDetected) 11/08/24 08:45 Human Metapneumovir PCR Not Detected (NotDetected) 11/08/24 08:45 Influenza Type A (PCR) Not Detected (NotDetected) 11/08/24 08:45 Influenza Type B (PCR) Not Detected (NotDetected) 11/08/24 08:45 M. pneumoniae (PCR) Not Detected (NotDetected) 11/08/24 08:45 Parainfluenza 1 (PCR) Not Detected (NotDetected) 11/08/24 08:45 Parainfluenza 2 (PCR) Not Detected (NotDetected) 11/08/24 08:45 Parainfluenza 3 (PCR) Not Detected (NotDetected) 11/08/24 08:45 Parainfluenza 4 (PCR) Not Detected (NotDetected) 11/08/24 08:45 RSV (PCR) Not Detected (NotDetected) 11/08/24 08:45 Entero/Rhino (PCR) Not Detected (NotDetected) 11/08/24 08:45 Impressions Chest CTA 11/08/24 08:20 CT ANGIOGRAPHY OF THE CHEST, PULMONARY EMBOLUS PROTOCOL CLINICAL HISTORY: Dyspnea. Breast cancer. COMPARISON STUDY: Chest CT April 11, 2024. PET/CT October 12, 2024. TECHNIQUE: Following IV administration of 112 mL of Optiray, helical axial images of the chest were obtained utilizing the pulmonary embolus protocol. Maximal intensity projections and sagittal and coronal reformats were viewed on an independent 3D workstation. IV contrast was administered without complication. Automated exposure control was utilized for the study. A dose lowering technique was utilized adhering to the principles of ALARA. CT DOSE: 593.78 mGy.cm FINDINGS: Right internal jugular central line is in place. Extensive bilateral pulmonary emboli are present, including near occlusive emboli within the right interlobar pulmonary artery. There is straightening of the interventricular septum with dilatation of the right heart chambers. Subpleural right lower lobe opacity measures 8.7 cm in extent. There is a small right pleural effusion. This opacity is new since recent PET/CT. Opacity within the left upper lung is similar to PET/CT. This has mildly increased since chest CT of April 11, 2024. Left: Anterior pleural thickening as well as soft tissue thickening within the AP window similar to CT of April 11, 2024. No discrete enlarged thoracic lymph nodes are present. Prominent retrocrural lymph nodes remain unchanged. There are no suspicious lesions within the bony thorax. There is no pneumothorax. Visualized portions of the upper abdomen are unremarkable. There are postoperative findings consistent with bilateral mastectomy with reconstruction. IMPRESSION: 1. Extensive bilateral pulmonary emboli, as described above. CT evidence for right heart strain and a right lower lobe pulmonary infarct with small pleural effusion. Findings discussed with Hillary Gill at time of dictation. 2. Left upper lung airspace opacities, mildly increased since CT of April 11, 2024. These are likely treatment related. 3. Persistent left apical and anterior pleural thickening with soft tissue thickening within the AP window, similar to CT of April 11, 2024. This favors tumor/post therapy change. However, continued imaging follow-up to ensure stability is recommended to exclude the possibility of residual tumor. ACT 112: Negative or not required by law. Electronically signed by: Michael Mo M.D. 11/08/2024 10:18 AM Venous Doppler Study 11/08/24 08:34 US venous doppler LE RT CLINICAL HISTORY: edema TECHNIQUE: Right lower extremity real-time compression venous ultrasound with Color Doppler imaging. Utilizing real-time ultrasonic imaging multiple real time high-resolution ultrasonic images with compression and noncompression maneuvers of the deep venous system in addition to color doppler imaging were performed from the common femoral vein through the proximal calf veins. COMPARISON: None available at the time of this dictation. FINDINGS/IMPRESSION: There is a deep venous thrombus extending from the mid femoral vein to the popliteal and possibly the calf veins, in particular the posterior tibial vein contains a thrombus. No superficial venous thrombosis is identified. ACT 112: Negative or not required by law. Electronically signed by: Ronald Miles M.D. 11/08/2024 12:[address] 11/09/24 06:00 EXAM: CT head/brain wo con CLINICAL HISTORY: Headache, IV heparin. TECHNIQUE: Axial non-contrast CT scan of the brain was performed from the skull base to the high parietal region with multiplanar reconstructions. One of the following dose reduction techniques were utilized for this exam: Automated exposure control, adjustment of the mA and/or kV according to patient size, use of iterative reconstruction. CTDI: 74.31 mGy, DLP: 781.90 mGycm COMPARISON: Prior CT dated 09/27/2024 and MRI dated 09/24/2024. FINDINGS: Brain Parenchyma: Hypodense attenuation in white matter of right frontal lobe likely edema vs gliosis. Normal attenuation of rest of cerebral hemispheres, cerebellum, and brainstem. No evidence of acute hemorrhage, or mass effect. Ventricular System: Age related prominent ventricles. Subarachnoid Spaces: Prominent sulci and cisterns. No evidence of subarachnoid hemorrhage or extra-axial fluid collections. Cerebellum and Brainstem: Normal size and signal. No masses, lesions, or areas of abnormal signal. Orbits: Normal appearance of the globes, optic nerves, and extraocular muscles. No evidence of orbital masses or abnormal signal. Sinuses: Clear paranasal sinuses. No evidence of sinusitis or mucosal thickening. Mastoid Air Cells: Clear mastoid air cells. No evidence of mastoiditis. Skull: Status post right frontal craniotomy. Osteoma/ calcified meningioma along inner table of right parietal bone. Interval resolution of extracalvarial soft tissue swelling in right temporal region. IMPRESSION: 1. Status post right frontal craniotomy and hypodense attenuation in white matter of right frontal lobe likely edema vs gliosis, stable. 2. Osteoma/ calcified meningioma along inner table of right parietal bone, stable. 3. Interval resolution of extracalvarial soft tissue swelling in right temporal region. Electronically signed by Tomy Meehan 11-09-2024 07:25 AM (2) Sepsis Sepsis type: sepsis due to unspecified organism Sepsis acute organ dysfunction status: with acute organ dysfunction Severe sepsis acute organ dysfunction type: encephalopathy Severe sepsis shock status: without septic shock Qualified Code(s): A41.9 - Sepsis, unspecified organism; R65.20 - Severe sepsis without septic shock; G93.41 - Metabolic encephalopathy (3) Small cell lung cancer Laterality: unspecified laterality Lung location: unspecified part of lung Qualified Code(s): C34.90 - Malignant neoplasm of unspecified part of unspecified bronchus or lung (8) DVT (deep venous thrombosis) DVT location: lower extremity Affected thrombotic vein of extremity: femoral Chronicity: acute Laterality: right Qualified Code(s): I82.411 - Acute embolism and thrombosis of right femoral vein
--- NOTE | 2024-11-10 16:20 | Pulmonary Consultation ---
Date of Consultation November 10, 2024 Assessment & Plan (1) Bilateral pulmonary embolism: (2) Pulmonary hypertension: (3) Small cell lung cancer: Laterality: unspecified laterality Lung location: unspecified part of lung Qualified Code(s): C34.90 - Malignant neoplasm of unspecified part of unspecified bronchus or lung (4) DVT (deep venous thrombosis): DVT location: lower extremity Affected thrombotic vein of extremity: femoral Chronicity: acute Laterality: right Qualified Code(s): I82.411 - Acute embolism and thrombosis of right femoral vein (5) Tobacco use: Plan 63-year-old female with a history of extensive small cell lung cancer with metastases to the brain who presented with an extensive bilateral pulmonary emboli with large clot burden in the right mainstem pulmonary artery. Symptomatically she appears stable at this present time at rest. She has periods of mild hypotension and tachycardia, but is relatively asymptomatic. Oxygen requirements remain stable. She frequently takes her oxygen off per nursing staff with desaturations and visits encouraged to keep her oxygen on as much as possible. Please maintain sats of 92% or greater in the setting of pulmonary hypertension and acute PE. Patient currently on argatroban due to concerns of HIT. Consider transitioning to DOAC therapy once able in the next 1 to 2 days and once clinically more stabilized. Await IP4 antibodies and serotonin release assay. Agree with empiric antibiotics for sepsis. Agree with blood cultures. Sputum cultures if able. Discontinue vancomycin if MRSA screen is negative. Continue Zosyn for the time being. Obtain procalcitonin tomorrow. If negative and patient remains afebrile without leukocytosis, can likely discontinue antibiotics entirely. Unfortunately, overall prognosis quite poor in the setting of poor performance status, continued tobacco abuse, underlying COPD and extensive small cell lung cancer. Thank you for the consult. Will continue to follow with you. Please call with questions. History of Present Illness Reason for Consultation: "Large PE" Attending Physician: Luc Serrano MD History of Present Illness 63-year-old female with a past medical history of right breast DCIS status post diagnosis 2007, infiltrating ductal carcinoma of the left breast diagnosed in 2014, small cell lung cancer diagnosis 2022 with brain metastases in 2023. Patient also had progression of brain metastases in August 2024. Patient completed radiation to a single brain lesion in 2023 and also had a right frontal craniotomy. Unfortunately patient developed significant shortness of breath over the last 2 days and was found to have extensive pulmonary embolism bilaterally on CT chest 11/08/2024. There was evidence of right heart strain on CT chest. Lower extremity Doppler also revealed a deep vein thrombosis extending from the mid femoral vein to the popliteal possibly the calf veins. Echo on 11/08 revealed an LVEF of greater than 70% and grade 1 diastolic dysfunction. Trace pericardial effusion noted. Repeat echo today reveals moderate pulmonary hypertension with an RVSP of 55 to 60 mmHg. Troponin is mildly elevated along with BNP. On exam, patient appears slightly agitated, but denies overt shortness of breath at rest. She has shortness of breath with exertion. She is on supplemental oxygen and has been tachycardic at times during this hospitalization. Hospitalist consult for management of potential worsening pulmonary embolism. Hospitalist did reach out to interventional radiology in [place] who felt the risks of thrombectomy outweigh the benefits at this present time. Patient unfortunately continues smoke about a pack of cigarettes a day. Allergies Allergy/AdvReac Type Severity Reaction Status Date / Time terbinafine Allergy Intermediate RASH Verified 10/10/24 11:55 adhesive Allergy Unknown HIVES AND Verified 10/10/24 11:55 RASH; WELTS FROM BANDAIDS amitriptyline Allergy Unknown Rash Verified 10/10/24 11:55 Home Medications Medication Instructions Recorded Confirmed Type gabapentin 100 mg capsule 300 mg PO HS 07/27/23 11/08/24 History quetiapine 100 mg tablet 100 mg PO HS 07/27/23 11/08/24 History magnesium oxide 400 mg PO QAM 08/12/23 11/08/24 History levetiracetam 500 mg tablet 500 mg PO AMHS 07/14/24 11/08/24 History (Keppra) ramelteon 8 mg tablet (Rozerem) 8 mg PO HS 07/14/24 11/08/24 History acetaminophen 500 mg tablet 1,000 mg PO Q8 PRN PAIN,MODERATE 09/24/24 11/08/24 History multivitamin 1 tab PO DAILY 09/24/24 11/08/24 History riboflavin (vitamin B2) 400 mg 400 mg PO QAM 09/24/24 11/08/24 History tablet vitamin E 268 mg (400 unit) capsule 268 mg PO QAM 09/24/24 11/08/24 History hydromorphone 4 mg tablet 4 mg PO Q6H PRN Pain 11/08/24 11/08/24 History Patient History Medical History Atypical chest pain Surgical History S/P BSO (status post bilateral salpingo-oophorectomy) H/O tubal ligation History of bilateral mastectomy Family History Mother Cancer Father Cancer Skin cancer Social History Smoking Status: Current every day smoker Tobacco Type: Cigarettes Cigarettes Per Day: 20; Second Hand Exposure: No; Do You Dip or Chew Tobacco: No; Tobacco Cessation Education Requested by Patient: No Hx Alcohol Use: No Hx Substance Use: No Preferred Language: Latvian Communication Ability: Effective Visual Impairment: Limited Hearing Ability: Normal Interactive Project Manager Required: No Beliefs That Will Affect Care: None Current Living Situation: Spouse Current Living Situation Comment: lives with current occupational status: disabled 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 Chronically ill- appearing. Alopecia present. Eyes: Pupils are equal round and reactive to light. Conjunctivae are normal. Anicteric sclera. Ears nose, mouth and throat: Mallampati class 2. Normal posterior oropharynx. Uvula is midline. Neck: Trachea is midline. Visual inspection is normal. Respiratory: Bilateral diminishment. Cardiovascular: Tachycardic. No murmur. No murmurs. No edema. Gastrointestinal: Normal bowel sounds, soft, nontender and nondistended. No hepatosplenomegaly noted. Musculoskeletal: No cyanosis. Patient is able to move all extremities. Strength is 5 out of 5 in the upper and lower extremities. Skin: No rashes, warm dry and intact. Neurologic: No obvious focal neurological deficits seen. Psychiatric: Alert and oriented x3 with a euthymic affect. Results & Data Results & Data Vital Signs (Past 12 Hours) Vital Signs Temp Pulse Resp BP Pulse Ox O2 Del Method O2 Flow Rate 11/10/24 15:35 36.8 C 107 H 20 97/57 L 31 L Nasal Cannula 3 11/10/24 11:29 37.2 C 116 H 20 109/71 90 Nasal Cannula 3 11/10/24 08:00 Nasal Cannula 3 11/10/24 06:39 37.3 C 133 H 18 110/65 95 Nasal Cannula 3 PG Care Time/CCT Total # of Minutes Spent Total Time Spent with Patient: Total time spent is greater than 50% in coordination of care (as documented) at patient's floor/unit and/or counseling patient: Coding Level of Care Code 62403 INT INP/OBS CARE 2MIN Diagnoses Bilateral pulmonary embolism I26.99 Pulmonary hypertension I27.20 Small cell carcinoma of lung, unspecified laterality, unspecified part of lung C34.90 Laterality: unspecified laterality Lung location: unspecified part of lung Acute deep vein thrombosis (DVT) of femoral vein of right lower extremity I82.411 DVT location: lower extremity Affected thrombotic vein of extremity: femoral Chronicity: acute Laterality: right Tobacco use Z72.0
[2024-11-10] MEDS: PIPERACILLIN/TAZOBACTAM 4.5 GM/100 ML BAG IV SCH (18:48)
[2024-11-10 21:23] LABS: Partial Thromboplastin Ratio 2.8; Partial Thromboplastin Time 76 Seconds (21-31)
--- NOTE | 2024-11-10 21:51 | Palliative Care Progress Note ---
Date of Service November 10, 2024 Assessment & Plan (1) Cancer related pain: (2) Therapeutic opioid-induced constipation (OIC): (3) Weakness: (4) Advanced care planning/counseling discussion: Plan (1) Cancer related pain: Pt has been intermittently refusing scheduled pain medications per MAR, at the time of my visit she had no nonverbal signs of pain. It is unclear if the pt possesses decisional capacity as she would not engage in conversation. No changes in pain regime today. Continue scheduled Dilaudid 6mg PO q8h/Hold for somnolence or RR less than 14; please document RR with each dose administration. Continue Dilaudid 4mg PO q4h prn BTP/Hold for somnolence or RR less than 14; please document RR with each dose administration. Use Dilaudid 1mg IV q4h prn very severe BTP unrelieved by oral meds/Hold for somnolence or RR less than 14; please document RR with each dose administration. (2) Therapeutic opioid-induced constipation (OIC): Senna S 2 tabs BID Miralax 1 UD daily adequate hydration encouraged (3) Weakness generalized: (4) Advanced care planning/counseling discussion: Visited with pt at bedside, she was sitting up at edge of bed, in NAD. no visitors present and she asked me to please leave her room as I attempted to introduce myself. She share that she feels tired and would not engage in any further discussion. Pt has been intermittently refusing scheduled pain medications per MAR, at the time of my visit she had no nonverbal signs of pain. It is unclear if the pt possesses decisional capacity as she would not engage in conversation. Unsuccessful attempt made to contact pt's son by phone. Palliative car will continue to follow. Please call with any questions or concerns regarding this consultation. Admission and Anticipated Discharge Date Admission Date: November 08, 2024 Subjective Met with pt at bedside. She was sitting upright in bed, awake and alert in NAD. She asked me to leave room as I attempted to introduce myself. She denied any pain but would not engage in any further discussion or assessment. Review of Systems Review of Systems: unobtainable / pt not cooperative Physical Exam Constitutional: + ill appearing, + cachectic and + frail appearing; no acute distress and + uncooperative Results & Data Vital Signs (Past 12 Hours) Vital Signs Temp Pulse Resp BP Pulse Ox O2 Del Method O2 Flow Rate 11/10/24 20:51 20 11/10/24 20:38 109/70 11/10/24 19:39 36.8 C 105 H 18 97/60 L 93 Nasal Cannula 11/10/24 15:35 36.8 C 107 H 20 97/57 L 31 L Nasal Cannula 3 11/10/24 11:29 37.2 C 116 H 20 109/71 90 Nasal Cannula 3 Laboratory Results Abnormal lab results 11/10/24 11/10/24 11/10/24 Range/Units 00:08 06:00 07:59 RBC 3.41 L (4.20-5.40) M/uL Hgb 10.3 L (12.0-16.0) g/dl Hct 31.6 L (37.0-47.0) % RDW Std Deviation 53.1 H (36.4-46.3) fL RDW Coeff of John Paul 15.5 H (11.5-14.5) % Plt Count 112 L (130-400) K/uL APTT 77 H 78 H (21-31) Seconds Creatinine 0.44 L (0.6-1.2) mg/dl BUN/Creatinine Ratio 29.5 H (10-20) Glucose 122 H (70-99(Fasting)) mg/dl Calcium 8.4 L (8.6-10.3) mg/dl Troponin I High Sens (0-14) pg/ml B-Natriuretic Peptide (0-100) pg/ml 11/10/24 11/10/24 11/10/24 Range/Units 12:01 14:24 20:05 RBC (4.20-5.40) M/uL Hgb (12.0-16.0) g/dl Hct (37.0-47.0) % RDW Std Deviation (36.4-46.3) fL RDW Coeff of John Paul (11.5-14.5) % Plt Count (130-400) K/uL APTT 76 H (21-31) Seconds Creatinine (0.6-1.2) mg/dl BUN/Creatinine Ratio (10-20) Glucose (70-99(Fasting)) mg/dl Calcium (8.6-10.3) mg/dl Troponin I High Sens 35.4 H 23.3 H D (0-14) pg/ml B-Natriuretic Peptide 246 H (0-100) pg/ml Diagnostic Findings Chest CTA 11/08/24 08:20 CT ANGIOGRAPHY OF THE CHEST, PULMONARY EMBOLUS PROTOCOL CLINICAL HISTORY: Dyspnea. Breast cancer. COMPARISON STUDY: Chest CT April 11, 2024. PET/CT October 12, 2024. TECHNIQUE: Following IV administration of 112 mL of Optiray, helical axial images of the chest were obtained utilizing the pulmonary embolus protocol. Maximal intensity projections and sagittal and coronal reformats were viewed on an independent 3D workstation. IV contrast was administered without complication. Automated exposure control was utilized for the study. A dose lowering technique was utilized adhering to the principles of ALARA. CT DOSE: 593.78 mGy.cm FINDINGS: Right internal jugular central line is in place. Extensive bilateral pulmonary emboli are present, including near occlusive emboli within the right interlobar pulmonary artery. There is straightening of the interventricular septum with dilatation of the right heart chambers. Subpleural right lower lobe opacity measures 8.7 cm in extent. There is a small right pleural effusion. This opacity is new since recent PET/CT. Opacity within the left upper lung is similar to PET/CT. This has mildly increased since chest CT of April 11, 2024. Left: Anterior pleural thickening as well as soft tissue thickening within the AP window similar to CT of April 11, 2024. No discrete enlarged thoracic lymph nodes are present. Prominent retrocrural lymph nodes remain unchanged. There are no suspicious lesions within the bony thorax. There is no pneumothorax. Visualized portions of the upper abdomen are unremarkable. There are postoperative findings consistent with bilateral mastectomy with reconstruction. IMPRESSION: 1. Extensive bilateral pulmonary emboli, as described above. CT evidence for right heart strain and a right lower lobe pulmonary infarct with small pleural effusion. Findings discussed with Hillary Gill at time of dictation. 2. Left upper lung airspace opacities, mildly increased since CT of April 11, 2024. These are likely treatment related. 3. Persistent left apical and anterior pleural thickening with soft tissue thickening within the AP window, similar to CT of April 11, 2024. This favors tumor/post therapy change. However, continued imaging follow-up to ensure stability is recommended to exclude the possibility of residual tumor. ACT 112: Negative or not required by law. Electronically signed by: Michael Mo M.D. 11/08/2024 10:18 AM Venous Doppler Study 11/08/24 08:34 US venous doppler LE RT CLINICAL HISTORY: edema TECHNIQUE: Right lower extremity real-time compression venous ultrasound with Color Doppler imaging. Utilizing real-time ultrasonic imaging multiple real time high-resolution ultrasonic images with compression and noncompression maneuvers of the deep venous system in addition to color doppler imaging were performed from the common femoral vein through the proximal calf veins. COMPARISON: None available at the time of this dictation. FINDINGS/IMPRESSION: There is a deep venous thrombus extending from the mid femoral vein to the popliteal and possibly the calf veins, in particular the posterior tibial vein contains a thrombus. No superficial venous thrombosis is identified. ACT 112: Negative or not required by law. Electronically signed by: Ronald Miles M.D. 11/08/2024 12:[address] 11/09/24 06:00 EXAM: CT head/brain wo con CLINICAL HISTORY: Headache, IV heparin. TECHNIQUE: Axial non-contrast CT scan of the brain was performed from the skull base to the high parietal region with multiplanar reconstructions. One of the following dose reduction techniques were utilized for this exam: Automated exposure control, adjustment of the mA and/or kV according to patient size, use of iterative reconstruction. CTDI: 74.31 mGy, DLP: 781.90 mGycm COMPARISON: Prior CT dated 09/27/2024 and MRI dated 09/24/2024. FINDINGS: Brain Parenchyma: Hypodense attenuation in white matter of right frontal lobe likely edema vs gliosis. Normal attenuation of rest of cerebral hemispheres, cerebellum, and brainstem. No evidence of acute hemorrhage, or mass effect. Ventricular System: Age related prominent ventricles. Subarachnoid Spaces: Prominent sulci and cisterns. No evidence of subarachnoid hemorrhage or extra-axial fluid collections. Cerebellum and Brainstem: Normal size and signal. No masses, lesions, or areas of abnormal signal. Orbits: Normal appearance of the globes, optic nerves, and extraocular muscles. No evidence of orbital masses or abnormal signal. Sinuses: Clear paranasal sinuses. No evidence of sinusitis or mucosal thickening. Mastoid Air Cells: Clear mastoid air cells. No evidence of mastoiditis. Skull: Status post right frontal craniotomy. Osteoma/ calcified meningioma along inner table of right parietal bone. Interval resolution of extracalvarial soft tissue swelling in right temporal region. IMPRESSION: 1. Status post right frontal craniotomy and hypodense attenuation in white matter of right frontal lobe likely edema vs gliosis, stable. 2. Osteoma/ calcified meningioma along inner table of right parietal bone, stable. 3. Interval resolution of extracalvarial soft tissue swelling in right temporal region. Electronically signed by Tomy Meehan 11-09-2024 07:25 AM Medications Administered Current Inpatient Medications Acetaminophen (Acetaminophen 325 Mg Tab) 650 mg PO Q4H PRN PRN Reason: Moderate Pain (Scale 4, 5, 6) Stop: 12/08/24 14:20 Fentanyl (Fentanyl 25 Mcg/Hr Tdsy) 1 patch TD Q3D PAT Stop: 11/22/24 14:29 Last Admin: 11/08/24 15:47 Dose: 1 patch Gabapentin (Gabapentin 300 Mg Cap) 300 mg PO HS PAT Stop: 12/08/24 20:59 Last Admin: 11/10/24 20:27 Dose: 300 mg Hydromorphone HCl (Hydromorphone Inj 1 Mg/Ml Syringe) 1 mg IV Q4H PRN PRN Reason: very severe breakthru pain Stop: 11/23/24 09:54 Hydromorphone HCl (Hydromorphone Hcl 2 Mg Tab) 6 mg PO Q8 PAT Stop: 11/23/24 21:59 Last Admin: 11/10/24 21:01 Dose: 6 mg Hydromorphone HCl (Hydromorphone Hcl 4 Mg Tab) 4 mg PO Q4H PRN PRN Reason: md to sev pain breakthru Stop: 11/23/24 15:09 Last Admin: 11/10/24 18:53 Dose: 4 mg Argatroban 250 mg/ Sodium (Chloride) 252.5 mls @ 7.501 mls/hr IV .Q24H PAT; Protocol Stop: 12/09/24 10:29 Last Admin: 11/10/24 20:12 Dose: 2 mcg/kg/min, 7.5 mls/hr Piperacillin Sod/Tazobactam Sod (Zosyn) 4.5 gm in 100 mls @ 25 mls/hr IV Q8H PAT; Protocol Stop: 11/12/24 17:59 Last Admin: 11/10/24 18:48 Dose: 25 mls/hr Vancomycin HCl 1,250 mg/ (Sodium Chloride) 275 mls @ 200 mls/hr IV Q12H [facility] Stop: 11/13/24 00:00 Levetiracetam (Levetiracetam 500 Mg Tab) 500 mg PO AMHS [facility] Stop: 12/08/24 20:59 Last Admin: 11/10/24 20:27 Dose: 500 mg Magnesium Oxide (Magnesium Oxide 400 Mg Tab) 400 mg PO QAM [facility] Stop: 12/09/24 08:59 Last Admin: 11/10/24 09:30 Dose: 400 mg Miscellaneous (Fentanyl Patch Remove & Waste) 1 each N/A Q3D [facility] Stop: 12/08/24 14:28 Last Admin: 11/08/24 15:43 Dose: Not Given Miscellaneous (Check Fentanyl Patch Placement) 1 each N/A QS [facility] Stop: 12/08/24 15:59 Last Admin: 11/10/24 17:01 Dose: 1 each Miscellaneous (Ramelteon: Order Awaiting Action) 1 each N/A QS [facility] Stop: 12/08/24 15:59 Last Admin: 11/10/24 17:01 Dose: Not Given Miscellaneous Information (Argatroban Consult Active) 1 each N/A UD PRN PRN Reason: consult Stop: 12/09/24 10:36 Miscellaneous Information (Vancomycin Consult Active) 1 each N/A UD PRN PRN Reason: Consult Stop: 12/10/24 11:37 Multivitamins (Multivitamin Tab) 1 tab PO QAM [facility] Stop: 12/09/24 08:59 Last Admin: 11/10/24 09:30 Dose: 1 tab Ondansetron HCl (Ondansetron Inj 2 Mg/Ml 2 Ml Vial) 4 mg IV Q4H PRN PRN Reason: Nausea And Vomiting Stop: 12/08/24 14:20 Polyethylene Glycol (Polyethylene (Miralax) 17 Gm Pack) 17 gm PO DAILY [facility] Stop: 12/10/24 08:59 Last Admin: 11/10/24 09:35 Dose: 17 gm Quetiapine Fumarate (Quetiapine Fumarate 100 Mg Tablet) 100 mg PO HS [facility] Stop: 12/08/24 20:59 Last Admin: 11/10/24 20:27 Dose: 100 mg Senna/Docusate Sodium (Docusate Sodium/Senna 50/8.6mg Tab) 2 tab PO BID PAT Stop: 12/09/24 20:59 Last Admin: 11/10/24 09:35 Dose: 2 tab PG Care Time/CCT Total # of Minutes Spent Total Time Spent with Patient: Total time spent is greater than 50% in coordination of care (as documented) at patient's floor/unit and/or counseling patient: Coding [place] [address] SUB INP/OBS CARE 11/19MIN Patient Type Established History Problem Focused Exam Problem Focused Medical Decision Making Moderate Complexity Diagnoses Cancer related pain G89.3 Therapeutic opioid-induced constipation (OIC) K59.03; T40.2X5A Weakness R53.1 Advanced care planning/counseling discussion Z71.89
[2024-11-10] MEDS: NALOXONE HCL 0.4 MG/1 ML VIAL/CARP IV STA (23:10)
[2024-11-10] MEDS: ONDANSETRON INJ 2 MG/ML 2 ML VIAL IV PRN (23:36)
[2024-11-11] MEDS: VANCOMYCIN HCL 1,250 MG in SODIUM CHLORIDE 0.9% 250 ML IV SCH
[2024-11-11] MEDS: fentaNYL 25 MCG/HR TDSY TD SCH (01:10)
[2024-11-11] MEDS: CHECK fentaNYL PATCH PLACEMENT SCH (01:11)
[2024-11-11] MEDS ORDERED: ALBUT/IPRATROP 3MG/0.5MG NEB 3 ML VIAL NEB PRN (02:19)
[2024-11-11] MEDS: SODIUM CHLORIDE 0.9% 500 ML IV ONE (06:24)
[2024-11-11] MEDS: ACETYLCYSTEINE 10% INHAL SOLN 4 ML **DISPENSED BY RESP. INH SCH (06:58)
[2024-11-11 08:13] VITALS: RESP 22; O2SAT 96
[2024-11-11 09:01] LABS: Albumin Level 2.9 gm/dl (3.4-5.0); BUN Creatinine Ratio 12.7 (10-20); Bilirubin Direct 0.1 mg/dl (0-0.2); Bilirubin,Total 0.5 mg/dl (0.2-1.0); Calcium 8.3 mg/dl (8.6-10.3); Creatinine Clr Calc Pharmacy 86.6 ml/min; Magnesium 1.9 mg/dl (1.7-2.4); Potassium 4.1 mmol/L (3.5-5.1); Total Protein 5.5 gm/dl (6.0-8.3)
[2024-11-11 09:02] LABS: Hematocrit (blood only) 32.3 % (37.0-47.0); Hemoglobin 10.2 g/dl (12.0-16.0); Mean Corpuscular Hemoglobin 29.5 pg (25.0-34.0); Mean Corpuscular Hgb Conc 31.6 g/dL (32.0-36.0); Mean Corpuscular Volume 93.4 fL (80.0-100.0); Platelet Count 134 K/uL (130-400); RDW Coefficient of Variation 15.2 % (11.5-14.5); RDW Standard Deviation 52.1 fL (36.4-46.3); Red Blood Count 3.46 M/uL (4.20-5.40); White Blood Count 7.83 K/ul (4.8-10.8)
--- NOTE | 2024-11-11 09:24 | Communication Note ---
Date of Service: November 11, 2024 Last night as kristin was very drowsy a dose of iv Narcan 0.4mg given. Then patient became tachycardic and as initially not able to read BP code purple was called. Kristin was awake and says not feeling well and was shaky. ON rechecking SBP was in 120's. Required oxy mask. Stopped Dilaudid. Continued fentanyl patch. Later again became drowsy.Shakiness resolved. Was still tachycardic. Gave 500cc fluid bolus.Notified Am providers.
[2024-11-11 09:25] LABS: Partial Thromboplastin Ratio 2.5; Partial Thromboplastin Time 68 Seconds (21-31)
--- NOTE | 2024-11-11 09:44 | Pharmacy Report ---
Pharmacy Anticoagulant Consult - Date of Service November 11, 2024 - Pharmacy Dosing Scope Pharmacy is consulted to initiate/evaluate argatroban IV dosing therapy, order appropriate labs and adjust drug dose/frequency. - Subjective The patient is a 63 year old F admitted on 11/08/24 10:49 for PULMONARY EMBOLI. Patient is to receive or is currently on day # 3 of THERAPEUTIC argatroban IV for bilateral PE/DVT - Assessment & Plan Regarding THERAPEUTIC argatroban: 11/09: * Argatroban ordered 11/09 - therapeutic indication: * Patient with bilateral PE, right LE DVT. 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 * Had started heparin infusion on admission, however platelets now trending downward - heparin infusion held, provider wanting argatroban instead * Hematology consulted 11/10: * Continues on argatroban infusion - PTT ratio's have been within goal range. Last check this AM was therapeutic at 2.9 - continue current rate/no changes * Interval extended this AM to Q12 hour checks for PTT ratio since previous levels have been within goal. * Next check 11/10 @11/11 * Continues on argatroban infusion - PTT ratio within goal range this AM (2.5), continue current rate/no changes * Interval extended to Q24 hour for next PTT ratio check * Awaiting results for heparin antibody testing * Next check 11/12 @0800 Labs: Argatroban infusion started at standard rate 2 mcg/kg/min (goal PTT ratio 2-3 since active clot). Continue same rate today. We will continue to monitor this patient and make adjustments as needed. Thank you.
[2024-11-11 10:01] LABS: HCO3 VBG 35 mmol/L; Oxygen Saturation VBG 75.3 %; PCO2 VBG 63 mmHg (38-50); PO2 VBG 46 mmHg; pH VBG 7.35 (7.36-7.41)
--- NOTE | 2024-11-11 11:05 | Pulmonology Progress Note ---
Date of Service November 11, 2024 Assessment & Plan (1) Bilateral pulmonary embolism: (2) Pulmonary hypertension: (3) Small cell lung cancer: Laterality: unspecified laterality Lung location: unspecified part of lung Qualified Code(s): C34.90 - Malignant neoplasm of unspecified part of unspecified bronchus or lung (4) DVT (deep venous thrombosis): DVT location: lower extremity Affected thrombotic vein of extremity: femoral Chronicity: acute Laterality: right Qualified Code(s): I82.411 - Acute embolism and thrombosis of right femoral vein (5) Tobacco use: Plan 63-year-old female with a history of extensive small cell lung cancer with metastases to the brain who presented with an extensive bilateral pulmonary emboli with large clot burden in the right mainstem pulmonary artery. Symptomatically she appears stable at this present time at rest. Will saturation 92%. Patient currently on argatroban due to concerns of HIT. Consider transitioning to DOAC therapy once able in the next 1 to 2 days and once clinically more stabilized. Await IP4 antibodies and serotonin release assay. Agree with empiric antibiotics for sepsis. Agree with blood cultures. Sputum cultures if able. Discontinue vancomycin if MRSA screen is negative. Continue Zosyn for the time being. Procalcitonin 0.06 this AM. If negative and patient remains afebrile without leukocytosis, can likely discontinue antibiotics entirely. Unfortunately, overall prognosis quite poor in the setting of poor performance status, continued tobacco abuse, underlying COPD and extensive small cell lung cancer. Thank you for the consult. Pulmonary medicine will sign off at this time. Admission and Anticipated Discharge Date Admission Date: November 08, 2024 Subjective Patient seen and evaluated at bedside. She is currently eating her breakfast. No adverse events overnight. Review of Systems Review of Systems: As per HPI. Physical Exam Physical Exam: VITAL SIGNS Vital signs and nursing notes were reviewed. GENERAL 63-year-old female appearing her stated age who is in no acute distress. NOSE Midline and without cyanosis. MOUTH/OROPHARYNX Without perioral cyanosis. LUNGS Chest wall evaluation demonstrates normal chest wall A:P diameter. Auscultation reveals coarse breath sounds. CARDIAC RRR with S1/S2. No murmur, rubs, or gallops appreciated. Results & Data Results & Data Vital Signs (Past 12 Hours) Vital Signs Temp Pulse Pulse Resp BP Pulse Ox O2 Del Method 11/11/24 08:12 37.3 C 123 H 22 103/67 96 Nasal Cannula 11/11/24 07:45 Nasal Cannula 11/11/24 05:35 118 H 11/11/24 03:55 36.6 C 121 H 18 102/70 97 Nasal Cannula 11/10/24 23:24 68 129/68 11/10/24 23:06 36.5 C 118 H 18 100/62 93 Nasal Cannula O2 Flow Rate 11/11/24 08:12 5 11/11/24 07:45 5 11/11/24 05:35 11/11/24 03:55 11/10/24 23:24 11/10/24 23:06 PG Care Time/CCT Total # of Minutes Spent Total Time Spent with Patient: Total time spent is greater than 50% in coordination of care (as documented) at patient's floor/unit and/or counseling patient: Coding Level of Care Code 06814 SUB INP/OBS CARE 2/35MIN Diagnoses Bilateral pulmonary embolism I26.99 Pulmonary hypertension I27.20 Small cell carcinoma of lung, unspecified laterality, unspecified part of lung C34.90 Laterality: unspecified laterality Lung location: unspecified part of lung Acute deep vein thrombosis (DVT) of femoral vein of right lower extremity I82.411 DVT location: lower extremity Affected thrombotic vein of extremity: femoral Chronicity: acute Laterality: right Tobacco use Z72.0
[2024-11-11] MEDS ORDERED: HYDROmorphone INJ 2 MG/ML SYR/VIAL IV PRN (11:20)
[2024-11-11] MEDS ORDERED: LORazepam 2 MG/1 ML VIAL IV PRN (11:22)
[2024-11-11] MEDS ORDERED: ONDANSETRON INJ 2 MG/ML 2 ML VIAL IV PRN (11:22)
[2024-11-11] MEDS ORDERED: HYDROmorphone INJ 1 MG/ML SYRINGE IV PRN (11:25)
[2024-11-11 11:30] VITALS: BP 100/65; PULSE 109; TEMP 98.2
[2024-11-11] MEDS: PHARMACY ARGATROBAN RATE CHANGE ONE (11:45)
[2024-11-11] MEDS: HYDROmorphone INJ 1 MG/ML SYRINGE IV STA (12:00)
--- NOTE | 2024-11-11 12:12 | Hospitalist Progress Note ---
Date of Service November 11, 2024 Assessment & Plan (1) Bilateral pulmonary embolism: Plan: - CTA reviewed showing extensive bilateral PE, Right lowe lobe pulmonary infarct and small pleural effusion - Echo ordered, noted evidence of R heart stain on CTA -platlets dropping making concern for HIT a possibility vs. acute illness thrombocytopenia vs. production issue -HIT score 5-8 -given massive acute PE with tenuous clinical status in setting of refractory ma lignancy, prognosis is likely poor, discussed with patient and daughter, patient appears to be worsening overall -discussed case with IR who are very cautious regarding possible thrombectomy given patients complex cancer hx -see extensive GOC discussion above, patient will transition to comfort care at tis time Plan: -comfort care orders placed -2mg IV dilaudid q2hrs prn given significant difficulty with swallowing, if able to swallow 6mg PO dilaudid q2hr prn (on 4mg at home) -ativan for anxiety, zofran for nausea/vomiting -mouth care ordered -continue oxygen prn -discussed with case management regarding hospice, home hospice preferred by family but unclear if there is enough family to provide 24/7 support (2) Sepsis: Plan: -fits SIRS criteria with a source, tachycardic, tachypnic -concern for CAP Plan: -comfort care (3) Small cell lung cancer: Plan: -She has previously had radiation to both breast and then bilateral mastectomy, and in 2022 completed combined radiation and chemotherapy with etoposide and carboplatin for small cell carcinoma of the lung. In May 2024 had a right frontal craniotomy for removal of tumor, supratentorial by Dr. Luque. She has completed stereotactic radiation to the 1 brain lesion in July and then in September completed whole brain radiation therapy. She was started on dexamethasone in the beginning of September for development of significant headaches with associated blurred vision. She was also placed on Namenda by neurology for issues with short-term memory loss. - Stopped taking decadron after completion of whole brain radiation - Outpatient EPIC reviewed- shows was supposed to start Cycle 1 day 1 on 11/01/24 but was held due to thrombocytopenia, PLT= 91. Pt was supposed to have repeat labs this week for initiation of treatment. Planned chemo: durvalumab, carboplatin, etoposide. (4) Lung cancer metastatic to brain: Plan: -see above (5) Acute on chronic respiratory failure with hypoxemia: Plan: -see above (6) Cancer related pain: Plan: -nociceptive pain with neuropathic component in chest and joints -pain is currently only partially controlled Plan: -see above, comfort measures at this time (7) Pleural effusion: Plan: -monitor (8) DVT (deep venous thrombosis): Plan: -likely source of PE, in setting of malignancy Plan I spent a total of 55 minutes coordinating, documenting, and providing care for this patient excluding time spent in the performance of separately billed services. I spent a total of 60 minutes coordinating, documenting, and providing care for advanced care planning in this patient, who is now transitioning to comfort care. Admission and Anticipated Discharge Date Admission Date: November 08, 2024 Subjective Patient seen and examined at bedside. Daughter and were at bedside as well for a goals of care conversation. Overnight, patient declined respiratory status and mentation. Yesterday consultations with pulmonary and oncology along with interventional radiology were carried out to determine further treatment options, and patient continued to decline. Patient is not feeling well today. She feels to be in significant pain and shortness of breath. Advance care plannin hour was spent in the room talking to the patient and family regarding goals and values. Meeting started off by introducing myself and my role in patient's care family members introduced themselves as well. When asked to give their understanding of the current medical condition, daughter with inpatient were able to express that her clinical status is declining due to a blood clot in her lungs. I discussed her current clinical situation at length, including diffuse small cell lung cancer and massive clot burden including in the right mainstem. Discussed the various consultations that were performed. 2 rounds clinically were offered moving forward to the patient and family. Patient was decisional during this meeting. 1 route forward would be to continue current medical care with the hope that she will to turn a corner and improve her oxygenation. I expressed that given the past couple days, extensive workup, and various consultations I would find that to be unlikely. the other option that was offered would be to focus on comfort and treating patient's symptoms rather than underlying illness. When asked by patient and family to offer recommendation, I expressed that the patient is unlikely to improve and in order to prevent further suffering I would recommend transition to comfort care. when asked what brings her happiness, the patient expressed that her daughter and along with her grandkids and pets offer her the most happiness. She is not scared about dying but she is scared about her dying. She states that not suffering is a priority for her. After long discussion consideration, patient states that she would prefer to focus on her comfort rather than prolong suffering. Hospice was offered and explained at length. Patient states that she would like to focus on comfort now, but would like pain medication for her suffering right now, and would like to talk to employment case manager about next steps. Review of Systems Review of Systems: CONSTITUTIONAL: endorses fatigue, weakness, pain EYES: Patient denies any visual symptoms. EARS, NOSE, AND THROAT: No difficulties with hearing. No symptoms of rhinitis or sore throat. CARDIOVASCULAR: Patient denies chest pains, palpitations, orthopnea and paroxysmal nocturnal dyspnea. RESPIRATORY: significant SOB and cough GI: No nausea, vomiting, diarrhea, constipation, abdominal pain, hematochezia or melena. : No urinary hesitancy or dribbling. No nocturia or urinary frequency. No abnormal urethral discharge. MUSCULOSKELETAL: myalgias noted NEUROLOGIC: No chronic headaches, no seizures. Patient denies numbness, tingling or weakness. PSYCHIATRIC: Patient denies problems with mood disturbance. No problems with anxiety. ENDOCRINE: No excessive urination or excessive thirst. DERMATOLOGIC: Patient denies any rashes or skin changes. Physical Exam Physical Exam: Gen: A&O 3, appears uncomfortable HEENT: NCAT, EOMI, not icteric. External ears normal. No rhinorrhea. Moist mucous membranes. Neck: Supple, full range of motion, no observable masses, No meningeal sign. Lungs: rhonchi noted in bilateral lower lobes, worse than prior CV: tachycardic, regular rythym Abdomen: Soft, nondistended, No rebound tenderness. MSK: tenderness to palpation on chest Skin: No rashes, petechiae, lesions. Normal color per patient. Neuro: Normal Gait, Grossly intact. Psych: appropriate for current situation Results & Data Results & Data Vital Signs (Past 12 Hours) Vital Signs Temp Pulse Pulse Resp BP Pulse Ox O2 Del Method 11/11/24 11:28 36.8 C 109 H 22 100/65 11/11/24 08:12 37.3 C 123 H 22 103/67 96 Nasal Cannula 11/11/24 07:45 Nasal Cannula 11/11/24 05:35 118 H 11/11/24 03:55 36.6 C 121 H 18 102/70 97 Nasal Cannula O2 Flow Rate 11/11/24 11:28 11/11/24 08:12 5 11/11/24 07:45 5 11/11/24 05:35 11/11/24 03:55 (2) Sepsis Sepsis type: sepsis due to unspecified organism Sepsis acute organ dysfunction status: with acute organ dysfunction Severe sepsis acute organ dysfunction type: encephalopathy Severe sepsis shock status: without septic shock Qualified Code(s): A41.9 - Sepsis, unspecified organism; R65.20 - Severe sepsis without septic shock; G93.41 - Metabolic encephalopathy (3) Small cell lung cancer Laterality: unspecified laterality Lung location: unspecified part of lung Qualified Code(s): C34.90 - Malignant neoplasm of unspecified part of unspecified bronchus or lung (8) DVT (deep venous thrombosis) DVT location: lower extremity Affected thrombotic vein of extremity: femoral Chronicity: acute Laterality: right Qualified Code(s): I82.411 - Acute embolism and thrombosis of right femoral vein
[2024-11-11] MEDS: HEPARIN 100 UNIT/ML 5ML FLUSH FLUSH PRN (15:59)
[2024-11-11] MEDS: HYDROmorphone HCL 4 MG TAB PO PRN (15:59)
--- NOTE | 2024-11-12 10:35 | Discharge Summary ---
Discharge Summary Date of Service November 12, 2024 Principal Dx & Hospital Course #1 = Principal Diagnosis (1) Bilateral pulmonary embolism: - CTA reviewed showing extensive bilateral PE, Right lowe lobe pulmonary infarct and small pleural effusion - Echo ordered, noted evidence of R heart stain on CTA -platlets dropping making concern for HIT a possibility vs. acute illness thrombocytopenia vs. production issue -HIT score 5-8 -given massive acute PE with tenuous clinical status in setting of refractory malignancy, prognosis is likely poor, discussed with patient and daughter, patient appears to be worsening overall -discussed case with IR who are very cautious regarding possible thrombectomy given patients complex cancer hx -see extensive GOC discussion above, patient will transition to comfort care at [facility] time Plan: -comfort care orders placed -2mg IV dilaudid q2hrs prn given significant difficulty with swallowing, if able to swallow 6mg PO dilaudid q2hr prn (on 4mg at home) -ativan for anxiety, zofran for nausea/vomiting -mouth care ordered -continue oxygen prn -discussed with case management regarding hospice, patient signing up with hospice and would like to discharge home on hospice today (2) Sepsis: -fits SIRS criteria with a source, tachycardic, tachypnic -concern for CAP Plan: -comfort care (3) Small cell lung cancer: -She has previously had radiation to both breast and then bilateral mastectomy, and in 2022 completed combined radiation and chemotherapy with etoposide and carboplatin for small cell carcinoma of the lung. In May 2024 had a right frontal craniotomy for removal of tumor, supratentorial by Dr. Luque. She has completed stereotactic radiation to the 1 brain lesion in July and then in September completed whole brain radiation therapy. She was started on dexamethasone in the beginning of September for development of significant headaches with associated blurred vision. She was also placed on Namenda by neurology for issues with short-term memory loss. - Stopped taking decadron after completion of whole brain radiation - Outpatient EPIC reviewed- shows was supposed to start Cycle 1 day 1 on 11/01/24 but was held due to thrombocytopenia, PLT= 91. Pt was supposed to have repeat labs this week for initiation of treatment. Planned chemo: durvalumab, carboplatin, etoposide. (4) Lung cancer metastatic to brain: -see above (5) Acute on chronic respiratory failure with hypoxemia: -see above (6) Cancer related pain: -nociceptive pain with neuropathic component in chest and joints -pain is currently only partially controlled Plan: -see above, comfort measures at this time (7) Pleural effusion: -monitor (8) DVT (deep venous thrombosis): -likely source of PE, in setting of malignancy Notes For Next Care Provider 63-year-old female with small cell lung cancer with metastasis to the brain who presents with shortness of breath. In the ED, noted to have bilateral extensive pulmonary embolism requiring significant oxygen requirements, admitted to medicine. Started on heparin, then platelets dropped requiring switch to argatroban with concern for HIT. Oncology was consulted and pulmonology was consulted as well for further treatment options and considerations. Pulmonology recommended discussion with interventional radiology at [facility], and discussion with interventional radiology determined patient was too high risk for consideration of thrombectomy. Patient continued to decline despite maximal medical interventions. Goals of care conversation with with patient daughter and at bedside resulted in patient switching to comfort focused care. Patient signed up with hospice before discharge. Patient is hospice appropriate given prognosis on scale of days to weeks, with extensive pulmonary embolism and acute acute hypoxic respiratory failure in setting of small cell lung cancer as possible hospice diagnoses. Medication Changes From Visit -changed to comfort focused medications Admission HPI Per Admitting Provider This is a 63-year-old female with PMHx of right breast DCIS in 2007, recurrence of infiltrating ductal carcinoma of the left breast in 2014, small cell carcinoma of the left lung 2022, brain mets due to small cell lung cancer found May 2024, and in August 2024 found progression of brain metastasis. She has previously had radiation to both breast and then bilateral mastectomy, and in 2022 completed combined radiation and chemotherapy with etoposide and carboplatin for small cell carcinoma of the lung. In May 2024 had a right frontal craniotomy for removal of tumor, supratentorial by Dr. Luque. She has completed stereotactic radiation to the 1 brain lesion in July and then in September completed whole brain radiation therapy. She was started on dexamethasone in the beginning of September for development of significant headaches with associated blurred vision. She was also placed on Namenda by neurology for issues with short-term memory loss. Today the patient presents with increasing shortness of breath over the last week, right lower extremity edema, and was found to be tachycardic and still hypoxic in the ER this morning. She is requiring 2 L O2 where typically does not need any supplemental oxygen at baseline. She does have oxygen at home and was wearing 3.5 L the past two days. She has a wet sounding cough but it is painful for her to cough anything up. Pt has pain throughout her body currently, stating it is terrible. At home she has dilaudid PO 4 mg Q6H prn but only uses it twice daily, last dose was around 0400 this morning. She has smoked tobacco lifelong. Denies wanting a nicotine patch and says she wants to smoke her cigarettes. She is not on any blood thinning agents. Her , Miky, is at bedside and supports the history. Patient had a CT a of the chest which is showing extensive bilateral pulmonary emboli, evidence of right-sided heart strain, and right lower lobe pulmonary infarct with small pleural effusion. Left upper airspace opacities mildly increased since CT in March 2024, persistent left apical and anterior pleural thickening with soft tissue thickening favors tumor/posttherapy change. Patient was started on a heparin drip in the ER. Troponin noted to be 32.6, BNP 160. Electrolytes are stable, WBC 10.85, afebrile. Discharge Exam Gen: A&O 3, appears uncomfortable HEENT: NCAT, EOMI, not icteric. External ears normal. No rhinorrhea. Moist mucous membranes. Neck: Supple, full range of motion, no observable masses, No meningeal sign. Lungs: rhonchi noted in bilateral lower lobes, worse than prior CV: tachycardic, regular rythym Abdomen: Soft, nondistended, No rebound tenderness. MSK: tenderness to palpation on chest Skin: No rashes, petechiae, lesions. Normal color per patient. Neuro: Normal Gait, Grossly intact. Psych: appropriate for current situation Updated Medication List Medication Instructions Recorded Confirmed Type gabapentin 100 mg capsule 300 mg PO HS 07/27/23 11/08/24 History quetiapine 100 mg tablet 100 mg PO HS 07/27/23 11/08/24 History magnesium oxide 400 mg PO QAM 08/12/23 11/08/24 History levetiracetam 500 mg tablet 500 mg PO AMHS 07/14/24 11/08/24 History (Keppra) ramelteon 8 mg tablet (Rozerem) 8 mg PO HS 07/14/24 11/08/24 History acetaminophen 500 mg tablet 1,000 mg PO Q8 PRN PAIN,MODERATE 09/24/24 11/08/24 History multivitamin 1 tab PO DAILY 09/24/24 11/08/24 History riboflavin (vitamin B2) 400 mg 400 mg PO QAM 09/24/24 11/08/24 History tablet vitamin E 268 mg (400 unit) capsule 268 mg PO QAM 09/24/24 11/08/24 History hydromorphone 4 mg tablet 6 mg (1.5 x 4 mg) PO Q6H PRN Pain 11/11/24 Rx #15 tabs ipratropium 0.5 mg-albuterol 3 mg 3 ml NEB Q6R PRN shortness of 11/11/24 Rx (2.5 mg base)/3 mL nebulization breath #90 mL soln lorazepam 0.5 mg tablet (Ativan) 0.5 mg PO DAILY PRN anxiety #5 tabs 11/11/24 Rx ondansetron 4 mg disintegrating 4 mg PO DAILY #20 tabs 11/11/24 Rx tablet polyethylene glycol 3350 17 gram 17 g PO DAILY #15 ea 11/11/24 Rx oral powder packet (Miralax) Hospital Stay Data Consultations 11/08/24 10:36 ED Decision to Admit Stat 11/09/24 10:00 Consult Hematology Routine 11/09/24 13:16 Consult Palliative Care Routine 11/10/24 12:13 Consult Pulmonology Routine Diagnostic Imagining Performed 11/08/24 08:20 CT angio chest PE protocol Stat 11/08/24 08:34 US venous doppler LE RT Stat 11/09/24 06:00 CT head/brain wo con Stat Pending Results Patient Have Any Pending Studies at Discharge: No Discharge Instructions Given to Patient (Per Discharging Provider) 63-year-old female who was admitted with acute hypoxic respiratory failure, found to have large extensive pulmonary embolisms including in the right mainstem bronchus, not a candidate for thrombectomy due to underlying medical conditions and poor clinical status, now transitioned to comfort focused care. Long discussion at bedside with patient, , daughter all agree that given the lack of options and poor overall poor, would like to focus on comfort at this time. They are talking with hospice today and referrals have been placed. Given IV and p.o. Dilaudid for pain management, Ativan for agitation, Total Time Total Time Spent Total Time Spent (In Minutes): I spent a total of 55 minutes coordinating, documenting, and providing care for this patient excluding time spent in the performance of separately billed services.
== END 2024-11-11 16:20 | disposition hospice, home (50) | DRG 175 ==
LOC: ED 07:56 → SUATTDRO 10:49 → 4W 10:49
DX: T40.2X5A Adverse effect of other opioids, initial encounter; Y92.019 Unspecified place in single-family (private) house as the place of occurrence of the external cause; C79.31 Secondary malignant neoplasm of brain; J96.21 Acute and chronic respiratory failure with hypoxia; Z51.5 Encounter for palliative care; I24.89 Other forms of acute ischemic heart disease; Z92.3 Personal history of irradiation; I21.A1 Myocardial infarction type 2; F17.210 Nicotine dependence, cigarettes, uncomplicated; A41.9 Sepsis, unspecified organism; K59.03 Drug induced constipation; J90 Pleural effusion, not elsewhere classified; I27.20 Pulmonary hypertension, unspecified; C34.90 Malignant neoplasm of unspecified part of unspecified bronchus or lung; R51.9 Headache, unspecified; J18.9 Pneumonia, unspecified organism; G89.3 Neoplasm related pain (acute) (chronic); I26.99 Other pulmonary embolism without acute cor pulmonale; I82.411 Acute embolism and thrombosis of right femoral vein; Z66 Do not resuscitate; Z85.3 Personal history of malignant neoplasm of breast